=== PATIENT | male | born 1950 | race Caucasian/White ===

== ENCOUNTER → 2017-02-12 | Outpatient (CLI) | payer OTHER ==
[~2017-02-12] MED LIST: CLOP1TAB5 PO; PRS5 PO; TAMS0.4C38 PO
[2017-02-12 17:58] LABS: ALT/SGPT 30 U/L (12-78); AST/SGOT 16 U/L (15-37)
== END | disposition home or self-care (01) ==
LOC: C.LABBFT 10:26
PROVIDERS: ATTEND Nurse Practitioner
DX: E78.5 Hyperlipidemia, unspecified (principal)

== ENCOUNTER → 2017-05-05 | Outpatient (CLI) | payer OTHER ==
[2017-05-05 13:03] LABS: ALT/SGPT 25 U/L (12-78); BLOOD UREA NITROGEN 12 mg/dl (7-18); BUN/CREATININE RATIO 13.2 (10-20); CARBON DIOXIDE 25 mmol/L (21-32); CHLORIDE 108 mmol/L (98-107); CREATININE 0.87 mg/dl (0.60-1.40); GLUCOSE 93 mg/dl (70-99); POTASSIUM 4.1 mmol/L (3.5-5.1); SODIUM 141 mmol/L (136-145)
[2017-05-05 13:08] LABS: ALKALINE PHOSPHATASE 84 U/L (45-117); AST/SGOT 18 U/L (15-37); PROSTATE SPECIFIC ANTIGEN 0.732 ng/ml (0.000-4.000)
[2017-05-05 13:12] LABS: CALCIUM 9.9 mg/dl (8.5-10.1)
== END | disposition home or self-care (01) ==
LOC: C.LABBFT 07:59
PROVIDERS: ATTEND Nurse Practitioner
DX: E78.5 Hyperlipidemia, unspecified (principal); N40.1 Benign prostatic hyperplasia with lower urinary tract symptoms

== ENCOUNTER 2021-12-31 09:28 | Inpatient (IN) ==
[2021-12-31] MEDS ORDERED: SODIUM CHLORIDE 0.9% 1000ML 1,000 ML IV STA (10:01)
[2021-12-31] MEDS ORDERED: SODIUM CHLORIDE 0.9% 500 ML IV STA (10:01)
[2021-12-31 10:27] LABS: Hematocrit (blood only) 44.8 % (42-52); Hemoglobin 15.3 g/dL (14.0-18.0); Immature Granulocytes # (auto) 0.02 K/uL (0.00-0.02); Immature Granulocytes % (auto) 0.3 %; Lymphocytes # (auto) 0.73 K/uL (1.2-3.4); Lymphocytes % (auto) 9.5 %; Mean Corpuscular Hemoglobin 31.2 pg (25-34); Mean Corpuscular Hgb Conc 34.2 g/dL (32-36); Mean Corpuscular Volume 91.4 fL (80-100); Mean Platelet Volume 10.7 fL (7.4-10.4); Monocytes # (auto) 0.17 K/uL (0.11-0.59); Monocytes % (auto) 2.2 %; Neutrophils # (auto) 6.74 K/uL (1.4-6.5); Platelet Count 225 K/uL (130-400); RDW Standard Deviation 47.3 fL (36.4-46.3); White Blood Count 7.66 K/uL (4.8-10.8)
[2021-12-31] MEDS ORDERED: ALBUT/IPRATROP 3MG/0.5MG NEB 3 ML VIAL NEB STA (10:42)
[2021-12-31] MEDS ORDERED: dexAMETHasone**PF** 10 MG/ML VIAL IV ONE (10:42)
--- NOTE | 2021-12-31 10:54 | XRay Report ---
XR chest 1V portable HISTORY: 71 years-old Male Fever acute fever COMPARISON: None TECHNIQUE: Portable AP view of the chest FINDINGS: The cardiac silhouette is mildly enlarged. No pneumothorax or large pleural effusion. Airspace opacit ies are most pronounced in the midlung distributions and to a lesser extent within the lower lobes. P ossible underlying pulmonary emphysema. Degenerative changes of the shoulders and spine. IMPRESSION: Bilateral airspace opacities are suggestive of multifocal pneumonia. ACT 112: Negative or not required by law. The above report was generated using voice recognition software. It may contain grammatical, syntax o r spelling errors. Electronically signed by: Yovani Malone M.D. 12/31/2021 10:53 AM
[2021-12-31 11:04] LABS: Troponin I 0.03 ng/ml (0-0.04)
[2021-12-31 11:21] LABS: Albumin Globulin Ratio 1.1 (0.9-2); Albumin Level 3.5 gm/dl (3.4-5.0); BUN Creatinine Ratio 19.9 (10-20); Bilirubin,Total 0.7 mg/dl (0.2-1.0); Calcium 9.2 mg/dl (8.5-10.1); Est GFR (African American) 54.5 ml/min; Globulin 3.3 gm/dl (2.5-4.0); Potassium 3.9 mmol/L (3.5-5.1); Total Protein 6.8 gm/dl (6.0-8.3)
[2021-12-31] MEDS ORDERED: ACETAMINOPHEN 1,000 MG/100 ML VIAL IV STA (11:27)
[2021-12-31 11:34] LABS: Influenza A virus by PCR Negative (Neg); Influenza B virus by PCR Negative (Neg); RSV by PCR Negative (Neg)
[2021-12-31 11:42] LABS: SARS CoV2 RNA(COVID-19) InHosp POSITIVE (Negative)
--- NOTE | 2021-12-31 11:57 | Emergency Department Note ---
Impression & Plan Acute respiratory failure with hypoxia, Pneumonia due to severe acute respiratory syndrome coronavirus 2 (SARS-CoV-2) ED Provider Note CHIEF COMPLAINT: Fever, shortness of breath HISTORY OF PRESENT ILLNESS: This 71 yo [place]an speaking male patient presents to the emergency department with c/o SOB, fever. Patient has a family member at the bedside who is translating. He has apparently been ill with an upper respiratory infection for the better part of 3 weeks but only 3 to 4 days ago be félix to have some increased shortness of breath. He has noticed "dizziness" when he walks up the basement stairs. He denies any chest pain, vomiting or diarrhea. He is not vaccinated against COVID-19 and did recently have an exposure to somebody who likely did have COVID but was not tested. Patient has had an intermittent cough. He does not normally wear oxygen. REVIEW OF SYSTEMS: A review of systems was performed with positives and pertinent negatives listed in the history of present illness. 10 systems were reviewed and are otherwise negative. ALLERGIES: see below MEDICATIONS: see below PMH: see below SOCIAL HISTORY: see below DDx: Reactive airway disease, pneumonia, pneumothorax, COPD, CHF, infections, cardiac ischemia, pulmonary embolism, musculoskeletal, gastrointestinal, as well as other pathologies. PHYSICAL EXAM: Vital signs reviewed. General: Somewhat ill-appearing 71-year-old male, in no significant distress. Increased WOB on n/c O2 HEENT: No scleral icterus, PERRLA, neck supple. Atraumatic. Cardiovascular: Tachycardic rate and rhythm, no extra sounds. Pulmonary: Coarse breath sounds to auscultation bilaterally, normal work of breathing. Abdomen: Soft, nontender, nondistended, positive bowel sounds. Musculoskeletal: Atraumatic, no peripheral edema. Neurologic: Patient awake alert and oriented x 3, speech is clear, Skin: Warm, dry, no rash EMERGENCY DEPARTMENT COURSE/MDM: This patient was evaluated and appeared to be in no significant distress. Patient was resting comfortably on nasal cannula oxygen at 4 L. Chest x-ray was performed and reveals patchy bilateral infiltrates. Patient has tested positive for COVID-19. Laboratory work is consistent. Patient has been medicated with 1 g of IV acetaminophen for fever, IV dexamethasone and a DuoNeb treatment. He remained stable on nasal cannula oxygen and case was discussed with the hospitalist service. Patient is aware of the plan for admission and agrees. MONITORING: An order for cardiac monitoring was placed and the patient is noted to be in a sinus tachycardia at 117 beats per minute. RADIOLOGY: see below EKG: sinus tachycardia at 104 bpm. left axis deviation, previous inferior infarct, QTc 426. No PVC, no PAC. normal ST segments. nonspecific T wave abnl laterally. DISPOSITION: Admit I have personally spent 32 minutes of critical care time in the direct alek gement of this patient. This was a life/limb threatening event. This 32 minutes is in excess of all separately billable procedures. Past Med/Surg History Medical History Benign prostatic hyperplasia with urinary obstruction Deep vein thrombosis many years ago> [place] Esophageal dysphagia [place] filter in place follows Dr. 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 Beliefs That Will Affect Care: None Current Living Situation: Spouse Other Information That Helps Us Care for You: No Feels Safe at Home: Yes Assistive Devices: Oxygen - Continuous Allergies Allergies Allergy/AdvReac Type Severity Reaction Status Date / Time No Known Allergies Allergy Mild Verified 12/31/21 10:11 Home Meds Home Medications Medication Instructions Recorded Confirmed aspirin 81 mg tablet,delayed 81 mg PO DAILY 12/31/21 12/31/21 release omeprazole 20 mg capsule,delayed 20 mg PO DAILY 12/31/21 12/31/21 release Previous Rx's Medication Instructions Recorded atorvastatin 10 mg tablet 10 mg PO QAM #90 tab 06/27/21 tamsulosin 0.4 mg capsule 0.4 mg PO QAM #90 cap 07/09/21 finasteride 5 mg tablet 5 mg PO QAM #90 tab 08/09/21 Results & Data (ED) Vital Signs Vital Signs - 24 hr 12/31/21 09:43 12/31/21 10:14 12/31/21 10:44 Temperature 38 C H Temperature Source Temporal Artery Scan Pulse Rate 117 H Pulse Rate [Left Finger] 105 H Pulse Rhythm [Left Finger] Regular Pulse Strength [Left Finger] Normal Respiratory Rate 22 24 Respiratory Effort / Characteristics Non-Labored Spontaneous Non-Labored Spontaneous Respiratory Depth Normal Normal Respiratory Pattern Regular Regular Blood Pressure 119/66 Blood Pressure [Right Arm] 146/83 H Blood Pressure Mean 83 Blood Pressure Mean [Right Arm] 104 Blood Pressure Position Sitting Blood Pressure Position [Right Arm] Sitting Pulse Oximetry 88 L 94 86 L Oxygen Delivery Method Room Air Nasal Cannula Room Air Oxygen Flow Rate 4 0 Sepsis Recent Fever Within 48 Hours Yes Sepsis New/Unexplained Change in Mental Status N/A Sepsis Action Taken by Nursing No Action Required Oxygen Flow Rate - Titration 4 Pulse Oximetry Post Tiitration 95 12/31/21 11:25 Temperature 39.6 C H Temperature Source Oral Pulse Rate Pulse Rate [Left Finger] Pulse Rhythm [Left Finger] Pulse Strength [Left Finger] Respiratory Rate Respiratory Effort / Characteristics Respiratory Depth Respiratory Pattern Blood Pressure Blood Pressure [Right Arm] Blood Pressure Mean Blood Pressure Mean [Right Arm] Blood Pressure Position Blood Pressure Position [Right Arm] Pulse Oximetry Oxygen Delivery Method Oxygen Flow Rate Sepsis Recent Fever Within 48 Hours Sepsis New/Unexplained Change in Mental Status Sepsis Action Taken by Nursing Oxygen Flow Rate - Titration Pulse Oximetry Post Tiitration Home Medications Current Medication List: was personally reviewed by me Laboratory Data Attestation: I reviewed the patient's lab results. Result diagrams: 01/03/22 06:18 01/03/22 06:18 Lab Results 12/31/21 12/31/21 12/31/21 Range/Units 10:10 10:10 10:29 WBC 7.66 (4.8-10.8) K/uL RBC 4.90 (4.7-6.1) M/uL Hgb 15.3 (14.0-18.0) g/dL Hct 44.8 (42-52) % MCV 91.4 (80-100) fL MCH 31.2 (25-34) pg MCHC 34.2 (32-36) g/dL RDW Std Deviation 47.3 H (36.4-46.3) fL RDW Coeff of Samantha 14.0 (11.5-14.5) % Plt Count 225 (130-400) K/uL MPV 10.7 H (7.4-10.4) fL Immature Gran % (Auto) 0.3 % Neut % (Auto) 88.0 % Lymph % (Auto) 9.5 % Nicholas % (Auto) 2.2 % Eos % (Auto) 0.0 % Baso % (Auto) 0.0 % Neut # (Auto) 6.74 H (1.4-6.5) K/uL Lymph # (Auto) 0.73 L (1.2-3.4) K/uL Nicholas # (Auto) 0.17 (0.11-0.59) K/uL Eos # (Auto) 0.00 (0-0.5) K/uL Baso # (Auto) 0.00 (0-0.2) K/uL Immature Gran # (Auto) 0.02 (0.00-0.02) K/uL Sodium 133 L (136-145) mmol/L Potassium 3.9 (3.5-5.1) mmol/L Chloride 99 (98-107) mmol/L Carbon Dioxide 22 (21-32) mmol/L Anion Gap 12 H (3-11) BUN 29 H (6-23) mg/dl Creatinine 1.46 H (0.6-1.4) mg/dl Est Cr Clr Drug Dosing 48.0 ml/min Est GFR ( Amer) 54.5 ml/min Est GFR (Non-Af Amer) 47.0 ml/min BUN/Creatinine Ratio 19.9 (10-20) Glucose 150 H (70-99(Fasting)) mg/dl Lactate 0.9 (0.4-2.0) mmol/L Calcium 9.2 (8.5-10.1) mg/dl Total Bilirubin 0.7 (0.2-1.0) mg/dl AST 58 H (13-39) U/L ALT 60 H (7-52) U/L Alkaline Phosphatase 58 (34-104) U/L Troponin I 0.03 (0-0.04) ng/ml Total Protein 6.8 (6.0-8.3) gm/dl Albumin 3.5 (3.4-5.0) gm/dl Globulin 3.3 (2.5-4.0) gm/dl Albumin/Globulin Ratio 1.1 (0.9-2) SARS-CoV-2 (PCR) (Negative) Influenza Type A (PCR) (Neg) Influenza Type B (PCR) (Neg) RSV (RT-PCR) (Neg) 12/31/21 Range/Units 10:35 WBC (4.8-10.8) K/uL RBC (4.7-6.1) M/uL Hgb (14.0-18.0) g/dL Hct (42-52) % MCV (80-100) fL MCH (25-34) pg MCHC (32-36) g/dL RDW Std Deviation (36.4-46.3) fL RDW Coeff of Samantha (11.5-14.5) % Plt Count (130-400) K/uL MPV (7.4-10.4) fL Immature Gran % (Auto) % Neut % (Auto) % Lymph % (Auto) % Nicholas % (Auto) % Eos % (Auto) % Baso % (Auto) % Neut # (Auto) (1.4-6.5) K/uL Lymph # (Auto) (1.2-3.4) K/uL Nicholas # (Auto) (0.11-0.59) K/uL Eos # (Auto) (0-0.5) K/uL Baso # (Auto) (0-0.2) K/uL Immature Gran # (Auto) (0.00-0.02) K/uL Sodium (136-145) mmol/L Potassium (3.5-5.1) mmol/L Chloride (98-107) mmol/L Carbon Dioxide (21-32) mmol/L Anion Gap (3-11) BUN (6-23) mg/dl Creatinine (0.6-1.4) mg/dl Est Cr Clr Drug Dosing ml/min Est GFR ( Amer) ml/min Est GFR (Non-Af Amer) ml/min BUN/Creatinine Ratio (10-20) Glucose (70-99(Fasting)) mg/dl Lactate (0.4-2.0) mmol/L Calcium (8.5-10.1) mg/dl Total Bilirubin (0.2-1.0) mg/dl AST (13-39) U/L ALT (7-52) U/L Alkaline Phosphatase (34-104) U/L Troponin I (0-0.04) ng/ml Total Protein (6.0-8.3) gm/dl Albumin (3.4-5.0) gm/dl Globulin (2.5-4.0) gm/dl Albumin/Globulin Ratio (0.9-2) SARS-CoV-2 (PCR) POSITIVE A* (Negative) Influenza Type A (PCR) Negative (Neg) Influenza Type B (PCR) Negative (Neg) RSV (RT-PCR) Negative (Neg) Administered Medications Acetaminophen (Acetaminophen 325 Mg Tab) 650 mg PO Q4H PRN PRN Reason: Pain or Fever Stop: 01/30/22 16:02 Last Admin: 01/03/22 08:16 Dose: 650 mg Documented by: [id number] Admin: 01/01/22 04:31 Dose: 650 mg Documented by: [id number] Admin: 12/31/21 20:15 Dose: 650 mg Documented by: [id number] Aspirin (Aspirin 81 Mg Ectab) 81 mg PO DAILY [facility] Stop: 01/31/22 08:59 Last Admin: 01/03/22 08:17 Dose: 81 mg Documented by: [id number] Admin: 01/02/22 09:37 Dose: 81 mg Documented by: [id number] Admin: 01/01/22 08:57 Dose: 81 mg Documented by: [id number] Atorvastatin Calcium (Atorvastatin 10 Mg Tab) [facility] [place]: 01/31/22 08:59 Last Admin: 01/03/22 08:17 Dose: 10 mg Documented by: [id number] Admin: 01/02/22 09:37 Dose: 10 mg Documented by: [id number] Admin: 01/01/22 08:57 Dose: 10 mg Documented by: [id number] Finasteride (Finasteride 5 Mg Tab) 5 mg PO QAM [facility] Stop: 01/31/22 08:59 Last Admin: 01/03/22 08:17 Dose: 5 mg Documented by: [id number] Admin: 01/02/22 09:37 Dose: 5 mg Documented by: [id number] Admin: 01/01/22 08:57 Dose: 5 mg Documented by: [id number] Amiodarone HCl/Dextrose (Nexterone / D5w) 360 mg in 200 mls @ 16.667 mls/hr IV .Q12H [facility] Stop: 01/31/22 19:29 Last Infusion: 01/03/22 06:58 Dose: 5 mg/min, 166.7 mls/hr Documented by: [id number] Cosigned by: [id number] Admin: 01/02/22 23:45 Dose: 0.5 mg/min, 16.7 mls/hr Documented by: [id number] Cosigned by: [id number] Infusion: 01/02/22 23:45 Dose: 0.5 mg/min, 16.7 mls/hr Documented by: [id number] Cosigned by: [id number] Infusion: 01/02/22 19:08 Dose: 0.5 mg/min, 16.7 mls/hr Documented by: [id number] Cosigned by: [id number] Admin: 01/02/22 12:54 Dose: 0.5 mg/min, 16.7 mls/hr Documented by: [id number] Cosigned by: [id number] Infusion: 01/02/22 07:50 Dose: 0.5 mg/min, 16.7 mls/hr Documented by: [id number] Cosigned by: [id number] Infusion: 01/02/22 07:04 Dose: 0.5 mg/min, 16.7 mls/hr Documented by: [id number] Cosigned by: [id number] Admin: 01/02/22 05:55 Dose: Not Given Documented by: [id number] Admin: 01/01/22 19:51 Dose: 0.5 mg/min, 16.7 mls/hr Documented by: [id number] Cosigned by: [id number] Dexamethasone 10 mg/ Syringe 2.5 mls @ 1 mls/min IV QAM [facility]END[facility] Stop: 01/10/22 09:01 Last Admin: 01/03/22 08:17 Dose: 1 mls/min Documented by: [id number] Admin: 01/02/22 09:37 Dose: 1 mls/min Documented by: [id number] Heparin Sodium/Dextrose (Heparin Sodium/Dextrose) 25,000 units in 500 mls @ 14 mls/hr IV .Q24H [facility]; Protocol Stop: 01/31/22 14:14 Last Titration: 01/03/22 09:12 Dose: 700 units/hr, 14 mls/hr Documented by: [id number] Cosigned by: [id number] Titration: 01/03/22 08:10 Dose: 0 units/hr, 0 mls/hr Documented by: [id number] Cosigned by: [id number] Titration: 01/03/22 06:57 Dose: 950 units/hr, 19 mls/hr Documented by: [id number] Cosigned by: [id number] Titration: 01/02/22 19:12 Dose: 950 units/hr, 19 mls/hr Documented by: [id number] Cosigned by: [id number] Admin: 01/02/22 18:26 Dose: 950 units/hr, 19 mls/hr Documented by: [id number] Cosigned by: [id number] Titration: 01/02/22 17:49 Dose: 950 units/hr, 19 mls/hr Documented by: [id number] Cosigned by: [id number] Titration: 01/02/22 10:51 Dose: 950 units/hr, 19 mls/hr Documented by: [id number] Cosigned by: [id number] Titration: 01/02/22 07:05 Dose: 1,000 units/hr, 20 mls/hr Documented by: [id number] Cosigned by: [id number] Titration: 01/02/22 03:38 Dose: 1,000 units/hr, 20 mls/hr Documented by: [id number] Cosigned by: [id number] Titration: 01/02/22 00:08 Dose: 0 units/hr, 0 mls/hr Documented by: [id number] Cosigned by: [id number] Titration: 01/01/22 19:34 Dose: 1,400 units/hr, 28 mls/hr Documented by: [id number] Cosigned by: [id number] Titration: 01/01/22 18:58 Dose: 1,400 units/hr, 28 mls/hr Documented by: [id number] Cosigned by: [id number] Admin: 01/01/22 16:09 Dose: 1,400 units/hr, 28 mls/hr Documented by: [id number] Cosigned by: [id number] Insulin Aspart (Insulin Aspart Per Unit) 0 units SC ACHS [facility] Stop: 02/01/22 20:59 Last Admin: 01/03/22 08:00 Dose: 2 units Documented by: [id number] Cosigned by: [id number] Admin: 01/02/22 20:44 Dose: 3 units Documented by: [id number] Cosigned by: [id number] Tamsulosin HCl (Tamsulosin Hcl 0.4 Mg Cap) 0.4 mg PO QAM [facility] Stop: 01/31/22 08:59 Last Admin: 01/03/22 08:17 Dose: 0.4 mg Documented by: [id number] Admin: 01/02/22 09:37 Dose: 0.4 mg Documented by: [id number] Admin: 01/01/22 08:57 Dose: 0.4 mg Documented by: [id number] Discontinued Medications Albuterol (Albut/Ipratrop 3mg/0.5mg Neb 3 Ml Vial) 3 ml NEB NOW STA; Protocol Stop: 12/31/21 10:43 Last Admin: 12/31/21 11:19 Dose: 3 ml Documented by: [id number] Albuterol (Albut/Ipratrop 3mg/0.5mg Neb 3 Ml Vial) [facility]; Protocol Stop: 01/30/22 15:14 Last Admin: 12/31/21 16:06 Dose: Not Given Documented by: [id number] Dexamethasone Sodium Phosphate (DexamethasonePf 10 Mg/Ml Vial) 6 mg IV NOW ONE Stop: 12/31/21 10:43 Last Admin: 12/31/21 11:18 Dose: 6 mg Documented by: [id number] Diltiazem HCl (Diltiazem Hcl 5 Mg/Ml 5 Ml Vial) 10 mg IV NOW STA Stop: 01/01/22 13:12 Last Admin: 01/01/22 13:45 Dose: Not Given Documented by: [id number] Enoxaparin Sodium (Enoxaparin Inj 40 Mg/0.4 Ml Syr) 40 mg SQ Q24H [facility] Stop: 01/30/22 16:29 Last Admin: 01/01/22 16:27 Dose: 40 mg Documented by: [id number] Admin: 12/31/21 17:24 Dose: 40 mg Documented by: [id number] Furosemide (Furosemide 40 Mg/4 Ml Vial) 40 mg IV 2030 ONE Stop: 01/01/22 20:31 Last Admin: 01/01/22 21:50 Dose: 40 mg Documented by: [id number] Heparin Sodium (Porcine) (Heparin Sod (Porcine) 1000 Unit/Ml) 6,000 units IV NOW ONE Stop: 01/01/22 15:46 Last Admin: 01/01/22 16:12 Dose: 6,000 units Documented by: [id number] Cosigned by: [id number] Sodium Chloride (Nss 1000ml) 1,000 mls @ 125 mls/hr IV .Q8H STA Stop: 12/31/21 18:00 Last Infusion: 12/31/21 16:05 Dose: 0 mls/hr Documented by: [id number] Admin: 12/31/21 10:20 Dose: 125 mls/hr Documented by: [id number] Sodium Chloride (Nss) 500 mls @ 999 mls/hr IV .Q31M STA Stop: 12/31/21 10:31 Last Infusion: 12/31/21 11:52 Dose: 0 mls/hr Documented by: [id number] Admin: 12/31/21 10:20 Dose: 999 mls/hr Documented by: [id number] Acetaminophen (Ofirmev) 1,000 mg in 100 mls @ 400 mls/hr IV NOW STA Stop: 12/31/21 11:41 Last Infusion: 12/31/21 11:51 Dose: 0 mls/hr Documented by: [id number] Admin: 12/31/21 11:33 Dose: 400 mls/hr Documented by: [id number] Remdesivir 200 mg/ Sodium (Chloride) 250 mls @ 125 mls/hr IV ONE STA; Protocol Stop: 12/31/21 14:45 Last Infusion: 12/31/21 16:05 Dose: 0 mls/hr Documented by: [id number] Admin: 12/31/21 13:41 Dose: 125 mls/hr Documented by: [id number] Dexamethasone 6 mg/ Syringe 1.5 mls @ 1 mls/min IV DAILY [facility] Stop: 01/31/22 08:59 Last Admin: 01/01/22 08:57 Dose: 1 mls/min Documented by: [id number] Remdesivir 100 mg/ Sodium (Chloride) 250 mls @ 250 mls/hr IV Q24H [facility] Stop: 01/04/22 12:59 Last Admin: 01/01/22 13:45 Dose: Not Given Documented by: [id number] Ceftriaxone Sodium 1,000 mg/ (Dextrose) 50 mls @ 100 mls/hr IV DAILY@1600 [facility]; Protocol Stop: 01/07/22 16:29 Last Infusion: 12/31/21 17:55 Dose: 0 mls/hr Documented by: [id number] Admin: 12/31/21 17:23 Dose: 100 mls/hr Documented by: [id number] Azithromycin 500 mg/ Dextrose 255 mls @ 125 mls/hr IV Q24H [facility]; Protocol Stop: 01/08/22 16:59 Last Infusion: 01/02/22 19:58 Dose: 0 mls/hr Documented by: [id number] Admin: 01/02/22 17:38 Dose: 125 mls/hr Documented by: [id number] Infusion: 01/01/22 21:43 Dose: 0 mls/hr Documented by: [id number] Admin: 01/01/22 17:07 Dose: 125 mls/hr Documented by: [id number] Ceftriaxone Sodium 1,000 mg/ (Dextrose) 50 mls @ 100 mls/hr IV Q24H [facility]; Protocol Stop: 01/07/22 16:59 Last Infusion: 01/02/22 17:37 Dose: 0 mls/hr Documented by: [id number] Admin: 01/02/22 16:23 Dose: 100 mls/hr Documented by: [id number] Infusion: 01/01/22 16:59 Dose: 0 mls/hr Documented by: [id number] Admin: 01/01/22 16:26 Dose: 100 mls/hr Documented by: [id number] Sodium Chloride (Nss 1000ml) 500 mls @ 999 mls/hr IV .Q31M ONE Stop: 01/01/22 13:43 Last Infusion: 01/01/22 14:48 Dose: 0 mls/hr Documented by: [id number] Admin: 01/01/22 13:46 Dose: 999 mls/hr Documented by: [id number] Amiodarone HCl/Dextrose (Nexterone / D5w) 150 mg in 100 mls @ 600 mls/hr IV NOW STA Stop: 01/01/22 13:31 Last Infusion: 01/01/22 13:55 Dose: 0 mls/hr Documented by: [id number] Cosigned by: [id number] Admin: 01/01/22 13:41 Dose: 600 mls/hr Documented by: [id number] Cosigned by: [id number] Amiodarone HCl/Dextrose (Nexterone / D5w) 360 mg in 200 mls @ 33.333 mls/hr IV ONE ONE Stop: 01/01/22 19:32 Last Infusion: 01/01/22 19:51 Dose: 0 mls/hr Documented by: [id number] Cosigned by: [id number] Infusion: 01/01/22 19:33 Dose: 33.3 mls/hr Documented by: [id number] Cosigned by: [id number] Admin: 01/01/22 13:44 Dose: 33.3 mls/hr Documented by: [id number] Cosigned by: [id number] Dexamethasone 4 mg/ Syringe 1 mls @ 1 mls/min IV ONE ONE Stop: 01/01/22 14:31 Last Admin: 01/01/22 16:11 Dose: 1 mls/min Documented by: [id number] Amiodarone HCl/Dextrose (Nexterone / D5w) 150 mg in 100 mls @ 600 mls/hr IV NOW STA Stop: 01/01/22 15:26 Last Infusion: 01/01/22 16:08 Dose: 0 mls/hr Documented by: [id number] Cosigned by: [id number] Admin: 01/01/22 15:26 Dose: 600 mls/hr Documented by: [id number] Cosigned by: [id number] Lorazepam (Ativan) 0.5 mg in 1 mls @ 1 mls/min IV NOW STA Stop: 01/01/22 15:18 Last Admin: 01/01/22 15:25 Dose: 1 mls/min Documented by: [id number] Digoxin 250 mcg/ Syringe 10 mls @ 2 mls/min IV ONE ONE Stop: 01/01/22 16:09 Last Admin: 01/01/22 16:12 Dose: 2 mls/min Documented by: [id number] Digoxin 250 mcg/ Syringe 10 mls @ 2 mls/min IV NOW STA Stop: 01/01/22 18:12 Last Admin: 01/01/22 23:06 Dose: Not Given Documented by: [id number] Amiodarone HCl/Dextrose (Nexterone / D5w) 150 mg in 100 mls @ 600 mls/hr IV NOW STA Stop: 01/01/22 19:15 Last Admin: 01/01/22 23:05 Dose: Not Given Documented by: [id number] Phenylephrine HCl 20 mg/ (Dextrose) 502 mls @ 59.111 mls/hr IV .Q8H30M [facility]; Protocol Stop: 01/31/22 19:29 Last Titration: 01/03/22 06:57 Dose: 0.5 mcg/kg/min, 59.1 mls/hr Documented by: [id number] Cosigned by: [id number] Admin: 01/03/22 05:59 Dose: 0.5 mcg/kg/min, 59.1 mls/hr Documented by: [id number] Cosigned by: [id number] Titration: 01/03/22 05:49 Dose: 0.5 mcg/kg/min, 59.1 mls/hr Documented by: [id number] Cosigned by: [id number] Titration: 01/03/22 05:46 Dose: 0.5 mcg/kg/min, 59.1 mls/hr Documented by: [id number] Admin: 01/03/22 02:08 Dose: Not Given Documented by: [id number] Admin: 01/03/22 00:15 Dose: Not Given Documented by: [id number] Admin: 01/03/22 00:15 Dose: Not Given Documented by: [id number] Admin: 01/02/22 23:53 Dose: Not Given Documented by: [id number] Admin: 01/02/22 23:44 Dose: 0.7 mcg/kg/min, 82.8 mls/hr Documented by: [id number] Cosigned by: [id number] Titration: 01/02/22 23:08 Dose: 0.9 mcg/kg/min, 106.4 mls/hr Documented by: [id number] Cosigned by: [id number] Titration: 01/02/22 19:08 Dose: 0.9 mcg/kg/min, 106.4 mls/hr Documented by: [id number] Cosigned by: [id number] Admin: 01/02/22 18:24 Dose: 0.9 mcg/kg/min, 106.4 mls/hr Documented by: [id number] Cosigned by: [id number] Titration: 01/02/22 17:37 Dose: 0.9 mcg/kg/min, 106.4 mls/hr Documented by: [id number] Cosigned by: [id number] Admin: 01/02/22 12:53 Dose: 0.9 mcg/kg/min, 106.4 mls/hr Documented by: [id number] Cosigned by: [id number] Titration: 01/02/22 12:53 Dose: 0.9 mcg/kg/min, 106.4 mls/hr Documented by: [id number] Cosigned by: [id number] Titration: 01/02/22 11:59 Dose: 0.9 mcg/kg/min, 106.4 mls/hr Documented by: [id number] Admin: 01/02/22 09:30 Dose: 1.1 mcg/kg/min, 130 mls/hr Documented by: [id number] Cosigned by: [id number] Titration: 01/02/22 08:34 Dose: 1.1 mcg/kg/min, 130 mls/hr Documented by: [id number] Cosigned by: [id number] Titration: 01/02/22 07:04 Dose: 1.1 mcg/kg/min, 130 mls/hr Documented by: [id number] Cosigned by: [id number] Admin: 01/02/22 04:10 Dose: 0.9 mcg/kg/min, 106.4 mls/hr Documented by: [id number] Cosigned by: [id number] Titration: 01/02/22 02:15 Dose: 0.9 mcg/kg/min, 106.4 mls/hr Documented by: [id number] Cosigned by: [id number] Titration: 01/01/22 23:45 Dose: 0.9 mcg/kg/min, 106.4 mls/hr Documented by: [id number] Titration: 01/01/22 23:30 Dose: 0.7 mcg/kg/min, 82.8 mls/hr Documented by: [id number] Admin: 01/01/22 19:50 Dose: 0.5 mcg/kg/min, 59.1 mls/hr Documented by: [id number] Cosigned by: [id number] Diltiazem HCl 125 mg/ Dextrose 125 mls @ 5 mls/hr IV .Q24H [facility]; Protocol Stop: 01/31/22 19:29 Last Titration: 01/03/22 06:58 Dose: 5 mg/hr, 5 mls/hr Documented by: [id number] Cosigned by: [id number] Admin: 01/03/22 05:58 Dose: Not Given Documented by: [id number] Titration: 01/03/22 05:47 Dose: 5 mg/hr, 5 mls/hr Documented by: [id number] Cosigned by: [id number] Admin: 01/03/22 04:59 Dose: Not Given Documented by: [id number] Admin: 01/02/22 23:53 Dose: Not Given Documented by: [id number] Titration: 01/02/22 23:44 Dose: 10 mg/hr, 10 mls/hr Documented by: [id number] Cosigned by: [id number] Admin: 01/02/22 23:44 Dose: 10 mg/hr, 10 mls/hr Documented by: [id number] Cosigned by: [id number] Titration: 01/02/22 19:08 Dose: 10 mg/hr, 10 mls/hr Documented by: [id number] Cosigned by: [id number] Titration: 01/02/22 15:18 Dose: 10 mg/hr, 10 mls/hr Documented by: [id number] Cosigned by: [id number] Admin: 01/02/22 12:53 Dose: 15 mg/hr, 15 mls/hr Documented by: [id number] Cosigned by: [id number] Titration: 01/02/22 12:30 Dose: 15 mg/hr, 15 mls/hr Documented by: [id number] Cosigned by: [id number] Titration: 01/02/22 07:06 Dose: 15 mg/hr, 15 mls/hr Documented by: [id number] Cosigned by: [id number] Admin: 01/02/22 04:10 Dose: 15 mg/hr, 15 mls/hr Documented by: [id number] Cosigned by: [id number] Titration: 01/02/22 04:10 Dose: 15 mg/hr, 15 mls/hr Documented by: [id number] Cosigned by: [id number] Titration: 01/01/22 21:52 Dose: 15 mg/hr, 15 mls/hr Documented by: [id number] Cosigned by: [id number] Titration: 01/01/22 20:51 Dose: 10 mg/hr, 10 mls/hr Documented by: [id number] Cosigned by: [id number] Admin: 01/01/22 19:51 Dose: 5 mg/hr, 5 mls/hr Documented by: [id number] Cosigned by: [id number] Insulin Aspart (Insulin Aspart Per Unit) 0 units SC Q6 ERENDIRA Stop: 02/01/22 11:59 Last Admin: 01/02/22 18:59 Dose: 7 units Documented by: [id number] Cosigned by: [id number] Admin: 01/02/22 12:00 Dose: 3 units Documented by: [id number] Cosigned by: [id number] Ioversol (Optiray 320 125ml) 120 ml IV ONCE ONE Stop: 01/01/22 11:51 Last Admin: 01/01/22 11:50 Dose: 120 ml Documented by: [id number] Metoprolol Tartrate (Metoprolol Tartrate 1 Mg/Ml Vial) Confirm Administered Dose 5 mg IV .STK-MED ONE Stop: 01/01/22 12:23 Last Admin: 01/01/22 12:30 Dose: 5 mg Documented by: [id number] Metoprolol Tartrate (Metoprolol Tartrate 1 Mg/Ml Vial) 5 mg IV NOW STA Stop: 01/01/22 12:26 Last Admin: 01/01/22 13:22 Dose: Not Given Documented by: [id number] Metoprolol Tartrate (Metoprolol Tartrate 1 Mg/Ml Vial) 5 mg IV NOW STA Stop: 01/01/22 12:41 Last Admin: 01/01/22 13:07 Dose: 5 mg Documented by: [id number] Metoprolol Tartrate (Metoprolol Tartrate 1 Mg/Ml Vial) 5 mg IV Q6 ERENDIRA Stop: 02/01/22 00:00 Last Admin: 01/02/22 12:15 Dose: 5 mg Documented by: [id number] Admin: 01/02/22 05:49 Dose: 5 mg Documented by: [id number] Admin: 01/01/22 23:26 Dose: 5 mg Documented by: [id number] Midazolam HCl (Midazolam Hcl 1 Mg/Ml 2ml Vial) 2 mg IV NOW STA Stop: 01/01/22 18:24 Last Admin: 01/01/22 18:51 Dose: 2 mg Documented by: [id number] Pantoprazole Sodium (Pantoprazole 40 Mg Tab) 40 mg PO DAILY ERENDIRA; Protocol Stop: 01/31/22 08:59 Last Admin: 01/02/22 09:37 Dose: 40 mg Documented by: [id number] Admin: 01/01/22 08:57 Dose: 40 mg Documented by: [id number] Imaging Data Radiologist's Impression: Chest X-Ray 12/31/21 10:01 XR chest 1V portable HISTORY: 71 years-old Male Fever acute fever COMPARISON: None TECHNIQUE: Portable AP view of the chest FINDINGS: The cardiac silhouette is mildly enlarged. No pneumothorax or large pleural effusion. Airspace opacities are most pronounced in the midlung distributions and to a lesser extent within the lower lobes. Possible underlying pulmonary emphysema. Degenerative changes of the shoulders and spine. IMPRESSION: Bilateral airspace opacities are suggestive of multifocal pneumonia. ACT 112: Negative or not required by law. The above report was generated using voice recognition software. It may contain grammatical, syntax or spelling errors. Electronically signed by: Yovani Malone M.D. 12/31/2021 10:53 AM Discharge Plan Visit Data Chief Complaint: Illness Stated Complaint: FEVER,CONGESTION ED Provider: Alma Pearson Discharge Problem: Acute respiratory failure with hypoxia, Pneumonia due to severe acute respirato ry syndrome coronavirus 2 (SARS-CoV-2) Patient Disposition: Admitted As Inpatient Discharge Instructions Interventions: ED Discharge Assessment Last Done: 12/31/21 14:50
--- NOTE | 2021-12-31 12:37 | History & Physical Report ---
Date of Service December 31, 2021 Assessment & Plan (1) Acute respiratory failure with hypoxia: Plan: Patient with acute respiratory failure secondary to Covid pneumonia Is currently on 6 L Ventimask, can try to treat as necessary Patient is agreeable to BiPAP/intubation if necessary (2) COVID-19: Plan: Patient was started on dexamethasone, can continue this Will continue duo nebs as well Patient may be out of the window for remdesivir secondary to symptoms, but will order and follow LFTs Will start antibiotic coverage for bacterial pneumonia superinfection with Rocephin and Zithromax DVT ppx with lovenox (3) Hyperlipidemia: Plan: continue atorvastatin (4) Enlarged prostate: Plan: Continue tamsulosin and finasteride History of Present Illness Chief Complaint: SOB Primary Care Provider: Linwood Hoyt MD This is a 71-year-old male with past medical history of hyperlipidemia, BPH, and tobacco use that presents today with fever and shortness of breath. Patient is pleasant but speaks very little Pashto. Daughter is at bedside translating from Marshallese. She tells me that the patient lives alone with his . Both have been sick recently and was suspected that they both had Covid. However, they did not seek medical attention at the time. The recovered but the patient has been slowly worsening. She describes the symptoms as starting with some upper respiratory issues with cough and congestion. He does have a chronic, mildly productive cough secondary to his smoking. He has been having worsening appetite and has lost approximately 25 pounds in the past several weeks. The shortness of breath started as mild dyspnea on exertion but has continued to worsen. Patient started having fevers today which is what eventually prompted her to bring her father in for evaluation. I do note that the patient was febrile coming to 39.6 C. O2 sat is 86% on room air. He is 91% on 6 L Ventimask. Of note, the patient is unvaccinated. Allergies Allergy/AdvReac Type Severity Reaction Status Date / Time No Known Allergies Allergy Mild Verified 12/31/21 10:11 Home Medications Medication Instructions Recorded Confirmed Type atorvastatin 10 mg tablet 10 mg PO QAM #90 tab 06/27/21 12/31/21 Rx tamsulosin 0.4 mg capsule 0.4 mg PO QAM #90 cap 07/09/21 12/31/21 Rx finasteride 5 mg tablet 5 mg PO QAM #90 tab 08/09/21 12/31/21 Rx aspirin 81 mg tablet,delayed 81 mg PO DAILY 12/31/21 12/31/21 History release omeprazole 20 mg capsule,delayed 20 mg PO DAILY 12/31/21 12/31/21 History release Past Med/Surg History Medical History (Updated 12/31/21 @ 12:38 by Brock Cage DO) Benign prostatic hyperplasia with urinary obstruction Deep vein thrombosis many years ago> Sunni Esophageal dysphagia Sunni filter in place follows Dr. Perez History of Helicobacter pylori infection resolved Hyperlipidemia Surgical History History of colonoscopy History of esophagogastroduodenoscopy (EGD) History of right cataract extraction History of tooth extraction Family History Father Hypertension Brain tumor Mother Hypertension Social History Smoking Status: Current every day smoker Cigarettes Per Day: 1.5 pack every 2 days; Second Hand Exposure: No; Hx Alcohol Use: Yes Alcohol type: beer and wine Hx Substance Use: No Preferred Language: Marshallese Communication Ability: Effective Facility Maintenance Helper Required: Yes Beliefs That Will Affect Care: None Current Living Situation: Spouse Feels Safe at Home: Yes Assistive Devices: Denture - Upper, Denture - Lower and Glasses Review of Systems Constitutional: + fever, + chills, + fatigue, + malaise, + weakness, + anorexia and + weight loss; no weight gain Eyes: as per Subjective / HPI Respiratory: + cough, + chest congestion, + dyspnea on exertion and + sputum production; no dyspnea Cardiovascular: no chest pain, no orthopnea, no palpitations, no lightheadedness and no edema Gastrointestinal: + nausea and + diarrhea/loose stools; no abdominal pain, no vomiting and no constipation Musculoskeletal: no back pain, no neck pain, no joint pain, no stiffness and no myalgia Integumentary: no rash Neurologic: no gait abnormality, no unsteadiness, no falls and no generalized weakness Physical Exam Constitutional: cooperative; no acute distress diaphoretic with any exertion Neck: trachea midline, no thyromegaly Respiratory: normal respiratory effort Auscultation: + diminished lung sounds and + rhonchi; no crackles, no rales and no wheezes Cardiovascular: Rate/Rhythm: regular rate and regular rhythm Heart Sounds: normal S1 and normal S2 Gastrointestinal (Abdomen): Inspection/Auscultation: abdomen normal to inspection Percussion/Palpation: abdomen soft; abdomen nontender, no guarding, abdomen not rigid and no hepatosplenomegaly Skin: no rashes, warm and dry Results & Data Results & Data ([facility]) Vital Signs (Past 12 Hours) Vital Signs Temp Pulse Pulse Resp BP BP Pulse Ox 12/31/21 11:25 39.6 C H 12/31/21 10:44 86 L 12/31/21 10:14 105 H 24 146/83 H 94 12/31/21 09:43 38 C H 117 H 22 119/66 88 L Laboratory Results Laboratory Results WBC 7.66 K/uL (4.8-10.8) 12/31/21 10:10 RBC 4.90 M/uL (4.7-6.1) 12/31/21 10:10 Hgb 15.3 g/dL (14.0-18.0) 12/31/21 10:10 Hct 44.8 % (42-52) 12/31/21 10:10 MCV 91.4 fL (80-100) 12/31/21 10:10 MCH 31.2 pg (25-34) 12/31/21 10:10 MCHC 34.2 g/dL (32-36) 12/31/21 10:10 RDW Std Deviation 47.3 fL (36.4-46.3) H 12/31/21 10:10 RDW Coeff of Samantha 14.0 % (11.5-14.5) 12/31/21 10:10 Plt Count 225 K/uL (130-400) 12/31/21 10:10 MPV 10.7 fL (7.4-10.4) H 12/31/21 10:10 Immature Gran % (Auto) 0.3 % 12/31/21 10:10 Neut % (Auto) 88.0 % 12/31/21 10:10 Lymph % (Auto) 9.5 % 12/31/21 10:10 [place] % (Auto) 2.2 % 12/31/21 10:10 Eos % (Auto) 0.0 % 12/31/21 10:10 Baso % (Auto) 0.0 % 12/31/21 10:10 Neut # (Auto) 6.74 K/uL (1.4-6.5) H 12/31/21 10:10 Lymph # (Auto) 0.73 K/uL (1.2-3.4) L 12/31/21 10:10 [place] # (Auto) 0.17 K/uL (0.11-0.59) 12/31/21 10:10 Eos # (Auto) 0.00 K/uL (0-0.5) 12/31/21 10:10 Baso # (Auto) 0.00 K/uL (0-0.2) 12/31/21 10:10 Immature Gran # (Auto) 0.02 K/uL (0.00-0.02) 12/31/21 10:10 Sodium 133 mmol/L (136-145) L 12/31/21 10:10 Potassium 3.9 mmol/L (3.5-5.1) 12/31/21 10:10 Chloride 99 mmol/L (98-107) 12/31/21 10:10 Carbon Dioxide 22 mmol/L (21-32) 12/31/21 10:10 Anion Gap 12 (3-11) H 12/31/21 10:10 BUN 29 mg/dl (6-23) H 12/31/21 10:10 Creatinine 1.46 mg/dl (0.6-1.4) H 12/31/21 10:10 Est Cr Clr Drug Dosing 48.0 ml/min 12/31/21 10:10 Est GFR ( Amer) 54.5 ml/min 12/31/21 10:10 Est GFR (Non-Af Amer) 47.0 ml/min 12/31/21 10:10 BUN/Creatinine Ratio 19.9 (10-20) 12/31/21 10:10 Glucose 150 mg/dl (70-99(Fasting)) H 12/31/21 10:10 Lactate 0.9 mmol/L (0.4-2.0) 12/31/21 10:29 Calcium 9.2 mg/dl (8.5-10.1) 12/31/21 10:10 Total Bilirubin 0.7 mg/dl (0.2-1.0) 12/31/21 10:10 AST 58 U/L (13-39) H 12/31/21 10:10 ALT 60 U/L (7-52) H 12/31/21 10:10 Alkaline Phosphatase 58 U/L (34-104) 12/31/21 10:10 Troponin I 0.03 ng/ml (0-0.04) 12/31/21 10:10 Total Protein 6.8 gm/dl (6.0-8.3) 12/31/21 10:10 Albumin 3.5 gm/dl (3.4-5.0) 12/31/21 10:10 Globulin 3.3 gm/dl (2.5-4.0) 12/31/21 10:10 Albumin/Globulin Ratio 1.1 (0.9-2) 12/31/21 10:10 SARS-CoV-2 (PCR) POSITIVE (Negative) A* 12/31/21 10:35 Influenza Type A (PCR) Negative (Neg) 12/31/21 10:35 Influenza Type B (PCR) Negative (Neg) 12/31/21 10:35 RSV (RT-PCR) Negative (Neg) 12/31/21 10:35 Impressions Chest X-Ray 12/31/21 10:01 XR chest 1V portable HISTORY: 71 years-old Male Fever acute fever COMPARISON: None TECHNIQUE: Portable AP view of the chest FINDINGS: The cardiac silhouette is mildly enlarged. No pneumothorax or large pleural effusion. Airspace opacities are most pronounced in the midlung distributions and to a lesser extent within the lower lobes. Possible underlying pulmonary emphysema. Degenerative changes of the shoulders and spine. IMPRESSION: Bilateral airspace opacities are suggestive of multifocal pneumonia. ACT 112: Negative or not required by law. The above report was generated using voice recognition software. It may contain grammatical, syntax or spelling errors. Electronically signed by: Yovani Malone M.D. 12/31/2021 10:53 AM PG Care Time/CCT Total # of Minutes Spent Total Time Spent with Patient: Total time spent is greater than 50% in coordination of care (as documented) at patient's floor/unit and/or counseling patient: Coding Level of Care Code 51806 Initial Inpt Care Lvl 3 Diagnoses Hyperlipidemia E78.5 Enlarged prostate N40.0 Acute respiratory failure with hypoxia J96.01 COVID-19 U07.1
[2021-12-31] MEDS ORDERED: REMDESIVIR 200 MG in SODIUM CHLORIDE 0.9% 210 ML IV STA (12:46)
[2021-12-31] MEDS ORDERED: ALBUT/IPRATROP 3MG/0.5MG NEB 3 ML VIAL NEB SCH (15:15)
[2021-12-31] MEDS ORDERED: ALBUT/IPRATROP 3MG/0.5MG NEB 3 ML VIAL NEB PRN (15:16)
--- NOTE | 2021-12-31 15:28 | Electrocardiogram Report ---
Test Reason : Blood Pressure : / mmHG Vent. Rate : 104 BPM Atrial Rate : 104 BPM P-R Int : 146 ms QRS Dur : 092 ms QT Int : 324 ms P-R-T Axes : 054 -71 018 degrees QTc Int : 426 ms Sinus tachycardia Left axis deviation Inferior infarct (cited on or before 25-DEC-2015) Abnormal ECG When compared with ECG of 25-DEC-2015 21:09, Premature atrial complexes are no longer Present Nonspecific T wave abnormality now evident in Lateral leads Confirmed by Marquis Mederos ([id number]) on 12/31/2021 3:28:42 PM Referred By: REFERRED SELF Confirmed By:Marquis Mederos
[2021-12-31] MEDS ORDERED: ONDANSETRON INJ 2 MG/ML 2 ML VIAL IV PRN (16:03)
[2021-12-31] MEDS ORDERED: cefTRIAXone SODIUM 1,000 MG in DEXTROSE 5% 50 ML IV SCH (16:30)
[2021-12-31] MEDS: ENOXAPARIN INJ 40 MG/0.4 ML SYR SQ SCH (17:24)
[2021-12-31] MEDS: ACETAMINOPHEN 325 MG TAB PO PRN (20:15)
[2022-01-01] MEDS: ACETAMINOPHEN 325 MG TAB PO PRN (04:31)
--- NOTE | 2022-01-01 07:34 | Hospitalist Progress Note ---
Date of Service January 01, 2022 Assessment & Plan (1) Acute respiratory failure with hypoxia: Plan: 01/02 COVID-19 Pneumonia Febrile Oxygen to target SPO2 sat greater than 90% Covid treatment as below Uptrending oxygen requirements on 15L oxymask in AM, progressed to high flow in afternoon . See below (2) COVID-19: Plan: Covid pneumonia, suspect post viremic phase with superimposed pneumonia as below Covid positive 12/31/2021. Prior negative 11/14/22, no home test when pt had symptoms noted below. First day of symptoms: Unclear. Some URI symptoms for 3 to 4 weeks, some nasal congestion for 1-2 weeks which improved and some residual congestion but acute worsening and became febrile 7 days ago and febrile daily since then. - Suspected COVID exposure 4-5 weeks ago (family from [place]) who were all sick and required quarantine, sinus congestion started shortly after this exposure. Vaccination status: Unvaccinated Baseline kidney function: Normal, creatinine less than 1 at baseline Admitting kidney function: Creatinine 1.46, creatinine clearance 48 AST/ALT: 58/60, mild elevation. Normal at baseline CXR:IMPRESSION: Bilateral airspace opacities are suggestive of multifocal pneumonia. CRP: 36.2 Procalcitonin 7.47 Started on dexamethasone 12/31, continue for 10-day course. Increased to 10mg daily. Remdesivir: Initial symptom onset 3 to 4 weeks ago, likely outside of initial viremic window. Worsening within last week suspicious for superimposed PNA ?late ARDS picture - Baricitinib not recommended in setting of bacterial superinfection - Lovenox converted to heparin gtt as below - See superimposed PNA below (3) Secondary pneumonia: Plan: CTA: Severely streak and motion compromised examination. There is no evidence of central pulmonary embolus in the main or lobar pulmonary arteries. The segmental and subsegmental vessels cannot be evaluated. There is significant dependent airspace consolidation seen bilaterally with small pleural effusions. The appearance is typical for pneumonia/aspiration pneumonitis. Clinical correlation will be required and radiographic follow-up to resolution is recommended. Mildly enlarged mediastinal and hilar nodes are likely reactive. There is mild aneurysmal dilatation of the ascending thoracic aorta which measures up to 4.2 cm in diameter. Cardiomegaly with advanced coronary artery calcification. Pro-Sung 7.47, CRP 36 Patient febrile for the last week and during admission No leukocytosis Patient on maintenance fluids overnight, rapidly uptrending oxygen requirements today Patient was RVR as below, rate related hypotension. 250 and 500 cc bolus given for concerns of sepsis/intravascular depletion, however patient does have pleural effusions and pressure/rate did not improve with this. Concern for volume overload and hypoxia, will defer additional fluids and treat RVR as below CPAP ordered - Rocephin/Azithro continued. MRSA nare negative (4) Atrial fibrillation with RVR: Plan: - Pt denies any cardiac history Patient in sinus tachycardia on arrival Following CT patient converted to A. fib with RVR with rates up 160-180 Heparin ordered for anticoagulation, given new onset A. fib and concern for progressive hypotension risk/benefits of chemical cardioversion outweighed risk of stroke/delaying for anticoagulation Pressures initially stable and mildly hypertensive. Treated with metoprolol 5 IV x2 with minimal improvement Pressures decreased to [id number] systolic with increase in rate to 180, suspect for rate related hypotension with hypoxia A. fib new with no known history, and patient was in sinus on arrival. Loaded with amiodarone, drip started with some improvement in rate down to [id number] and improvement in pressures to 110-120s Continue amio drip. Can consider rebolus if rate greater than 110 after hour, if remains in afib ?dig load - TTE pending (5) Hyperlipidemia: Plan: Continue home statin (6) Enlarged prostate: Plan: Continue tamsulosin Continue finasteride (7) Esophageal dysphagia: Plan: Continue home omeprazole, comfort to formulary Protonix. Will increase to 40 mg daily while on steroids Admission and Anticipated Discharge Date Admission Date: December 31, 2021 Subjective "Dk "is seen at the bedside. He is Macedonian-speaking, history is gathered on the phone with his daughter and again with the assistance of iPad residential carpenter. He reports he has been feeling sick for about 1 week with fevers, had upper respiratory symptoms 3 to 4 weeks after exposure to family who are over from [place] who with Covid Did not have a Covid test. His symptoms worsen 1 week ago with fevers and progressively worsening breathing which presented him to admit to the hospital. Reports he had been eating and drinking okay, but had a progressive shortness of breath. He denies any cardiac history. No nausea/vomiting/diarrhea/constipation. He denies chest pain, but endorses a feeling of palpitations and shortness of breath. Review of Systems Review of Systems: All systems reviewed & are unremarkable except as noted in Subjective Physical Exam Physical Exam: General: Alert and oriented, exclusively Macedonian-speaking. Oriented x3 with assistance of iPad residential carpenter. Appears fatigued, ill. Skin warm. HEENT: Atraumatic, normocephalic. Visual acuity grossly intact. Hearing grossly intact. Pulm: Diminished, coarse bilaterally in the bases. Symmetrical chest rise. Increased work of breathing, uptrending oxygen requirements currently on high flow. Cardiac: Tachycardic, rapid rate. Radial pulses intact and symmetrical. Abdominal: Nontender, nondistended, soft. BS present. Extremities: Warm, dry. Results & Data Results & Data ([facility]) Vital Signs (Past 12 Hours) Vital Signs Temp Pulse Pulse Resp BP Pulse Ox 01/01/22 06:08 36.8 C 01/01/22 04:20 39.4 C H 112 H 22 115/75 94 01/01/22 03:44 91 H 12/31/21 23:46 37.4 C 88 18 126/74 89 L 12/31/21 21:28 38.1 C H PG Care Time/CCT Total # of Minutes Spent Total Time Spent with Patient: Total time spent is greater than 50% in coordination of care (as documented) at patient's floor/unit and/or counseling patient: Coding Level of Care Code 94468 Subseq Hosp Care Lvl 3 Diagnoses Acute respiratory failure with hypoxia J96.01 COVID-19 U07.1 Hyperlipidemia E78.5 Enlarged prostate N40.0 Esophageal dysphagia R13.10 Secondary pneumonia J18.9 Atrial fibrillation with RVR I48.91
[2022-01-01] MEDS: ATORVASTATIN 10 MG TAB PO SCH (08:57)
[2022-01-01] MEDS: ASPIRIN 81 MG ECTAB PO SCH (08:57)
[2022-01-01] MEDS: TAMSULOSIN HCL 0.4 MG CAP PO SCH (08:57)
[2022-01-01] MEDS: PANTOprazole 40 MG TAB PO SCH (08:57)
[2022-01-01] MEDS: FINASTERIDE 5 MG TAB PO SCH (08:57)
[2022-01-01] MEDS ORDERED: dexAMETHasone 6 MG in SYRINGE 0 ML IV SCH (09:00)
[2022-01-01 09:28] LABS: Basophils # (auto) 0.01 K/uL (0-0.2); Basophils % (auto) 0.1 %; Hematocrit (blood only) 42.9 % (42-52); Hemoglobin 14.8 g/dL (14.0-18.0); Immature Granulocytes # (auto) 0.02 K/uL (0.00-0.02); Immature Granulocytes % (auto) 0.2 %; Lymphocytes # (auto) 0.74 K/uL (1.2-3.4); Lymphocytes % (auto) 9.1 %; Mean Corpuscular Hemoglobin 31.3 pg (25-34); Mean Corpuscular Hgb Conc 34.5 g/dL (32-36); Mean Corpuscular Volume 90.7 fL (80-100); Mean Platelet Volume 10.5 fL (7.4-10.4); Monocytes # (auto) 0.36 K/uL (0.11-0.59); Monocytes % (auto) 4.4 %; Neutrophils # (auto) 6.96 K/uL (1.4-6.5); Neutrophils % (auto) 86.2 %; Platelet Count 217 K/uL (130-400); RDW Coefficient of Variation 14.3 % (11.5-14.5); Red Blood Count 4.73 M/uL (4.7-6.1); White Blood Count 8.09 K/uL (4.8-10.8)
[2022-01-01 10:10] LABS: Albumin Globulin Ratio 1.1 (0.9-2); Albumin Level 3.2 gm/dl (3.4-5.0); BUN Creatinine Ratio 25.6 (10-20); Bilirubin,Total 0.6 mg/dl (0.2-1.0); Calcium 8.8 mg/dl (8.5-10.1); Creatinine Clr Calc Pharmacy 56.1 ml/min; Est GFR (African American) 65.8 ml/min; Est GFR (Non-African American) 56.8 ml/min; Globulin 2.9 gm/dl (2.5-4.0); Magnesium 1.9 mg/dl (1.7-2.4); Potassium 4.2 mmol/L (3.5-5.1); Total Protein 6.1 gm/dl (6.0-8.3)
[2022-01-01] MEDS ORDERED: PIPERACILL/TAZOBAC CONSULT ACTIVE PRN (11:34)
[2022-01-01] MEDS ORDERED: PIPERACILLIN/TAZOBACTAM 4.5 GM in DEXTROSE 5% 100 ML IV ONE (11:45)
[2022-01-01] MEDS ORDERED: PIPERACILLIN/TAZOBACTAM 4.5 GM in DEXTROSE 5% 100 ML IV SCH (11:45)
[2022-01-01] MEDS ORDERED: OPTIRAY 320 125ml IV ONE (11:50)
[2022-01-01] MEDS ORDERED: REMDESIVIR 100 MG in SODIUM CHLORIDE 0.9% 230 ML IV SCH (12:00)
[2022-01-01] MEDS ORDERED: METOPROLOL TARTRATE 1 MG/ML VIAL IV ONE (12:22)
[2022-01-01] MEDS ORDERED: METOPROLOL TARTRATE 1 MG/ML VIAL IV STA ×2 (12:25→12:40)
[2022-01-01] MEDS ORDERED: dilTIAZem HCl 5 MG/ML 5 ML VIAL IV STA (13:11)
[2022-01-01] MEDS ORDERED: SODIUM CHLORIDE 0.9% 1000ML 500 ML IV ONE (13:13)
--- NOTE | 2022-01-01 13:15 | CT Scan Report ---
CT ANGIOGRAM OF THE CHEST CLINICAL HISTORY: Hypoxia. Covid. COMPARISON STUDY: Chest x-ray dated 12/31/2021. TECHNIQUE: Following the IV administration of 120 cc of Optiray 320, CT angiogram of the chest was pe rformed from the upper abdomen to the thoracic inlet utilizing the pulmonary embolus protocol. Images are reviewed in the axial, sagittal, and coronal planes. 3-D MIPS images are created and assessed. I V contrast was administered without complication. A dose lowering technique was utilized adhering to the principles of ALARA. The examination is significantly compromised by motion artifact. There is a lso streak artifact from the right arm which could not be elevated above the chest. CT DOSE: 405.36 mGy.cm FINDINGS: Thyroid: Imaged portions of the thyroid gland are normal in size and attenuation. Thoracic aorta: There is atherosclerotic calcification of the thoracic aorta. There is mild aneurysma l dilatation of the ascending thoracic aorta which measures up to 4.2 cm in diameter. The remainder o f the thoracic aorta is normal in caliber, and the arch demonstrates standard 3-vessel anatomy. No di ssection is seen. Pulmonary vasculature: The pulmonary trunk is normal in caliber. There are no filling defects identif ied in main or lobar pulmonary branches to suggest pulmonary embolus. The segmental and subsegmental vessels cannot be assessed. Heart: The heart is enlarged and without pericardial effusion. The coronary arteries are densely calc ified. Lungs and pleural spaces: Evaluation of the lung parenchyma is significantly degraded by motion artif act. There is dependent airspace consolidation seen bilaterally with small pleural effusions. Airspac e consolidation is also seen posteriorly throughout the upper lobes. The trachea and central airways appear clear. Mediastinum: Numerous mildly enlarged mediastinal nodes measure up to 12 mm in short axis. Sheree: Enlarged hilar nodes measure up to 13 mm in short axis. Axillae: There is no axillary lymphadenopathy. Upper abdomen: A 1.6 cm right adrenal nodule meets CT criteria for a fat-containing adenoma. The sple en appears enlarged. Skeletal structures: The skeletal structures are osteopenic. Degenerative change and hyperkyphosis is noted in the thoracic spine. No lytic or blastic bony lesions are seen. IMPRESSION: 1. Severely streak and motion compromised examination. 2. There is no evidence of central pulmonary embolus in the main or lobar pulmonary arteries. The seg mental and subsegmental vessels cannot be evaluated. 3. There is significant dependent airspace consolidation seen bilaterally with small pleural effusion s. The appearance is typical for pneumonia/aspiration pneumonitis. Clinical correlation will be requi red and radiographic follow-up to resolution is recommended. 3. Mildly enlarged mediastinal and hilar nodes are likely reactive. 4. There is mild aneurysmal dilatation of the ascending thoracic aorta which measures up to 4.2 cm in diameter. 5. Cardiomegaly with advanced coronary artery calcification. 6. Additional findings as above. ACT 112: Negative or not required by law. Electronically signed by: Warren Vizcaino M.D. 01/01/2022 1:14 PM
[2022-01-01] MEDS ORDERED: AMIODARONE / D5W 150 MG/100 ML BAG IV STA ×3 (13:22→19:06)
[2022-01-01] MEDS ORDERED: STAT IV Infusion **Titration per Protocol STA ×2 (13:22→19:23)
[2022-01-01] MEDS ORDERED: 0.2 MICRON FILTER SET 1 EA IV ONE ×3 (13:22→19:06)
[2022-01-01] MEDS ORDERED: AMIODARONE IV BOLUS & DRIP IV STA (13:22)
[2022-01-01] MEDS ORDERED: AMIODARONE / D5W 360 MG/200 ML BAG IV ONE (13:33)
[2022-01-01] MEDS ORDERED: Heparin IV Adult Wt-Based Standard WITH Bolus Protocol IV SCH (14:10)
[2022-01-01] MEDS ORDERED: HEPARIN SOD (PORCINE) 1000 UNIT/ML IV ONE (14:13)
[2022-01-01] MEDS ORDERED: dexAMETHasone 4 MG in SYRINGE 0 ML IV ONE (14:30)
[2022-01-01] MEDS ORDERED: LORazepam 0.5 MG/1 ML VIAL IV STA (15:17)
[2022-01-01] MEDS ORDERED: DIGOXIN 250 MCG in SYRINGE 9 ML IV ONE (16:05)
[2022-01-01] MEDS: HEPARIN SODIUM/DEXTROSE 25,000 UNITS/500 ML BAG IV SCH (16:09)
[2022-01-01] MEDS: HEPARIN SOD (PORCINE) 1000 UNIT/ML IV ONE ×2 (16:10→16:12)
[2022-01-01] MEDS: cefTRIAXone SODIUM 1,000 MG in DEXTROSE 5% 50 ML IV SCH (16:26)
[2022-01-01] MEDS: ENOXAPARIN INJ 40 MG/0.4 ML SYR SQ SCH (16:27)
--- NOTE | 2022-01-01 16:29 | Electrocardiogram Report ---
Test Reason : Blood Pressure : / mmHG Vent. Rate : 166 BPM Atrial Rate : 174 BPM P-R Int : 000 ms QRS Dur : 088 ms QT Int : 268 ms P-R-T Axes : 000 -71 012 degrees QTc Int : 445 ms Atrial fibrillation with rapid ventricular response Left axis deviation Low voltage QRS Inferior infarct (cited on or before 25-DEC-2015) Abnormal ECG When compared with ECG of 31-DEC-2021 10:01, Atrial fibrillation has replaced Sinus rhythm Vent. rate has increased BY 62 BPM Confirmed by Marquis Mederos ([id number]) on 01/01/2022 4:29:24 PM Referred By: REFERRED SELF Confirmed By:Marquis Mederos
[2022-01-01 16:40] LABS: INR 1.1 (0.9-1.1); Partial Thromboplastin Ratio 1.4; Partial Thromboplastin Time 36.5 Seconds (21.0-31.0); Prothrombin Time 11.1 Seconds (9.0-12.0)
[2022-01-01] MEDS: AZITHROMYCIN 500 MG in DEXTROSE 5% 250 ML IV SCH (17:07)
[2022-01-01] MEDS ORDERED: DIGOXIN 250 MCG in SYRINGE 9 ML IV STA (18:08)
[2022-01-01] MEDS ORDERED: MIDAZOLAM HCL 1 MG/ML 2ML VIAL IV STA (18:23)
[2022-01-01 18:38] LABS: Base Excess ABG -2.6 mEq/L (-9-1.8); HCO3 ABG 20 mmol/L (19-24); Oxygen Saturation ABG 95.8 % (90-95); PCO2 ABG 29 mmHg (35-46); PO2 ABG 75 mmHg (80-95); pH ABG 7.46 (7.35-7.45)
[2022-01-01 19:02] LABS: Allen Test POS (Pos)
--- NOTE | 2022-01-01 19:47 | Communication Note ---
Date of Service: January 01, 2022 Patient with persistent A. fib RVR throughout the day. Patient presented in sinus tachycardia and did receive maintenance fluids without improvement in rate, CT done for progressive dyspnea did not show evidence of PE but did show significant dependent airspace consolidation seen bilaterally with small pleural effusions. The appearance is typical for pneumonia/aspiration pneumonitis.patient blood pressure was mildly hypertensive initially, but rapidly decreased to [id number] following attempted rate control with Lopressor x2. Proceeded to obtain rate control with amiodarone 150 mg bolus followed by drip, rebolus 50 mg was again given 1 hour later for persistent rate. Rate continued to be [id number] with adequate pressure but persistent hypoxia. Digoxin loaded with 250 mcg. Blood pressure~100-110 systolic and with progressively worsening pulmonary status and concern for rate related pulmonary edema and progressive failure. Patient was moved to room 207 for electrical cardioversion, benefits outweighed risks due to progressive worsening of pulmonary status and intermittent hypotension around transfer. Patient did begin to have blood pressure decreased to systolic 90s during set up for cardioversion and during consent process, cardioversion was emergent at that time. The risks and benefits of cardioversion were discussed with the patient using vocational instructor service and with the patient's daughter. Did discuss that there was a risk of pain, failure of the rhythm to convert, arrhythmia or asystole, and a risk of stroke should a clot have formed since he was in afib but on anticoagulation for less than 72 hours. Patient and his daughter expressed that they understood this risk including stroke, and agreed to proceeding with cardioversion. Patient was giving pretreatment sedation with Versed 2 mg at 1900 hrs. Patient blood pressure was 93/67 with rate approximately 140. At 1903 a 150 J synchronized shock was delivered. Patient remained in A. fib with RVR. At 1905 a 200 J synchronized shock was delivered with transient decrease in rate to approximately 113 A. fib, followed by a return to A. fib and RVR [id number]. Discussed with cardiology, recommended an additional amiodarone 150 mg bolus and digoxin 250 mg dose. With underlying pneumonia and severe illness felt that patient was unlikely to be successful with further attempts at electrical cardioversion. Patient was transferred to ICU status, likely for pressor drip/Cardizem drip titration for control and intubation for airway protecti on/hypoxia as needed. Case was discussed and signed out with ICU CREDIT PROFESSIONAL I personally spend 70 minutes of critical care time in the management of this patient including review of labs and images treatment above.
--- NOTE | 2022-01-01 19:47 | Billing Data ---
Date of Service January 01, 2022 Coding Level of Care Code Critical Care 12 30- mins
[2022-01-01] MEDS: PHENYLEPHRINE HCL 20 MG in DEXTROSE 5% 500 ML IV SCH (19:50)
[2022-01-01] MEDS: AMIODARONE / D5W 360 MG/200 ML BAG IV SCH (19:51)
[2022-01-01] MEDS: dilTIAZem HCL 125 MG in DEXTROSE 5% 100 ML IV SCH (19:51)
--- NOTE | 2022-01-01 20:25 | Critical Care Consultation ---
Date of Consultation January 01, 2022 Assessment & Plan (1) Acute respiratory failure with hypoxia: Reason Critically Ill: 71-year-old male presents to the ICU in acute hypoxic respiratory failure and A. fib RVR, recently diagnosed with COVID-[address] evidence of aspiration pneumonia versus pneumonitis. Neuro - [facility] ICU: Negative Cardiac - A. fib RVRno prior history and stated in HPI patient has received amnio bolus x2, MTP x2, digoxin 250 mcg, and was cardioverted twice but remains A. fib RVR with heart rate in the 140s to 150s -We will start on phenylephrine as patient's blood pressure is becoming soft and start on diltiazem drip in hopes to obtain rate control. Continue with amiodarone drip -We will hold on further cardioversion attempts at this time -Continue with heparin drip -We will recheck BMP/electrolytes and replete as indicated -Cardiology consulted, will follow recommendation -Continuous monitoring on telemetry HLDcontinue ASA, statin Respiratory - Acute hypoxic respiratory failurelikely multifactorial as patient has tested positive for COVID-19 with symptom onset approximately 3 weeks ago and he appears to have superimposed pneumonia likely due to aspiration. He has also been in A. fib RVR for prolonged period of time this afternoon and has become increasingly hypoxic and now on HFNC 60 L 100%. -See ID below for management of pneumonia -As patient does currently appear comfortable and is maintaining oxygen saturations, will hold off on intubation at this time. Ideally he would likely benefit from BiPAP but failed trial earlier as he was unable to tolerate. He is low threshold for requiring intubation. -We will give 40 mg IV Lasix in hopes to improve his oxygenation and try to attempt rate control as discussed above -CT chest without evidence of PE but unable to visualize subsegmental arteries. Continue with heparin drip -BNP pending -Continuous monitor on pulse ox GI - N.p.o. RENAL/LYTES - AKIimproving, initial creatinine 1.46 down to 1.2 -Careful with IV fluid resuscitation as patient is significantly hypoxic. Will give 40 mg IV Lasix x1 dose -Avoid nephrotoxins and renally adjust medications -Maintain MAP greater than 65 -Monitor routine BMPs and replete electrolytes as indicated - BPHcontinue finasteride, tamsulosin Strict I's and O's ENDO - No history of diabetes or thyroid disease ICU hyperglycemic protocol HEME - H&H stable, monitor routine CBCs ID - Pneumoniapatient positive for COVID-19 pneumonia PCR although he has been symptomatic for the past 3 to 4 weeks. Suspect hypoxia is likely more attributed to secondary pneumonia/pneumonitis based on CT imaging and also has elevated pro-Sung. -Would continue with IV dexamethasone at this time for 10 days. Agree with holding off on remdesivir -Nasal MRSA negative -Blood cultures pending -Sputum culture ordered -Continue with ceftriaxone, azithromycin for now LINES/IV ACCESS - Peripheral IVs. May require central line but will use phenylephrine through peripheral IV for now as it is currently low-dose DVT PROPHYLAXIS - SCDs, heparin drip I have personally spent 50 minutes of critical care time in the direct management of this patient. This is a life/limb threatening event. This includes time spent evaluating patient, direct bedside care, chart review, placing orders, interpretation of diagnostic studies, discussion with consultants, patient, and family members, as well as other required patient management activities. This time is exclusive of all separately billable procedures, and teaching time and separate from and in addition to any other critical care service time. Thank you for allowing us to participate in the care of this patient. Please refer to my attending physician's documentation for any further recommendations. (2) Atrial fibrillation with RVR: (3) Secondary pneumonia: (4) Aspiration pneumonitis: (5) COVID-19: (6) Peripheral artery disease: (7) Hyperlipidemia: History of Present Illness Attending Physician: Doug Kahn MD History of Present Illness Patient 71-year-old male with past medical history of HLD, BPH, and tobacco abuse that presented to the emergency department last evening with complaints of fever and shortness of breath. Patient is initially from [place] and speaks very little [place]. Patient did test positive for COVID-19 with symptoms 3 to 4 weeks but he has not been previously tested. He is not vaccinated against Covid 19. Patient did have elevated procalcitonin and CT evidence of aspiration pneumonia. He was placed on antibiotics and admitted to PCU and was on 6 L oxygen mask at that time. Patient became increasingly hypoxic throughout the day and earlier this afternoon entered A. fib RVR. He received multiple boluses of amiodarone, digoxin to 50 mics, metoprolol IV. He started become hypotensive and cardioversion was attempted but failed x2. He was placed on amiodarone drip but unable to obtain rate control and his oxygenation was worsening and he is now on high flow nasal cannula at 60 L 100%. Patient transferred to the ICU and starting phenylephrine and diltiazem drip in addition to amiodarone drip. Will attempt to rate control. He does not appear to be in respiratory distress at this time and appears comfortable so we will hold off on intubation for the time being. He was unable to tolerate BiPAP earlier. We will give 40 IV Lasix as is likely patient has element of pulmonary congestion due to significant tachycardia contributing to his hypoxia. He has a very low threshold for intubation as of now. Will further manage in ICU for the time being. Allergies Allergy/AdvReac Type Severity Reaction Status Date / Time No Known Allergies Allergy Mild Verified 12/31/21 10:11 Home Medications Medication Instructions Recorded Confirmed Type atorvastatin 10 mg tablet 10 mg PO QAM #90 tab 06/27/21 12/31/21 Rx tamsulosin 0.4 mg capsule 0.4 mg PO QAM #90 cap 07/09/21 12/31/21 Rx finasteride 5 mg tablet 5 mg PO QAM #90 tab 08/09/21 12/31/21 Rx aspirin 81 mg tablet,delayed 81 mg PO DAILY 12/31/21 12/31/21 History release omeprazole 20 mg capsule,delayed 20 mg PO DAILY 12/31/21 12/31/21 History release Patient History Medical History (Updated 01/01/22 @ 20:33 by DAVID Rubio) Benign prostatic hyperplasia with urinary obstruction Deep vein thrombosis many years ago> Sunni Esophageal dysphagia Sunni filter in place follows Dr. Perez History of Helicobacter pylori infection resolved Hyperlipidemia Surgical History History of colonoscopy History of esophagogastroduodenoscopy (EGD) History of right cataract extraction History of tooth extraction Family History Father Hypertension Brain tumor Mother Hypertension Social History Smoking Status: Heavy tobacco smoker Cigarettes Per Day: 3-5; Second Hand Exposure: No; Do You Dip or Chew Tobacco: No; Tobacco Cessation Education Requested by Patient: No Hx Alcohol Use: No Hx Substance Use: No Preferred Language: Estonian Communication Ability: Impaired Mask Inspector Required: Yes Beliefs That Will Affect Care: None Current Living Situation: Spouse Other Information That Helps Us Care for You: No Feels Safe at Home: Yes Assistive Devices: None Review of Systems Review of Systems: Other (Review of symptoms limited due to language barrier.) Physical Exam Constitutional: cooperative; no acute distress Eyes: PERRL, conjunctivae normal, anicteric sclerae ENMT: external ear and nose normal, oropharynx normal Neck: trachea midline, no thyromegaly Respiratory: Crackles auscultated bilaterally and lower lobes diminished bilaterally. Symmetrical chest wall movement. Mild tachypnea with respiratory rate in the low 20s. No labored breathing or use of accessory muscles. Cardiovascular: Rate/Rhythm: + tachycardic and + irregularly irregular Heart Sounds: normal S1 and normal S2; no murmur Vessels: no JVD Extremities: no edema Gastrointestinal (Abdomen): normal bowel sounds, soft, nontender, no hepatosplenomegaly Musculoskeletal: no cyanosis or clubbing, extremities motor strength 5/5 Skin: no rashes, warm and dry Neurologic: PERRL, EOMI, accommodation nl, no face palsy, no dysarthria Results & Data Results & Data ([facility]) Vital Signs (Past 12 Hours) Vital Signs Temp Pulse Pulse Resp BP BP BP 01/01/22 19:00 137 H 20 01/01/22 18:00 155 H 01/01/22 16:12 143 H 01/01/22 16:03 01/01/22 15:53 143 H 110/71 01/01/22 15:36 144 H 114/61 01/01/22 15:17 106/69 01/01/22 15:12 36.9 C 157 H 131/73 01/01/22 14:44 150 H 32 H 01/01/22 14:02 145 H 120/78 01/01/22 13:25 156 H 01/01/22 13:07 150 H 117/70 01/01/22 12:30 170 H 125/67 01/01/22 11:57 183 H 01/01/22 11:40 125/67 01/01/22 11:14 37.7 C H 112 H 18 106/69 01/01/22 10:20 103 H 26 H 01/01/22 10:15 98 H Pulse Ox Pulse Ox 01/01/22 19:00 93 01/01/22 18:00 01/01/22 16:12 01/01/22 16:03 93 01/01/22 15:53 01/01/22 15:36 91 01/01/22 15:17 01/01/22 15:12 94 01/01/22 14:44 94 01/01/22 14:02 92 01/01/22 13:25 01/01/22 13:07 01/01/22 12:30 01/01/22 11:57 01/01/22 11:40 01/01/22 11:14 92 01/01/22 10:20 93 01/01/22 10:15 Coding Level of Care Code Critical Care 1st 30-74 mins Diagnoses Atrial fibrillation with RVR I48.91 Secondary pneumonia J18.9 Aspiration pneumonitis J69.0 COVID-19 U07.1 Acute respiratory failure with hypoxia J96.01 Peripheral artery disease I73.9 Hyperlipidemia E78.5
[2022-01-01] MEDS ORDERED: FUROSEMIDE 40 MG/4 ML VIAL IV ONE (20:30)
[2022-01-01 21:50] LABS: BUN Creatinine Ratio 25.2 (10-20); Calcium 8.4 mg/dl (8.5-10.1); Creatinine Clr Calc Pharmacy 50.4 ml/min; Est GFR (African American) 57.9 ml/min; Est GFR (Non-African American) 49.9 ml/min; Magnesium 1.9 mg/dl (1.7-2.4); Phosphorus 2.9 mg/dl (2.5-4.9); Potassium 4.1 mmol/L (3.5-5.1)
[2022-01-01] MEDS: METOPROLOL TARTRATE 1 MG/ML VIAL IV SCH (23:26)
[2022-01-01 23:47] LABS: Partial Thromboplastin Ratio > 5.3
[2022-01-02 00:03] LABS: Partial Thromboplastin Time > 139.0 Seconds (21.0-31.0)
[2022-01-02 02:25] LABS: Partial Thromboplastin Ratio 3.9; Partial Thromboplastin Time 102.8 Seconds (21.0-31.0)
[2022-01-02 03:30] LABS: Hematocrit (blood only) 40.4 % (42-52); Hemoglobin 14.3 g/dL (14.0-18.0); Immature Granulocytes # (auto) 0.03 K/uL (0.00-0.02); Immature Granulocytes % (auto) 0.3 %; Lymphocytes # (auto) 0.74 K/uL (1.2-3.4); Lymphocytes % (auto) 7.5 %; Mean Corpuscular Hemoglobin 31.3 pg (25-34); Mean Corpuscular Hgb Conc 35.4 g/dL (32-36); Mean Corpuscular Volume 88.4 fL (80-100); Mean Platelet Volume 11.3 fL (7.4-10.4); Monocytes # (auto) 0.29 K/uL (0.11-0.59); Monocytes % (auto) 2.9 %; Neutrophils # (auto) 8.82 K/uL (1.4-6.5); Neutrophils % (auto) 89.3 %; Platelet Count 231 K/uL (130-400); RDW Coefficient of Variation 14.3 % (11.5-14.5); RDW Standard Deviation 46.4 fL (36.4-46.3); Red Blood Count 4.57 M/uL (4.7-6.1); White Blood Count 9.88 K/uL (4.8-10.8)
[2022-01-02 03:31] LABS: Partial Thromboplastin Ratio 3.2
[2022-01-02 03:33] LABS: Albumin Level 2.8 gm/dl (3.4-5.0); BUN Creatinine Ratio 24.2 (10-20); Bilirubin,Total 0.5 mg/dl (0.2-1.0); Calcium 8.2 mg/dl (8.5-10.1); Creatinine Clr Calc Pharmacy 43.5 ml/min; Est GFR (African American) 48.4 ml/min; Est GFR (Non-African American) 41.8 ml/min; Globulin 2.8 gm/dl (2.5-4.0); Partial Thromboplastin Time 83.7 Seconds (21.0-31.0); Potassium 3.9 mmol/L (3.5-5.1); Total Protein 5.6 gm/dl (6.0-8.3)
[2022-01-02] MEDS: PHENYLEPHRINE HCL 20 MG in DEXTROSE 5% 500 ML IV SCH ×6 (04:10→23:53)
[2022-01-02] MEDS: dilTIAZem HCL 125 MG in DEXTROSE 5% 100 ML IV SCH ×4 (04:10→23:53)
[2022-01-02] MEDS: METOPROLOL TARTRATE 1 MG/ML VIAL IV SCH ×2 (05:49→12:15)
[2022-01-02] MEDS: AMIODARONE / D5W 360 MG/200 ML BAG IV SCH ×3 (05:55→23:45)
--- NOTE | 2022-01-02 07:39 | XRay Report ---
XR chest 1V portable CLINICAL HISTORY: Resp failure. Follow-up bilateral airspace opacities COMPARISON STUDY: Portable chest and CT of the chest from 12/31/2021 TECHNIQUE: 1 view of the chest FINDINGS: Single frontal view of the chest demonstrates the cardiomediastinal silhouette to be within normal li mits. Compared to the previous examination, there is evidence for interval worsening of bilateral air space opacities particularly involving the posterior segment of the right upper lobe. There is also r etrocardiac infiltrate which has increased as well. Pleural effusion seen on CT most likely within th e posterior gutters on the current study. There is evidence for interval placement of a left-sided ch est tube with no evidence for pneumothorax. There is no evidence for vascular congestion. There is no acute osseous pathology. IMPRESSION: Compared to the previous examination, there is interval worsening of bilateral alveolar o pacities particularly involving the posterior segment of the right upper lobe in the retrocardiac reg ion on the left. There is evidence for left-sided chest tube as described. No pneumothorax. ACT 112: Negative or not required by law. Electronically signed by: Jaylan Le M.D. 01/02/2022 7:38 AM
[2022-01-02] MEDS: ASPIRIN 81 MG ECTAB PO SCH (09:37)
[2022-01-02] MEDS: FINASTERIDE 5 MG TAB PO SCH (09:37)
[2022-01-02] MEDS: TAMSULOSIN HCL 0.4 MG CAP PO SCH (09:37)
[2022-01-02] MEDS: PANTOprazole 40 MG TAB PO SCH (09:37)
[2022-01-02] MEDS: dexAMETHasone 10 MG in SYRINGE 0 ML IV SCH (09:37)
[2022-01-02] MEDS: ATORVASTATIN 10 MG TAB PO SCH (09:37)
[2022-01-02 09:50] LABS: Hematocrit (blood only) 41.4 % (42-52); Hemoglobin 14.7 g/dL (14.0-18.0); Immature Granulocytes # (auto) 0.04 K/uL (0.00-0.02); Immature Granulocytes % (auto) 0.4 %; Lymphocytes # (auto) 0.87 K/uL (1.2-3.4); Lymphocytes % (auto) 7.8 %; Mean Corpuscular Hemoglobin 31.3 pg (25-34); Mean Corpuscular Hgb Conc 35.5 g/dL (32-36); Mean Corpuscular Volume 88.3 fL (80-100); Mean Platelet Volume 11.1 fL (7.4-10.4); Monocytes # (auto) 0.39 K/uL (0.11-0.59); Monocytes % (auto) 3.5 %; Neutrophils # (auto) 9.85 K/uL (1.4-6.5); Neutrophils % (auto) 88.3 %; Platelet Count 253 K/uL (130-400); RDW Coefficient of Variation 14.5 % (11.5-14.5); RDW Standard Deviation 47.1 fL (36.4-46.3); Red Blood Count 4.69 M/uL (4.7-6.1); White Blood Count 11.15 K/uL (4.8-10.8)
[2022-01-02 10:17] LABS: BUN Creatinine Ratio 22.7 (10-20); Calcium 8.3 mg/dl (8.5-10.1); Creatinine Clr Calc Pharmacy 35.2 ml/min; Est GFR (African American) 37.7 ml/min; Est GFR (Non-African American) 32.5 ml/min; Magnesium 1.9 mg/dl (1.7-2.4); Phosphorus 3.8 mg/dl (2.5-4.9)
[2022-01-02 10:26] LABS: Partial Thromboplastin Ratio 3.2
[2022-01-02] MEDS ORDERED: DEXTROSE 50% 50 ML SYRINGE IV PRN (10:45)
[2022-01-02] MEDS ORDERED: GLUCOSE 10 TABS/TUBE PO PRN (10:45)
[2022-01-02] MEDS ORDERED: CARBOHYDRATES FOR HYPOGLYCEMIA PO PRN (10:45)
[2022-01-02] MEDS ORDERED: GLUCOSE 40% GEL 15 GM TUBE PO PRN (10:45)
[2022-01-02] MEDS ORDERED: GLUCAGON FOR INJ 1 MG VIAL IM PRN (10:45)
--- NOTE | 2022-01-02 11:12 | Electrocardiogram Report ---
Test Reason : Blood Pressure : / mmHG Vent. 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
--- NOTE | 2022-01-02 11:26 | Electrocardiogram Report ---
Test Reason : Blood Pressure : / mmHG Vent. 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
[2022-01-02] MEDS: INSULIN ASPART PER UNIT SC SCH ×3 (12:00→20:44)
--- NOTE | 2022-01-02 14:05 | Critical Care Progress Note ---
Date of Service January 02, 2022 Assessment & Plan (1) Atrial fibrillation with RVR: (2) COVID-19: (3) Acute respiratory failure with hypoxia: (4) Peripheral artery disease: (5) Esophageal dysphagia: (6) Aspiration pneumonitis: (7) New onset a-fib: Plan: Reason Critically Ill: 71-year-old male presents to the ICU in acute hypoxic respiratory failure and A. fib RVR, recently diagnosed with COVID-[address] evidence of aspiration pneumonia versus pneumonitis. Neuro - [facility] ICU: Negative Cardiac - A. fib RVR Patient failed 2 cardioversions, 150 J followed by 200 J Continue with amiodarone drip with diltiazem drip Metoprolol as needed Heparin drip --Hypotension Combination of bacterial pneumonia as well as being on diltiazem Continue with vasopressor support to keep MAP greater than 65 HLDcontinue ASA, statin Respiratory - Acute hypoxic respiratory failure Multifactorial COVID-19 pneumonia as well as A. fib with RVR GI - --Mild transaminitis Could be from underlying COVID-19 as well as A. fib RVR Continue to monitor and trend RENAL/LYTES - STEPHON on CKD Monitor BUNs/creatinine Avoid nephrotoxic medication Hyponatremia with hypochloremia Follow-up urine was positive Continue to monitor - BPHcontinue finasteride, tamsulosin Strict I's and O's ENDO - No history of diabetes or thyroid disease ICU hyperglycemic protocol HEME - H&H stable, monitor routine CBCs ID - Pneumonia -Would continue with IV dexamethasone at this time for 10 days. -Nasal MRSA negative COVID-19 PCR positive Procalcitonin 7.4 CRP: 36.2 BNP: 149 Continue with dexamethasone Given the elevated procalcitonin and dense consolidative process in the likelihood of superimposed bacteriaL pneumonia is high, would not be a candidate for Tocilizumab or baricitinib -Continue with ceftriaxone, azithromycin for now --Prophylaxis VTE: Heparin drip GI: Protonix Lines: Peripheral Diet: Clear liquids Plan: In/out: +1.1 L, urine output 5 Patient got 40 mg of Lasix last night His creatinine has bumped up. We will hold Lasix today Continue to control the rate with amiodarone and diltiazem drip. Titrate to goal heart rate to less than 120 We will try to bridge to p.o. diltiazem if possible. Patient remains in critical condition. With high likelihood of intubation which he is agreeable to if need be Patient is only Mosoth[place]-speaking. All interrogation took place in Mosotho language. He understood everything Patient's daughter Eda [phone] was also called and updated regarding the same. I have personally spent 41 minutes of critical care time in the direct management of this patient. This is a life/limb threatening event. This includes time spent evaluating patient, direct bedside care, chart review, placing orders, interpretation of diagnostic studies, discussion with consultants, patient, and family members, as well as other required patient management activities. This time is exclusive of all separately billable procedures, and teaching time and separate from and in addition to any other critical care service time. Please note the above document was generated using voice recognition software. It may contain grammatical, syntax or spelling errors. Admission and Anticipated Discharge Date Admission Date: December 31, 2021 Subjective Patient seen and examined at bedside. He was talking on the phone with his . He was on 30 L, 80% saturating 85-86% while the nasal prongs were out. He denied any headache, no chest pain, no dizziness, no palpitation He did complain of poor appetite. Denies any nausea or vomiting. He does complain of cough which is mostly dry Review of Systems Review of Systems: All systems reviewed & are unremarkable except as noted in Subjective Physical Exam Physical Exam: Constitutional: No acute distress HEENT: EOMI, PERRLA Respiratory system: Decreased air entry bilaterally, no wheeze, rhonchi, positive crackles bilaterally CVS: S1-S2 positive, no murmurs or gallops, irregular Abdomen: Soft, nontender, nondistended, positive bowel sounds x4 Extremities: +2 pulses bilaterally radialis/ dorsalis pedis, no cyanosis, no edema Neuro: Awake alert oriented x3 Psych: Normal mood and affect G/U: Positive Jeong Skin: no rashes, warm and dry Lymphatic: no cervical or axillary lymphadenopathy Results & Data Results & [facility] ([facility]) Vital Signs (Past 12 Hours) Vital Signs Temp Pulse Pulse Resp BP BP Pulse Ox 01/02/22 12:15 130 H 102/68 01/02/22 12:00 109 H 122 H 22 107/70 107/70 90 01/02/22 11:31 124 H 18 93 01/02/22 11:00 118 H 118 H 22 115/66 115/66 91 01/02/22 10:23 106 H 97/60 L 88 L 01/02/22 10:00 105 H 100 H 24 97/60 L 88 L 01/02/22 09:00 105 H 128/72 86 L 01/02/22 08:45 96 H 99/69 L 90 01/02/22 08:30 116 H 90/60 L 89 L 01/02/22 08:15 126 H 87/60 L 88 L 01/02/22 08:00 103 H 100 H 26 H 93/58 L 90/60 L 89 L 01/02/22 07:45 110 H 94/60 L 86 L 01/02/22 07:40 108 H 20 88 L 01/02/22 07:30 111 H 99/71 L 90 01/02/22 07:15 131 H 113/83 89 L 01/02/22 07:00 114 H 112/71 89 L 01/02/22 06:45 111 H 93/67 L 84 L 01/02/22 06:37 117 H 106/71 84 L 01/02/22 06:30 109 H 82/62 L 91 01/02/22 06:00 100 H 98/68 L 90 01/02/22 05:49 121 H 97/68 L 01/02/22 05:45 110 H 97/68 L 90 01/02/22 05:30 118 H 108/71 89 L 01/02/22 05:15 126 H 109/68 89 L 01/02/22 05:00 120 H 108/87 89 L 01/02/22 04:45 104 H 108/72 90 01/02/22 04:30 137 H 104/72 90 01/02/22 04:15 134 H 100/71 91 01/02/22 04:00 37.7 C H 133 H 108/66 91 01/02/22 03:51 117 H 20 90 01/02/22 03:45 106 H 97/73 L 90 01/02/22 03:30 116 H 103/68 91 01/02/22 03:15 138 H 102/76 91 01/02/22 03:00 121 H 112/74 87 L 01/02/22 02:45 121 H 104/66 93 01/02/22 02:30 127 H 109/67 93 01/02/22 02:15 140 H 113/72 91 01/02/22 02:00 138 H 114/77 90 Laboratory Results 01/02/22 09:21 01/02/22 09:21 Coding Level of Care Code Critical Care 1st 30-74 mins Diagnoses Atrial fibrillation with RVR I48.91 COVID-19 U07.1 Acute respiratory failure with hypoxia J96.01 Peripheral artery disease I73.9 Esophageal dysphagia R13.10 Aspiration pneumonitis J69.0 New onset a-fib I48.91 Time Spent (min) 41
[2022-01-02] MEDS ORDERED: METOPROLOL TARTRATE 1 MG/ML VIAL IV PRN (15:11)
--- NOTE | 2022-01-02 16:07 | Hospitalist Progress Note ---
Date of Service January 02, 2022 Assessment & Plan (1) Acute respiratory failure with hypoxia: Plan: 01/02 COVID-19 Pneumonia with superimposed bacterial pneumonia Febrile Oxygen to target SPO2 sat greater than 90% Covid treatment as below Currently on high flow nasal cannula, FiO2 85, 50 L Patient amenable to intubation if needed, ICU following (2) COVID-19: Plan: Covid pneumonia, suspect post viremic phase with superimposed pneumonia as below Covid positive 12/31/2021. Prior negative 11/14/22, no home test when pt had symptoms noted below. First day of symptoms: Unclear. Some URI symptoms for 3 to 4 weeks, some nasal congestion for 1-2 weeks which improved and some residual congestion but acute worsening and became febrile 7 days ago and febrile daily since then. - Suspected COVID exposure 4-5 weeks ago (family from [place]) who were all sick and required quarantine, sinus congestion started shortly after this exposure. Vaccination status: Unvaccinated Baseline kidney function: Normal, creatinine less than 1 at baseline Admitting kidney function: Creatinine 1.46, creatinine clearance 48 AST/ALT: 58/60, mild elevation. Normal at baseline CXR:IMPRESSION: Bilateral airspace opacities are suggestive of multifocal pneumonia. CRP: 36.2 Procalcitonin 7.47 Started on dexamethasone 12/31, continue for 10-day course. Increased to 10mg daily. Remdesivir: Initial symptom onset 3 to 4 weeks ago, outside of viremic window. Patient with superimposed pneumonia likely the cause of his symptoms although in window for post Covid inflammatory disease - Baricitinib not recommended in setting of bacterial superinfection - Lovenox converted to heparin gtt as below - See superimposed PNA below (3) Secondary pneumonia: Plan: CTA: Severely streak and motion compromised examination. There is no evidence of central pulmonary embolus in the main or lobar pulmonary arteries. The segmental and subsegmental vessels cannot be evaluated. There is significant dependent airspace consolidation seen bilaterally with small pleural effusions. The appearance is typical for pneumonia/aspiration pneumonitis. Clinical correlation will be required and radiographic follow-up to resolution is recommended. Mildly enlarged mediastinal and hilar nodes are likely reactive. There is mild aneurysmal dilatation of the ascending thoracic aorta which measures up to 4.2 cm in diameter. Cardiomegaly with advanced coronary artery calcification. Pro-Sung 7.47, CRP 36 on admission Patient febrile for the week prior to admission and on admission No leukocytosis Uptrending creatinine 2/2 Lasix held Patient with RVR and suspected rate related hypotension with? Related pulmonary edema. Continued on diltiazem drip and amiodarone drip with pressure support via phenylephrine drip, rate 110. Continues under ICU care. CPAP ordered -Remains febrile, leukocytosis to 11.15 on steroids. Continue Rocephin/azithromycin. MRSA nare negative (4) Atrial fibrillation with RVR: Plan: - Pt denies any cardiac history to admission Patient in sinus tachycardia on arrival Following CT patient converted to A. fib with RVR with rates up 160-180 Heparin ordered for anticoagulation, given new onset A. fib and concern for progressive hypotension risk/benefits of chemical cardioversion outweighed risk of stroke/delaying for anticoagulation Pressures initially stable and mildly hypertensive. Treated with metoprolol 5 IV x2 with minimal improvement Pressures decreased to [id number] systolic with increase in rate to 180, suspect for rate related hypotension with hypoxia A. fib new with no known history, and patient was in sinus on arrival. Loaded with amiodarone, drip started with some improvement in rate down to [id number] and improvement in pressures to 110-120s 2/1: Patient with A. fib RVR with concern for rate related pressure decrease and rate related worsening oxygenation/pulmonary edema. See communication note, patient received amnio boluses, amnio drip, and digoxin with continued deterioration. Attempted electrical cardioversion x2 with transient decrease and then returned to RVR. He was transferred to ICU for pressor support with diltiazem drip. 2/2: Rate controlled with adequate blood pressure on diltiazem/amiodarone/phenylephrine drip. Continue to follow, appreciate ICU care (5) STEPHON (acute kidney injury): Plan: Acute elevation uptrending from 1.6-1.98 Prerenal, in setting of infection and RVR Avoid nephrotoxins, follow creatinine Pressure support and management as above (6) Hyperlipidemia: Plan: Continue home statin (7) Enlarged prostate: Plan: Continue tamsulosin Continue finasteride (8) Esophageal dysphagia: Plan: Continue PPI Admission and Anticipated Discharge Date Admission Date: December 31, 2021 Subjective Seen at bedside, Wallisian-speaking. Appears fatigued, ill. iPad required for communication, patient exclusively Wallisian speaking. Feels tired. Denies pain. +cough. Review of Systems Review of Systems: All systems reviewed & are unremarkable except as noted in Subjective Physical Exam Physical Exam: General: Alert and oriented, exclusively Wallisian-speaking. Appears fatigued, ill. Skin warm. HEENT: Atraumatic, normocephalic. Visual acuity grossly intact. Hearing grossly intact. Pulm: Diminished, coarse with crackles bilaterally in the bases, without rales/rhonchi Symmetrical chest rise. Currently on high flow. Cardiac: Tachycardic. Radial pulses intact and symmetrical. Abdominal: Nontender, nondistended, soft. BS present. Extremities: Warm, dry. Results & Data Results & Data ([facility]) Vital Signs (Past 12 Hours) Vital Signs Temp Pulse Pulse Resp BP BP Pulse Ox 01/02/22 14:52 110 H 20 91 01/02/22 12:15 130 H 102/68 01/02/22 12:00 109 H 122 H 22 107/70 107/70 90 01/02/22 11:31 124 H 18 93 01/02/22 11:00 118 H 118 H 22 115/66 115/66 91 01/02/22 10:23 106 H 97/60 L 88 L 01/02/22 10:00 105 H 100 H 24 97/60 L 88 L 01/02/22 09:00 105 H 128/72 86 L 01/02/22 08:45 96 H 99/69 L 90 01/02/22 08:30 116 H 90/60 L 89 L 01/02/22 08:15 126 H 87/60 L 88 L 01/02/22 08:00 103 H 100 H 26 H 93/58 L 90/60 L 89 L 01/02/22 07:45 110 H 94/60 L 86 L 01/02/22 07:40 108 H 20 88 L 01/02/22 07:30 111 H 99/71 L 90 01/02/22 07:15 131 H 113/83 89 L 01/02/22 07:00 114 H 112/71 89 L 01/02/22 06:45 111 H 93/67 L 84 L 01/02/22 06:37 117 H 106/71 84 L 01/02/22 06:30 109 H 82/62 L 91 01/02/22 06:00 100 H 98/68 L 90 01/02/22 05:49 121 H 97/68 L 0202/22 05:45 110 H 97/68 L 90 01/02/22 05:30 118 H 108/71 89 L 01/02/22 05:15 126 H 109/68 89 L 01/02/22 05:00 120 H 108/87 89 L 01/02/22 04:45 104 H 108/72 90 01/02/22 04:30 137 H 104/72 90 01/02/22 04:15 134 H 100/71 91 01/02/22 04:00 37.7 C H 133 H 108/66 91 PG Care Time/CCT Total # of Minutes Spent Total Time Spent with Patient: Total time spent is greater than 50% in coordination of care (as documented) at patient's floor/unit and/or counseling patient: Coding Level of Care Code 67829 Subseq Hosp Care Lvl 1 Diagnoses Acute respiratory failure with hypoxia J96.01 COVID-19 U07.1 Secondary pneumonia J18.9 Atrial fibrillation with RVR I48.91 Hyperlipidemia E78.5 Enlarged prostate N40.0 Esophageal dysphagia R13.10 STEPHON (acute kidney injury) N17.9
[2022-01-02] MEDS: cefTRIAXone SODIUM 1,000 MG in DEXTROSE 5% 50 ML IV SCH (16:23)
[2022-01-02] MEDS: AZITHROMYCIN 500 MG in DEXTROSE 5% 250 ML IV SCH (17:38)
[2022-01-02] MEDS: HEPARIN SODIUM/DEXTROSE 25,000 UNITS/500 ML BAG IV SCH (18:26)
[2022-01-02 18:38] LABS: Partial Thromboplastin Ratio 2.3
[2022-01-02 18:44] LABS: Partial Thromboplastin Time 59.2 Seconds (21.0-31.0)
[2022-01-03] MEDS: PHENYLEPHRINE HCL 20 MG in DEXTROSE 5% 500 ML IV SCH ×4 (00:15→09:51)
[2022-01-03] MEDS: dilTIAZem HCL 125 MG in DEXTROSE 5% 100 ML IV SCH ×2 (04:59→05:58)
[2022-01-03 06:45] LABS: Basophils # (auto) 0.01 K/uL (0-0.2); Basophils % (auto) 0.1 %; Hematocrit (blood only) 40.8 % (42-52); Hemoglobin 14.9 g/dL (14.0-18.0); Immature Granulocytes # (auto) 0.04 K/uL (0.00-0.02); Immature Granulocytes % (auto) 0.3 %; Lymphocytes # (auto) 0.76 K/uL (1.2-3.4); Lymphocytes % (auto) 6.2 %; Mean Corpuscular Hemoglobin 31.4 pg (25-34); Mean Corpuscular Hgb Conc 36.5 g/dL (32-36); Mean Corpuscular Volume 85.9 fL (80-100); Mean Platelet Volume 11.3 fL (7.4-10.4); Monocytes # (auto) 0.56 K/uL (0.11-0.59); Monocytes % (auto) 4.6 %; Neutrophils # (auto) 10.88 K/uL (1.4-6.5); Neutrophils % (auto) 88.8 %; Platelet Count 280 K/uL (130-400); RDW Coefficient of Variation 14.2 % (11.5-14.5); RDW Standard Deviation 44.5 fL (36.4-46.3); Red Blood Count 4.75 M/uL (4.7-6.1); White Blood Count 12.25 K/uL (4.8-10.8)
[2022-01-03 07:08] LABS: Partial Thromboplastin Ratio 3.6
[2022-01-03 07:17] LABS: BUN Creatinine Ratio 24.5 (10-20); Creatinine Clr Calc Pharmacy 27.7 ml/min; Est GFR (Non-African American) 24.2 ml/min; Magnesium 2.1 mg/dl (1.7-2.4); Phosphorus 4.8 mg/dl (2.5-4.9); Potassium 3.7 mmol/L (3.5-5.1)
[2022-01-03 07:57] LABS: Partial Thromboplastin Time 94.7 Seconds (21.0-31.0)
[2022-01-03] MEDS: INSULIN ASPART PER UNIT SC SCH ×4 (08:00→21:09)
[2022-01-03] MEDS: ACETAMINOPHEN 325 MG TAB PO PRN (08:16)
[2022-01-03] MEDS: ASPIRIN 81 MG ECTAB PO SCH (08:17)
[2022-01-03] MEDS: dexAMETHasone 10 MG in SYRINGE 0 ML IV SCH (08:17)
[2022-01-03] MEDS: FINASTERIDE 5 MG TAB PO SCH (08:17)
[2022-01-03] MEDS: ATORVASTATIN 10 MG TAB PO SCH (08:17)
[2022-01-03] MEDS: TAMSULOSIN HCL 0.4 MG CAP PO SCH (08:17)
--- NOTE | 2022-01-03 09:04 | XRay Report ---
SINGLE VIEW CHEST CLINICAL HISTORY: Respiratory failure. FINDINGS: An AP, portable, upright chest radiograph is compared to study dated 01/02/2022 and correlate d with chest CT dated 01/01/2022. The heart is enlarged noting atherosclerotic calcification of the tho racic aorta. Multifocal airspace consolidation is again seen throughout both lungs. This is similar t o yesterday. Small pleural effusions are noted. No pneumothorax is seen. The skeletal structures are osteopenic. The bony thorax is grossly intact. IMPRESSION: 1. Multifocal airspace consolidation and small pleural effusions are similar to yesterday. 2. Cardiomegaly. ACT 112: Negative or not required by law. Electronically signed by: Warren Vizcaino M.D. 01/03/2022 9:02 AM
[2022-01-03] MEDS: PHENYLEPHRINE HCL 20 MG in SODIUM CHLORIDE 0.9% 500 ML IV SCH ×3 (09:44→21:33)
[2022-01-03 10:28] LABS: Chloride Random Urine < 15 mmol/L; Creatinine Urine Random 66.2 mg/dl; Potassium Random Urine 18.6 mmol/L; Sodium Random Urine 32 mmol/L
[2022-01-03] MEDS ORDERED: PANTOprazole 40 MG in SYRINGE 0 ML IV SCH (11:00)
[2022-01-03] MEDS: METOPROLOL TARTRATE 25 MG TAB PO SCH ×2 (11:12→21:13)
[2022-01-03] MEDS: INSULIN HUMAN NPH SC SCH (11:12)
[2022-01-03] MEDS: dilTIAZem HCL 125 MG in 0.9 % SODIUM CHLORIDE 100 ML IV SCH (11:17)
[2022-01-03] MEDS: AMIODARONE / D5W 360 MG/200 ML BAG IV SCH ×2 (11:23→22:32)
[2022-01-03] MEDS: PANTOprazole 40 MG TAB PO SCH (11:54)
--- NOTE | 2022-01-03 13:51 | Critical Care Progress Note ---
Date of Service January 03, 2022 Assessment & Plan (1) Atrial fibrillation with RVR: (2) COVID-19: (3) Acute respiratory failure with hypoxia: (4) Peripheral artery disease: (5) Esophageal dysphagia: (6) Aspiration pneumonitis: (7) New onset a-fib: Plan: Reason Critically Ill: 71-year-old male presents to the ICU in acute hypoxic respiratory failure and A. fib RVR, recently diagnosed with COVID-[address] evidence of aspiration pneumonia versus pneumonitis. Neuro - [facility] ICU: Negative Cardiac - A. fib RVR Patient failed 2 cardioversions, 150 J followed by 200 J Continue with amiodarone drip with diltiazem drip Metoprolol as needed Heparin drip --Hypotension Combination of bacterial pneumonia as well as being on diltiazem Continue with vasopressor support to keep MAP greater than 65 HLDcontinue ASA, statin Respiratory - Acute hypoxic respiratory failure Multifactorial COVID-19 pneumonia as well as A. fib with RVR GI - --Mild transaminitis Could be from underlying COVID-19 as well as A. fib RVR Continue to monitor and trend RENAL/LYTES - STEPHON on CKD Monitor BUNs/creatinine Avoid nephrotoxic medication Hyponatremia with hypochloremia serum osmolality 285 urine osmolality 313 , urine lites: Sodium 32, chloride < 15 - BPHcontinue finasteride, tamsulosin Strict I's and O's ENDO - No history of diabetes or thyroid disease ICU hyperglycemic protocol HEME - H&H stable, monitor routine CBCs ID - Pneumonia -Would continue with IV dexamethasone at this time for 10 days. -Nasal MRSA negative COVID-19 PCR positive Procalcitonin 7.4 CRP: 36.2 BNP: 149 Continue with dexamethasone Given the elevated procalcitonin and dense consolidative process in the likelihood of superimposed bacteriaL pneumonia is high, would not be a candidate for Tocilizumab or baricitinib -Continue with ceftriaxone, azithromycin for now --Prophylaxis VTE: Heparin drip GI: Protonix Lines: Peripheral Diet: Clear liquids Plan: In/out: +2.7 L, urine output 975 Patient's sodium and chloride diet going down. I will repeat BMP at 3 PM if there still going down then LABA to give 2% saline the likelihood of patient sodium and chloride being low is hyperkalemia plus patient getting D5 water in the IV drips I have asked to change all the IV drips to be mixed in NS We'll start the patient on 12.5 mg of metoprolol and try to titrate off diltiazem drip. Continue with amiodarone Patient's creatinine is still going up. I will consider giving Lasix 1 dose to see if he is starts making urine Patient's daughter Eda [phone] I have personally spent 38 minutes of critical care time in the direct management of this patient. This is a life/limb threatening event. This includes time spent evaluating patient, direct bedside care, chart review, placing orders, interpretation of diagnostic studies, discussion with consultants, patient, and family members, as well as other required patient management activities. This time is exclusive of all separately billable procedures, and teaching time and separate from and in addition to any other critical care service time. Please note the above document was generated using voice recognition software. It may contain grammatical, syntax or spelling errors. Admission and Anticipated Discharge Date Admission Date: December 31, 2021 Subjective Patient seen and examined at bedside. No acute distress, no adverse events overnight patient has been self proning and lying on the left side he was on low-dose phenylephrine. He was on 5 of diltiazem he has not required the need of metoprolol. Map was 65 at the time of examination with heart rate in the 90s Patient states that he is almost the same as yesterday. There is no worsening in his shortness of breath. He does complain of cough which is mostly dry is not bringing anything up denies any nausea, poor appetite. No fever. Review of Systems Review of Systems: All systems reviewed & are unremarkable except as noted in Subjective Physical Exam Physical Exam: Constitutional: No acute distress HEENT: EOMI, PERRLA Respiratory system: Decreased air entry bilaterally, no wheeze, rhonchi, positive crackles bilaterally CVS: S1-S2 positive, no murmurs or gallops, irregular Abdomen: Soft, nontender, nondistended, positive bowel sounds x4 Extremities: +2 pulses bilaterally radialis/ dorsalis pedis, no cyanosis, no edema Neuro: Awake alert oriented x3 Psych: Normal mood and affect G/U: Positive Jeong Skin: no rashes, warm and dry Lymphatic: no cervical or axillary lymphadenopathy Results & Data Results & Data ([facility]) Vital Signs (Past 12 Hours) Vital Signs Temp Pulse Pulse Resp BP BP BP 01/03/22 13:00 83/60 L 01/03/22 12:47 118 H 133/93 01/03/22 12:01 114 H 133/93 01/03/22 12:00 111 H 01/03/22 11:44 112 H 22 01/03/22 11:09 36.5 C 111 H 24 107/80 01/03/22 11:00 107 H 107/80 01/03/22 10:00 91 H 103/75 01/03/22 09:38 0 L 97/70 L 01/03/22 09:00 90 95/68 L 01/03/22 08:00 104 H 94 H 22 99/73 L 01/03/22 07:43 36.5 C 106 H 24 97/74 L 01/03/22 07:18 100 H 97/74 L 01/03/22 07:00 98 H 01/03/22 06:00 115 H 108/77 01/03/22 05:01 107 H 105/81 01/03/22 05:00 96 H 01/03/22 04:00 101 H 124/70 01/03/22 03:30 113 H 01/03/22 03:14 100 H 26 H 01/03/22 03:00 107 H 104/83 01/03/22 02:30 114 H 01/03/22 02:00 88 118/86 Pulse Ox 01/03/22 13:00 01/03/22 12:47 94 01/03/22 12:01 92 01/03/22 12:00 90 01/03/22 11:44 89 L 01/03/22 11:09 90 01/03/22 11:00 91 01/03/22 10:00 96 01/03/22 09:38 01/03/22 09:00 92 01/03/22 08:00 91 01/03/22 07:43 90 01/03/22 07:18 89 L 01/03/22 07:00 88 L 01/03/22 06:00 90 01/03/22 05:01 91 01/03/22 05:00 93 01/03/22 04:00 90 01/03/22 03:30 90 02/03/22 03:14 90 01/03/22 03:00 88 L 01/03/22 02:30 92 01/03/22 02:00 91 Laboratory Results 01/03/22 06:18 01/03/22 06:18 Coding Level of Care Code Critical Care 1st 30-74 mins Diagnoses Atrial fibrillation with RVR I48.91 COVID-19 U07.1 Acute respiratory failure with hypoxia J96.01 Peripheral artery disease I73.9 Esophageal dysphagia R13.10 Aspiration pneumonitis J69.0 New onset a-fib I48.91 Time Spent (min) 38
--- NOTE | 2022-01-03 16:00 | Hospitalist Progress Note ---
Date of Service January 03, 2022 Assessment & Plan (1) Acute respiratory failure with hypoxia: Plan: 2/2 COVID-19 Pneumonia with superimposed bacterial pneumonia Febrile Oxygen to target SPO2 sat greater than 90% Covid treatment as below Currently on high flow nasal cannula, goal SPO2 greater than 90% Patient amenable to intubation if needed, ICU following (2) COVID-19: Plan: Covid pneumonia, suspect post viremic phase with superimposed pneumonia as below Covid positive 12/31/2021. Prior negative 11/14/22, no home test when pt had symptoms noted below. First day of symptoms: Unclear. Some URI symptoms for 3 to 4 weeks, some nasal congestion for 1-2 weeks which improved and some residual congestion but acute worsening and became febrile 7 days ago and febrile daily since then. - Suspected COVID exposure 4-5 weeks ago (family from [facility]) who were all sick and required quarantine, sinus congestion started shortly after this exposure. Vaccination status: Unvaccinated Baseline kidney function: Normal, creatinine less than 1 at baseline Admitting kidney function: Creatinine 1.46, creatinine clearance 48 AST/ALT: 58/60, mild elevation. Normal at baseline CXR:IMPRESSION: Bilateral airspace opacities are suggestive of multifocal pneumonia. CRP: 36.2 Procalcitonin 7.47 Started on dexamethasone 12/31, continue for 10-day course. Increased to 10mg daily. Remdesivir: Initial symptom onset 3 to 4 weeks ago, outside of viremic window. Patient with superimposed pneumonia likely the cause of his symptoms although in window for post Covid inflammatory disease - Baricitinib not recommended in setting of bacterial superinfection -Continue heparin GTT - See superimposed PNA below (3) Secondary pneumonia: Plan: CTA: Severely streak and motion compromised examination. There is no evidence of central pulmonary embolus in the main or lobar pulmonary arteries. The segme ntal and subsegmental vessels cannot be evaluated. There is significant dependent airspace consolidation seen bilaterally with small pleural effusions. The appearance is typical for pneumonia/aspiration pneumonitis. Clinical correlation will be required and radiographic follow-up to resolution is recommended. Mildly enlarged mediastinal and hilar nodes are likely reactive. There is mild aneurysmal dilatation of the ascending thoracic aorta which measures up to 4.2 cm in diameter. Cardiomegaly with advanced coronary artery calcification. Pro-Sung 7.47, CRP 36 on admission Patient febrile for the week prior to admission and on admission No leukocytosis Uptrending creatinine 2/2 Lasix held Patient with RVR and suspected rate related hypotension with? Related pulmonary edema. Continued on diltiazem drip and amiodarone drip with pressure support via phenylephrine drip to maintain MAP rate currently 100s. Continues under ICU care. -Remains febrile, leukocytosis on steroids. Continue Rocephin/azithromycin. MRSA nare negative (4) Atrial fibrillation with RVR: Plan: - Pt denies any cardiac history to admission Patient in sinus tachycardia on arrival Following CT patient converted to A. fib with RVR with rates up 160-180 Heparin ordered for anticoagulation, given new onset A. fib and concern for progressive hypotension risk/benefits of chemical cardioversion outweighed risk of stroke/delaying for anticoagulation Pressures initially stable and mildly hypertensive. Treated with metoprolol 5 IV x2 with minimal improvement Pressures decreased to [id number] systolic with increase in rate to 180, suspect for rate related hypotension with hypoxia A. fib new with no known history, and patient was in sinus on arrival. Loaded with amiodarone, drip started with some improvement in rate down to [id number] and improvement in pressures to 110-120s 2/: Patient with A. fib RVR with concern for rate related pressure decrease and rate related worsening oxygenation/pulmonary edema. See communication note, patient received amnio boluses, amnio drip, and digoxin with continued deterioration. Attempted electrical cardioversion x2 with transient decrease and then returned to RVR. He was transferred to ICU for pressor support with diltiazem drip. - Patient remains reasonable rate controlled with adequate blood pressure on diltiazem/amiodarone/phenylephrine drip. Continue to follow, appreciate ICU care (5) STEPHON (acute kidney injury): Plan: Cr continues to uptrend. Evening repeat pending. susp prerenal with ypotension Prerenal, in setting of infection and RVR Avoid nephrotoxins, follow creatinine Pressure support and management as above - ~975cc UOP overnight. Lasix x1 given (6) Hyperlipidemia: Plan: Continue home statin (7) Enlarged prostate: Plan: Continue tamsulosin Continue finasteride (8) Esophageal dysphagia: Plan: Continue PPI Admission and Anticipated Discharge Date Admission Date: December 31, 2021 Subjective Patient seen with the assistance of iPad forming fixer. He reports he feels tired and sweaty. Denies chest pain, chest pressure. Reports he would just like to get better soon as possible, no other questions at time of bedside. No nausea/vomiting. Continues with cough. Review of Systems Review of Systems: All systems reviewed & are unremarkable except as noted in Subjective Physical Exam Physical Exam: General: Alert and oriented, exclusively Maltese-speaking. Appears fatigued, ill. Skin warm. Exam/subjective completed with assistance of small business banking officer. HEENT: Atraumatic, normocephalic. Visual acuity grossly intact. Hearing grossly intact. Pulm: Coarse, bilateral crackles increase in the bases. No wheeze or rhonchi. Symmetrical chest rise. Currently on high flow. Cardiac: Tachycardic. Radial pulses intact and symmetrical. Abdominal: Nontender, nondistended, soft. BS present. Extremities: Warm, dry. Moves arms equally. Results & Data Results & Data ([facility]) Vital Signs (Past 12 Hours) Vital Signs Temp Pulse Pulse Resp BP BP BP 01/03/22 15:43 36.4 C L 98 H 20 94/69 L 01/03/22 14:51 01/03/22 14:49 110 H 21 01/03/22 14:30 93 H 26 H 100/70 01/03/22 14:00 95 H 19 100/65 01/03/22 13:44 98 H 21 01/03/22 13:00 104 H 83/60 L 01/03/22 12:47 118 H 133/93 01/03/22 12:01 114 H 133/93 01/03/22 12:00 111 H 01/03/22 11:44 112 H 22 01/03/22 11:09 36.5 C 111 H 24 107/80 01/03/22 11:00 107 H 107/80 01/03/22 10:00 91 H 103/75 01/03/22 09:38 0 L 97/70 L 01/03/22 09:00 90 95/68 L 01/03/22 08:00 99 H 94 H 22 99/73 L 01/03/22 07:43 36.5 C 106 H 24 97/74 L 01/03/22 07:18 100 H 97/74 L 01/03/22 07:00 98 H 01/03/22 06:00 115 H 108/77 01/03/22 05:01 107 H 105/81 01/03/22 05:00 96 H 01/03/22 04:00 101 H 124/70 Pulse Ox 01/03/22 15:43 93 01/03/22 14:51 92 01/03/22 14:49 94 01/03/22 14:30 92 01/03/22 14:00 93 01/03/22 13:44 89 L 01/03/22 13:00 89 L 01/03/22 12:47 94 01/03/22 12:01 92 01/03/22 12:00 90 01/03/22 11:44 89 L 01/03/22 11:09 90 01/03/22 11:00 91 01/03/22 10:00 96 01/03/22 09:38 01/03/22 09:00 92 01/03/22 08:00 91 01/03/22 07:43 90 01/03/22 07:18 89 L 01/03/22 07:00 88 L 01/03/22 06:00 90 01/03/22 05:01 91 01/03/22 05:00 93 01/03/22 04:00 90 PG Care Time/CCT Total # of Minutes Spent Total Time Spent with Patient: Total time spent is greater than 50% in coordination of care (as documented) at patient's floor/unit and/or counseling patient: Coding Level of Care Code 25435 Subseq Hosp Care Lvl 1 Diagnoses Acute respiratory failure with hypoxia J96.01 COVID-19 U07.1 Secondary pneumonia J18.9 Atrial fibrillation with RVR I48.91 STEPHON (acute kidney injury) N17.9 Hyperlipidemia E78.5 Enlarged prostate N40.0 Esophageal dysphagia R13.10
[2022-01-03 16:29] LABS: Partial Thromboplastin Ratio 2.3
[2022-01-03 16:31] LABS: Partial Thromboplastin Time 61.3 Seconds (21.0-31.0)
[2022-01-03 16:37] LABS: BUN Creatinine Ratio 23.9 (10-20); Calcium 8.2 mg/dl (8.5-10.1); Creatinine Clr Calc Pharmacy 24.2 ml/min; Est GFR (African American) 23.9 ml/min; Est GFR (Non-African American) 20.6 ml/min; Potassium 3.7 mmol/L (3.5-5.1)
[2022-01-03] MEDS ORDERED: SODIUM CHLORIDE 3 % 50 ML IV ONE (17:00)
[2022-01-03] MEDS: AZITHROMYCIN 500 MG in SODIUM CHLORIDE 0.9% 250 ML IV SCH (18:05)
[2022-01-03] MEDS: HEPARIN SODIUM/DEXTROSE 25,000 UNITS/500 ML BAG IV SCH (21:08)
[2022-01-03] MEDS ORDERED: AMIODARONE 200 MG TAB PO ONE (21:30)
[2022-01-04] MEDS: PHENYLEPHRINE HCL 20 MG in SODIUM CHLORIDE 0.9% 500 ML IV SCH ×2 (05:47→14:20)
[2022-01-04 06:58] LABS: Basophils # (auto) 0.02 K/uL (0-0.2); Basophils % (auto) 0.1 %; Eosinophils # (auto) 0.01 K/uL (0-0.5); Eosinophils % (auto) 0.1 %; Hematocrit (blood only) 43.9 % (42-52); Hemoglobin 16.1 g/dL (14.0-18.0); Immature Granulocytes # (auto) 0.07 K/uL (0.00-0.02); Immature Granulocytes % (auto) 0.5 %; Lymphocytes # (auto) 0.85 K/uL (1.2-3.4); Lymphocytes % (auto) 6.1 %; Mean Corpuscular Hemoglobin 31.5 pg (25-34); Mean Corpuscular Hgb Conc 36.7 g/dL (32-36); Mean Corpuscular Volume 85.9 fL (80-100); Mean Platelet Volume 11.8 fL (7.4-10.4); Monocytes # (auto) 0.82 K/uL (0.11-0.59); Monocytes % (auto) 5.9 %; Neutrophils # (auto) 12.16 K/uL (1.4-6.5); Neutrophils % (auto) 87.3 %; Platelet Count 369 K/uL (130-400); RDW Coefficient of Variation 14.2 % (11.5-14.5); RDW Standard Deviation 44.4 fL (36.4-46.3); Red Blood Count 5.11 M/uL (4.7-6.1); White Blood Count 13.93 K/uL (4.8-10.8)
[2022-01-04 07:20] LABS: Estimated Average Glucose 146 mg/dl; Hemoglobin A1C 6.7 % (4.5-5.6)
[2022-01-04 07:31] LABS: Partial Thromboplastin Ratio 2.3
[2022-01-04 07:38] LABS: Partial Thromboplastin Time 59.2 Seconds (21.0-31.0)
--- NOTE | 2022-01-04 08:03 | XRay Report ---
XR chest 1V portable HISTORY: 71 years-old Male f/u follow-up study in a patient with shortness of breath COMPARISON: Chest radiograph 01/03/2022, CTA chest 01/01/2022 TECHNIQUE: Portable AP view of the chest FINDINGS: Cardiac mediastinal and hilar silhouettes are unchanged. Multifocal airspace opacities are redemonstr ated, most pronounced within the right upper lung. There is slightly improved aeration of the right l erlin base. Small pleural effusions. No pneumothorax or overt pulmonary edema. Spondylitic spurring of the spine. IMPRESSION: 1. Persistent multifocal airspace opacities suggestive of pneumonia with mildly improved aeration of the right lung base. 2. Small pleural effusions. ACT 112: Negative or not required by law. The above report was generated using voice recognition software. It may contain grammatical, syntax o r spelling errors. Electronically signed by: Yovani Malone M.D. 01/04/2022 8:01 AM
[2022-01-04] MEDS: PANTOprazole 40 MG TAB PO SCH (08:21)
[2022-01-04] MEDS: ATORVASTATIN 10 MG TAB PO SCH (08:21)
[2022-01-04] MEDS: ASPIRIN 81 MG ECTAB PO SCH (08:21)
[2022-01-04] MEDS: AMIODARONE 200 MG TAB PO SCH ×2 (08:21→17:26)
[2022-01-04] MEDS: TAMSULOSIN HCL 0.4 MG CAP PO SCH (08:22)
[2022-01-04] MEDS: dexAMETHasone 10 MG in SYRINGE 0 ML IV SCH (08:22)
[2022-01-04] MEDS: FINASTERIDE 5 MG TAB PO SCH (08:22)
[2022-01-04 08:23] LABS: BUN Creatinine Ratio 28.3 (10-20); Calcium 8.1 mg/dl (8.5-10.1); Creatinine Clr Calc Pharmacy 25.8 ml/min; Est GFR (African American) 25.7 ml/min; Est GFR (Non-African American) 22.2 ml/min; Magnesium 2.3 mg/dl (1.7-2.4); Phosphorus 5.4 mg/dl (2.5-4.9)
[2022-01-04] MEDS ORDERED: SODIUM BICARB 8.4% INJ 50 MEQ/50 ML SYR IV STA (08:28)
[2022-01-04] MEDS ORDERED: SODIUM CHLORIDE 0.9% 1,000 ML IV SCH (08:30)
[2022-01-04] MEDS: METOPROLOL TARTRATE 25 MG TAB PO SCH ×2 (09:28→20:52)
[2022-01-04] MEDS: INSULIN ASPART PER UNIT SC SCH ×3 (10:19→17:13)
[2022-01-04] MEDS: INSULIN HUMAN NPH SC SCH (10:20)
--- NOTE | 2022-01-04 11:54 | Critical Care Progress Note ---
Date of Service January 04, 2022 Assessment & Plan (1) Atrial fibrillation with RVR: (2) COVID-19: (3) Acute respiratory failure with hypoxia: (4) Peripheral artery disease: (5) Esophageal dysphagia: (6) Aspiration pneumonitis: (7) New onset a-fib: Plan: Reason Critically Ill: 71-year-old male presents to the ICU in acute hypoxic respiratory failure and A. fib RVR, recently diagnosed with COVID-[address] evidence of aspiration pneumonia versus pneumonitis. Neuro - [facility] ICU: Negative Cardiac - A. fib RVR Patient failed 2 cardioversions, 150 J followed by 200 J S/p diltiazem drip. Amiodarone drip stopped 01/04/2022. Continue with metoprolol Heparin drip --Hypotension Combination of bacterial pneumonia as well as rate control medication Continue with vasopressor support to keep MAP greater than 65 HLDcontinue ASA, statin Respiratory - Acute hypoxic respiratory failure Multifactorial COVID-19 pneumonia as well as A. fib with RVR GI - --Mild transaminitis Could be from underlying COVID-19 as well as A. fib RVR Continue to monitor and trend RENAL/LYTES - STEPHON on CKD Creatinine still worsening Monitor BUNs/creatinine Avoid nephrotoxic medication Hyponatremia with hypochloremia S/p 3% 50 mL on 01/03/2022 serum osmolality 285 urine osmolality 313 , urine lites: Sodium 32, chloride < 15 - BPHcontinue finasteride, tamsulosin Strict I's and O's ENDO - No history of diabetes or thyroid disease ICU hyperglycemic protocol HEME - H&H stable, monitor routine CBCs ID - Pneumonia -Would continue with IV dexamethasone at this time for 10 days. -Nasal MRSA negative COVID-19 PCR positive Procalcitonin 7.4 CRP: 36.2 BNP: 149 Continue with dexamethasone Given the elevated procalcitonin and dense consolidative process in the likelihood of superimposed bacteriaL pneumonia is high, would not be a candidate for Tocilizumab or baricitinib -Continue with ceftriaxone, azithromycin for now --Prophylaxis VTE: Heparin drip GI: Protonix Lines: Peripheral Diet: Clear liquids Plan: In/out: +1.5 L, urine output 1025 Chest x-ray from today does not show any significant change compared to yesterday may be mild improvement on the right side infiltrate. Patient does have high anion gap metabolic acidosis likely from STEPHON on CKD We will give him bicarb 100 mEq. For creatinine still going up I will give the patient NS 1 L given the h yponatremia and hypochloremia. Continue to monitor sodium Patient is complaining of nasal congestion we will give him Afrin nasal spray along with normal saline nasal spray. We will try to get a PICC line as patient has been needing pressor support for more than 48 hours Patient's daughter Eda [phone] was called and updated I have personally spent 35 minutes of critical care time in the direct management of this patient. This is a life/limb threatening event. This includes time spent evaluating patient, direct bedside care, chart review, placing orders, interpretation of diagnostic studies, discussion with consultants, patient, and family members, as well as other required patient management activities. This time is exclusive of all separately billable procedures, and teaching time and separate from and in addition to any other critical care service time. Please note the above document was generated using voice recognition software. It may contain grammatical, syntax or spelling errors. Admission and Anticipated Discharge Date Admission Date: December 31, 2021 Subjective Patient seen and examined at bedside. No acute distress, no adverse events overnight He has been off amiodarone drip since around 3 AM. At time of examination his heart rate was in the 130s. He has also been off diltiazem since yesterday He did not get his metoprolol today. He was on 0.5 of phenylephrine. He says that he is feeling better compared to yesterday. Still complains of dry cough. Not bringing up any phlegm Complains of nasal congestion. Denies any chest pain, no headache, no nausea, no vomiting. Review of Systems Review of Systems: All systems reviewed & are unremarkable except as noted in Subjective Physical Exam 2 Physical Exam: Constitutional: No acute distress HEENT: EOMI, PERRLA Respiratory system: Decreased air entry bilaterally, no wheeze, rhonchi, pos itive crackles bilaterally CVS: S1-S2 positive, no murmurs or gallops, irregular Abdomen: Soft, nontender, nondistended, positive bowel sounds x4 Extremities: +2 pulses bilaterally radialis/ dorsalis pedis, no cyanosis, no edema Neuro: Awake alert oriented x3 Psych: Normal mood and affect G/U: Positive Jeong Skin: no rashes, warm and dry Lymphatic: no cervical or axillary lymphadenopathy Results & Data Results & Data ([facility]) Vital Signs (Past 12 Hours) Vital Signs Temp Pulse Pulse Resp BP BP Pulse Ox 01/04/22 11:17 119 H 20 93 01/04/22 11:10 91 H 22 90/66 L 92 01/04/22 11:03 01/04/22 07:55 109 H 20 91 01/04/22 07:35 36.5 C 117 H 23 105/79 93 01/04/22 04:16 36.5 C 121 H 18 103/70 94 01/04/22 04:15 115 H 94 01/04/22 04:01 122 H 98/80 L 87 L 01/04/22 04:00 109 H 01/04/22 03:45 124 H 102/77 94 01/04/22 03:31 107 H 72/56 L 89 L 01/04/22 03:30 114 H 95 01/04/22 03:15 114 H 85/58 L 84 L 01/04/22 03:00 107 H 95/62 L 92 01/04/22 02:45 93 H 82/56 L 93 01/04/22 02:30 132 H 96/75 L 92 01/04/22 02:15 112 H 119/99 91 01/04/22 02:00 105 H 107/63 94 01/04/22 01:52 36.5 C 115 H 18 130/72 95 01/04/22 01:45 119 H 130/72 91 01/04/22 01:30 127 H 118/85 91 01/04/22 01:15 117 H 99/76 L 95 01/04/22 01:00 109 H 138/76 94 01/04/22 00:46 118 H 118/72 95 01/04/22 00:45 107 H 95 01/04/22 00:30 107 H 99/75 L 93 01/04/22 00:15 104 H 89/75 L 91 01/04/22 00:01 102 H 85/64 L 91 01/04/22 00:00 112 H 90 Pulse Ox Pulse Ox Pulse Ox 01/04/22 11:17 01/04/22 11:10 01/04/22 11:03 89 L 91 77 L 01/04/22 07:55 02/04/22 07:35 01/04/22 04:16 01/04/22 04:15 01/04/22 04:01 01/04/22 04:00 01/04/22 03:45 01/04/22 03:31 01/04/22 03:30 01/04/22 03:15 01/04/22 03:00 01/04/22 02:45 01/04/22 02:30 01/04/22 02:15 01/04/22 02:00 01/04/22 01:52 01/04/22 01:45 01/04/22 01:30 01/04/22 01:15 01/04/22 01:00 01/04/22 00:46 01/04/22 00:45 01/04/22 00:30 01/04/22 00:15 01/04/22 00:01 01/04/22 00:00 Laboratory Results 01/04/22 06:31 01/04/22 08:50 Coding Level of Care Code Critical Care 1st 30-74 mins Diagnoses Atrial fibrillation with RVR I48.91 COVID-19 U07.1 Acute respiratory failure with hypoxia J96.01 Peripheral artery disease I73.9 Esophageal dysphagia R13.10 Aspiration pneumonitis J69.0 New onset a-fib I48.91 Time Spent (min) 35
--- NOTE | 2022-01-04 13:01 | Hospitalist Progress Note ---
Date of Service January 04, 2022 Assessment & Plan (1) Acute respiratory failure with hypoxia: Plan: 01/02 COVID-19 Pneumonia with superimposed bacterial pneumonia Febrile Oxygen to target SPO2 sat greater than 90% Covid treatment as below Krista on high flow 45/70 Patient amenable to intubation if needed, ICU following 01/04: CXR similar versus slightly improved aeration (2) COVID-19: Plan: Covid pneumonia, suspect post viremic phase with superimposed pneumonia as below Covid positive 12/31/2021. Prior negative 11/14/22, no home test when pt had symptoms noted below. First day of symptoms: Unclear. Some URI symptoms for 3 to 4 weeks, some nasal congestion for 1-2 weeks which improved and some residual congestion but acute worsening and became febrile 7 days ago and febrile daily since then. - Suspected COVID exposure 4-5 weeks ago (family from [facility]) who were all sick and required quarantine, sinus congestion started shortly after this exposure. Vaccination status: Unvaccinated Baseline kidney function: Normal, creatinine less than 1 at baseline Admitting kidney function: Creatinine 1.46, creatinine clearance 48 AST/ALT: 58/60, mild elevation. Normal at baseline CXR:IMPRESSION: Bilateral airspace opacities are suggestive of multifocal pneumonia. CRP: 36.2 Procalcitonin 7.47 Started on dexamethasone 12/31, continue for 10-day course. Increased to 10mg daily. Remdesivir: Initial symptom onset 3 to 4 weeks ago, outside of viremic window. Patient with superimposed pneumonia likely the cause of his symptoms although in window for post Covid inflammatory disease - Baricitinib not recommended in setting of bacterial superinfection -Continue heparin GTT - See superimposed PNA below (3) Secondary pneumonia: Plan: CTA: Severely streak and motion compromised examination. There is no evidence of central pulmonary embolus in the main or lobar pulmonary arteries. The segmental and subsegmental vessels cannot be evaluated. There is significant dependent airspace consolidation seen bilaterally with small pleural effusions. The appearance is typical for pneumonia/aspiration pneumonitis. Clinical correlation will be required and radiographic follow-up to resolution is recommended. Mildly enlarged mediastinal and hilar nodes are likely reactive. There is mild aneurysmal dilatation of the ascending thoracic aorta which measures up to 4.2 cm in diameter. Cardiomegaly with advanced coronary artery calcification. Pro-Sung 7.47, CRP 36 on admission Patient febrile for the week prior to admission and on admission No leukocytosis Uptrending creatinine 2/2 Lasix held Patient with RVR and suspected rate related hypotension with? Related pulmonary edema. Continued on diltiazem drip and amiodarone drip with pressure support via phenylephrine drip to maintain MAP rate currently 100s. Continues under ICU care. -Afebrile today. Continue Rocephin/azithromycin. MRSA nare negative (4) Atrial fibrillation with RVR: Plan: - Pt denies any cardiac history to admission Patient in sinus tachycardia on arrival Following CT patient converted to A. fib with RVR with rates up 160-180 Heparin ordered for anticoagulation, given new onset A. fib and concern for progressive hypotension risk/benefits of chemical cardioversion outweighed risk of stroke/delaying for anticoagulation Pressures initially stable and mildly hypertensive. Treated with metoprolol 5 IV x2 with minimal improvement Pressures decreased to [id number] systolic with increase in rate to 180, suspect for rate related hypotension with hypoxia A. fib new with no known history, and patient was in sinus on arrival. Loaded with amiodarone, drip started with some improvement in rate down to [id number] and improvement in pressures to 110-120s 2/: Patient with A. fib RVR with concern for rate related pressure decrease and rate related worsening oxygenation/pulmonary edema. See communication note, patient received amnio boluses, amnio drip, and digoxin with continued deterioration. Attempted electrical cardioversion x2 with transient decrease and then returned to RVR. He was transferred to ICU for pressor support with diltiazem drip. -01/04: Patient remains reasonably rate controlled with adequate blood pressure on diltiazem/amiodarone/phenylephrine drip. Continue to follow, appreciate ICU care (5) STEPHON (acute kidney injury): Plan: Cr continues to uptrend. Evening repeat pending. susp prerenal with ypotension Prerenal, in setting of infection and RVR Avoid nephrotoxins, follow creatinine Pressure support and management as above Patient clinically somewhat dry with STEPHON, NSS given today and with 3% saline for hyponatremia. Bicarb given for anion gap acidosis (6) Hyperlipidemia: Plan: Continue home statin (7) Enlarged prostate: Plan: Continue tamsulosin Continue finasteride (8) Esophageal dysphagia: Plan: Continue PPI Admission and Anticipated Discharge Date Admission Date: December 31, 2021 Subjective Seen the bedside today. He reports he still feels poorly, but better than yest erday./Shortness of breath, a little bit warm but with no shakes or fevers overnight. Does feel intermittent palpitations/heart racing, none at time of assessment. Denies chest pain, chest pressure. Expresses gratitude for care, does not have questions or concerns at time of visit. Seen using iPad ferry pilot services. Review of Systems Review of Systems: All systems reviewed & are unremarkable except as noted in Subjective Physical Exam Physical Exam: General: Alert and oriented, exclusively Luxem[place]ger-speaking. Skin warm. Exam/subjective completed with assistance of fisheries specialist. Appears fatigued and ill, but nontoxic and improved from prior HEENT: Atraumatic, normocephalic. Visual acuity grossly intact. Hearing grossly intact. Pulm: Coarse, bilateral crackles increase in the bases. No wheeze or rhonchi. Symmetrical chest rise. Currently on high flow. Cardiac: Tachycardic. Radial pulses intact and symmetrical. Abdominal: Nontender, nondistended, soft. BS present. Extremities: Warm, dry. Moves arms equally. Results & Data Results & Data ([facility]) Vital Signs (Past 12 Hours) Vital Signs Temp Pulse Pulse Resp BP BP Pulse Ox 01/04/22 11:17 119 H 20 93 01/04/22 11:10 91 H 22 90/66 L 92 01/04/22 11:03 01/04/22 07:55 109 H 20 91 01/04/22 07:35 36.5 C 117 H 23 105/79 93 01/04/22 04:16 36.5 C 121 H 18 103/70 94 01/04/22 04:15 115 H 94 01/04/22 04:01 122 H 98/80 L 87 L 01/04/22 04:00 109 H 01/04/22 03:45 124 H 102/77 94 01/04/22 03:31 107 H 72/56 L 89 L 01/04/22 03:30 114 H 95 01/04/22 03:15 114 H 85/58 L 84 L 01/04/22 03:00 107 H 95/62 L 92 01/04/22 02:45 93 H 82/56 L 93 01/04/22 02:30 132 H 96/75 L 92 01/04/22 02:15 112 H 119/99 91 01/04/22 02:00 105 H 107/63 94 01/04/22 01:52 36.5 C 115 H 18 130/72 95 01/04/22 01:45 119 H 130/72 91 01/04/22 01:30 127 H 118/85 91 01/04/22 01:15 117 H 99/76 L 95 01/04/22 01:00 109 H 138/76 94 Pulse Ox Pulse Ox Pulse Ox 01/04/22 11:17 01/04/22 11:10 01/04/22 11:03 89 L 91 77 L 01/04/22 07:55 01/04/22 07:35 01/04/22 04:16 01/04/22 04:15 01/04/22 04:01 01/04/22 04:00 01/04/22 03:45 01/04/22 03:31 01/04/22 03:30 01/04/22 03:15 01/04/22 03:00 01/04/22 02:45 01/04/22 02:30 01/04/22 02:15 01/04/22 02:00 01/04/22 01:52 01/04/22 01:45 01/04/22 01:30 01/04/22 01:15 01/04/22 01:00 PG Care Time/CCT Total # of Minutes Spent Total Time Spent with Patient: Total time spent is greater than 50% in coordination of care (as documented) at patient's floor/unit and/or counseling patient: Coding Level of Care Code 42765 Subseq Hosp Care Lvl 2 Diagnoses Acute respiratory failure with hypoxia J96.01 COVID-19 U07.1 Secondary pneumonia J18.9 Atrial fibrillation with RVR I48.91 STEPHON (acute kidney injury) N17.9 Hyperlipidemia E78.5 Enlarged prostate N40.0 Esophageal dysphagia R13.10
--- NOTE | 2022-01-04 13:19 | XCELERA ---
[id number] \\[id number]
[2022-01-04] MEDS: OXYMETAZOLINE 0.05% 30 ML BTL NAE SCH ×2 (13:24→20:51)
[2022-01-04] MEDS: dilTIAZem HCL 125 MG in 0.9 % SODIUM CHLORIDE 100 ML IV SCH (17:10)
[2022-01-04] MEDS: AMIODARONE / D5W 360 MG/200 ML BAG IV SCH (17:10)
[2022-01-04] MEDS: SODIUM CHLORIDE 0.65% NA SOLN 45 ML (OCEAN) SCH ×2 (17:25→20:52)
[2022-01-04] MEDS: AZITHROMYCIN 500 MG in SODIUM CHLORIDE 0.9% 250 ML IV SCH (17:26)
[2022-01-05] MEDS: PHENYLEPHRINE HCL 20 MG in SODIUM CHLORIDE 0.9% 500 ML IV SCH ×2 (00:12→05:33)
[2022-01-05] MEDS: INSULIN ASPART PER UNIT SC SCH ×5 (00:51→20:42)
[2022-01-05 07:17] LABS: Hemoglobin 14.8 g/dL (14.0-18.0); Mean Corpuscular Hemoglobin 31.2 pg (25-34); Mean Corpuscular Hgb Conc 36.1 g/dL (32-36); Mean Corpuscular Volume 86.3 fL (80-100); Mean Platelet Volume 11.6 fL (7.4-10.4); Platelet Count 423 K/uL (130-400); RDW Coefficient of Variation 14.3 % (11.5-14.5); RDW Standard Deviation 45.5 fL (36.4-46.3); Red Blood Count 4.75 M/uL (4.7-6.1); White Blood Count 18.46 K/uL (4.8-10.8)
[2022-01-05 07:36] LABS: Basophils # (auto) 0.03 K/uL (0-0.2); Basophils % (auto) 0.2 %; Eosinophils # (auto) 0.01 K/uL (0-0.5); Eosinophils % (auto) 0.1 %; Immature Granulocytes # (auto) 0.11 K/uL (0.00-0.02); Immature Granulocytes % (auto) 0.6 %; Lymphocytes # (auto) 1.65 K/uL (1.2-3.4); Lymphocytes % (auto) 8.9 %; Monocytes # (auto) 0.82 K/uL (0.11-0.59); Monocytes % (auto) 4.4 %; Neutrophils # (auto) 15.84 K/uL (1.4-6.5); Neutrophils % (auto) 85.8 %
[2022-01-05 07:42] LABS: Partial Thromboplastin Ratio 2.2; Partial Thromboplastin Time 57.7 Seconds (21.0-31.0)
[2022-01-05 07:43] LABS: BUN Creatinine Ratio 35.2 (10-20); Calcium 8.1 mg/dl (8.5-10.1); Creatinine Clr Calc Pharmacy 30.5 ml/min; Est GFR (African American) 31.5 ml/min; Est GFR (Non-African American) 27.2 ml/min; Magnesium 2.4 mg/dl (1.7-2.4); Phosphorus 4.4 mg/dl (2.5-4.9); Potassium 3.6 mmol/L (3.5-5.1)
--- NOTE | 2022-01-05 07:45 | XRay Report ---
SINGLE VIEW CHEST CLINICAL HISTORY: Covid pneumonia. FINDINGS: 2 AP, portable, upright chest radiographs are compared to study dated 2 01/04/2022 and correl ated with chest CT dated 01/01/2022. The examination is degraded by portable technique and apical lordo tic positioning. The heart is enlarged noting atherosclerotic calcification of the thoracic aorta. Mu ltifocal airspace consolidation is again seen throughout both lungs, most confluent in the right uppe r lobe. This is similar to yesterday. No large pleural effusion or pneumothorax is identified. The sk eletal structures are osteopenic. The bony thorax is grossly intact. IMPRESSION: 1. Multifocal airspace consolidation has not significantly changed from yesterday. 2. Cardiomegaly. ACT 112: Negative or not required by law. Electronically signed by: Warren Vizcaino M.D. 01/05/2022 7:43 AM
[2022-01-05] MEDS: ASPIRIN 81 MG ECTAB PO SCH (08:10)
[2022-01-05] MEDS: dexAMETHasone 10 MG in SYRINGE 0 ML IV SCH (08:10)
[2022-01-05] MEDS: ATORVASTATIN 10 MG TAB PO SCH (08:10)
[2022-01-05] MEDS: AMIODARONE 200 MG TAB PO SCH ×2 (08:11→17:57)
[2022-01-05] MEDS: FINASTERIDE 5 MG TAB PO SCH (08:11)
[2022-01-05] MEDS: PANTOprazole 40 MG TAB PO SCH (08:11)
[2022-01-05] MEDS: TAMSULOSIN HCL 0.4 MG CAP PO SCH (08:11)
[2022-01-05] MEDS: OXYMETAZOLINE 0.05% 30 ML BTL NAE SCH ×2 (08:13→20:49)
[2022-01-05] MEDS: METOPROLOL TARTRATE 25 MG TAB PO SCH ×2 (08:13→20:49)
[2022-01-05] MEDS: SODIUM CHLORIDE 0.65% NA SOLN 45 ML (OCEAN) SCH ×2 (08:13→20:49)
[2022-01-05] MEDS ORDERED: NORMOSOL-R 1,000 ML IV SCH (08:15)
[2022-01-05] MEDS: INSULIN HUMAN NPH SC SCH (08:16)
[2022-01-05] MEDS: HEPARIN SODIUM/DEXTROSE 25,000 UNITS/500 ML BAG IV SCH (09:43)
--- NOTE | 2022-01-05 10:46 | Critical Care Progress Note ---
Date of Service January 05, 2022 Assessment & Plan (1) Atrial fibrillation with RVR: (2) COVID-19: (3) Acute respiratory failure with hypoxia: (4) Peripheral artery disease: (5) Esophageal dysphagia: (6) Aspiration pneumonitis: (7) New onset a-fib: Plan: Reason Critically Ill: 71-year-old male presents to the ICU in acute hypoxic respiratory failure and A. fib RVR, recently diagnosed with COVID-[address] evidence of aspiration pneumonia versus pneumonitis. Neuro - [facility] ICU: Negative Cardiac - A. fib RVR Patient failed 2 cardioversions, 150 J followed by 200 J S/p diltiazem drip. Amiodarone drip stopped 01/04/2022. Continue with metoprolol Heparin drip --Hypotension Combination of bacterial pneumonia as well as rate control medication Continue with vasopressor support to keep MAP greater than 65 HLDcontinue ASA, statin Respiratory - Acute hypoxic respiratory failure Multifactorial COVID-19 pneumonia as well as A. fib with RVR GI - --Mild transaminitis Could be from underlying COVID-19 as well as A. fib RVR Continue to monitor and trend RENAL/LYTES - STEPHON on CKD --> Improving Monitor BUNs/creatinine Avoid nephrotoxic medication Hyponatremia with hypochloremia S/p 3% 50 mL on 01/03/2022 serum osmolality 285 urine osmolality 313 , urine lites: Sodium 32, chloride < 15 - BPHcontinue continue with finasteride, tamsulosin on hold Strict I's and O's ENDO - No history of diabetes or thyroid disease ICU hyperglycemic protocol HEME - H&H stable, monitor routine CBCs ID - Pneumonia -Would continue with IV dexamethasone at this time for 10 days. -Nasal MRSA negative COVID-19 PCR positive Procalcitonin 7.4 CRP: 36.2 BNP: 149 Continue with dexamethasone Given the elevated procalcitonin and dense consolidative process in the likelihood of superimposed bacteriaL pneumonia is high, would not be a candidate for Tocilizumab or baricitinib -Continue with ceftriaxone, azithromycin for now --Prophylaxis VTE: Heparin drip GI: Protonix Lines: Peripheral Diet: Clear liquids --> advance as tolerated Plan: In/out: +1.5 L, urine output 41 Will consider increasing Metoprolol 12.5mg to q6hrs if the heart rate is persistently stays greater than 120 No changes in CXR compared to yesterday Sodium and chloride have improved. Give one more litre of Normosol today. Will consider lasix tomorrow. Hold tamsulosin Patient's daughter Eda [phone] I have personally spent 35 minutes of critical care time in the direct management of this patient. This is a life/limb threatening event. This includes time spent evaluating patient, direct bedside care, chart review, placing orders, interpretation of diagnostic studies, discussion with consultants, patient, and family members, as well as other required patient management activities. This time is exclusive of all separately billable procedures, and teaching time and separate from and in addition to any other critical care service time. Please note the above document was generated using voice recognition software. It may contain grammatical, syntax or spelling errors. Admission and Anticipated Discharge Date Admission Date: December 31, 2021 Subjective Patient seen and examined at bedside. No acute distress, no adverse events overnight. Patient was sitting on the chair. He did complain of dizziness when he was moved from bed to the chair. Denies any chest pain, no headache, no nausea, no vomiting Does complain of cough which is mostly dry. Denies any hemoptysis Appetite has improved compared to before Patient was still on phenylephrine His heart rate was in the 120s Review of Systems 2 Review of Systems: All systems reviewed & are unremarkable except as noted in Subjective Physical Exam Physical Exam: Constitutional: No acute distress HEENT: EOMI, PERRLA Respiratory system: Decreased air entry bilaterally, no wheeze, rhonchi, positive crackles bilaterally CVS: S1-S2 positive, no murmurs or gallops, irregular Abdomen: Soft, nontender, nondistended, positive bowel sounds x4 Extremities: +2 pulses bilaterally radialis/ dorsalis pedis, no cyanosis, no edema Neuro: Awake alert oriented x3 Psych: Normal mood and affect G/U: Positive Jeong Skin: no rashes, warm and dry Lymphatic: no cervical or axillary lymphadenopathy Results & Data Results & Data ([facility]) Vital Signs (Past 12 Hours) Vital Signs Temp Pulse Pulse Resp BP BP Pulse Ox 01/05/22 10:16 99 H 109 H 19 94 01/05/22 10:00 109 H 17 107/71 92 01/05/22 09:31 106 H 27 H 100/68 92 01/05/22 09:16 108 H 19 99/65 L 90 01/05/22 09:01 131 H 24 83/65 L 89 L 01/05/22 09:00 119 H 20 91 01/05/22 08:47 112 H 28 H 101/66 91 01/05/22 08:31 135 H 21 112/73 91 01/05/22 08:16 142 H 21 85 L 01/05/22 08:00 130 H 31 H 01/05/22 07:50 36.6 C 124 H 22 94/69 L 88 L 01/05/22 07:45 114 H 21 94/69 L 86 L 01/05/22 07:34 108 H 112 H 22 90 01/05/22 07:31 118 H 23 95/68 L 89 L 01/05/22 07:15 143 H 25 H 81/64 L 93 01/05/22 07:00 135 H 27 H 83/61 L 80 L 01/05/22 06:45 132 H 30 H 92/70 L 87 L 01/05/22 06:30 129 H 17 111/53 L 93 01/05/22 06:15 107 H 16 99/53 L 94 01/05/22 06:00 123 H 22 93/53 L 96 01/05/22 05:59 36.7 C 01/05/22 05:46 119 H 23 104/75 87 L 01/05/22 05:45 123 H 21 89 L 01/05/22 05:30 98 H 95/62 L 95 01/05/22 05:15 96 H 15 114/72 92 01/05/22 05:00 128 H 18 93/74 L 91 01/05/22 04:45 108 H 21 83/60 L 92 01/05/22 04:31 104 H 16 100/84 92 01/05/22 04:30 111 H 18 92 01/05/22 04:15 97 H 17 84/60 L 90 01/05/22 04:00 106 H 18 90 01/05/22 03:45 120 H 16 99/59 L 93 01/05/22 03:30 105 H 101/63 90 01/05/22 03:26 128 H 21 77/66 L 94 01/05/22 03:24 113 H 119 H 22 79/54 L 94 01/05/22 03:15 116 H 14 84/39 L 93 01/05/22 03:01 120 H 16 94/59 L 93 01/05/22 03:00 113 H 13 94 01/05/22 02:45 109 H 15 111/76 89 L 01/05/22 02:30 111 H 17 99/69 L 95 01/05/22 02:15 113 H 17 81/57 L 95 01/05/22 02:02 129 H 16 81/58 L 95 01/05/22 02:01 115 H 15 71/53 L 95 01/05/22 02:00 120 H 15 95 01/05/22 01:46 119 H 21 76/60 L 95 01/05/22 01:45 120 H 25 H 94 01/05/22 01:31 109 H 11 L 107/64 88 L 01/05/22 01:30 115 H 10 L 89 L 01/05/22 01:15 108 H 18 87/73 L 93 01/05/22 01:00 108 H 23 88/65 L 96 01/05/22 00:45 117 H 17 98/59 L 96 01/05/22 00:30 94 H 16 93/60 L 95 01/05/22 00:19 98 H 22 94/61 L 94 01/05/22 00:15 122 H 18 93 01/05/22 00:10 120 H 75/48 L 94 01/05/22 00:01 126 H 94/58 L 95 01/05/22 00:00 125 H 95 01/04/22 23:55 105 H 97/60 L 94 01/04/22 23:45 111 H 83/44 L 89 L 01/04/22 23:31 109 H 85/39 L 89 L 01/04/22 23:30 108 H 120 H 24 89 L 01/04/22 23:15 117 H 18 92/68 L 94 01/04/22 23:00 120 H 19 91/70 L 89 L 01/04/22 22:45 116 H 17 111/71 90 Laboratory Results 01/05/22 06:51 01/05/22 06:51 Coding Level of Care Code Critical Care 1st 30-74 mins Diagnoses Atrial fibrillation with RVR I48.91 COVID-19 U07.1 Acute respiratory failure with hypoxia J96.01 Peripheral artery disease I73.9 Esophageal dysphagia R13.10 Aspiration pneumonitis J69.0 New onset a-fib I48.91 Time Spent (min) 35
--- NOTE | 2022-01-05 11:48 | XRay Report ---
SINGLE VIEW CHEST CLINICAL HISTORY: PICC placement. FINDINGS: 3 AP, portable, upright chest radiographs are compared to study performed earlier the same day 01/05/2022 and correlated with chest CT dated 01/01/2022. The examination is degraded by portable krystal hnique and patient rotation. A left-sided PICC line is been placed. The tip of the catheter projects over the cavoatrial junction. The heart is enlarged noting atherosclerotic calcification of the thora cic aorta. Multifocal airspace consolidation is again seen throughout both lungs, most confluent in t he right upper lobe. This is unchanged from earlier today. No large pleural effusion or pneumothorax is identified. The skeletal structures are osteopenic. The bony thorax is grossly intact. IMPRESSION: 1. A left-sided PICC line has been placed as above. 2. Multifocal airspace consolidation has not significantly changed from today's earlier study. 3. Cardiomegaly. ACT 112: Negative or not required by law. Electronically signed by: Warren Vizcaino M.D. 01/05/2022 11:47 AM
--- NOTE | 2022-01-05 14:52 | Hospitalist Progress Note ---
Date of Service January 05, 2022 Assessment & Plan (1) Acute respiratory failure with hypoxia: Plan: 01/02 COVID-19 Pneumonia with superimposed bacterial pneumonia in right upper lobe Febrile on arrival, now resolved Continue supplemental oxygen to target SPO2 sat greater than 90%-remains on HFNC at 40 L and 65% FiO2 Covid and PNA treatment below Patient amenable to intubation if needed, ICU following 01/04: CXR similar versus slightly improved aeration (2) COVID-19: Plan: Covid pneumonia, suspect post viremic phase with superimposed pneumonia as below Covid positive 12/31/2021. Prior negative 11/14/22, no home test when pt had symptoms noted below. First day of symptoms: Unclear. Some URI symptoms for 3 to 4 weeks, some nasal congestion for 1-2 weeks which improved and some residual congestion but acute worsening and became febrile 7 days prior to admission and febrile daily since then. - Suspected COVID exposure 4-5 weeks ago (family from [facility]) who were all sick and required quarantine, sinus congestion started shortly after this exposure. Vaccination status: Unvaccinated AST/ALT: 58/60, mild elevation. Normal at baseline CXR:IMPRESSION: Bilateral airspace opacities are suggestive of multifocal pneumonia. CRP: 36.2 Procalcitonin 7.47 Started on dexamethasone 12/31, continue for 10-day course. Increased to 10mg daily. Remdesivir: Initial symptom onset 3 to 4 weeks ago, outside of viremic window. Patient with superimposed pneumonia likely the cause of his symptoms although in window for post Covid inflammatory disease - Baricitinib not recommended in setting of bacterial superinfection (3) Secondary pneumonia: Plan: CTA: Severely streak and motion compromised examination. There is no evidence of central pulmonary embolus in the main or lobar pulmonary arteries. The segmental and subsegmental vessels cannot be evaluated. There is significant dependent airspace consolidation seen bilaterally with small pleural effusions. The appearance is typical for pneumonia/aspiration pneumonitis. Clinical correlation will be required and radiographic follow-up to resolution is recommended. Mildly enlarged mediastinal and hilar nodes are likely reactive. There is mild aneurysmal dilatation of the ascending thoracic aorta which measures up to 4.2 cm in diameter. Cardiomegaly with advanced coronary artery calcification. Pro-Sung 7.47, CRP 36 on admission Patient febrile for the week prior to admission and on admission-now resolved -leukocytosis now with being on steroids -Continue ceftriaxone and azithromycin-restarted today after falling off the MAR-final day of 7-day treatment will be 01/06 -Sputum culture pending -Blood cultures no growth to date (4) Atrial fibrillation with RVR: Plan: - Pt denies any cardiac history to admission Patient in sinus tachycardia on arrival Following CT patient converted to A. fib with RVR with rates up 160-180 Heparin ordered for anticoagulation, given new onset A. fib and concern for progressive hypotension risk/benefits of chemical cardioversion outweighed risk of stroke/delaying for anticoagulation Pressures initially stable and mildly hypertensive. Treated with metoprolol 5 IV x2 with minimal improvement Pressures decreased to [id number] systolic with increase in rate to 180, suspect for rate related hypotension with hypoxia A. fib new with no known history, and patient was in sinus on arrival. Loaded with amiodarone, drip started with some improvement in rate down to [id number] and improvement in pressures to 110-120s 01/01: Patient with A. fib RVR with concern for rate related pressure decrease and rate related worsening oxygenation/pulmonary edema. See communication note, patient received amnio boluses, amnio drip, and digoxin with continued deterioration. Attempted electrical cardioversion x2 with transient decrease and then returned to RVR. He was transferred to ICU for pressor support with diltiazem drip. - now converted from IV to p.o. amiodarone -Remains on phenylephrine for pressor support -Titrating up on p.o. metoprolol for rate control -Give potassium chloride 20 mEq p.o. x1 to keep potassium closer to 4.0, caution with acute kidney injury as below -Remains in ICU status (5) STEPHON (acute kidney injury): Plan: Creatinine improving today, peaked at 2.7, now down to 2.3-suspected etiology secondary to ATN from hypotension -Continue Normosol x1 more liter today Avoid nephrotoxins, follow BMP Pressure support and management as above -Sodium bicarbonate given for metabolic acidosis which is now resolved (6) Hypotension: Plan: As above, secondary to rapid atrial fibrillation Continue phenylephrine (7) Hyponatremia: Plan: Sodium was 127, now improved to 136 with giving crystalloid volume replacement Follow BMP (8) Metabolic acidosis: Plan: As above, secondary to acute kidney injury Improve now with volume replacement and sodium bicarbonate (9) Diabetes mellitus: Plan: Hemoglobin A1c here elevated at 6.7% With hyperglycemia secondary to corticosteroids Continue insulin regimen as per pharmacy Will likely need p.o. medication upon discharge (10) Enlarged prostate: Plan: Holding home tamsulosin due to hypotension Continue finasteride -Jeong catheter in place (11) Esophageal dysphagia: Plan: Continue PPI (12) Peripheral artery disease: Plan: With a history of left SFA angioplasty Continue aspirin and statin Follows with vascular surgery as an outpatient (13) Hyperlipidemia: Plan: Continue home atorvastatin Plan: DVT prophylaxis-Heparin drip Disposition-continued stay in ICU Admission and Anticipated Discharge Date Admission Date: December 31, 2021 Subjective Pt not seen as is on ICU service. Reviewed overnight events with nursing. Remains on low-dose phenylephrine. Is tolerating clear liquids diet. Telemetry with atrial fibrillation with rates in the 110s to 120s Physical Exam Constitutional: well developed; no acute distress Results & Data Results & Data ([facility]) Vital Signs (Past 12 Hours) Vital Signs Temp Pulse Pulse Resp BP BP Pulse Ox 01/05/22 11:55 36.9 C 102 H 19 90/63 L 92 01/05/22 11:44 118 H 22 90/63 L 91 01/05/22 11:00 117 H 16 93 01/05/22 10:19 121 H 21 86/62 L 92 01/05/22 10:16 99 H 109 H 19 94 01/05/22 10:00 109 H 17 107/71 92 01/05/22 09:31 106 H 27 H 100/68 92 01/05/22 09:16 108 H 19 99/65 L 90 01/05/22 09:01 131 H 24 83/65 L 89 L 01/05/22 09:00 119 H 20 91 01/05/22 08:47 112 H 28 H 101/66 91 01/05/22 08:31 135 H 21 112/73 91 01/05/22 08:16 142 H 21 85 L 01/05/22 08:00 130 H 31 H 01/05/22 07:50 36.6 C 124 H 22 94/69 L 88 L 01/05/22 07:45 114 H 21 94/69 L 86 L 01/05/22 07:34 108 H 112 H 22 90 01/05/22 07:31 118 H 23 95/68 L 89 L 01/05/22 07:15 143 H 25 H 81/64 L 93 02/05/22 07:00 135 H 27 H 83/61 L 80 L 01/05/22 06:45 132 H 30 H 92/70 L 87 L 01/05/22 06:30 129 H 17 111/53 L 93 01/05/22 06:15 107 H 16 99/53 L 94 01/05/22 06:00 123 H 22 93/53 L 96 01/05/22 05:59 36.7 C 01/05/22 05:46 119 H 23 104/75 87 L 01/05/22 05:45 123 H 21 89 L 01/05/22 05:30 98 H 95/62 L 95 01/05/22 05:15 96 H 15 114/72 92 01/05/22 05:00 128 H 18 93/74 L 91 01/05/22 04:45 108 H 21 83/60 L 92 01/05/22 04:31 104 H 16 100/84 92 01/05/22 04:30 111 H 18 92 01/05/22 04:15 97 H 17 84/60 L 90 01/05/22 04:00 106 H 18 90 01/05/22 03:45 120 H 16 99/59 L 93 01/05/22 03:30 105 H 101/63 90 01/05/22 03:26 128 H 21 77/66 L 94 01/05/22 03:24 113 H 119 H 22 79/54 L 94 01/05/22 03:15 116 H 14 84/39 L 93 01/05/22 03:01 120 H 16 94/59 L 93 01/05/22 03:00 113 H 13 94 01/05/22 02:45 109 H 15 111/76 89 L Laboratory Results 01/05/22 01/05/22 01/05/22 Range/Units 11:54 07:48 06:51 WBC (4.8-10.8) K/uL RBC (4.7-6.1) M/uL Hgb (14.0-18.0) g/dL Hct (42-52) % MCV (80-100) fL MCH (25-34) pg MCHC (32-36) g/dL RDW Std Deviation (36.4-46.3) fL RDW Coeff of Samantha (11.5-14.5) % Plt Count (130-400) K/uL MPV (7.4-10.4) fL Immature Gran % (Auto) % Neut % (Auto) % Lymph % (Auto) % [place] % (Auto) % Eos % (Auto) % Baso % (Auto) % Neut # (Auto) (1.4-6.5) K/uL Lymph # (Auto) (1.2-3.4) K/uL [place] # (Auto) (0.11-0.59) K/uL Eos # (Auto) (0-0.5) K/uL Baso # (Auto) (0-0.2) K/uL Immature Gran # (Auto) (0.00-0.02) K/uL APTT (21.0-31.0) Seconds PTT Ratio Sodium 136 D (136-145) mmol/L Potassium 3.6 (3.5-5.1) mmol/L Chloride 106 (98-107) mmol/L Carbon Dioxide 22 (21-32) mmol/L Anion Gap 8 (3-11) BUN 81 H (6-23) mg/dl Creatinine 2.30 H D (0.6-1.4) mg/dl Est Cr Clr Drug Dosing 30.5 ml/min Est GFR ( Amer) 31.5 ml/min Est GFR (Non-Af Amer) 27.2 ml/min BUN/Creatinine Ratio 35.2 H (10-20) Glucose 200 H (70-99(Fasting)) mg/dl POC Glucose 106 H 211 H (70-99) mg/dl Calcium 8.1 L (8.5-10.1) mg/dl Phosphorus 4.4 D (2.5-4.9) mg/dl Magnesium 2.4 (1.7-2.4) mg/dl 01/05/22 01/05/22 01/04/22 Range/Units 06:51 06:51 20:39 WBC 18.46 H (4.8-10.8) K/uL RBC 4.75 (4.7-6.1) M/uL Hgb 14.8 (14.0-18.0) g/dL Hct 41.0 L (42-52) % MCV 86.3 (80-100) fL MCH 31.2 (25-34) pg MCHC 36.1 H (32-36) g/dL RDW Std Deviation 45.5 (36.4-46.3) fL RDW Coeff of Samantha 14.3 (11.5-14.5) % Plt Count 423 H (130-400) K/uL MPV 11.6 H (7.4-10.4) fL Immature Gran % (Auto) 0.6 % Neut % (Auto) 85.8 % Lymph % (Auto) 8.9 % [place] % (Auto) 4.4 % Eos % (Auto) 0.1 % Baso % (Auto) 0.2 % Neut # (Auto) 15.84 H (1.4-6.5) K/uL Lymph # (Auto) 1.65 (1.2-3.4) K/uL [place] # (Auto) 0.82 H (0.11-0.59) K/uL Eos # (Auto) 0.01 (0-0.5) K/uL Baso # (Auto) 0.03 (0-0.2) K/uL Immature Gran # (Auto) 0.11 H (0.00-0.02) K/uL APTT 57.7 H* (21.0-31.0) Seconds PTT Ratio 2.2 Sodium (136-145) mmol/L Potassium (3.5-5.1) mmol/L Chloride (98-107) mmol/L Carbon Dioxide (21-32) mmol/L Anion Gap (3-11) BUN (6-23) mg/dl Creatinine (0.6-1.4) mg/dl Est Cr Clr Drug Dosing ml/min Est GFR ( Amer) ml/min Est GFR (Non-Af Amer) ml/min BUN/Creatinine Ratio (10-20) Glucose (70-99(Fasting)) mg/dl POC Glucose 77 (70-99) mg/dl Calcium (8.5-10.1) mg/dl Phosphorus (2.5-4.9) mg/dl Magnesium (1.7-2.4) mg/dl 01/04/22 Range/Units 16:56 WBC (4.8-10.8) K/uL RBC (4.7-6.1) M/uL Hgb (14.0-18.0) g/dL Hct (42-52) % MCV (80-100) fL MCH (25-34) pg MCHC (32-36) g/dL RDW Std Deviation (36.4-46.3) fL RDW Coeff of Samantha (11.5-14.5) % Plt Count (130-400) K/uL MPV (7.4-10.4) fL Immature Gran % (Auto) % Neut % (Auto) % Lymph % (Auto) % [place] % (Auto) % Eos % (Auto) % Baso % (Auto) % Neut # (Auto) (1.4-6.5) K/uL Lymph # (Auto) (1.2-3.4) K/uL [place] # (Auto) (0.11-0.59) K/uL Eos # (Auto) (0-0.5) K/uL Baso # (Auto) (0-0.2) K/uL Immature Gran # (Auto) (0.00-0.02) K/uL APTT (21.0-31.0) Seconds PTT Ratio Sodium (136-145) mmol/L Potassium (3.5-5.1) mmol/L Chloride (98-107) mmol/L Carbon Dioxide (21-32) mmol/L Anion Gap (3-11) BUN (6-23) mg/dl Creatinine (0.6-1.4) mg/dl Est Cr Clr Drug Dosing ml/min Est GFR ( Amer) ml/min Est GFR (Non-Af Amer) ml/min BUN/Creatinine Ratio (10-20) Glucose (70-99(Fasting)) mg/dl POC Glucose 119 H (70-99) mg/dl Calcium (8.5-10.1) mg/dl Phosphorus (2.5-4.9) mg/dl Magnesium (1.7-2.4) mg/dl PG Care Time/CCT Total # of Minutes Spent Total Time Spent with Patient: Total time spent is greater than 50% in coordination of care (as documented) at patient's floor/unit and/or counseling patient: Coding Level of Care Code 59111 Subseq Hosp Care Lvl 1 Diagnoses Acute respiratory failure with hypoxia J96.01 COVID-19 U07.1 Secondary pneumonia J18.9 Atrial fibrillation with RVR I48.91 STEPHON (acute kidney injury) N17.9 Hyperlipidemia E78.5 Enlarged prostate N40.0 Esophageal dysphagia R13.10 Hypotension I95.9 Peripheral artery disease I73.9 Hyponatremia E87.1 Metabolic acidosis E87.2 Diabetes mellitus E11.9
[2022-01-05] MEDS ORDERED: POTASSIUM CHLORIDE CRTAB 20 MEQ TABCR PO STA (15:13)
[2022-01-05] MEDS: AMIODARONE / D5W 360 MG/200 ML BAG IV SCH (15:15)
[2022-01-05] MEDS ORDERED: cefTRIAXone SODIUM 1,000 MG in DEXTROSE 5% 50 ML IV SCH (15:30)
[2022-01-05] MEDS: cefTRIAXone SODIUM 2,000 MG in DEXTROSE 5% 50 ML IV SCH (16:20)
[2022-01-05] MEDS: AZITHROMYCIN 250 MG in DEXTROSE 5% 250 ML IV SCH (17:57)
[2022-01-06] MEDS: PHENYLEPHRINE HCL 20 MG in SODIUM CHLORIDE 0.9% 500 ML IV SCH ×3 (01:33→21:09)
[2022-01-06 06:58] LABS: Hematocrit (blood only) 39.3 % (42-52); Hemoglobin 13.9 g/dL (14.0-18.0); Mean Corpuscular Hemoglobin 30.9 pg (25-34); Mean Corpuscular Hgb Conc 35.4 g/dL (32-36); Mean Corpuscular Volume 87.3 fL (80-100); Mean Platelet Volume 11.1 fL (7.4-10.4); Platelet Count 472 K/uL (130-400); RDW Coefficient of Variation 14.5 % (11.5-14.5); RDW Standard Deviation 46.6 fL (36.4-46.3); White Blood Count 20.54 K/uL (4.8-10.8)
[2022-01-06 07:21] LABS: Albumin Level 2.5 gm/dl (3.4-5.0); BUN Creatinine Ratio 38.7 (10-20); Bilirubin,Total 0.8 mg/dl (0.2-1.0); Calcium 8.2 mg/dl (8.5-10.1); Creatinine Clr Calc Pharmacy 38.7 ml/min; Est GFR (Non-African American) 36.3 ml/min; Globulin 2.4 gm/dl (2.5-4.0); Magnesium 2.3 mg/dl (1.7-2.4); Total Protein 4.9 gm/dl (6.0-8.3)
[2022-01-06 07:43] LABS: Basophils # (auto) 0.05 K/uL (0-0.2); Basophils % (auto) 0.2 %; Eosinophils # (auto) 0.01 K/uL (0-0.5); Immature Granulocytes # (auto) 0.15 K/uL (0.00-0.02); Immature Granulocytes % (auto) 0.7 %; Lymphocytes # (auto) 1.64 K/uL (1.2-3.4); Monocytes # (auto) 2.07 K/uL (0.11-0.59); Monocytes % (auto) 10.1 %; Neutrophils # (auto) 16.62 K/uL (1.4-6.5)
[2022-01-06 07:46] LABS: Partial Thromboplastin Ratio 1.8
[2022-01-06 07:47] LABS: Partial Thromboplastin Time 47.8 Seconds (21.0-31.0)
[2022-01-06] MEDS: INSULIN HUMAN NPH SC SCH (08:00)
[2022-01-06] MEDS: dexAMETHasone 10 MG in SYRINGE 0 ML IV SCH (08:13)
[2022-01-06] MEDS: ATORVASTATIN 10 MG TAB PO SCH (08:13)
[2022-01-06] MEDS: PANTOprazole 40 MG TAB PO SCH (08:13)
[2022-01-06] MEDS: METOPROLOL TARTRATE 25 MG TAB PO SCH ×3 (08:13→21:07)
[2022-01-06] MEDS: ASPIRIN 81 MG ECTAB PO SCH (08:13)
[2022-01-06] MEDS: FINASTERIDE 5 MG TAB PO SCH (08:13)
[2022-01-06] MEDS: OXYMETAZOLINE 0.05% 30 ML BTL NAE SCH ×2 (08:14→21:07)
[2022-01-06] MEDS: AMIODARONE 200 MG TAB PO SCH ×2 (08:14→17:57)
[2022-01-06] MEDS: SODIUM CHLORIDE 0.65% NA SOLN 45 ML (OCEAN) SCH ×2 (08:14→21:06)
[2022-01-06] MEDS: INSULIN ASPART PER UNIT SC SCH ×4 (08:27→20:51)
--- NOTE | 2022-01-06 12:16 | Critical Care Progress Note ---
Date of Service January 06, 2022 Assessment & Plan (1) Atrial fibrillation with RVR: (2) COVID-19: (3) Acute respiratory failure with hypoxia: (4) Peripheral artery disease: (5) Esophageal dysphagia: (6) Aspiration pneumonitis: (7) New onset a-fib: Plan: Reason Critically Ill: 71-year-old male presents to the ICU in acute hypoxic respiratory failure and A. fib RVR, recently diagnosed with COVID-[address] evidence of aspiration pneumonia versus pneumonitis. Neuro - [facility] ICU: Negative Cardiac - --A. fib RVR Patient failed 2 cardioversions, 150 J followed by 200 J S/p diltiazem drip. Amiodarone drip stopped 01/04/2022. Continue with metoprolol Heparin drip --Hypotension Combination of bacterial pneumonia as well as rate control medication Continue with vasopressor support to keep MAP greater than 65 HLDcontinue ASA, statin Respiratory - --Acute hypoxic respiratory failure Multifactorial COVID-19 pneumonia as well as A. fib with RVR GI - --Mild transaminitis Could be from underlying COVID-19 as well as A. fib RVR Continue to monitor and trend RENAL/LYTES - STEPHON on CKD --> Improving Monitor BUNs/creatinine Avoid nephrotoxic medication Hyponatremia with hypochloremia S/p 3% 50 mL on 01/03/2022 serum osmolality 285 urine osmolality 313 , urine lites: Sodium 32, chloride < 15 - BPHcontinue continue with finasteride, tamsulosin on hold Strict I's and O's ENDO - No history of diabetes or thyroid disease ICU hyperglycemic protocol HEME - H&H stable, monitor routine CBCs ID - Pneumonia -Would continue with IV dexamethasone at this time for 10 days. -Nasal MRSA negative COVID-19 PCR positive Procalcitonin 7.4 CRP: 36.2 BNP: 149 Continue with dexamethasone Given the elevated procalcitonin and dense consolidative process in the likelihood of superimposed bacterial pneumonia is high, would not be a candidate for Tocilizumab or baricitinib -Continue with ceftriaxone, azithromycin for now --Prophylaxis VTE: Heparin drip GI: Protonix Lines: Left arm PICC 01/05/2022 Diet: Cardiorenal Plan: In/out: +535, urine output 2175 Patient's heart rate does go up to 120s 130s whenever he is moving. He complains of dizziness when you sits up. I will increase his metoprolol to 12.5 mg every 8 hours with the same holding parameters Try to titrate off phenylephrine to keep MAP greater than 65 We will try to go down to nasal cannula if possible today. Patient WBC still trending up. He is not spiking fever. Is already on antibiotics Septic work-up is negative to date Patient's daughter Eda [phone] I have personally spent 35 minutes of critical care time in the direct management of this patient. This is a life/limb threatening event. This includes time spent evaluating patient, direct bedside care, chart review, placing orders, interpretation of diagnostic studies, discussion with consultants, patient, and family members, as well as other required patient management activities. This time is exclusive of all separately billable procedures, and teaching time and separate from and in addition to any other critical care service time. Please note the above document was generated using voice recognition software. It may contain grammatical, syntax or spelling errors. Admission and Anticipated Discharge Date Admission Date: December 31, 2021 Subjective Patient seen and examined at bedside. No acute distress, no adverse events overnight. Patient was laying in the bed at the time of examination He was on 35 L, 50% high flow saturating 90-91% Denied any chest pain, does complain of cough which is dry. No hemoptysis. Afebrile. Making good amount of urine. Fair appetite Patient needed to be started back on phenylephrine overnight Review of Systems Review of Systems: All systems reviewed & are unremarkable except as noted in Subjective Physical Exam Physical Exam: Constitutional: No acute distress HEENT: EOMI, PERRLA Respiratory system: Decreased air entry bilaterally, no wheeze, rhonchi, positive crackles bilaterally CVS: S1-S2 positive, no murmurs or gallops, irregular Abdomen: Soft, nontender, nondistended, positive bowel sounds x4 Extremities: +2 pulses bilaterally radialis/ dorsalis pedis, no cyanosis, no edema Neuro: Awake alert oriented x3 Psych: Normal mood and affect G/U: Positive Jeong Skin: no rashes, warm and dry Lymphatic: no cervical or axillary lymphadenopathy Results & Data Results & Data ([facility]) Vital Signs (Past 12 Hours) Vital Signs Temp Pulse Pulse Resp BP BP BP 01/06/22 11:22 36.4 C L 99 H 20 96/74 L 01/06/22 10:16 108 H 15 104/69 01/06/22 10:15 145 H 15 01/06/22 10:00 121 H 15 76/63 L 01/06/22 09:46 124 H 18 115/70 01/06/22 09:45 124 H 16 01/06/22 09:30 121 H 13 87/65 L 01/06/22 09:15 116 H 17 117/81 01/06/22 09:01 130 H 15 99/65 L 01/06/22 09:00 108 H 17 01/06/22 08:45 132 H 21 103/78 01/06/22 08:31 116 H 26 H 130/93 01/06/22 08:30 144 H 15 01/06/22 08:16 143 H 29 H 92/70 L 01/06/22 08:15 119 H 18 01/06/22 08:00 132 H 18 110/88 01/06/22 07:45 130 H 19 95/80 L 01/06/22 07:36 36.4 C L 121 H 24 117/77 01/06/22 07:30 127 H 18 117/77 01/06/22 07:15 108 H 20 113/88 01/06/22 07:02 122 H 22 01/06/22 07:01 112 H 18 116/83 01/06/22 07:00 137 H 21 01/06/22 06:46 131 H 18 124/90 01/06/22 06:45 125 H 16 01/06/22 06:32 141 H 19 124/74 01/06/22 06:30 125 H 23 01/06/22 06:15 136 H 19 92/75 L 01/06/22 06:00 103 H 19 93/61 L 01/06/22 05:46 124 H 20 101/62 01/06/22 05:45 121 H 25 H 01/06/22 05:37 126 H 20 81/68 L 01/06/22 05:30 102 H 22 01/06/22 05:16 106 H 20 82/48 L 01/06/22 05:15 108 H 17 01/06/22 05:05 126 H 15 87/42 L 01/06/22 05:01 116 H 16 01/06/22 05:00 103 H 22 01/06/22 04:45 104 H 19 87/52 L 01/06/22 04:36 120 H 21 116/86 01/06/22 04:30 105 H 26 H 01/06/22 04:16 120 H 22 112/80 01/06/22 04:15 125 H 24 01/06/22 04:00 36.6 C 110 H 15 88/69 L 01/06/22 03:45 115 H 16 100/68 01/06/22 03:31 117 H 18 97/80 L 01/06/22 03:30 123 H 16 01/06/22 03:16 122 H 23 84/54 L 01/06/22 03:15 117 H 22 01/06/22 03:10 121 H 16 01/06/22 03:00 129 H 25 H 92/53 L 01/06/22 02:45 110 H 17 83/53 L 01/06/22 02:30 106 H 28 H 70/53 L 01/06/22 02:15 113 H 22 89/50 L 01/06/22 02:01 110 H 26 H 86/27 L 01/06/22 02:00 104 H 19 01/06/22 01:45 104 H 15 83/67 L 01/06/22 01:37 115 H 19 104/65 01/06/22 01:30 122 H 16 65/44 L 01/06/22 01:00 99 H 19 83/63 L 01/06/22 00:57 121 H 19 96/62 L 01/06/22 00:43 129 H 21 81/59 L 01/06/22 00:29 93/37 L 01/06/22 00:15 122 H 16 75/49 L Pulse Ox 01/06/22 11:22 91 01/06/22 10:16 01/06/22 10:15 01/06/22 10:00 01/06/22 09:46 01/06/22 09:45 01/06/22 09:30 01/06/22 09:15 01/06/22 09:01 01/06/22 09:00 01/06/22 08:45 01/06/22 08:31 01/06/22 08:30 01/06/22 08:16 01/06/22 08:15 01/06/22 08:00 91 01/06/22 07:45 92 01/06/22 07:36 90 01/06/22 07:30 88 L 01/06/22 07:15 94 01/06/22 07:02 91 01/06/22 07:01 91 01/06/22 07:00 87 L 01/06/22 06:46 93 01/06/22 06:45 94 01/06/22 06:32 90 01/06/22 06:30 90 01/06/22 06:15 97 01/06/22 06:00 93 01/06/22 05:46 92 01/06/22 05:45 92 01/06/22 05:37 92 01/06/22 05:30 01/06/22 05:16 93 01/06/22 05:15 01/06/22 05:05 91 01/06/22 05:01 91 01/06/22 05:00 91 01/06/22 04:45 92 01/06/22 04:36 92 01/06/22 04:30 86 L 01/06/22 04:16 87 L 01/06/22 04:15 89 L 01/06/22 04:00 95 01/06/22 03:45 94 01/06/22 03:31 94 01/06/22 03:30 93 01/06/22 03:16 88 L 01/06/22 03:15 87 L 01/06/22 03:10 92 01/06/22 03:00 92 01/06/22 02:45 94 01/06/22 02:30 93 01/06/22 02:15 95 01/06/22 02:01 95 01/06/22 02:00 94 01/06/22 01:45 92 01/06/22 01:37 92 01/06/22 01:30 94 01/06/22 01:00 94 01/06/22 00:57 94 01/06/22 00:43 93 01/06/22 00:29 01/06/22 00:15 94 Laboratory Results 01/06/22 06:14 01/06/22 06:14 Coding Level of Care Code Critical Care 1st 30-74 mins Diagnoses Atrial fibrillation with RVR I48.91 COVID-19 U07.1 Acute respiratory failure with hypoxia J96.01 Peripheral artery disease I73.9 Esophageal dysphagia R13.10 Aspiration pneumonitis J69.0 New onset a-fib I48.91 Time Spent (min) 35
--- NOTE | 2022-01-06 15:11 | Hospitalist Progress Note ---
Date of Service January 06, 2022 Assessment & Plan (1) Acute respiratory failure with hypoxia: Plan: 01/02 COVID-19 Pneumonia with superimposed bacterial pneumonia in right upper lobe Febrile on arrival, now resolved Continue supplemental oxygen to target SPO2 sat greater than 90%-weaned off Vapotherm down to 10 L high flow nasal cannula on the wall Covid and PNA treatment below Patient amenable to intubation if needed, ICU following 01/04: CXR similar versus slightly improved aeration -Add on incentive spirometry and flutter valve (2) COVID-19: Plan: Covid pneumonia, suspect post viremic phase with superimposed pneumonia as below Covid positive 12/31/2021. Prior negative 11/14/22, no home test when pt had symptoms noted below. First day of symptoms: Unclear. Some URI symptoms for 3 to 4 weeks, some nasal congestion for 1-2 weeks which improved and some residual congestion but acute worsening and became febrile 7 days prior to admission and febrile daily since then. - Suspected COVID exposure 4-5 weeks ago (family from [place]) who were all sick and required quarantine, sinus congestion started shortly after this exposure. Vaccination status: Unvaccinated CXR:IMPRESSION: Bilateral airspace opacities are suggestive of multifocal pneumonia. CRP: 36.2 Procalcitonin 7.47 Started on dexamethasone 12/31, continue for 10-day course. Increased to 10mg daily. Remdesivir: Initial symptom onset 3 to 4 weeks ago, outside of viremic window - Baricitinib not recommended in setting of bacterial superinfection (3) Secondary pneumonia: Plan: CTA: Severely streak and motion compromised examination. There is no evidence of central pulmonary embolus in the main or lobar pulmonary arteries. The segmental and subsegmental vessels cannot be evaluated. There is significant dependent airspace consolidation seen bilaterally with small pleural effusions. The appearance is typical for pneumonia/aspiration pneumonitis. Clinical correlation will be required and radiographic follow-up to resolution is recommended. Mildly enlarged mediastinal and hilar nodes are likely reactive. T here is mild aneurysmal dilatation of the ascending thoracic aorta which measures up to 4.2 cm in diameter. Cardiomegaly with advanced coronary artery calcification. Pro-Sung 7.47, CRP 36 on admission Patient febrile for the week prior to admission and on admission-now resolved -leukocytosis now with being on steroids -Continue ceftriaxone and azithromycin-final day of 7-day treatment will be 01/06 -Sputum culture normal jaqueline -Blood cultures no growth to date (4) Atrial fibrillation with RVR: Plan: - Pt denies any cardiac history to admission Patient in sinus tachycardia on arrival Following CT patient converted to A. fib with RVR with rates up 160-180 Heparin ordered for anticoagulation, given new onset A. fib and concern for progressive hypotension risk/benefits of chemical cardioversion outweighed risk of stroke/delaying for anticoagulation Pressures initially stable and mildly hypertensive. Treated with metoprolol 5mg IV x2 with minimal improvement Pressures decreased to [id number] systolic with increase in rate to 180, suspect for rate related hypotension with hypoxia Loaded with amiodarone, drip started with some improvement in rate down to [id number] and improvement in pressures to 110-120s 01/01: Patient with A. fib RVR with concern for rate related pressure decrease and rate related worsening oxygenation/pulmonary edema. Patient received amio boluses, am-up to drip, and digoxin with continued deterioration. Attempted electrical cardioversion x2 with transient decrease and then returned to RVR. He was transferred to ICU for pressor support with diltiazem drip. - now converted from IV to p.o. amiodarone -Remains on phenylephrine for pressor support -Titrating up on p.o. metoprolol for rate control-12.5 mg p.o. every 8 hours -keep potassium closer to 4.0, caution with acute kidney injury as below -Remains in ICU status due to need for vasopressors -TSH normal (5) STEPHON (acute kidney injury): Plan: Creatinine continues to be improving today down to 1.8 after peaked at 2.7 -Etiology secondary to ATN from hypotension -Received IV fluids and now discontinued Avoid nephrotoxins, follow BMP Pressure support and management as above -Sodium bicarbonate given for metabolic acidosis which is now resolved (6) Hypotension: Plan: As above, secondary to rapid atrial fibrillation Continue phenylephrine to keep maps greater than 65 (7) Hyponatremia: Plan: Sodium was 127, now improved to normal with giving crystalloid volume replacement Follow BMP (8) Metabolic acidosis: Plan: As above, secondary to acute kidney injury Improved with volume replacement and sodium bicarbonate (9) Diabetes mellitus: Plan: Hemoglobin A1c here elevated at 6.7% With hyperglycemia secondary to corticosteroids Continue insulin regimen as per pharmacy Will likely need p.o. medication upon discharge (10) Enlarged prostate: Plan: Holding home tamsulosin due to hypotension Continue finasteride -Jeong catheter in place (11) Esophageal dysphagia: Plan: Continue PPI (12) Peripheral artery disease: Plan: With a history of left SFA angioplasty Continue aspirin and statin Follows with vascular surgery as an outpatient (13) Hyperlipidemia: Plan: Continue home atorvastatin (14) Constipation: Plan: Add on daily MiraLAX as needed and daily senna/docusate No bowel movement since 01/01 (15) Transaminitis: Plan: AST and ALT mildly elevated in the 80s, most likely secondary to COVID -Follow LFTs in the morning Plan: DVT prophylaxis-Heparin drip Disposition-continued stay in ICU Admission and Anticipated Discharge Date Admission Date: December 31, 2021 Subjective Used [place] courier. Patient reports feeling little better than previous. He is eating a little more lately. No bowel movement in 5 days. Denies chest pain or pain anywhere. He is weaned off of his high flow nasal cannula Vapotherm down to 10 L wall high flow nasal cannula. Is back on phenylephrine for pressor support and remains in rapid atrial fibrillation with rates in the 110s to 140s. Review of Systems Review of Systems: All systems reviewed & are unremarkable except as noted in HPI & below Physical Exam Constitutional: WD/WN, vitals as above Eyes: + anicteric sclerae Neck: trachea midline, no thyromegaly Respiratory: normal respiratory effort, lungs clear to auscultation Cardiovascular: Rate/Rhythm: + tachycardic and + irregularly irregular Extremities: no edema Chest (Breasts): Chest: normal inspection of chest Gastrointestinal (Abdomen): normal bowel sounds, soft, nontender, no hepatosplenomegaly Musculoskeletal: Extremities: extremities normal to inspection; no cyanosis and no clubbing Skin: no rashes, warm and dry Neurologic: moves all extremities and awake; no focal motor deficits Psychiatric: A+Ox3, euthymic affect Lymphatic: no lymphedema Results & Data Results & Data ([facility]) Vital Signs (Past 12 Hours) Vital Signs Temp Pulse Pulse Resp BP BP BP 01/06/22 14:15 138 H 21 108/82 01/06/22 14:09 111 H 17 82/44 L 01/06/22 14:00 117 H 17 01/06/22 13:45 100 H 22 73/41 L 01/06/22 13:31 110 H 20 95/40 L 01/06/22 13:30 118 H 20 01/06/22 13:18 112 H 34 H 88/50 L 01/06/22 13:15 126 H 20 67/51 L 01/06/22 13:01 120 H 28 H 92/75 L 01/06/22 13:00 122 H 21 01/06/22 12:46 132 H 29 H 113/43 L 01/06/22 12:45 150 H 24 01/06/22 12:31 136 H 19 88/69 L 01/06/22 12:30 22 01/06/22 12:15 138 H 12 98/69 L 01/06/22 12:01 108 H 14 105/62 01/06/22 12:00 94 H 16 01/06/22 11:45 112 H 14 102/62 01/06/22 11:30 132 H 20 92/62 L 01/06/22 11:24 120 H 19 96/74 L 01/06/22 11:22 36.4 C L 99 H 20 96/74 L 01/06/22 11:15 128 H 22 97/72 L 01/06/22 11:00 122 H 21 103/66 01/06/22 10:45 114 H 17 89/69 L 01/06/22 10:31 146 H 18 113/67 01/06/22 10:30 129 H 22 01/06/22 10:16 108 H 15 104/69 01/06/22 10:15 145 H 15 01/06/22 10:00 121 H 15 76/63 L 01/06/22 09:46 124 H 18 115/70 01/06/22 09:45 124 H 16 01/06/22 09:30 121 H 13 87/65 L 01/06/22 09:15 116 H 17 117/81 01/06/22 09:01 130 H 15 99/65 L 01/06/22 09:00 108 H 17 01/06/22 08:45 132 H 21 103/78 01/06/22 08:31 116 H 26 H 130/93 01/06/22 08:30 144 H 15 01/06/22 08:16 143 H 29 H 92/70 L 01/06/22 08:15 119 H 18 01/06/22 08:00 132 H 18 110/88 01/06/22 07:45 130 H 19 95/80 L 01/06/22 07:36 36.4 C L 121 H 24 117/77 01/06/22 07:30 127 H 18 117/77 01/06/22 07:15 108 H 20 113/88 01/06/22 07:02 122 H 22 01/06/22 07:01 112 H 18 116/83 01/06/22 07:00 137 H 21 01/06/22 06:46 131 H 18 124/90 01/06/22 06:45 125 H 16 01/06/22 06:32 141 H 19 124/74 01/06/22 06:30 125 H 23 01/06/22 06:15 136 H 19 92/75 L 01/06/22 06:00 103 H 19 93/61 L 01/06/22 05:46 124 H 20 101/62 01/06/22 05:45 121 H 25 H 01/06/22 05:37 126 H 20 81/68 L 01/06/22 05:30 102 H 22 01/06/22 05:16 106 H 20 82/48 L 01/06/22 05:15 108 H 17 01/06/22 05:05 126 H 15 87/42 L 01/06/22 05:01 116 H 16 01/06/22 05:00 103 H 22 01/06/22 04:45 104 H 19 87/52 L 01/06/22 04:36 120 H 21 116/86 01/06/22 04:30 105 H 26 H 01/06/22 04:16 120 H 22 112/80 01/06/22 04:15 125 H 24 01/06/22 04:00 36.6 C 110 H 15 88/69 L 01/06/22 03:45 115 H 16 100/68 01/06/22 03:31 117 H 18 97/80 L 01/06/22 03:30 123 H 16 01/06/22 03:16 122 H 23 84/54 L 01/06/22 03:15 117 H 22 Pulse Ox 01/06/22 14:15 92 01/06/22 14:09 96 01/06/22 14:00 95 01/06/22 13:45 95 01/06/22 13:31 95 01/06/22 13:30 96 01/06/22 13:18 94 01/06/22 13:15 94 01/06/22 13:01 91 01/06/22 13:00 90 01/06/22 12:46 92 01/06/22 12:45 89 L 01/06/22 12:31 82 L 01/06/22 12:30 84 L 01/06/22 12:15 89 L 01/06/22 12:01 91 01/06/22 12:00 91 01/06/22 11:45 91 01/06/22 11:30 89 L 01/06/22 11:24 89 L 01/06/22 11:22 91 01/06/22 11:15 01/06/22 11:00 01/06/22 10:45 01/06/22 10:31 01/06/22 10:30 01/06/22 10:16 01/06/22 10:15 01/06/22 10:00 01/06/22 09:46 01/06/22 09:45 01/06/22 09:30 01/06/22 09:15 01/06/22 09:01 01/06/22 09:00 01/06/22 08:45 01/06/22 08:31 01/06/22 08:30 01/06/22 08:16 01/06/22 08:15 01/06/22 08:00 91 01/06/22 07:45 92 01/06/22 07:36 90 01/06/22 07:30 88 L 01/06/22 07:15 94 01/06/22 07:02 91 01/06/22 07:01 91 01/06/22 07:00 87 L 01/06/22 06:46 93 01/06/22 06:45 94 01/06/22 06:32 90 01/06/22 06:30 90 01/06/22 06:15 97 01/06/22 06:00 93 01/06/22 05:46 92 01/06/22 05:45 92 01/06/22 05:37 92 01/06/22 05:30 01/06/22 05:16 93 01/06/22 05:15 01/06/22 05:05 91 01/06/22 05:01 91 01/06/22 05:00 91 01/06/22 04:45 92 01/06/22 04:36 92 01/06/22 04:30 86 L 01/06/22 04:16 87 L 01/06/22 04:15 89 L 01/06/22 04:00 95 01/06/22 03:45 94 01/06/22 03:31 94 01/06/22 03:30 93 01/06/22 03:16 88 L 01/06/22 03:15 87 L Laboratory Results 01/06/22 01/06/22 01/06/22 Range/Units 16:52 11:27 07:40 WBC (4.8-10.8) K/uL RBC (4.7-6.1) M/uL Hgb (14.0-18.0) g/dL Hct (42-52) % MCV (80-100) fL MCH (25-34) pg MCHC (32-36) g/dL RDW Std Deviation (36.4-46.3) fL RDW Coeff of Samantha (11.5-14.5) % Plt Count (130-400) K/uL MPV (7.4-10.4) fL Immature Gran % (Auto) % Neut % (Auto) % Lymph % (Auto) % [place] % (Auto) % Eos % (Auto) % Baso % (Auto) % Neut # (Auto) (1.4-6.5) K/uL Lymph # (Auto) (1.2-3.4) K/uL [place] # (Auto) (0.11-0.59) K/uL Eos # (Auto) (0-0.5) K/uL Baso # (Auto) (0-0.2) K/uL Immature Gran # (Auto) (0.00-0.02) K/uL APTT (21.0-31.0) Seconds PTT Ratio Sodium (136-145) mmol/L Potassium (3.5-5.1) mmol/L Chloride (98-107) mmol/L Carbon Dioxide (21-32) mmol/L Anion Gap (3-11) BUN (6-23) mg/dl Creatinine (0.6-1.4) mg/dl Est Cr Clr Drug Dosing ml/min Est GFR ( Amer) ml/min Est GFR (Non-Af Amer) ml/min BUN/Creatinine Ratio (10-20) Glucose (70-99(Fasting)) mg/dl POC Glucose 178 H 212 H 145 H (70-99) mg/dl Calcium (8.5-10.1) mg/dl Phosphorus (2.5-4.9) mg/dl Magnesium (1.7-2.4) mg/dl Total Bilirubin (0.2-1.0) mg/dl AST (13-39) U/L ALT (7-52) U/L Alkaline Phosphatase (34-104) U/L Total Protein (6.0-8.3) gm/dl Albumin (3.4-5.0) gm/dl Globulin (2.5-4.0) gm/dl Albumin/Globulin Ratio (0.9-2) TSH (0.300-4.500) uIu/ml 01/06/22 01/06/22 01/06/22 Range/Units 06:14 06:14 06:14 WBC 20.54 H (4.8-10.8) K/uL RBC 4.50 L (4.7-6.1) M/uL Hgb 13.9 L (14.0-18.0) g/dL Hct 39.3 L (42-52) % MCV 87.3 (80-100) fL MCH 30.9 (25-34) pg MCHC 35.4 (32-36) g/dL RDW Std Deviation 46.6 H (36.4-46.3) fL RDW Coeff of Samantha 14.5 (11.5-14.5) % Plt Count 472 H (130-400) K/uL MPV 11.1 H (7.4-10.4) fL Immature Gran % (Auto) 0.7 % Neut % (Auto) 81.0 % Lymph % (Auto) 8.0 % [place] % (Auto) 10.1 % Eos % (Auto) 0.0 % Baso % (Auto) 0.2 % Neut # (Auto) 16.62 H (1.4-6.5) K/uL Lymph # (Auto) 1.64 (1.2-3.4) K/uL [place] # (Auto) 2.07 H (0.11-0.59) K/uL Eos # (Auto) 0.01 (0-0.5) K/uL Baso # (Auto) 0.05 (0-0.2) K/uL Immature Gran # (Auto) 0.15 H (0.00-0.02) K/uL APTT (21.0-31.0) Seconds PTT Ratio Sodium 139 (136-145) mmol/L Potassium 4.0 (3.5-5.1) mmol/L Chloride 108 H (98-107) mmol/L Carbon Dioxide 23 (21-32) mmol/L Anion Gap 8 (3-11) BUN 70 H (6-23) mg/dl Creatinine 1.81 H D (0.6-1.4) mg/dl Est Cr Clr Drug Dosing 38.7 ml/min Est GFR ( Amer) 42.0 ml/min Est GFR (Non-Af Amer) 36.3 ml/min BUN/Creatinine Ratio 38.7 H (10-20) Glucose 148 H (70-99(Fasting)) mg/dl POC Glucose (70-99) mg/dl Calcium 8.2 L (8.5-10.1) mg/dl Phosphorus 3.0 D (2.5-4.9) mg/dl Magnesium 2.3 (1.7-2.4) mg/dl Total Bilirubin 0.8 (0.2-1.0) mg/dl AST 84 H (13-39) U/L ALT 81 H (7-52) U/L Alkaline Phosphatase 57 (34-104) U/L Total Protein 4.9 L (6.0-8.3) gm/dl Albumin 2.5 L (3.4-5.0) gm/dl Globulin 2.4 L (2.5-4.0) gm/dl Albumin/Globulin Ratio 1.0 (0.9-2) TSH 2.569 (0.300-4.500) uIu/ml 01/06/22 01/05/22 Range/Units 06:14 20:35 WBC (4.8-10.8) K/uL RBC (4.7-6.1) M/uL Hgb (14.0-18.0) g/dL Hct (42-52) % MCV (80-100) fL MCH (25-34) pg MCHC (32-36) g/dL RDW Std Deviation (36.4-46.3) fL RDW Coeff of Samantha (11.5-14.5) % Plt Count (130-400) K/uL MPV (7.4-10.4) fL Immature Gran % (Auto) % Neut % (Auto) % Lymph % (Auto) % [place] % (Auto) % Eos % (Auto) % Baso % (Auto) % Neut # (Auto) (1.4-6.5) K/uL Lymph # (Auto) (1.2-3.4) K/uL [place] # (Auto) (0.11-0.59) K/uL Eos # (Auto) (0-0.5) K/uL Baso # (Auto) (0-0.2) K/uL Immature Gran # (Auto) (0.00-0.02) K/uL APTT 47.8 H* (21.0-31.0) Seconds PTT Ratio 1.8 Sodium (136-145) mmol/L Potassium (3.5-5.1) mmol/L Chloride (98-107) mmol/L Carbon Dioxide (21-32) mmol/L Anion Gap (3-11) BUN (6-23) mg/dl Creatinine (0.6-1.4) mg/dl Est Cr Clr Drug Dosing ml/min Est GFR ( Amer) ml/min Est GFR (Non-Af Amer) ml/min BUN/Creatinine Ratio (10-20) Glucose (70-99(Fasting)) mg/dl POC Glucose 199 H (70-99) mg/dl Calcium (8.5-10.1) mg/dl Phosphorus (2.5-4.9) mg/dl Magnesium (1.7-2.4) mg/dl Total Bilirubin (0.2-1.0) mg/dl AST (13-39) U/L ALT (7-52) U/L Alkaline Phosphatase (34-104) U/L Total Protein (6.0-8.3) gm/dl Albumin (3.4-5.0) gm/dl Globulin (2.5-4.0) gm/dl Albumin/Globulin Ratio (0.9-2) TSH (0.300-4.500) uIu/ml PG Care Time/CCT Total # of Minutes Spent Total Time Spent with Patient: Total time spent is greater than 50% in coordination of care (as documented) at patient's floor/unit and/or counseling patient: Coding Level of Care Code 64619 Subseq Hosp Care Lvl 3 Diagnoses Acute respiratory failure with hypoxia J96.01 COVID-19 U07.1 Secondary pneumonia J18.9 Atrial fibrillation with RVR I48.91 STEPHON (acute kidney injury) N17.9 Hypotension I95.9 Hyponatremia E87.1 Metabolic acidosis E87.2 Diabetes mellitus E11.9 Enlarged prostate N40.0 Esophageal dysphagia R13.10 Peripheral artery disease I73.9 Hyperlipidemia E78.5 Constipation K59.00 Transaminitis R74.01
[2022-01-06] MEDS: cefTRIAXone SODIUM 2,000 MG in DEXTROSE 5% 50 ML IV SCH (15:50)
[2022-01-06] MEDS ORDERED: POLYETHYLENE (MIRALAX) 17 GM PACK PO PRN (17:07)
[2022-01-06] MEDS: HEPARIN SODIUM/DEXTROSE 25,000 UNITS/500 ML BAG IV SCH (18:02)
[2022-01-06] MEDS: AZITHROMYCIN 250 MG in DEXTROSE 5% 250 ML IV SCH (18:03)
[2022-01-07] MEDS: METOPROLOL TARTRATE 25 MG TAB PO SCH ×3 (06:10→21:06)
[2022-01-07 07:32] LABS: Basophils # (auto) 0.01 K/uL (0-0.2); Basophils % (auto) 0.1 %; Eosinophils # (auto) 0.02 K/uL (0-0.5); Eosinophils % (auto) 0.1 %; Hemoglobin 12.8 g/dL (14.0-18.0); Immature Granulocytes # (auto) 0.07 K/uL (0.00-0.02); Immature Granulocytes % (auto) 0.5 %; Lymphocytes # (auto) 1.44 K/uL (1.2-3.4); Lymphocytes % (auto) 10.4 %; Mean Corpuscular Hemoglobin 31.2 pg (25-34); Mean Corpuscular Hgb Conc 34.6 g/dL (32-36); Mean Corpuscular Volume 90.2 fL (80-100); Mean Platelet Volume 11.2 fL (7.4-10.4); Monocytes # (auto) 1.38 K/uL (0.11-0.59); Monocytes % (auto) 9.9 %; Neutrophils # (auto) 10.97 K/uL (1.4-6.5); Platelet Count 392 K/uL (130-400); RDW Standard Deviation 49.6 fL (36.4-46.3); White Blood Count 13.89 K/uL (4.8-10.8)
[2022-01-07] MEDS: HEPARIN SODIUM/DEXTROSE 25,000 UNITS/500 ML BAG IV SCH ×3 (07:37→23:14)
[2022-01-07 07:49] LABS: Partial Thromboplastin Ratio 1.4; Partial Thromboplastin Time 37.2 Seconds (21.0-31.0)
[2022-01-07 07:58] LABS: Albumin Level 2.4 gm/dl (3.4-5.0); BUN Creatinine Ratio 38.7 (10-20); Bilirubin,Total 0.7 mg/dl (0.2-1.0); Calcium 8.1 mg/dl (8.5-10.1); Creatinine Clr Calc Pharmacy 46.7 ml/min; Est GFR (African American) 52.8 ml/min; Est GFR (Non-African American) 45.5 ml/min; Globulin 2.3 gm/dl (2.5-4.0); Magnesium 1.9 mg/dl (1.7-2.4); Phosphorus 2.9 mg/dl (2.5-4.9); Potassium 4.1 mmol/L (3.5-5.1); Total Protein 4.7 gm/dl (6.0-8.3)
[2022-01-07] MEDS: INSULIN ASPART PER UNIT SC SCH ×4 (08:12→20:55)
[2022-01-07] MEDS: INSULIN HUMAN NPH SC SCH (08:15)
[2022-01-07] MEDS: AMIODARONE 200 MG TAB PO SCH ×2 (08:25→17:48)
[2022-01-07] MEDS: ASPIRIN 81 MG ECTAB PO SCH (08:26)
[2022-01-07] MEDS: ATORVASTATIN 10 MG TAB PO SCH (08:26)
[2022-01-07] MEDS: PANTOprazole 40 MG TAB PO SCH (08:26)
[2022-01-07] MEDS: FINASTERIDE 5 MG TAB PO SCH (08:26)
[2022-01-07] MEDS: dexAMETHasone 10 MG in SYRINGE 0 ML IV SCH (08:27)
[2022-01-07] MEDS ORDERED: HEPARIN IV BOLUS 3,000 UNITS in SYRINGE 0 ML IV ONE (08:30)
[2022-01-07] MEDS ORDERED: AMIODARONE / D5W 150 MG/100 ML BAG IV STA (08:40)
[2022-01-07] MEDS ORDERED: 0.2 MICRON FILTER SET 1 EA IV ONE (08:40)
[2022-01-07] MEDS: DOCUSATE SODIUM/SENNA 50/8.6MG TAB PO SCH (08:45)
[2022-01-07] MEDS ORDERED: MAGNESIUM SULFATE / D5W 1 GM/100 ML BAG IV ONE (09:00)
--- NOTE | 2022-01-07 10:32 | Critical Care Progress Note ---
Date of Service January 07, 2022 Assessment & Plan (1) Atrial fibrillation with RVR: (2) COVID-19: (3) Acute respiratory failure with hypoxia: (4) Peripheral artery disease: (5) Esophageal dysphagia: (6) Aspiration pneumonitis: (7) New onset a-fib: Plan: Reason Critically Ill: 71-year-old male presents to the ICU in acute hypoxic respiratory failure and A. fib RVR, recently diagnosed with COVID-[address] evidence of aspiration pneumonia versus pneumonitis. Neuro - [facility] ICU: Negative Cardiac - --A. fib RVR Patient failed 2 cardioversions, 150 J followed by 200 J S/p diltiazem drip. Amiodarone drip stopped 01/04/2022. Continue with metoprolol 12.5 TID Heparin drip --Hypotension Combination of bacterial pneumonia as well as rate control medication Midodrine 2.5 mg 3 times daily ordered to help keep the patient off phenylephrine IV. HLDcontinue ASA, statin Respiratory - --Acute hypoxic respiratory failure Multifactorial COVID-19 pneumonia as well as A. fib with RVR GI - --Mild transaminitis Could be from underlying COVID-19 as well as A. fib RVR Continue to monitor and trend especially while on amiodarone. RENAL/LYTES - STEPHON on CKD --> Improving Monitor BUNs/creatinine Avoid nephrotoxic medication Replacing electrolytes as indicated. Keep k >4 and mg >2 Hyponatremia with hypochloremia resolved, likely from siadh given pulmonary process - BPHcontinue continue with finasteride, tamsulosin on hold Strict I's and O's ENDO - No history of diabetes or thyroid disease ICU hyperglycemic protocol HEME - H&H stable, monitor routine CBCs ID - Pneumonia -Would continue with IV dexamethasone at this time for 10 days. -Nasal MRSA negative COVID-19 PCR positive Procalcitonin 7.4 CRP: 36.2 BNP: 149 Continue with dexamethasone Given the elevated procalcitonin and dense consolidative process in the likelihood of superimposed bacterial pneumonia is high, would not be a candidate for Tocilizumab or baricitinib -Continue with ceftriaxone, azithromycin for now --Prophylaxis VTE: Heparin drip GI: Protonix Lines: Left arm PICC 01/05/2022 Diet: Cardiorenal Stable for downgrade to PCU status Admission and Anticipated Discharge Date Admission Date: December 31, 2021 Subjective Patient seen and examined. He denies complaints presently. No chest pain or shortness of breath. He does note weakness in his lower extremities. Overall, feels improved compared to yesterday. Continues with heart rates occasionally in the 130s. Review of Systems Review of Systems: All systems reviewed & are unremarkable except as noted in HPI & below Physical Exam Physical Exam: Constitutional: No acute distress HEENT: EOMI, PERRLA Respiratory system: Decreased air entry bilaterally, no wheeze, rhonchi, positive crackles bilaterally CVS: S1-S2 positive, no murmurs or gallops, irregular, tachy Abdomen: Soft, nontender, nondistended, positive bowel sounds x4 Extremities: +2 pulses bilaterally radialis/ dorsalis pedis, no cyanosis, no edema Neuro: Awake alert oriented x3 Psych: Normal mood and affect G/U: Positive Jeong Skin: no rashes, warm and dry Lymphatic: no cervical or axillary lymphadenopathy Results & Data Results & Data ([facility]) Vital Signs (Past 12 Hours) Vital Signs Temp Pulse Pulse Resp BP BP Pulse Ox 01/07/22 08:01 106 H 18 111/82 91 01/07/22 08:00 125 H 15 91 01/07/22 07:37 36.5 C 113 H 13 110/73 91 01/07/22 07:30 120 H 20 110/73 88 L 01/07/22 07:00 110 H 13 84/66 L 92 01/07/22 06:30 127 H 16 116/76 91 01/07/22 06:00 111 H 27 H 98/76 L 93 01/07/22 05:30 108 H 12 96/68 L 92 01/07/22 05:00 124 H 16 97/79 L 93 01/07/22 04:31 106 H 18 103/75 92 01/07/22 04:27 119 H 22 101/68 95 01/07/22 04:00 113 H 20 122/80 98 01/07/22 03:31 110 H 13 103/81 95 01/07/22 03:00 98 H 16 77/57 L 96 01/07/22 02:30 108 H 15 88/50 L 94 01/07/22 02:23 120 H 01/07/22 02:00 121 H 15 88/58 L 92 01/07/22 01:45 104 H 16 96/52 L 93 01/07/22 01:30 114 H 14 90/56 L 94 01/07/22 01:15 119 H 17 81/54 L 93 01/07/22 01:09 20 81/55 L 94 01/07/22 01:00 110 H 12 97 01/07/22 00:45 102 H 123/78 89 L 01/07/22 00:30 110 H 108/73 93 01/07/22 00:15 103 H 90/52 L 92 01/07/22 00:00 112 H 16 101/65 94 01/06/22 23:45 100 H 104/56 L 96 01/06/22 23:30 126 H 131/85 93 01/06/22 23:15 106 H 18 122/60 97 01/06/22 23:00 112 H 16 97/60 L 97 01/06/22 22:46 110 H 15 90/62 L 96 01/06/22 22:45 121 H 15 95 01/06/22 22:30 92 H 17 79/51 L 91 Pulse Ox 01/07/22 08:01 01/07/22 08:00 01/07/22 07:37 01/07/22 07:30 01/07/22 07:00 01/07/22 06:30 01/07/22 06:00 01/07/22 05:30 01/07/22 05:00 01/07/22 04:31 01/07/22 04:27 01/07/22 04:00 01/07/22 03:31 01/07/22 03:00 01/07/22 02:30 01/07/22 02:23 01/07/22 02:00 01/07/22 01:45 01/07/22 01:30 01/07/22 01:15 01/07/22 01:09 01/07/22 01:00 94 01/07/22 00:45 01/07/22 00:30 01/07/22 00:15 01/07/22 00:00 01/06/22 23:45 01/06/22 23:30 01/06/22 23:15 01/06/22 23:00 01/06/22 22:46 01/06/22 22:45 01/06/22 22:30 Coding Level of Care Code 45310 Subseq Hosp Care Lvl 3 Diagnoses Atrial fibrillation with RVR I48.91 COVID-19 U07.1 Acute respiratory failure with hypoxia J96.01 Peripheral artery disease I73.9 Esophageal dysphagia R13.10 Aspiration pneumonitis J69.0 New onset a-fib I48.91
[2022-01-07] MEDS: MIDODRINE HCL 2.5 MG TAB PO SCH ×2 (13:29→17:49)
[2022-01-07] MEDS: cefTRIAXone SODIUM 2,000 MG in DEXTROSE 5% 50 ML IV SCH (15:27)
[2022-01-07 15:34] LABS: Partial Thromboplastin Ratio 1.9
--- NOTE | 2022-01-07 16:24 | Hospitalist Progress Note ---
Date of Service January 07, 2022 Assessment & Plan (1) Acute respiratory failure with hypoxia: Plan: 01/02 COVID-19 Pneumonia with superimposed bacterial pneumonia in right upper lobe Febrile on arrival, now resolved Continue supplemental oxygen to target SPO2 sat greater than 90%-weaned off Vapotherm and now down to 9 L high flow nasal cannula on the wall-improving Covid and PNA treatment below 01/04: CXR similar versus slightly improved aeration -Continue-continue Decadron On incentive spirometry and flutter valve (2) COVID-19: Plan: Covid pneumonia, suspect post viremic phase with superimposed pneumonia as below Covid positive 12/31/2021. Prior negative 11/14/22, no home test when pt had symptoms noted below. First day of symptoms: Unclear. Some URI symptoms for 3 to 4 weeks, some nasal congestion for 1-2 weeks which improved and some residual congestion but acute worsening and became febrile 7 days prior to admission and febrile daily since then. - Suspected COVID exposure 4-5 weeks ago (family from [facility]) who were all sick and required quarantine, sinus congestion started shortly after this exposure. Vaccination status: Unvaccinated CXR:IMPRESSION: Bilateral airspace opacities are suggestive of multifocal pneumonia. CRP: 36.2 Procalcitonin 7.47 Started on dexamethasone 12/31, continue for 10-day course. Increased to 10mg daily. Remdesivir: Initial symptom onset 3 to 4 weeks ago, outside of viremic window - Baricitinib not recommended in setting of bacterial superinfection (3) Secondary pneumonia: Plan: CTA: Severely streak and motion compromised examination. There is no evidence of central pulmonary embolus in the main or lobar pulmonary arteries. The segmental and subsegmental vessels cannot be evaluated. There is significant dependent airspace consolidation seen bilaterally with small pleural effusions. The appearance is typical for pneumonia/aspiration pneumonitis. Clinical correlation will be required and radiographic follow-up to resolution is recommended. Mildly enlarged mediastinal and hilar nodes are likely reactive. There is mild aneurysmal dilatation of the ascending thoracic aorta which measures up to 4.2 cm in diameter. Cardiomegaly with advanced coronary artery calcification. Pro-Sung 7.47, CRP 36 on admission Patient febrile for the week prior to admission and on admission-now resolved -leukocytosis now with being on steroids but is significantly improved now -Has now completed a 7-day course of ceftriaxone and 5-day course of azithromycin -Sputum culture normal jaqueline -Blood cultures no growth to date (4) Atrial fibrillation with RVR: Plan: - Pt denies any cardiac history to admission Patient in sinus tachycardia on arrival Following CT patient converted to A. fib with RVR with rates up 160-180 Heparin ordered for anticoagulation, given new onset A. fib and concern for progressive hypotension risk/benefits of chemical cardioversion outweighed risk of stroke/delaying for anticoagulation Pressures initially stable and mildly hypertensive. Treated with metoprolol 5mg IV x2 with minimal improvement Pressures decreased to [id number] systolic with increase in rate to 180, suspect for rate related hypotension with hypoxia Loaded with amiodarone, drip started with some improvement in rate down to [id number] and improvement in pressures to 110-120s 01/01: Patient with A. fib RVR with concern for rate related pressure decrease and rate related worsening oxygenation/pulmonary edema. Patient received amio boluses, am-up to drip, and digoxin with continued deterioration. Attempted electrical cardioversion x2 with transient decrease and then returned to RVR. He was transferred to ICU for pressor support with diltiazem drip. -Has since been converted from IV amiodarone (after 2 days) to amiodarone 200 mg p.o. twice daily on 01/04-we will now increase to 400 mg p.o. twice daily on 01/07 at cardiology recommendation -was on phenylephrine for pressor support-weaned off of this on 01/07 but blood pressures remain soft-automatic i threading machine feeder started him on midodrine 2.5 mg p.o. 3 times daily -Started on metoprolol for rate control-12.5 mg p.o. every 8 hours Echocardiogram with preserved EF, no valvular abnormalities TSH normal On 01/07, rates still remain uncontrolled and blood pressures soft Will need repeat cardioversion after increased load of amiodarone Appreciate cardiology consultation on 01/07 -keep potassium at 4.0, magnesium at 2.0 (5) STEPHON (acute kidney injury): Plan: Creatinine continues to be improving each day-down to 1.5 today after peaked at 2.7 -Etiology secondary to ATN from hypotension -Received IV fluids and have since been discontinued Avoid nephrotoxins, follow BMP Pressure support and management as above -Sodium bicarbonate given for metabolic acidosis which is now resolved (6) Hypotension: Plan: As above, secondary to rapid atrial fibrillation Now weaned off phenylephrine and on midodrine as above Blood pressures remain soft (7) Hyponatremia: Plan: Sodium was 127, now improved to normal with giving crystalloid volume replacement Follow BMP (8) Metabolic acidosis: Plan: As above, secondary to acute kidney injury Improved with volume replacement and sodium bicarbonate (9) Diabetes mellitus: Plan: Hemoglobin A1c here elevated at 6.7% With hyperglycemia secondary to corticosteroids Continue insulin regimen as per pharmacy Will likely need p.o. medication upon discharge (10) Enlarged prostate: Plan: Holding home tamsulosin due to hypotension Continue finasteride -Jeong catheter in place but this can be removed in the morning now that acute kidney injury resolved and respiratory status improving (11) Esophageal dysphagia: Plan: Continue PPI (12) Peripheral artery disease: Plan: With a history of left SFA angioplasty Continue aspirin and statin Follows with vascular surgery as an outpatient (13) Hyperlipidemia: Plan: Continue home atorvastatin (14) Constipation: Plan: Finally resolved on 01/07 with large bowel movement -Continue MiraLAX as needed and daily senna/docusate (15) Transaminitis: Plan: AST and ALT mildly elevated in the 80s, most likely secondary to COVID-remains slightly elevated today -Follow LFTs in the morning Plan: DVT prophylaxis-Heparin drip Disposition- downgrade from ICU to PCU Admission and Anticipated Discharge Date Admission Date: December 31, 2021 Subjective Patient reports feeling well today. He denies chest pains or shortness of breath. He is at 9 L wall high flow nasal cannula. He is weaned off pheny lephrine as of this morning and was started on midodrine by the automatic i threading machine feeder. His heart rate Remains in the 100s to 140s in atrial fibrillation. He is eating and drinking, finally had a large bowel movement today. Has no other complaints. 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 Review of Systems Review of Systems: All systems reviewed & are unremarkable except as noted in HPI & below Physical Exam Constitutional: WD/WN, vitals as above well developed; no acute distress Eyes: + anicteric sclerae Neck: trachea midline, no thyromegaly Respiratory: normal respiratory effort, lungs clear to auscultation Cardiovascular: Rate/Rhythm: + tachycardic and + irregularly irregular Extremities: no edema Chest (Breasts): Chest: normal inspection of chest Gastrointestinal (Abdomen): normal bowel sounds, soft, nontender, no hepatosplenomegaly Musculoskeletal: Extremities: extremities normal to inspection; no cyanosis and no clubbing Skin: no rashes, warm and dry Neurologic: moves all extremities and awake; no focal motor deficits Psychiatric: A+Ox3, euthymic affect Lymphatic: no lymphedema Results & Data Results & Data ([facility]) Vital Signs (Past 12 Hours) Vital Signs Temp Pulse Pulse Resp BP BP Pulse Ox 01/07/22 12:00 36.6 C 01/07/22 11:30 117 H 19 97/60 L 92 01/07/22 11:00 118 H 18 119/83 91 01/07/22 10:30 116 H 14 103/69 92 01/07/22 10:00 128 H 20 84/72 L 87 L 01/07/22 09:30 118 H 15 87/55 L 94 01/07/22 09:00 143 H 18 94/66 L 86 L 01/07/22 08:30 126 H 19 94/74 L 91 01/07/22 08:01 106 H 18 111/82 91 01/07/22 08:00 116 H 15 91 01/07/22 07:37 36.5 C 113 H 13 110/73 91 01/07/22 07:30 120 H 20 110/73 88 L 01/07/22 07:00 110 H 13 84/66 L 92 01/07/22 06:30 127 H 16 116/76 91 01/07/22 06:00 111 H 27 H 98/76 L 93 01/07/22 05:30 108 H 12 96/68 L 92 01/07/22 05:00 124 H 16 97/79 L 93 01/07/22 04:31 106 H 18 103/75 92 01/07/22 04:27 119 H 22 101/68 95 Laboratory Results 01/07/22 01/07/22 01/07/22 Range/Units 16:19 14:51 11:31 WBC (4.8-10.8) K/uL RBC (4.7-6.1) M/uL Hgb (14.0-18.0) g/dL Hct (42-52) % MCV (80-100) fL MCH (25-34) pg MCHC (32-36) g/dL RDW Std Deviation (36.4-46.3) fL RDW Coeff of Samantha (11.5-14.5) % Plt Count (130-400) K/uL MPV (7.4-10.4) fL Immature Gran % (Auto) % Neut % (Auto) % Lymph % (Auto) % Wilkin % (Auto) % Eos % (Auto) % Baso % (Auto) % Neut # (Auto) (1.4-6.5) K/uL Lymph # (Auto) (1.2-3.4) K/uL Wilkin # (Auto) (0.11-0.59) K/uL Eos # (Auto) (0-0.5) K/uL Baso # (Auto) (0-0.2) K/uL Immature Gran # (Auto) (0.00-0.02) K/uL APTT Pending (21.0-31.0) Seconds PTT Ratio Pending Sodium (136-145) mmol/L Potassium (3.5-5.1) mmol/L Chloride (98-107) mmol/L Carbon Dioxide (21-32) mmol/L Anion Gap (3-11) BUN (6-23) mg/dl Creatinine (0.6-1.4) mg/dl Est Cr Clr Drug Dosing ml/min Est GFR ( Amer) ml/min Est GFR (Non-Af Amer) ml/min BUN/Creatinine Ratio (10-20) Glucose (70-99(Fasting)) mg/dl POC Glucose 112 H 206 H (70-99) mg/dl Calcium (8.5-10.1) mg/dl Phosphorus (2.5-4.9) mg/dl Magnesium (1.7-2.4) mg/dl Total Bilirubin (0.2-1.0) mg/dl AST (13-39) U/L ALT (7-52) U/L Alkaline Phosphatase (34-104) U/L Total Protein (6.0-8.3) gm/dl Albumin (3.4-5.0) gm/dl Globulin (2.5-4.0) gm/dl Albumin/Globulin Ratio (0.9-2) Procalcitonin (0-0.5) ng/ml 01/07/22 01/07/22 01/07/22 Range/Units 07:37 06:23 06:21 WBC (4.8-10.8) K/uL RBC (4.7-6.1) M/uL Hgb (14.0-18.0) g/dL Hct (42-52) % MCV (80-100) fL MCH (25-34) pg MCHC (32-36) g/dL RDW Std Deviation (36.4-46.3) fL RDW Coeff of Samantha (11.5-14.5) % Plt Count (130-400) K/uL MPV (7.4-10.4) fL Immature Gran % (Auto) % Neut % (Auto) % Lymph % (Auto) % Wilkin % (Auto) % Eos % (Auto) % Baso % (Auto) % Neut # (Auto) (1.4-6.5) K/uL Lymph # (Auto) (1.2-3.4) K/uL Wilkin # (Auto) (0.11-0.59) K/uL Eos # (Auto) (0-0.5) K/uL Baso # (Auto) (0-0.2) K/uL Immature Gran # (Auto) (0.00-0.02) K/uL APTT (21.0-31.0) Seconds PTT Ratio Sodium 140 (136-145) mmol/L Potassium 4.1 (3.5-5.1) mmol/L Chloride 110 H (98-107) mmol/L Carbon Dioxide 25 (21-32) mmol/L Anion Gap 5 (3-11) BUN 58 H (6-23) mg/dl Creatinine 1.50 H D (0.6-1.4) mg/dl Est Cr Clr Drug Dosing 46.7 ml/min Est GFR ( Amer) 52.8 ml/min Est GFR (Non-Af Amer) 45.5 ml/min BUN/Creatinine Ratio 38.7 H (10-20) Glucose 116 H (70-99(Fasting)) mg/dl POC Glucose 128 H (70-99) mg/dl Calcium 8.1 L (8.5-10.1) mg/dl Phosphorus 2.9 (2.5-4.9) mg/dl Magnesium 1.9 (1.7-2.4) mg/dl Total Bilirubin 0.7 (0.2-1.0) mg/dl AST 81 H (13-39) U/L ALT 99 H (7-52) U/L Alkaline Phosphatase 53 (34-104) U/L Total Protein 4.7 L (6.0-8.3) gm/dl Albumin 2.4 L (3.4-5.0) gm/dl Globulin 2.3 L (2.5-4.0) gm/dl Albumin/Globulin Ratio 1.0 (0.9-2) Procalcitonin 0.24 (0-0.5) ng/ml 01/07/22 01/07/22 01/06/22 Range/Units 06:21 06:21 20:21 WBC 13.89 H (4.8-10.8) K/uL RBC 4.10 L (4.7-6.1) M/uL Hgb 12.8 L (14.0-18.0) g/dL Hct 37.0 L (42-52) % MCV 90.2 (80-100) fL MCH 31.2 (25-34) pg MCHC 34.6 (32-36) g/dL RDW Std Deviation 49.6 H (36.4-46.3) fL RDW Coeff of Samantha 15.0 H (11.5-14.5) % Plt Count 392 (130-400) K/uL MPV 11.2 H (7.4-10.4) fL Immature Gran % (Auto) 0.5 % Neut % (Auto) 79.0 % Lymph % (Auto) 10.4 % Wilkin % (Auto) 9.9 % Eos % (Auto) 0.1 % Baso % (Auto) 0.1 % Neut # (Auto) 10.97 H (1.4-6.5) K/uL Lymph # (Auto) 1.44 (1.2-3.4) K/uL Wilkin # (Auto) 1.38 H (0.11-0.59) K/uL Eos # (Auto) 0.02 (0-0.5) K/uL Baso # (Auto) 0.01 (0-0.2) K/uL Immature Gran # (Auto) 0.07 H (0.00-0.02) K/uL APTT 37.2 H (21.0-31.0) Seconds PTT Ratio 1.4 Sodium (136-145) mmol/L Potassium (3.5-5.1) mmol/L Chloride (98-107) mmol/L Carbon Dioxide (21-32) mmol/L Anion Gap (3-11) BUN (6-23) mg/dl Creatinine (0.6-1.4) mg/dl Est Cr Clr Drug Dosing ml/min Est GFR ( Amer) ml/min Est GFR (Non-Af Amer) ml/min BUN/Creatinine Ratio (10-20) Glucose (70-99(Fasting)) mg/dl POC Glucose 177 H (70-99) mg/dl Calcium (8.5-10.1) mg/dl Phosphorus (2.5-4.9) mg/dl Magnesium (1.7-2.4) mg/dl Total Bilirubin (0.2-1.0) mg/dl AST (13-39) U/L ALT (7-52) U/L Alkaline Phosphatase (34-104) U/L Total Protein (6.0-8.3) gm/dl Albumin (3.4-5.0) gm/dl Globulin (2.5-4.0) gm/dl Albumin/Globulin Ratio (0.9-2) Procalcitonin (0-0.5) ng/ml 01/06/22 Range/Units 16:52 WBC (4.8-10.8) K/uL RBC (4.7-6.1) M/uL Hgb (14.0-18.0) g/dL Hct (42-52) % MCV (80-100) fL MCH (25-34) pg MCHC (32-36) g/dL RDW Std Deviation (36.4-46.3) fL RDW Coeff of Samantha (11.5-14.5) % Plt Count (130-400) K/uL MPV (7.4-10.4) fL Immature Gran % (Auto) % Neut % (Auto) % Lymph % (Auto) % Wilkin % (Auto) % Eos % (Auto) % Baso % (Auto) % Neut # (Auto) (1.4-6.5) K/uL Lymph # (Auto) (1.2-3.4) K/uL Wilkin # (Auto) (0.11-0.59) K/uL Eos # (Auto) (0-0.5) K/uL Baso # (Auto) (0-0.2) K/uL Immature Gran # (Auto) (0.00-0.02) K/uL APTT (21.0-31.0) Seconds PTT Ratio Sodium (136-145) mmol/L Potassium (3.5-5.1) mmol/L Chloride (98-107) mmol/L Carbon Dioxide (21-32) mmol/L Anion Gap (3-11) BUN (6-23) mg/dl Creatinine (0.6-1.4) mg/dl Est Cr Clr Drug Dosing ml/min Est GFR ( Amer) ml/min Est GFR (Non-Af Amer) ml/min BUN/Creatinine Ratio (10-20) Glucose (70-99(Fasting)) mg/dl POC Glucose 178 H (70-99) mg/dl Calcium (8.5-10.1) mg/dl Phosphorus (2.5-4.9) mg/dl Magnesium (1.7-2.4) mg/dl Total Bilirubin (0.2-1.0) mg/dl AST (13-39) U/L ALT (7-52) U/L Alkaline Phosphatase (34-104) U/L Total Protein (6.0-8.3) gm/dl Albumin (3.4-5.0) gm/dl Globulin (2.5-4.0) gm/dl Albumin/Globulin Ratio (0.9-2) Procalcitonin (0-0.5) ng/ml PG Care Time/CCT Total # of Minutes Spent Total Time Spent with Patient: Total time spent is greater than 50% in coordination of care (as documented) at patient's floor/unit and/or counseling patient: Coding Level of Care Code 94626 Subseq Hosp Care Lvl 3 Diagnoses Acute respiratory failure with hypoxia J96.01 COVID-19 U07.1 Secondary pneumonia J18.9 Atrial fibrillation with RVR I48.91 STEPHON (acute kidney injury) N17.9 Hypotension I95.9 Hyponatremia E87.1 Metabolic acidosis E87.2 Diabetes mellitus E11.9 Enlarged prostate N40.0 Esophageal dysphagia R13.10 Peripheral artery disease I73.9 Hyperlipidemia E78.5 Constipation K59.00 Transaminitis R74.01
[2022-01-07 16:42] LABS: Partial Thromboplastin Time 50.5 Seconds (21.0-31.0)
[2022-01-07] MEDS: PHENYLEPHRINE HCL 20 MG in SODIUM CHLORIDE 0.9% 500 ML IV SCH ×2 (16:49→16:50)
--- NOTE | 2022-01-07 17:30 | Cardiology Consultation ---
Date of Consultation January 07, 2022 Assessment & Plan (1) Atrial fibrillation with RVR: (2) Hypotension: (3) Pneumonia due to severe acute respiratory syndrome coronavirus 2 (SARS-CoV-2): (4) Transaminitis: ASSESSMENT/PLAN: 1. Atrial fibrillation with rapid ventricular response: New diagnosis (01/01/22) this hospital stay after presenting with sinus rhythm. Occurred in the setting of severe COVID pneumonia. Reportedly cardioversion was unsuccessful x2. Approximately 3-4 g of amiodarone given thus far. Increase amiodarone to 400 mg twice daily for continued loading. Continue anticoagulation for stroke risk reduction. Diagnosis discussed with him. Rate-controlling medications difficult given hypotension. If he does not convert in the meantime, would consider repeating electrical cardioversion after more sufficiently loaded with amiodarone. Monitor TSH and transaminase levels carefully. He is also receiving low-dose metoprolol 12.5 mg p.o. q.8 hours. 2. Transaminitis: Transaminase levels were elevated on presentation and have remained so. They have not significantly elevated with the use of amiodarone but would continue to monitor periodically. As per primary service. 3. COVID-19 pneumonia: Reportedly he has improved. As per primary hospitalist service. 4. Hypotension: Phenylephrine discontinued morning of 01/07/2022. Atrial fibrillation is not likely playing a large role in his hypotension given that his heart rates are mostly 110 to 120s, which should not account for significant hypotension. On midodrine per other providers. 5. Disposition: Cardiology will continue to follow. Please call with questions or concerns. Patient care discussed with Dr. Guardado of the primary hospitalist service. Patient's granddaughter, Eda Hutson, was contacted via telephone as per his request. We discussed atrial fibrillation and treatment strategies, including amiodarone and potential adverse reactions. Any questions were answered. Thank you for allowing me to participate in the care of your patient. Please call for any other questions or concerns. Sincerely, Celio Funez M.D. History of Present Illness Reason for Consultation: Atrial fibrillation Requesting Physician: Lucia Guardado MD Attending Physician: Lucia Guardado MD History of Present Illness Mr. Aleman is a pleasant 71-year-old Serbian-speaking gentleman with a history significant for peripheral arterial disease s/p left SFA stent (Dr. Perez follows), dyslipidemia, and DVT. He was admitted on 12/31/2021 with acute respiratory failure with hypoxia felt to be due to COVID-19 pneumonia. He was noted to have elevated transaminase levels on presentation. He was also febrile on presentation. He has been treated with dexamethasone and supplemental oxygen. He has also been treated with ceftriaxone and azithromycin for concern of secondary pneumonia. On 01/01/2022, he developed AFib with RVR with heart rates in the 160s to 180s per records. He was placed on heparin drip and there was concern for progressive hypotension. He was initially given intravenous metoprolol with minimal improvement. He was then given intravenous amiodarone and heart rate improved to 130s to 150s. He then underwent electrical cardioversion attempt x2 on 01/01/2022 by the hospitalist service. Initially 150 joules were delivered but remained in AFib with RVR. Then 200 joules delivered in a synchronized fashion with reported transient decrease in the heart rate to 113 beats per minute. It is not entirely clear if sinus rhythm was achieved briefly or if he remained in AFib following this second cardioversion attempt. He was then salmon sferred to ICU status. He has been on intravenous amiodarone from 01/01/22-01/03/22 and then transition to amiodarone 200 mg p.o. b.i.d.. Despite this, he has remained in atrial fibrillation. He also was placed on metoprolol tartrate 12.5 mg p.o. t.i.d.. Phenylephrine was discontinued early 01/07/2022 in the AM but due to continued issues with hypotension, midodrine was initiated. Today's history was obtained by reviewing records, discussing with Dr. Guardado of the primary hospitalist service, conversation with his granddaughter, Eda, and also discussion with the patient, Mr. Aleman. He speaks Serbian and therefore Serbian carpenter prototype was used for our conversation via translation service. He denies chest pain, shortness of breath, syncope, near-syncope, palpitations, edema, or bleeding. He was aware of atrial fibrillation due to conversations with other providers but denies any specific symptoms. He recalls taking a statin, aspirin, and prostate medications at home. He denies any history of previous cardiac disorder. According to records, he follows with Dr. Perez for peripheral arterial disease and has had left lower extremity stent placed in the past. He denies a history of heart failure, diabetes, hypertension, stroke/TIA. Review of systems: As above. Review of systems otherwise negative/unremarkable. Family history: No known premature CAD. Social history: Smoked approximately 1 pack every 2 days but states that he quit as of December 2021. Rare alcohol. Lives at home with his (Serbian- speaking). Had 2 children but they are both . 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 His contact is his only Kinyarwanda-speaking relative, Eda (granddaughter), who attended nursing school in the past. He was alone in his hospital room. Allergies Allergy/AdvReac Type Severity Reaction Status Date / Time No Known Allergies Allergy Mild Verified 12/31/21 10:11 Home Medications Medication Instructions Recorded Confirmed Type atorvastatin 10 mg tablet 10 mg PO QAM #90 tab 06/27/21 12/31/21 Rx tamsulosin 0.4 mg capsule 0.4 mg PO QAM #90 cap 07/09/21 12/31/21 Rx finasteride 5 mg tablet 5 mg PO QAM #90 tab 08/09/21 12/31/21 Rx aspirin 81 mg tablet,delayed 81 mg PO DAILY 12/31/21 12/31/21 History release omeprazole 20 mg capsule,delayed 20 mg PO DAILY 12/31/21 12/31/21 History release Patient History Medical History Benign prostatic hyperplasia with urinary obstruction Deep vein thrombosis many years ago> Sunni Diabetes mellitus Esophageal dysphagia [place] filter in place follows Dr. Perez History of Helicobacter pylori infection resolved Hyperlipidemia Surgical History History of colonoscopy History of esophagogastroduodenoscopy (EGD) History of right cataract extraction History of tooth extraction Family History Father Hypertension Brain tumor Mother Hypertension Social History Smoking Status: Heavy tobacco smoker Cigarettes Per Day: 3-5; Second Hand Exposure: No; Do You Dip or Chew Tobacco: No; Tobacco Cessation Education Requested by Patient: No Hx Alcohol Use: No Hx Substance Use: No Preferred Language: Serbian Communication Ability: Impaired Pockets And Pieces Necktie Operator Required: Yes Beliefs That Will Affect Care: None Current Living Situation: Spouse Other Information That Helps Us Care for You: No Feels Safe at Home: Yes Assistive Devices: Oxygen - Continuous Physical Exam Physical Exam: Gen.: No acute distress. Alert. HEENT: Anicteric sclera. Neck: No JVD. Cardiac: PMI was nonpalpable. No ventricular heave. Irregularly irregular and tachycardic. Normal S1-S2. No murmurs, rubs, or gallops. Pulmonary: Decreased breath sounds throughout, but otherwise clear to auscultation bilaterally without wheezes, rales, or rhonchi. Abdomen: Soft, nontender, nondistended, with normoactive bowel sounds. No bruits noted. Extremities: 2+ radial pulses bilaterally. 2+ posterior tibialis pulses bilaterally. No edema or cyanosis. Psychiatric: Affect appears appropriate. Results & Data ([facility]) Vital Signs (Past 12 Hours) Vital Signs Temp Pulse Pulse Resp BP BP Pulse Ox 01/07/22 12:00 36.6 C 01/07/22 11:30 117 H 19 97/60 L 92 01/07/22 11:00 118 H 18 119/83 91 01/07/22 10:30 116 H 14 103/69 92 01/07/22 10:00 128 H 20 84/72 L 87 L 01/07/22 09:30 118 H 15 87/55 L 94 01/07/22 09:00 143 H 18 94/66 L 86 L 01/07/22 08:30 126 H 19 94/74 L 91 01/07/22 08:01 106 H 18 111/82 91 01/07/22 08:00 116 H 15 91 01/07/22 07:37 36.5 C 113 H 13 110/73 91 01/07/22 07:30 120 H 20 110/73 88 L 01/07/22 07:00 110 H 13 84/66 L 92 01/07/22 06:30 127 H 16 116/76 91 01/07/22 06:00 111 H 27 H 98/76 L 93 01/07/22 05:30 108 H 12 96/68 L 92 Laboratory Results Laboratory Results - last 24 hr 01/06/22 01/07/2222 20:21 06:21 06:21 WBC 13.89 H RBC 4.10 L Hgb 12.8 L Hct 37.0 L MCV 90.2 MCH 31.2 MCHC 34.6 RDW Std Deviation 49.6 H RDW Coeff of Samantha 15.0 H Plt Count 392 MPV 11.2 H Immature Gran % (Auto) 0.5 Neut % (Auto) 79.0 Lymph % (Auto) 10.4 Kings % (Auto) 9.9 Eos % (Auto) 0.1 Baso % (Auto) 0.1 Neut # (Auto) 10.97 H Lymph # (Auto) 1.44 Kings # (Auto) 1.38 H Eos # (Auto) 0.02 Baso # (Auto) 0.01 Immature Gran # (Auto) 0.07 H APTT 37.2 H PTT Ratio 1.4 Sodium Potassium Chloride Carbon Dioxide Anion Gap BUN Creatinine Est Cr Clr Drug Dosing Est GFR ( Amer) Est GFR (Non-Af Amer) BUN/Creatinine Ratio Glucose POC Glucose 177 H Calcium Phosphorus Magnesium Total Bilirubin AST ALT Alkaline Phosphatase Total Protein Albumin Globulin Albumin/Globulin Ratio Procalcitonin 01/07/22 01/07/22 01/07/22 06:21 06:23 07:37 WBC RBC Hgb Hct MCV MCH MCHC RDW Std Deviation RDW Coeff of Samantha Plt Count MPV Immature Gran % (Auto) Neut % (Auto) Lymph % (Auto) Kings % (Auto) Eos % (Auto) Baso % (Auto) Neut # (Auto) Lymph # (Auto) Kings # (Auto) Eos # (Auto) Baso # (Auto) Immature Gran # (Auto) APTT PTT Ratio Sodium 140 Potassium 4.1 Chloride 110 H Carbon Dioxide 25 Anion Gap 5 BUN 58 H Creatinine 1.50 H D Est Cr Clr Drug Dosing 46.7 Est GFR ( Amer) 52.8 Est GFR (Non-Af Amer) 45.5 BUN/Creatinine Ratio 38.7 H Glucose 116 H POC Glucose 128 H Calcium 8.1 L Phosphorus 2.9 Magnesium 1.9 Total Bilirubin 0.7 AST 81 H ALT 99 H Alkaline Phosphatase 53 Total Protein 4.7 L Albumin 2.4 L Globulin 2.3 L Albumin/Globulin Ratio 1.0 Procalcitonin 0.24 01/07/22 01/07/2222 11:31 14:51 16:19 WBC RBC Hgb Hct MCV MCH MCHC RDW Std Deviation RDW Coeff of Samantha Plt Count MPV Immature Gran % (Auto) Neut % (Auto) Lymph % (Auto) Kings % (Auto) Eos % (Auto) Baso % (Auto) Neut # (Auto) Lymph # (Auto) Kings # (Auto) Eos # (Auto) Baso # (Auto) Immature Gran # (Auto) APTT 50.5 H* PTT Ratio 1.9 Sodium Potassium Chloride Carbon Dioxide Anion Gap BUN Creatinine Est Cr Clr Drug Dosing Est GFR ( Amer) Est GFR (Non-Af Amer) BUN/Creatinine Ratio Glucose POC Glucose 206 H 112 H Calcium Phosphorus Magnesium Total Bilirubin AST ALT Alkaline Phosphatase Total Protein Albumin Globulin Albumin/Globulin Ratio Procalcitonin Diagnostic Findings Telemetry personally reviewed: AFib with RVR. Chest x-ray 01/05/2022: Multifocal airspace consolidation. CTA chest 01/01/2022: Severely streak and motion compromised exam. No evidence of central PE. Bilateral significant dependent airspace consolidation, typical for pneumonia/aspiration pneumonitis per Radiology. Coronary artery calcification. Mild aneurysmal dilation of ascending aorta, 4.2 cm. New line ECGs personally reviewed: ECG 12/31/2021: Sinus tachycardia 104 beats per minute. Inferior infarct. ECG 01/01/2022 at 8:08 p.m.: AFib RVR 135 beats per minute. Inferior infarct. ECG 01/01/2022 at 1:06 p.m.: AFib RVR 146 beats per minute. Inferior infarct. ECG 01/01/2022 at 12:09 p.m.: AFib RVR 166 beats per minute. Inferior infarct. Echo 01/04/2022: Normal LV size, wall motion, systolic function. EF 60-65%. Mild LVH. Medications Administered Current Inpatient Medications Acetaminophen (Acetaminophen 325 Mg Tab) 650 mg PO Q4H PRN PRN Reason: Pain or Fever Stop: 01/30/22 16:02 Last Admin: 01/03/22 08:16 Dose: 650 mg Documented by: Albuterol (Albut/Ipratrop 3mg/0.5mg Neb 3 Ml Vial) 3 ml NEB Q4 PRN; Protocol PRN Reason: Shortness Of Breath Or Wheezing Stop: 01/30/22 15:15 Amiodarone HCl (Amiodarone 200 Mg Tab) 400 mg PO BIDM [facility] Stop: 02/06/22 16:59 Last Admin: 01/07/22 17:48 Dose: 400 mg Documented by: Aspirin (Aspirin 81 Mg Ectab) 81 mg PO DAILY [facility] Stop: 01/31/22 08:59 Last Admin: 01/07/22 08:26 Dose: 81 mg Documented by: Atorvastatin Calcium ([facility] 10 Mg Tab) [facility] [place]: 01/31/22 08:59 Last Admin: 01/07/22 08:26 Dose: 10 mg Documented by: Dextrose (Dextrose 50% 50 Ml Syringe) 25 - 50 ml IV UD PRN; Protocol PRN Reason: Hypoglycemia Protocol Stop: 02/01/22 10:44 Finasteride (Finasteride 5 Mg Tab) [address] [facility] Stop: 01/31/22 08:59 Last Admin: 01/07/22 08:26 Dose: 5 mg Documented by: Glucagon (Glucagon For Inj 1 Mg Vial) 1 mg IM UD PRN; Protocol PRN Reason: Hypoglycemia Protocol Stop: 02/01/22 10:44 Glucose (Glucose 40% Gel 15 Gm Tube) 15 - 30 gm PO UD PRN; Protocol PRN Reason: Hypoglycemia Protocol Stop: 02/01/22 10:44 Glucose (Glucose 10 Tabs/Tube) 4 - 8 tabs PO UD PRN; Protocol PRN Reason: Hypoglycemia Protocol Stop: 02/01/22 10:44 Heparin Sodium (Beef Lung) (Heparin 10 Unit/Ml 5 Ml Flush) 5 ml FLUSH PRN PRN PRN Reason: Flush Stop: 02/04/22 12:07 Dexamethasone 10 mg/ Syringe 2.5 mls @ 1 [facility]ls[facility] [place]: 01/10/22 09:01 Last Admin: 01/07/22 08:27 Dose: 1 mls/min Documented by: Heparin Sodium/Dextrose (Heparin Sodium/Dextrose) 25,000 units in 500 mls @ 17 mls/hr IV .Q24H [facility]; Protocol Stop: 01/31/22 14:14 Last Admin: 01/07/22 15:27 Dose: Not Given Documented by: Insulin Aspart (Insulin Aspart Per Unit) 0 units SC ACHS [facility] Stop: 02/01/22 20:59 Last Admin: 01/07/22 17:40 Dose: 13 units Documented by: Insulin Human NPH (Insulin Human Nph) 10 [facility] Stop: 02/02/22 10:29 Last Admin: 01/07/22 08:15 Dose: 10 units Documented by: Metoprolol Tartrate (Metoprolol Tartrate 1 Mg/Ml Vial) 5 mg IV Q6 PRN PRN Reason: HR > 130 Stop: 02/01/22 00:00 Metoprolol Tartrate (Metoprolol Tartrate 25 Mg Tab) 12.5 mg PO Q8 [facility] Stop: 02/05/22 13:59 Last Admin: 01/07/22 13:30 Dose: 12.5 mg Documented by: Midodrine (Midodrine Hcl 2.5 Mg Tab) 2.5 mg PO TID@0800,1200,1700 [facility] Stop: 02/06/22 11:59 Last Admin: 01/07/22 17:49 Dose: 2.5 mg Documented by: Miscellaneous (Carbohydrates For Hypoglycemia ) 15 - 30 gm PO UD PRN PRN Reason: Hypoglycemia Treatment Stop: 02/01/22 10:44 Ondansetron HCl (Ondansetron Inj 2 Mg/Ml 2 Ml Vial) 4 mg IV Q6H PRN PRN Reason: Nausea Stop: 01/30/22 16:02 Pantoprazole Sodium (Pantoprazole 40 Mg Tab) [address] [facility] Stop: 02/02/22 10:59 Last Admin: 01/07/22 08:26 Dose: 40 mg Documented by: Polyethylene Glycol (Polyethylene (Miralax) 17 Gm Pack) 17 gm PO DAILY PRN PRN Reason: Constipation Stop: 02/05/22 17:06 Last Admin: 01/07/22 08:45 Dose: 17 gm Documented by: Senna/Docusate Sodium (Docusate Sodium/Senna 50/8.6mg Tab) [address] [facility] Stop: 02/06/22 08:59 Last Admin: 01/07/22 08:45 Dose: 1 tab Documented by: PG Care Time/CCT Total # of Minutes Spent Total Time Spent with Patient: Total time spent is greater than 50% in coordination of care (as documented) at patient's floor/unit and/or counseling patient: Coding Level of Care Code 05446 Initial Inpt Care Lvl 3 Diagnoses Atrial fibrillation with RVR I48.91 Hypotension I95.9 Pneumonia due to severe acute respiratory syndrome coronavirus 2 (SARS-CoV-2) U07.1; J12.82 Transaminitis R74.01
[2022-01-08] MEDS: METOPROLOL TARTRATE 25 MG TAB PO SCH ×3 (05:47→20:43)
[2022-01-08 06:14] LABS: Basophils # (auto) 0.01 K/uL (0-0.2); Basophils % (auto) 0.1 %; Eosinophils # (auto) 0.04 K/uL (0-0.5); Eosinophils % (auto) 0.3 %; Hemoglobin 12.3 g/dL (14.0-18.0); Immature Granulocytes # (auto) 0.07 K/uL (0.00-0.02); Immature Granulocytes % (auto) 0.5 %; Lymphocytes # (auto) 1.72 K/uL (1.2-3.4); Lymphocytes % (auto) 12.4 %; Mean Corpuscular Hemoglobin 31.1 pg (25-34); Mean Corpuscular Hgb Conc 34.2 g/dL (32-36); Mean Corpuscular Volume 90.9 fL (80-100); Mean Platelet Volume 10.9 fL (7.4-10.4); Monocytes # (auto) 1.25 K/uL (0.11-0.59); Neutrophils # (auto) 10.73 K/uL (1.4-6.5); Neutrophils % (auto) 77.7 %; Platelet Count 377 K/uL (130-400); RDW Coefficient of Variation 14.9 % (11.5-14.5); Red Blood Count 3.96 M/uL (4.7-6.1); White Blood Count 13.82 K/uL (4.8-10.8)
[2022-01-08 06:23] LABS: Partial Thromboplastin Ratio 1.7; Partial Thromboplastin Time 44.7 Seconds (21.0-31.0)
[2022-01-08 06:43] LABS: Albumin Level 2.4 gm/dl (3.4-5.0); BUN Creatinine Ratio 40.6 (10-20); Bilirubin,Total 0.7 mg/dl (0.2-1.0); C Reactive Protein 2.96 mg/dl (0-0.5); Calcium 8.2 mg/dl (8.5-10.1); Creatinine Clr Calc Pharmacy 54.7 ml/min; Est GFR (African American) 63.9 ml/min; Est GFR (Non-African American) 55.2 ml/min; Globulin 2.3 gm/dl (2.5-4.0); Magnesium 1.8 mg/dl (1.7-2.4); Phosphorus 3.4 mg/dl (2.5-4.9); Potassium 4.2 mmol/L (3.5-5.1); Total Protein 4.7 gm/dl (6.0-8.3)
[2022-01-08] MEDS ORDERED: MAGNESIUM SULFATE / D5W 1 GM/100 ML BAG IV ONE (09:00)
[2022-01-08] MEDS ORDERED: ASPIRIN 81 MG CHEW PO SCH (09:00)
[2022-01-08] MEDS: INSULIN ASPART PER UNIT SC SCH ×4 (09:08→20:28)
[2022-01-08] MEDS: dexAMETHasone 10 MG in SYRINGE 0 ML IV SCH (09:10)
[2022-01-08] MEDS: MIDODRINE HCL 2.5 MG TAB PO SCH ×3 (09:11→17:17)
[2022-01-08] MEDS: FINASTERIDE 5 MG TAB PO SCH (09:12)
[2022-01-08] MEDS: PANTOprazole 40 MG TAB PO SCH (09:12)
[2022-01-08] MEDS: AMIODARONE 200 MG TAB PO SCH ×2 (09:12→17:17)
[2022-01-08] MEDS: DOCUSATE SODIUM/SENNA 50/8.6MG TAB PO SCH (09:12)
[2022-01-08] MEDS: ASPIRIN 81 MG ECTAB PO SCH (09:13)
[2022-01-08] MEDS: INSULIN HUMAN NPH SC SCH (09:14)
[2022-01-08 13:31] LABS: Partial Thromboplastin Ratio 1.9
--- NOTE | 2022-01-08 13:48 | Hospitalist Progress Note ---
Date of Service January 08, 2022 Assessment & Plan (1) Acute respiratory failure with hypoxia: Plan: 01/02 COVID-19 Pneumonia with superimposed bacterial pneumonia in right upper lobe Febrile on arrival, now resolved Continue supplemental oxygen to target SPO2 sat greater than 90%-weaned off Vapotherm and now down to 9 L high flow nasal cannula on the wall-improving and continue to wean off O2 Covid and PNA treatment below /: CXR similar versus slightly improved aeration -Continue-continue Decadron x 10 day course On incentive spirometry and flutter valve (2) COVID-19: Plan: Covid pneumonia, suspect post viremic phase with superimposed pneumonia as below Covid positive 12/31/2021. Prior negative 11/14/22, no home test when pt had symptoms noted below. First day of symptoms: Unclear. Some URI symptoms for 3 to 4 weeks, some nasal congestion for 1-2 weeks which improved and some residual congestion but acute worsening and became febrile 7 days prior to admission and febrile daily since then. - Suspected COVID exposure 4-5 weeks ago (family from [facility]) who were all sick and required quarantine, sinus congestion started shortly after this exposure. Vaccination status: Unvaccinated CXR:IMPRESSION: Bilateral airspace opacities are suggestive of multifocal pneumonia. CRP: 36.2 Procalcitonin 7.47 Started on dexamethasone 12/31, continue for 10-day course. Increased to 10mg daily. Remdesivir: Initial symptom onset 3 to 4 weeks ago, outside of viremic window - Baricitinib not recommended in setting of bacterial superinfection (3) Secondary pneumonia: Plan: CTA: Severely streak and motion compromised examination. There is no evidence of central pulmonary embolus in the main or lobar pulmonary arteries. The segmental and subsegmental vessels cannot be evaluated. There is significant dependent airspace consolidation seen bilaterally with small pleural effusions. The appearance is typical for pneumonia/aspiration pneumonitis. Clinical correlation will be required and radiographic follow-up to resolution is recommended. Mildly enlarged mediastinal and hilar nodes are likely reactive. There is mild aneurysmal dilatation of the ascending thoracic aorta which measures up to 4.2 cm in diameter. Cardiomegaly with advanced coronary artery calcification. Pro-Sung 7.47, CRP 36 on admission And CRP now trended downward all the way to 2.9 Patient febrile for the week prior to admission and on admission-now resolved -leukocytosis now with being on steroids but is significantly improved now -Has now completed a 7-day course of ceftriaxone and 5-day course of azithromycin -Sputum culture normal jaqueline and Debbie-no need to treat this -Blood cultures no growth to date (4) Atrial fibrillation with RVR: Plan: - Pt denies any cardiac history to admission Patient in sinus tachycardia on arrival Following CT patient converted to A. fib with RVR with rates up 160-180 Heparin ordered for anticoagulation, given new onset A. fib and concern for progressive hypotension risk/benefits of chemical cardioversion outweighed risk of stroke/delaying for anticoagulation Pressures initially stable and mildly hypertensive. Treated with metoprolol 5mg IV x2 with minimal improvement Pressures decreased to [id number] systolic with increase in rate to 180, suspect for rate related hypotension with hypoxia Loaded with amiodarone, drip started with some improvement in rate down to [id number] and improvement in pressures to 110-120s 01/01: Patient with A. fib RVR with concern for rate related pressure decrease and rate related worsening oxygenation/pulmonary edema. Patient received amio boluses, am-up to drip, and digoxin with continued deterioration. Attempted electrical cardioversion x2 with transient decrease and then returned to RVR. He was transferred to ICU for pressor support with diltiazem drip. -Has since been converted from IV amiodarone (after 2 days) to amiodarone 200 mg p.o. twice daily on 01/04-we will now increase to 400 mg p.o. twice daily on 01/07 at cardiology recommendation -was on phenylephrine for pressor support-weaned off of this on 01/07 but blood pressures remain soft-compensation and benefits analyst started him on midodrine 2.5 mg p.o. 3 times daily -Started on metoprolol for rate control-12.5 mg p.o. every 8 hours Echocardiogram with preserved EF, no valvular abnormalities TSH normal On 01/07, rates still remain uncontrolled and blood pressures soft Will need repeat cardioversion after increased load of amiodarone later this week Appreciate cardiology consultation on 01/07 -keep potassium at 4.0, magnesium at 2.0 (5) STEPHON (acute kidney injury): Plan: Creatinine continues to be improving each day-down to 1.2 today after peaked at 2.7 -Etiology secondary to ATN from hypotension -Received IV fluids and have since been discontinued Avoid nephrotoxins, follow BMP Pressure support and management as above -Sodium bicarbonate given for metabolic acidosis which is now resolved (6) Hypotension: Plan: As above, secondary to rapid atrial fibrillation Now weaned off phenylephrine and on midodrine as above Blood pressures remain soft while titrating metoprolol to effect for rate control (7) Hyponatremia: Plan: Sodium was 127, now improved to normal with giving crystalloid volume replacement Follow BMP (8) Metabolic acidosis: Plan: As above, secondary to acute kidney injury Improved with volume replacement and sodium bicarbonate (9) Diabetes mellitus: Plan: Hemoglobin A1c here elevated at 6.7% With hyperglycemia secondary to corticosteroids Continue insulin regimen as per pharmacy Will likely need p.o. medication upon discharge (10) Enlarged prostate: Plan: Holding home tamsulosin due to hypotension Continue finasteride -Jeong catheter in place but this can be removed now that acute kidney injury resolved and respiratory status improving (11) Esophageal dysphagia: Plan: Continue PPI (12) Peripheral artery disease: Plan: With a history of left SFA angioplasty Continue aspirin but holding statin now for rising AST/ALT Follows with vascular surgery as an outpatient (13) Hyperlipidemia: Plan: hold atorvastatin as of 01/08 for rising AST/ALT in setting of amiodarone use and COVID-19 (14) Constipation: Plan: Finally resolved on 01/07 with large bowel movement -Continue MiraLAX as needed and daily senna/docusate (15) Transaminitis: Plan: AST and ALT mildly elevated in the 80s, most likely secondary to COVID However AST and ALT worsening today despite improvement with Covid-19 Is also on amiodarone and statin -Hold statin -Continue amiodarone for now -Follow LFTs in the morning Plan: DVT prophylaxis-Heparin drip Disposition- Continued stay on PCU Admission and Anticipated Discharge Date Admission Date: December 31, 2021 Subjective Patient was seen and interviewed with the use of [place] airline counter agent on the iPad. He reports he feels good today. Denies any chest pains or shortness of breath, no cough. He is eating and drinking. He denies any other new issues. I discussed his care with the hospice registered nurse and decision made to hold his statin due to elevated LFTs. Telemetry remains with atrial fibrillation with rates in the 110s to 120s. Discussed with patient what he reviewed with hospice registered nurse this morning and he is agreeable to repeat attempt at DC cardioversion later this week. He continues on 9 L nasal cannula but pulse ox is 98% on this Review of Systems Review of Systems: All systems reviewed & are unremarkable except as noted in HPI & below Physical Exam Constitutional: WD/WN, vitals as above well developed; no acute distress Eyes: + anicteric sclerae Neck: trachea midline, no thyromegaly Respiratory: normal respiratory effort, lungs clear to auscultation Cardiovascular: Rate/Rhythm: + tachycardic and + irregularly irregular Extremities: no edema Chest (Breasts): Chest: normal inspection of chest Gastrointestinal (Abdomen): normal bowel sounds, soft, nontender, no hepatosplenomegaly Musculoskeletal: Extremities: extremities normal to inspection; no cyanosis and no clubbing Skin: no rashes, warm and dry Neurologic: moves all extremities and awake; no focal motor deficits Psychiatric: A+Ox3, euthymic affect Lymphatic: no lymphedema Results & Data Results & Data ([facility]) Vital Signs (Past 12 Hours) Vital Signs Temp Pulse Pulse Resp BP BP BP 01/08/22 11:45 36.6 C 120 H 24 94/61 L 01/08/22 10:04 01/08/22 08:00 37.5 C 113 H 19 101/72 01/08/22 06:00 01/08/22 05:46 123 H 107/81 01/08/22 05:30 107 H 14 114/67 01/08/22 05:01 102 H 13 90/52 L 01/08/22 05:00 101 H 10 L 01/08/22 04:00 117 H 14 86/62 L 01/08/22 03:30 119 H 11 L 102/76 01/08/22 03:00 100 H 01/08/22 02:59 36.5 C 118 H 109 H 18 97/78 L 97/78 L 01/08/22 02:00 120 H Pulse Ox Pulse Ox 01/08/22 11:45 91 01/08/22 10:04 91 01/08/22 08:00 96 01/08/22 06:00 93 01/08/22 05:46 01/08/22 05:30 92 01/08/22 05:01 96 01/08/22 05:00 96 01/08/22 04:00 01/08/22 03:30 94 01/08/22 03:00 96 01/08/22 02:59 98 01/08/22 02:00 91 Laboratory Results 01/08/22 01/08/22 01/08/22 Range/Units 19:56 16:56 12:56 WBC (4.8-10.8) K/uL RBC (4.7-6.1) M/uL Hgb (14.0-18.0) g/dL Hct (42-52) % MCV (80-100) fL MCH (25-34) pg MCHC (32-36) g/dL RDW Std Deviation (36.4-46.3) fL RDW Coeff of Samantha (11.5-14.5) % Plt Count (130-400) K/uL MPV (7.4-10.4) fL Immature Gran % (Auto) % Neut % (Auto) % Lymph % (Auto) % [place] % (Auto) % Eos % (Auto) % Baso % (Auto) % Neut # (Auto) (1.4-6.5) K/uL Lymph # (Auto) (1.2-3.4) K/uL [place] # (Auto) (0.11-0.59) K/uL Eos # (Auto) (0-0.5) K/uL Baso # (Auto) (0-0.2) K/uL Immature Gran # (Auto) (0.00-0.02) K/uL APTT 50.0 H* (21.0-31.0) Seconds PTT Ratio 1.9 Sodium (136-145) mmol/L Potassium (3.5-5.1) mmol/L Chloride (98-107) mmol/L Carbon Dioxide (21-32) mmol/L Anion Gap (3-11) BUN (6-23) mg/dl Creatinine (0.6-1.4) mg/dl Est Cr Clr Drug Dosing ml/min Est GFR ( Amer) ml/min Est GFR (Non-Af Amer) ml/min BUN/Creatinine Ratio (10-20) Glucose (70-99(Fasting)) mg/dl POC Glucose 189 H 129 H (70-99) mg/dl Calcium (8.5-10.1) mg/dl Phosphorus (2.5-4.9) mg/dl Magnesium (1.7-2.4) mg/dl Total Bilirubin (0.2-1.0) mg/dl AST (13-39) U/L ALT (7-52) U/L Alkaline Phosphatase (34-104) U/L Total Creatine Kinase (30-223) U/L C-Reactive Protein (0-0.5) mg/dl Total Protein (6.0-8.3) gm/dl Albumin (3.4-5.0) gm/dl Globulin (2.5-4.0) gm/dl Albumin/Globulin Ratio (0.9-2) 01/08/22 01/08/22 01/08/22 Range/Units 11:43 07:58 05:39 WBC (4.8-10.8) K/uL RBC (4.7-6.1) M/uL Hgb (14.0-18.0) g/dL Hct (42-52) % MCV (80-100) fL MCH (25-34) pg MCHC (32-36) g/dL RDW Std Deviation (36.4-46.3) fL RDW Coeff of Samantha (11.5-14.5) % Plt Count (130-400) K/uL MPV (7.4-10.4) fL Immature Gran % (Auto) % Neut % (Auto) % Lymph % (Auto) % [place] % (Auto) % Eos % (Auto) % Baso % (Auto) % Neut # (Auto) (1.4-6.5) K/uL Lymph # (Auto) (1.2-3.4) K/uL [place] # (Auto) (0.11-0.59) K/uL Eos # (Auto) (0-0.5) K/uL Baso # (Auto) (0-0.2) K/uL Immature Gran # (Auto) (0.00-0.02) K/uL APTT (21.0-31.0) Seconds PTT Ratio Sodium (136-145) mmol/L Potassium (3.5-5.1) mmol/L Chloride (98-107) mmol/L Carbon Dioxide (21-32) mmol/L Anion Gap (3-11) BUN (6-23) mg/dl Creatinine (0.6-1.4) mg/dl Est Cr Clr Drug Dosing ml/min Est GFR ( Amer) ml/min Est GFR (Non-Af Amer) ml/min BUN/Creatinine Ratio (10-20) Glucose (70-99(Fasting)) mg/dl POC Glucose 153 H 116 H (70-99) mg/dl Calcium (8.5-10.1) mg/dl Phosphorus (2.5-4.9) mg/dl Magnesium (1.7-2.4) mg/dl Total Bilirubin (0.2-1.0) mg/dl AST (13-39) U/L ALT (7-52) U/L Alkaline Phosphatase (34-104) U/L Total Creatine Kinase 109 (30-223) U/L C-Reactive Protein (0-0.5) mg/dl Total Protein (6.0-8.3) gm/dl Albumin (3.4-5.0) gm/dl Globulin (2.5-4.0) gm/dl Albumin/Globulin Ratio (0.9-2) 01/08/22 01/08/22 01/08/22 Range/Units 05:39 05:39 05:39 WBC 13.82 H (4.8-10.8) K/uL RBC 3.96 L (4.7-6.1) M/uL Hgb 12.3 L (14.0-18.0) g/dL Hct 36.0 L (42-52) % MCV 90.9 (80-100) fL MCH 31.1 (25-34) pg MCHC 34.2 (32-36) g/dL RDW Std Deviation 50.0 H (36.4-46.3) fL RDW Coeff of Samantha 14.9 H (11.5-14.5) % Plt Count 377 (130-400) K/uL MPV 10.9 H (7.4-10.4) fL Immature Gran % (Auto) 0.5 % Neut % (Auto) 77.7 % Lymph % (Auto) 12.4 % [place] % (Auto) 9.0 % Eos % (Auto) 0.3 % Baso % (Auto) 0.1 % Neut # (Auto) 10.73 H (1.4-6.5) K/uL Lymph # (Auto) 1.72 (1.2-3.4) K/uL [place] # (Auto) 1.25 H (0.11-0.59) K/uL Eos # (Auto) 0.04 (0-0.5) K/uL Baso # (Auto) 0.01 (0-0.2) K/uL Immature Gran # (Auto) 0.07 H (0.00-0.02) K/uL APTT 44.7 H (21.0-31.0) Seconds PTT Ratio 1.7 Sodium 139 (136-145) mmol/L Potassium 4.2 (3.5-5.1) mmol/L Chloride 109 H (98-107) mmol/L Carbon Dioxide 26 (21-32) mmol/L Anion Gap 4 (3-11) BUN 52 H (6-23) mg/dl Creatinine 1.28 (0.6-1.4) mg/dl Est Cr Clr Drug Dosing 54.7 ml/min Est GFR ( Amer) 63.9 ml/min Est GFR (Non-Af Amer) 55.2 ml/min BUN/Creatinine Ratio 40.6 H (10-20) Glucose 115 H (70-99(Fasting)) mg/dl POC Glucose (70-99) mg/dl Calcium 8.2 L (8.5-10.1) mg/dl Phosphorus 3.4 (2.5-4.9) mg/dl Magnesium 1.8 (1.7-2.4) mg/dl Total Bilirubin 0.7 (0.2-1.0) mg/dl AST 95 H (13-39) U/L ALT 132 H (7-52) U/L Alkaline Phosphatase 52 (34-104) U/L Total Creatine Kinase (30-223) U/L C-Reactive Protein 2.96 H (0-0.5) mg/dl Total Protein 4.7 L (6.0-8.3) gm/dl Albumin 2.4 L (3.4-5.0) gm/dl Globulin 2.3 L (2.5-4.0) gm/dl Albumin/Globulin Ratio 1.0 (0.9-2) 01/07/22 Range/Units 20:35 WBC (4.8-10.8) K/uL RBC (4.7-6.1) M/uL Hgb (14.0-18.0) g/dL Hct (42-52) % MCV (80-100) fL MCH (25-34) pg MCHC (32-36) g/dL RDW Std Deviation (36.4-46.3) fL RDW Coeff of Samantha (11.5-14.5) % Plt Count (130-400) K/uL MPV (7.4-10.4) fL Immature Gran % (Auto) % Neut % (Auto) % Lymph % (Auto) % [place] % (Auto) % Eos % (Auto) % Baso % (Auto) % Neut # (Auto) (1.4-6.5) K/uL Lymph # (Auto) (1.2-3.4) K/uL [place] # (Auto) (0.11-0.59) K/uL Eos # (Auto) (0-0.5) K/uL Baso # (Auto) (0-0.2) K/uL Immature Gran # (Auto) (0.00-0.02) K/uL APTT (21.0-31.0) Seconds PTT Ratio Sodium (136-145) mmol/L Potassium (3.5-5.1) mmol/L Chloride (98-107) mmol/L Carbon Dioxide (21-32) mmol/L Anion Gap (3-11) BUN (6-23) mg/dl Creatinine (0.6-1.4) mg/dl Est Cr Clr Drug Dosing ml/min Est GFR ( Amer) ml/min Est GFR (Non-Af Amer) ml/min BUN/Creatinine Ratio (10-20) Glucose (70-99(Fasting)) mg/dl POC Glucose 129 H (70-99) mg/dl Calcium (8.5-10.1) mg/dl Phosphorus (2.5-4.9) mg/dl Magnesium (1.7-2.4) mg/dl Total Bilirubin (0.2-1.0) mg/dl AST (13-39) U/L ALT (7-52) U/L Alkaline Phosphatase (34-104) U/L Total Creatine Kinase (30-223) U/L C-Reactive Protein (0-0.5) mg/dl Total Protein (6.0-8.3) gm/dl Albumin (3.4-5.0) gm/dl Globulin (2.5-4.0) gm/dl Albumin/Globulin Ratio (0.9-2) PG Care Time/CCT Total # of Minutes Spent Total Time Spent with Patient: Total time spent is greater than 50% in coordination of care (as documented) at patient's floor/unit and/or counseling patient: Coding Level of Care Code 71969 Subseq Hosp Care Lvl 3 Diagnoses Acute respiratory failure with hypoxia J96.01 COVID-19 U07.1 Secondary pneumonia J18.9 Atrial fibrillation with RVR I48.91 STEPHON (acute kidney injury) N17.9 Hypotension I95.9 Hyponatremia E87.1 Metabolic acidosis E87.2 Diabetes mellitus E11.9 Enlarged prostate N40.0 Esophageal dysphagia R13.10 Peripheral artery disease I73.9 Hyperlipidemia E78.5 Constipation K59.00 Transaminitis R74.01
--- NOTE | 2022-01-08 13:55 | Cardiology Progress Note ---
Date of Service January 08, 2022 Assessment & Plan (1) Atrial fibrillation with RVR: (2) Hypotension: (3) Pneumonia due to severe acute respiratory syndrome coronavirus 2 (SARS-CoV-2): (4) Transaminitis: Plan: ASSESSMENT/PLAN: 1. Atrial fibrillation with rapid ventricular response: New diagnosis (01/01/22) this hospital stay after presenting with sinus rhythm. Occurred in the setting of severe COVID pneumonia. Reportedly cardioversion was unsuccessful x2. Approximately 3-4 g of amiodarone given as of 01/07/2022. Amiodarone increased to 400 mg twice daily on 01/07/2022. Continue anticoagulation for stroke risk reduction. Diagnosis discussed with him. Rate-controlling medications difficult given hypotension. He is agreeable for DC cardioversion later this week. Monitor TSH and transaminase levels carefully. He is also receiving low- dose metoprolol 12.5 mg p.o. q.8 hours. 2. Transaminitis: Transaminase levels were elevated on presentation and have remained elevated. Levels increased on 01/08/2022. Could be due to COVID-19 in conjunction with statin therapy and amiodarone. Hold statin therapy for now. Monitor closely. Communicated with Dr. Guardado of the primary hospitalist service. Discussed with patient. 3. COVID-19 pneumonia: Reportedly he has improved. As per primary hospitalist service. 4. Hypotension: Phenylephrine discontinued morning of 01/07/2022. Atrial fibrillation is not likely playing a large role in his hypotension given that his heart rates are mostly 110 to 120s, which should not account for significant hypotension. On midodrine per other providers. 5. Disposition: Cardiology will continue to follow. Please call with questions or concerns. Patient care communicated with Dr. Guardado of the primary hospitalist service. Admission and Anticipated Discharge Date Admission Date: December 31, 2021 Subjective Today's history was obtained by discussion with patient with the assistance of Portuguese director property via online interpretation services. He denies chest pain, shortness of breath, syncope, palpitations, or edema. He had no specific questions today. He was out of bed sitting in the chair. Review of systems: As above Physical Exam Physical Exam: Gen.: No acute distress. Alert. HEENT: Anicteric sclera. Neck: No JVD. Cardiac: PMI was nonpalpable. No ventricular heave. Irregularly irregular and tachycardic. Normal S1-S2. No murmurs, rubs, or gallops. Pulmonary: Decreased breath sounds throughout, but otherwise clear to auscultation bilaterally without wheezes, rales, or rhonchi. Abdomen: Soft, nontender, nondistended, with normoactive bowel sounds. No bruits noted. Extremities: 2+ radial pulses bilaterally. 2+ posterior tibialis pulses bilaterally. No edema or cyanosis. Psychiatric: Affect appears appropriate. Results & Data ([facility]) Vital Signs (Past 12 Hours) Vital Signs Temp Pulse Pulse Resp BP BP BP 01/08/22 11:45 36.6 C 120 H 24 94/61 L 01/08/22 10:04 01/08/22 08:00 37.5 C 113 H 19 101/72 01/08/22 06:00 01/08/22 05:46 123 H 107/81 01/08/22 05:30 107 H 14 114/67 01/08/22 05:01 102 H 13 90/52 L 01/08/22 05:00 101 H 10 L 01/08/22 04:00 117 H 14 86/62 L 01/08/22 03:30 119 H 11 L 102/76 01/08/22 03:00 100 H 01/08/22 02:59 36.5 C 118 H 109 H 18 97/78 L 97/78 L 01/08/22 02:00 120 H Pulse Ox Pulse Ox 01/08/22 11:45 91 01/08/22 10:04 91 01/08/22 08:00 96 01/08/22 06:00 93 01/08/22 05:46 01/08/22 05:30 92 01/08/22 05:01 96 01/08/22 05:00 96 01/08/22 04:00 01/08/22 03:30 94 01/08/22 03:00 96 01/08/22 02:59 98 01/08/22 02:00 91 Intake & Output 01/06/22 01/07/22 01/08/22 01/09/22 06:59 06:59 06:59 06:59 Intake Total 2861.996 / 2861.996 1827.046 / 8430.787 5026.549 / 1573.549 440 / 440 Output Total 2175 / 2175 2650 / 2650 2626 / 2626 600 / 600 Balance 686.996 / 686.996 -822.954 / -822.954 -1052.451 / -1052.451 -160 / -160 Weight 180 lb 5.41 oz 180 lb 5.41 oz 178 lb 5.663 oz Laboratory Results Laboratory Results - last 24 hr 01/07/22 01/07/22 01/07/22 14:51 16:19 20:35 WBC RBC Hgb Hct MCV MCH MCHC RDW Std Deviation RDW Coeff of Samantha Plt Count MPV Immature Gran % (Auto) Neut % (Auto) Lymph % (Auto) [place] % (Auto) Eos % (Auto) Baso % (Auto) Neut # (Auto) Lymph # (Auto) [place] # (Auto) Eos # (Auto) Baso # (Auto) Immature Gran # (Auto) APTT 50.5 H* PTT Ratio 1.9 Sodium Potassium Chloride Carbon Dioxide Anion Gap BUN Creatinine Est Cr Clr Drug Dosing Est GFR ( Amer) Est GFR (Non-Af Amer) BUN/Creatinine Ratio Glucose POC Glucose 112 H 129 H Calcium Phosphorus Magnesium Total Bilirubin AST ALT Alkaline Phosphatase Total Creatine Kinase C-Reactive Protein Total Protein Albumin Globulin Albumin/Globulin Ratio 01/08/22 01/08/22 01/08/22 05:39 05:39 05:39 WBC 13.82 H RBC 3.96 L Hgb 12.3 L Hct 36.0 L MCV 90.9 MCH 31.1 MCHC 34.2 RDW Std Deviation 50.0 H RDW Coeff of Samantha 14.9 H Plt Count 377 MPV 10.9 H Immature Gran % (Auto) 0.5 Neut % (Auto) 77.7 Lymph % (Auto) 12.4 [place] % (Auto) 9.0 Eos % (Auto) 0.3 Baso % (Auto) 0.1 Neut # (Auto) 10.73 H Lymph # (Auto) 1.72 [place] # (Auto) 1.25 H Eos # (Auto) 0.04 Baso # (Auto) 0.01 Immature Gran # (Auto) 0.07 H APTT 44.7 H PTT Ratio 1.7 Sodium 139 Potassium 4.2 Chloride 109 H Carbon Dioxide 26 Anion Gap 4 BUN 52 H Creatinine 1.28 Est Cr Clr Drug Dosing 54.7 Est GFR ( Amer) 63.9 Est GFR (Non-Af Amer) 55.2 BUN/Creatinine Ratio 40.6 H Glucose 115 H POC Glucose Calcium 8.2 L Phosphorus 3.4 Magnesium 1.8 Total Bilirubin 0.7 AST 95 H ALT 132 H Alkaline Phosphatase 52 Total Creatine Kinase C-Reactive Protein 2.96 H Total Protein 4.7 L Albumin 2.4 L Globulin 2.3 L Albumin/Globulin Ratio 1.0 01/08/22 01/08/22 01/08/22 05:39 07:58 11:43 WBC RBC Hgb Hct MCV MCH MCHC RDW Std Deviation RDW Coeff of Samantha Plt Count MPV Immature Gran % (Auto) Neut % (Auto) Lymph % (Auto) [place] % (Auto) Eos % (Auto) Baso % (Auto) Neut # (Auto) Lymph # (Auto) [place] # (Auto) Eos # (Auto) Baso # (Auto) Immature Gran # (Auto) APTT PTT Ratio Sodium Potassium Chloride Carbon Dioxide Anion Gap BUN Creatinine Est Cr Clr Drug Dosing Est GFR ( Amer) Est GFR (Non-Af Amer) BUN/Creatinine Ratio Glucose POC Glucose 116 H 153 H Calcium Phosphorus Magnesium Total Bilirubin AST ALT Alkaline Phosphatase Total Creatine Kinase 109 C-Reactive Protein Total Protein Albumin Globulin Albumin/Globulin Ratio 01/08/22 12:56 WBC RBC Hgb Hct MCV MCH MCHC RDW Std Deviation RDW Coeff of Samantha Plt Count MPV Immature Gran % (Auto) Neut % (Auto) Lymph % (Auto) [place] % (Auto) Eos % (Auto) Baso % (Auto) Neut # (Auto) Lymph # (Auto) [place] # (Auto) Eos # (Auto) Baso # (Auto) Immature Gran # (Auto) APTT 50.0 H* PTT Ratio 1.9 Sodium Potassium Chloride Carbon Dioxide Anion Gap BUN Creatinine Est Cr Clr Drug Dosing Est GFR ( Amer) Est GFR (Non-Af Amer) BUN/Creatinine Ratio Glucose POC Glucose Calcium Phosphorus Magnesium Total Bilirubin AST ALT Alkaline Phosphatase Total Creatine Kinase C-Reactive Protein Total Protein Albumin Globulin Albumin/Globulin Ratio Diagnostic Findings Telemetry personally reviewed: AFib with RVR with heart rates mostly 110 to 120s. ECG personally reviewed from 01/08/2022 at 9:24 a.m.: AFib RVR 118 beats per minute. PVC versus aberrantly conducted complex. Inferior infarct. Medications Administered Current Inpatient Medications Acetaminophen (Acetaminophen 325 Mg Tab) 650 mg PO Q4H PRN PRN Reason: Pain or Fever Stop: 01/30/22 16:02 Last Admin: 01/03/22 08:16 Dose: 650 mg Documented by: Albuterol (Albut/Ipratrop 3mg/0.5mg Neb 3 Ml Vial) 3 ml NEB Q4 PRN; Protocol PRN Reason: Shortness Of Breath Or Wheezing Stop: 01/30/22 15:15 Amiodarone HCl (Amiodarone 200 Mg Tab) 400 mg PO BIDM [facility] Stop: 02/06/22 16:59 Last Admin: 01/08/22 09:12 Dose: 400 mg Documented by: Aspirin (Aspirin 81 Mg Ectab) 81 mg PO DAILY [facility] Stop: 01/31/22 08:59 Last Admin: 01/08/22 09:13 Dose: 81 mg Documented by: Dextrose (Dextrose 50% 50 Ml Syringe) 25 - 50 ml IV UD PRN; Protocol PRN Reason: Hypoglycemia Protocol Stop: 02/01/22 10:44 Finasteride (Finasteride 5 Mg Tab) 5 mg PO QAM [facility] Stop: 01/31/22 08:59 Last Admin: 01/08/22 09:12 Dose: 5 mg Documented by: Glucagon (Glucagon For Inj 1 Mg Vial) 1 mg IM UD PRN; Protocol PRN Reason: Hypoglycemia Protocol Stop: 02/01/22 10:44 Glucose (Glucose 40% Gel 15 Gm Tube) 15 - 30 gm PO UD PRN; Protocol PRN Reason: Hypoglycemia Protocol Stop: 02/01/22 10:44 Glucose (Glucose 10 Tabs/Tube) 4 - 8 tabs PO UD PRN; Protocol PRN Reason: Hypoglycemia Protocol Stop: 02/01/22 10:44 Heparin Sodium (Beef Lung) (Heparin 10 Unit/Ml 5 Ml Flush) 5 ml FLUSH PRN PRN PRN Reason: Flush Stop: 02/04/22 12:07 Dexamethasone 10 mg/ Syringe 2.5 mls @ 1 mls/min IV QAM [facility] Stop: 01/10/22 09:01 Last Admin: 01/08/22 09:10 Dose: 1 mls/min Documented by: Heparin Sodium/Dextrose (Heparin Sodium/Dextrose) 25,000 units in 500 mls @ 19 mls/hr IV .Q24H [facility]; Protocol Stop: 01/31/22 14:14 Last Titration: 01/08/22 06:35 Dose: 950 units/hr, 19 mls/hr Documented by: Insulin Aspart (Insulin Aspart Per Unit) 0 units SC ACHS [facility] Stop: 02/01/22 20:59 Last Admin: 01/08/22 12:41 Dose: 4 units Documented by: Insulin Human NPH (Insulin Human Nph) [facility] [place] [facility] Stop: 02/02/22 10:29 Last Admin: 01/08/22 09:14 Dose: 10 units Documented by: Metoprolol Tartrate (Metoprolol Tartrate 1 Mg/Ml Vial) 5 mg IV Q6 PRN PRN Reason: HR > 130 Stop: 02/01/22 00:00 Metoprolol Tartrate (Metoprolol Tartrate 25 Mg Tab) 12.5 mg PO Q8 [facility] Stop: 02/05/22 13:59 Last Admin: 01/08/22 05:47 Dose: 12.5 mg Documented by: Midodrine (Midodrine Hcl 2.5 Mg Tab) 2.5 mg PO TID@0800,1200,1700 [facility] Stop: 02/06/22 11:59 Last Admin: 01/08/22 12:42 Dose: 2.5 mg Documented by: Miscellaneous (Carbohydrates For Hypoglycemia ) 15 - 30 gm PO UD PRN PRN Reason: Hypoglycemia Treatment Stop: 02/01/22 10:44 Ondansetron HCl (Ondansetron Inj 2 Mg/Ml 2 Ml Vial) 4 mg IV Q6H PRN PRN Reason: Nausea Stop: 01/30/22 16:02 Pantoprazole Sodium (Pantoprazole 40 Mg Tab) 40 mg PO [facility] Stop: 02/02/22 10:59 Last Admin: 01/08/22 09:12 Dose: 40 mg Documented by: Polyethylene Glycol (Polyethylene (Miralax) 17 Gm Pack) 17 gm PO DAILY PRN PRN Reason: Constipation Stop: 02/05/22 17:06 Last Admin: 01/07/22 08:45 Dose: 17 gm Documented by: Senna/Docusate Sodium (Docusate Sodium/Senna 50/8.6mg Tab) 1 tab PO [facility] Stop: 02/06/22 08:59 Last Admin: 01/08/22 09:12 Dose: 1 tab Documented by: PG Care Time/CCT Total # of Minutes Spent Total Time Spent with Patient: Total time spent is greater than 50% in coordination of care (as documented) at patient's floor/unit and/or counseling patient: Coding Level of Care Code 16374 Subseq Hosp Care Lvl 3 Diagnoses Atrial fibrillation with RVR I48.91 Hypotension I95.9 Pneumonia due to severe acute respiratory syndrome coronavirus 2 (SARS-CoV-2) U07.1; J12.82 Transaminitis R74.01
[2022-01-09] MEDS: HEPARIN SODIUM/DEXTROSE 25,000 UNITS/500 ML BAG IV SCH (00:11)
[2022-01-09] MEDS: METOPROLOL TARTRATE 25 MG TAB PO SCH ×3 (06:20→21:14)
[2022-01-09 06:36] LABS: Basophils # (auto) 0.01 K/uL (0-0.2); Basophils % (auto) 0.1 %; Eosinophils # (auto) 0.05 K/uL (0-0.5); Eosinophils % (auto) 0.4 %; Hematocrit (blood only) 35.9 % (42-52); Immature Granulocytes # (auto) 0.11 K/uL (0.00-0.02); Immature Granulocytes % (auto) 0.8 %; Lymphocytes # (auto) 1.76 K/uL (1.2-3.4); Lymphocytes % (auto) 13.1 %; Mean Corpuscular Hemoglobin 30.5 pg (25-34); Mean Corpuscular Hgb Conc 33.4 g/dL (32-36); Mean Corpuscular Volume 91.3 fL (80-100); Monocytes % (auto) 8.9 %; Neutrophils # (auto) 10.34 K/uL (1.4-6.5); Neutrophils % (auto) 76.7 %; Platelet Count 390 K/uL (130-400); RDW Coefficient of Variation 14.9 % (11.5-14.5); RDW Standard Deviation 50.3 fL (36.4-46.3); Red Blood Count 3.93 M/uL (4.7-6.1); White Blood Count 13.47 K/uL (4.8-10.8)
[2022-01-09 06:42] LABS: Partial Thromboplastin Ratio 1.5; Partial Thromboplastin Time 38.4 Seconds (21.0-31.0)
--- NOTE | 2022-01-09 06:50 | Electrocardiogram Report ---
Test Reason : Blood Pressure : / mmHG Vent. 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
[2022-01-09 06:58] LABS: Albumin Globulin Ratio 1.1 (0.9-2); Albumin Level 2.4 gm/dl (3.4-5.0); BUN Creatinine Ratio 35.6 (10-20); Bilirubin,Total 0.6 mg/dl (0.2-1.0); C Reactive Protein 2.26 mg/dl (0-0.5); Calcium 8.3 mg/dl (8.5-10.1); Creatinine Clr Calc Pharmacy 51.9 ml/min; Est GFR (African American) 59.9 ml/min; Est GFR (Non-African American) 51.7 ml/min; Globulin 2.2 gm/dl (2.5-4.0); Magnesium 1.8 mg/dl (1.7-2.4); Phosphorus 3.9 mg/dl (2.5-4.9); Potassium 4.4 mmol/L (3.5-5.1); Total Protein 4.6 gm/dl (6.0-8.3)
[2022-01-09] MEDS ORDERED: MAGNESIUM SULFATE / D5W 1 GM/100 ML BAG IV ONE (08:30)
[2022-01-09] MEDS: dexAMETHasone 10 MG in SYRINGE 0 ML IV SCH (09:12)
[2022-01-09] MEDS: INSULIN ASPART PER UNIT SC SCH ×4 (09:13→21:06)
[2022-01-09] MEDS: AMIODARONE 200 MG TAB PO SCH (09:15)
[2022-01-09] MEDS: FINASTERIDE 5 MG TAB PO SCH (09:15)
[2022-01-09] MEDS: ASPIRIN 81 MG ECTAB PO SCH (09:15)
[2022-01-09] MEDS: PANTOprazole 40 MG TAB PO SCH (09:16)
[2022-01-09] MEDS: MIDODRINE HCL 2.5 MG TAB PO SCH ×3 (09:16→17:22)
[2022-01-09] MEDS: DOCUSATE SODIUM/SENNA 50/8.6MG TAB PO SCH (09:17)
[2022-01-09] MEDS: INSULIN HUMAN NPH SC SCH (09:21)
[2022-01-09 13:37] LABS: Partial Thromboplastin Ratio 1.8
[2022-01-09 13:38] LABS: Partial Thromboplastin Time 46.8 Seconds (21.0-31.0)
--- NOTE | 2022-01-09 14:05 | Cardiology Progress Note ---
Date of Service January 09, 2022 Assessment & Plan (1) Atrial fibrillation with RVR: (2) Hypotension: (3) Pneumonia due to severe acute respiratory syndrome coronavirus 2 (SARS-CoV-2): (4) Transaminitis: Plan: ASSESSMENT/PLAN: 1. Atrial fibrillation with rapid ventricular response: New diagnosis (01/01/22) this hospital stay after presenting with sinus rhythm. Occurred in the setting of severe COVID pneumonia. Reportedly cardioversion on 01/01/2022 was unsu ccessful x2. Approximately 3-4 g of amiodarone given as of 01/07/2022. Amiodarone increased to 400 mg twice daily on 01/07/2022. Converted to sinus rhythm evening of 01/08/2022. Due to elevated transaminase levels, which have been increasing since amiodarone was titrated upward, would discontinue amiodarone for now. Continue anticoagulation for stroke risk reduction. Now the blood pressure has improved, would consider titrating dose of beta-pavel as tolerated. 2. Transaminitis: Transaminase levels were elevated on presentation and have remained elevated. Unfortunately, with titration of amiodarone, transaminase levels have also increased daily. Statin therapy already held. Discontinue amiodarone for now. Monitor closely. 3. COVID-19 pneumonia: Oxygenation has improved. As per primary hospitalist service. 4. Hypotension: Phenylephrine discontinued morning of 01/07/2022. On midodrine per other providers. Atrial fibrillation appears to have been playing a role in hypotension although heart rates were mostly 110s to 120s, as blood pressure has significantly improved since converting to sinus rhythm. 5. Disposition: Please call with questions or concerns. Patient care communicated with Dr. Guardado of the primary hospitalist service. Patient's granddaughter, Eda, contacted via telephone and updated on cardiac status. Admission and Anticipated Discharge Date Admission Date: December 31, 2021 Subjective Patient seen this morning. Although supplemental oxygen demand has improved, he states that he feels similar to before. He has denied shortness of breath. He denies chest pain, palpitations, syncope. He was noted to convert to sinus rhythm last evening and he does not recall any change in symptoms while in sinus rhythm. Review of systems: As above. Physical Exam Physical Exam: Gen.: No acute distress. Alert. HEENT: Anicteric sclera. Neck: No JVD. Cardiac: PMI was nonpalpable. No ventricular heave. Regular. Normal rate. Normal S1-S2. No murmurs, rubs, or gallops. Pulmonary: Decreased breath sounds throughout, but otherwise clear to auscultation bilaterally without wheezes, rales, or rhonchi. Abdomen: Soft, nontender, nondistended, with normoactive bowel sounds. No bruits noted. Extremities: 2+ radial pulses bilaterally. 2+ posterior tibialis pulses bilaterally. No edema or cyanosis. Psychiatric: Affect appears appropriate. Results & Data ([facility]) Vital Signs (Past 12 Hours) Vital Signs Temp Pulse Pulse Resp BP BP BP 01/09/22 11:47 36.4 C L 81 23 118/68 01/09/22 08:00 36.8 C 64 69 17 120/78 01/09/22 06:00 68 15 117/66 01/09/22 05:30 64 15 123/73 01/09/22 05:00 68 16 119/75 01/09/22 04:30 65 11 L 120/64 01/09/22 04:00 63 15 110/74 01/09/22 03:33 36.5 C 62 13 112/70 01/09/22 03:30 64 12 112/70 01/09/22 03:00 64 14 127/75 01/09/22 02:30 65 12 123/62 01/09/22 02:00 64 7 L 106/66 Pulse Ox Pulse Ox 01/09/22 11:47 90 01/09/22 08:00 97 01/09/22 06:00 94 98 01/09/22 05:30 97 01/09/22 05:00 95 01/09/22 04:30 91 01/09/22 04:00 93 01/09/22 03:33 01/09/22 03:30 95 01/09/22 03:00 96 01/09/22 02:30 95 01/09/22 02:00 97 Laboratory Results Laboratory Results - last 24 hr 01/08/22 01/08/22 01/09/22 16:56 19:56 05:47 WBC RBC Hgb Hct MCV MCH MCHC RDW Std Deviation RDW Coeff of Samantha Plt Count MPV Immature Gran % (Auto) Neut % (Auto) Lymph % (Auto) [place] % (Auto) Eos % (Auto) Baso % (Auto) Neut # (Auto) Lymph # (Auto) [place] # (Auto) Eos # (Auto) Baso # (Auto) Immature Gran # (Auto) APTT 38.4 H PTT Ratio 1.5 Sodium Potassium Chloride Carbon Dioxide Anion Gap BUN Creatinine Est Cr Clr Drug Dosing Est GFR ( Amer) Est GFR (Non-Af Amer) BUN/Creatinine Ratio Glucose POC Glucose 129 H 189 H Calcium Phosphorus Magnesium Total Bilirubin AST ALT Alkaline Phosphatase C-Reactive Protein Total Protein Albumin Globulin Albumin/Globulin Ratio Procalcitonin 01/09/22 01/09/22 01/09/22 05:47 05:47 05:47 WBC 13.47 H RBC 3.93 L Hgb 12.0 L Hct 35.9 L MCV 91.3 MCH 30.5 MCHC 33.4 RDW Std Deviation 50.3 H RDW Coeff of Samantha 14.9 H Plt Count 390 MPV 11.0 H Immature Gran % (Auto) 0.8 Neut % (Auto) 76.7 Lymph % (Auto) 13.1 [place] % (Auto) 8.9 Eos % (Auto) 0.4 Baso % (Auto) 0.1 Neut # (Auto) 10.34 H Lymph # (Auto) 1.76 [place] # (Auto) 1.20 H Eos # (Auto) 0.05 Baso # (Auto) 0.01 Immature Gran # (Auto) 0.11 H APTT PTT Ratio Sodium 138 Potassium 4.4 Chloride 107 Carbon Dioxide 28 Anion Gap 3 BUN 48 H Creatinine 1.35 Est Cr Clr Drug Dosing 51.9 Est GFR ( Amer) 59.9 Est GFR (Non-Af Amer) 51.7 BUN/Creatinine Ratio 35.6 H Glucose 100 H POC Glucose Calcium 8.3 L Phosphorus 3.9 Magnesium 1.8 Total Bilirubin 0.6 AST 120 H ALT 201 H Alkaline Phosphatase 55 C-Reactive Protein 2.26 H Total Protein 4.6 L Albumin 2.4 L Globulin 2.2 L Albumin/Globulin Ratio 1.1 Procalcitonin 0.19 01/09/22 01/09/22 01/09/22 08:07 12:19 12:56 WBC RBC Hgb Hct MCV MCH MCHC RDW Std Deviation RDW Coeff of Samantha Plt Count MPV Immature Gran % (Auto) Neut % (Auto) Lymph % (Auto) [place] % (Auto) Eos % (Auto) Baso % (Auto) Neut # (Auto) Lymph # (Auto) [place] # (Auto) Eos # (Auto) Baso # (Auto) Immature Gran # (Auto) APTT 46.8 H* PTT Ratio 1.8 Sodium Potassium Chloride Carbon Dioxide Anion Gap BUN Creatinine Est Cr Clr Drug Dosing Est GFR ( Amer) Est GFR (Non-Af Amer) BUN/Creatinine Ratio Glucose POC Glucose 101 H 99 Calcium Phosphorus Magnesium Total Bilirubin AST ALT Alkaline Phosphatase C-Reactive Protein Total Protein Albumin Globulin Albumin/Globulin Ratio Procalcitonin Diagnostic Findings Telemetry Personally reviewed: AFib converted to sinus rhythm at 7:05 p.m. on 01/08/2022. Has remained in sinus rhythm. ECG personally reviewed 01/09/2022 at 8:32 a.m.: Sinus rhythm 71 beats per minute. Inferior infarct. Medications Administered Current Inpatient Medications Acetaminophen (Acetaminophen 325 Mg Tab) 650 mg PO Q4H PRN PRN Reason: Pain or Fever Stop: 01/30/22 16:02 Last Admin: 01/03/22 08:16 Dose: 650 mg Documented by: Albuterol (Albut/Ipratrop 3mg/0.5mg Neb 3 Ml Vial) 3 ml NEB Q4 PRN; Protocol PRN Reason: Shortness Of Breath Or Wheezing Stop: 01/30/22 15:15 Amiodarone HCl (Amiodarone 200 Mg Tab) 400 mg PO BIDM [facility] Stop: 02/06/22 16:59 Last Admin: 01/09/22 09:15 Dose: 400 mg Documented by: Aspirin (Aspirin 81 Mg Ectab) 81 mg PO DAILY [facility] Stop: 01/31/22 08:59 Last Admin: 01/09/22 09:15 Dose: 81 mg Documented by: Dextrose (Dextrose 50% 50 Ml Syringe) 25 - 50 ml IV UD PRN; Protocol PRN Reason: Hypoglycemia Protocol Stop: 02/01/22 10:44 Finasteride (Finasteride 5 Mg Tab) 5 mg PO QAM [facility] Stop: 01/31/22 08:59 Last Admin: 01/09/22 09:15 Dose: 5 mg Documented by: Glucagon (Glucagon For Inj 1 Mg Vial) 1 mg IM UD PRN; Protocol PRN Reason: Hypoglycemia Protocol Stop: 02/01/22 10:44 Glucose (Glucose 40% Gel 15 Gm Tube) 15 - 30 gm PO UD PRN; Protocol PRN Reason: Hypoglycemia Protocol Stop: 02/01/22 10:44 Glucose (Glucose 10 Tabs/Tube) 4 - 8 tabs PO UD PRN; Protocol PRN Reason: Hypoglycemia Protocol Stop: 02/01/22 10:44 Heparin Sodium (Beef Lung) (Heparin 10 Unit/Ml 5 Ml Flush) 5 ml FLUSH PRN PRN PRN Reason: Flush Stop: 02/04/22 12:07 Dexamethasone 10 mg/ Syringe 2.5 mls @ 1 mls/[facility] Stop: 01/10/22 09:01 Last Admin: 01/09/22 09:12 Dose: 1 mls/min Documented by: Heparin Sodium/Dextrose (Heparin Sodium/Dextrose) 25,000 units in 500 mls @ 21 mls/hr IV .[id number] [facility]; Protocol Stop: 01/31/22 14:14 Last Titration: 01/09/22 06:54 Dose: 1,050 units/hr, 21 mls/hr Documented by: Insulin Aspart (Insulin Aspart Per Unit) 0 units SC ACHS [facility] Stop: 02/01/22 20:59 Last Admin: 01/09/22 12:41 Dose: 11 units Documented by: Insulin Human NPH (Insulin Human Nph) 10 units SC [facility] Stop: 02/02/22 10:29 Last Admin: 01/09/22 09:21 Dose: 10 units Documented by: Metoprolol Tartrate (Metoprolol Tartrate 1 Mg/Ml Vial) 5 mg IV Q6 PRN PRN Reason: HR > 130 Stop: 02/01/22 00:00 Metoprolol Tartrate (Metoprolol Tartrate 25 Mg Tab) 12.5 mg PO Q8 [facility] Stop: 02/05/22 13:59 Last Admin: 01/09/22 06:20 Dose: 12.5 mg Documented by: Midodrine (Midodrine Hcl 2.5 Mg Tab) 2.5 mg PO TID@0800,1200,1700 [facility] Stop: 02/06/22 11:59 Last Admin: 01/09/22 12:53 Dose: 2.5 mg Documented by: Miscellaneous (Carbohydrates For Hypoglycemia ) 15 - 30 gm PO UD PRN PRN Reason: Hypoglycemia Treatment Stop: 02/01/22 10:44 Ondansetron HCl (Ondansetron Inj 2 Mg/Ml 2 Ml Vial) 4 mg IV Q6H PRN PRN Reason: Nausea Stop: 01/30/22 16:02 Pantoprazole Sodium (Pantoprazole 40 Mg Tab) 40 mg PO QAM [facility] Stop: 02/02/22 10:59 Last Admin: 01/09/22 09:16 Dose: 40 mg Documented by: Polyethylene Glycol (Polyethylene (Miralax) 17 Gm Pack) 17 gm PO DAILY PRN PRN Reason: Constipation Stop: 02/05/22 17:06 Last Admin: 01/07/22 08:45 Dose: 17 gm Documented by: Senna/Docusate Sodium (Docusate Sodium/Senna 50/8.6mg Tab) 1 tab [facility] Stop: 02/06/22 08:59 Last Admin: 01/09/22 09:17 Dose: 1 tab Documented by: PG Care Time/CCT Total # of Minutes Spent Total Time Spent with Patient: Total time spent is greater than 50% in coordination of care (as documented) at patient's floor/unit and/or counseling patient: Coding Level of Care Code 42972 Subseq Hosp Care Lvl 3 Diagnoses Atrial fibrillation with RVR I48.91 Hypotension I95.9 Pneumonia due to severe acute respiratory syndrome coronavirus 2 (SARS-CoV-2) U07.1; J12.82 Transaminitis R74.01
--- NOTE | 2022-01-09 22:25 | Hospitalist Progress Note ---
Date of Service January 09, 2022 Assessment & Plan (1) Acute respiratory failure with hypoxia: Plan: 01/02 COVID-19 Pneumonia with superimposed bacterial pneumonia in right upper lobe Febrile on arrival, now resolved Continue supplemental oxygen to target SPO2 sat greater than 90%-weaned off Vapotherm and now continues to wean down-currently down to 5 L NC Covid and PNA treatment below 2/4: CXR similar versus slightly improved aeration -Continue-continue Decadron x 10 day course On incentive spirometry and flutter valve (2) COVID-19: Plan: Covid pneumonia, suspect post viremic phase with superimposed pneumonia as below Covid positive 12/31/2021. Prior negative 11/14/22, no home test when pt had symptoms noted below. First day of symptoms: Unclear. Some URI symptoms for 3 to 4 weeks, some nasal congestion for 1-2 weeks which improved and some residual congestion but acute worsening and became febrile 7 days prior to admission and febrile daily since then. - Suspected COVID exposure 4-5 weeks ago (family from [facility]) who were all sick and required quarantine, sinus congestion started shortly after this exposure. Vaccination status: Unvaccinated CXR:IMPRESSION: Bilateral airspace opacities are suggestive of multifocal pneumonia. CRP: 36.2 initially and now down to 2 Procalcitonin 7.47 initially Started on dexamethasone 12/31, continue for 10-day course. Increased to 10mg daily. Last dose will be on 01/10 Remdesivir: Initial symptom onset 3 to 4 weeks ago, outside of viremic window - Baricitinib not recommended in setting of bacterial superinfection (3) Secondary pneumonia: Plan: CTA: Severely streak and motion compromised examination. There is no evidence of central pulmonary embolus in the main or lobar pulmonary arteries. The segmental and subsegmental vessels cannot be evaluated. There is significant dependent airspace consolidation seen bilaterally with small pleural effusions. The appearance is typical for pneumonia/aspiration pneumonitis. Clinical correlation will be required and radiographic follow-up to resolution is recommended. Mildly enlarged mediastinal and hilar nodes are likely reactive. There is mild aneurysmal dilatation of the ascending thoracic aorta which measures up to 4.2 cm in diameter. Cardiomegaly with advanced coronary artery calcification. Pro-Sung 7.47, CRP 36 on admission And CRP now trended downward all the way to 2.9 Patient febrile for the week prior to admission and on admission-now resolved -leukocytosis now with being on steroids but is significantly improved now -Has now completed a 7-day course of ceftriaxone and 5-day course of azithromycin -Sputum culture normal jaqueline and Debbie-no need to treat this -Blood cultures no growth to date (4) Atrial fibrillation with RVR: Plan: -No history of A. fib prior to admission Presented in sinus tachycardia converted to A. fib with RVR with rates up 160-180 shortly after admission Started on heparin drip for anticoagulation Pressures initially stable and mildly hypertensive. Treated with metoprolol 5mg IV x2 with minimal improvement Pressures decreased to [id number] systolic with increase in rate to 180, suspect for rate related hypotension with hypoxia Loaded with amiodarone drip started with some improvement in rate down to [id number] and improvement in pressures to 110-120s 01/01: Patient with A. fib RVR with rate related worsening oxygenation/pulmonary edema. Patient received amio boluses and digoxin with continued deterioration. -Attempted electrical cardioversion x2 with transient decrease and then returned to RVR. He was transferred to ICU for pressor support with phenylephrine -Received 2 days of IV amiodarone and then converted to amiodarone 200 mg p.o. twice daily on 01/04 -Briefly on diltiazem drip which were then discontinued, p.o. metoprolol was added but had no improvement in rates over many days -Weaned off phenylephrine and placed on p.o. midodrine on 01/07, downgraded out of the ICU -Cardiology consulted on 01/07-increased amiodarone to 400 mg p.o. twice daily -Converted to normal sinus rhythm on the evening of 01/08 Echocardiogram with preserved EF, no valvular abnormalities TSH normal -Appreciate cardiology consultation -Now that he is converted to a sinus rhythm, increase metoprolol to 25 mg p.o. twice daily -Attempt to wean off midodrine tomorrow -keep potassium at 4.0, magnesium at 2.0-give 1 g of IV magnesium sulfate -Continue to monitor on telemetry -Given significant increase in AST/ALT since raising the dose of amiodarone, will discontinue amiodarone (5) STEPHON (acute kidney injury): Plan: Creatinine initially peaked at 2.7 and now back to normal -Etiology secondary to ATN from hypotension -Received IV fluids Avoid nephrotoxins, follow BMP Pressure support and management as above -Sodium bicarbonate given for metabolic acidosis which is now resolved (6) Hypotension: Plan: As above, secondary to rapid atrial fibrillation Now weaned off phenylephrine and on midodrine as above Blood pressures remained soft while in rapid atrial fibrillation, but now are much improved after spontaneous conversion to normal sinus rhythm -Attempt to wean off of midodrine as titrating up on metoprolol (7) Hyponatremia: Plan: Sodium was 127, now improved to normal with giving crystalloid volume replacement Follow BMP (8) Metabolic acidosis: Plan: As above, secondary to acute kidney injury Improved with volume replacement and sodium bicarbonate (9) Diabetes mellitus: Plan: Hemoglobin A1c here elevated at 6.7% With hyperglycemia secondary to corticosteroids Continue insulin regimen as per pharmacy, and will need to discontinue NPH after tomorrow as that is the last dose of dexamethasone Will likely need p.o. medication upon discharge (10) Enlarged prostate: Plan: Holding home tamsulosin due to hypotension Continue finasteride -Jeong catheter discontinued (11) Esophageal dysphagia: Plan: Continue PPI (12) Peripheral artery disease: Plan: With a history of left SFA angioplasty Continue aspirin but holding statin now for rising AST/ALT Follows with vascular surgery as an outpatient (13) Hyperlipidemia: Plan: hold atorvastatin as of 01/08 for rising AST/ALT in setting of amiodarone use and COVID-19 (14) Constipation: Plan: Finally resolved on 01/07 with large bowel movement -Continue MiraLAX as needed and daily senna/docusate (15) Transaminitis: Plan: AST and ALT mildly elevated in the 80s, most likely secondary to COVID initially However AST and ALT continued to rise after increased dose of amiodarone -Discontinue amiodarone -Hold statin -Follow LFTs in the morning Plan: DVT prophylaxis-Heparin drip Disposition- Continued stay on PCU, but overall much improved, continue weaning down O2 PT/OT consults to be placed He will need a two-step walk test prior to discharge, hopefully for discharge in the next 2-3 days Admission and Anticipated Discharge Date Admission Date: December 31, 2021 Subjective 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 Patient denies chest pains or shortness of breath. He converted to normal sinus rhythm yesterday evening. He is weaned down to 5 L nasal cannula and his blood pressures are much improved. I discussed his care with cardiology. Telemetry is normal sinus rhythm with rates in the 60s. Patient is eating and drinking, denies pain anywhere, and asks how much longer he will be in the hospital. Review of Systems Review of Systems: All systems reviewed & are unremarkable except as noted in HPI & below Physical Exam Constitutional: WD/WN, vitals as above well developed; no acute distress Eyes: + anicteric sclerae Neck: trachea midline, no thyromegaly Respiratory: normal respiratory effort, lungs clear to auscultation Cardiovascular: RRR, no murmur, no edema Chest (Breasts): Chest: normal inspection of chest Gastrointestinal (Abdomen): normal bowel sounds, soft, nontender, no hepatosplenomegaly Musculoskeletal: Extremities: extremities normal to inspection; no cyanosis and no clubbing Skin: no rashes, warm and dry Neurologic: moves all extremities and awake; no focal motor deficits Psychiatric: A+Ox3, euthymic affect Lymphatic: no lymphedema Results & Data Results & Data ([facility]) Vital Signs (Past 12 Hours) Vital Signs Temp Pulse Pulse Resp BP BP Pulse Ox 01/09/22 19:35 36.6 C 71 18 109/72 93 01/09/22 16:00 36.4 C L 69 13 117/70 91 01/09/22 15:34 72 01/09/22 14:19 82 109/69 01/09/22 11:47 36.4 C L 81 23 118/68 90 Laboratory Results 01/09/22 01/09/22 01/09/22 Range/Units 20:37 17:02 12:56 WBC (4.8-10.8) K/uL RBC (4.7-6.1) M/uL Hgb (14.0-18.0) g/dL Hct (42-52) % MCV (80-100) fL MCH (25-34) pg MCHC (32-36) g/dL RDW Std Deviation (36.4-46.3) fL RDW Coeff of Samantha (11.5-14.5) % Plt Count (130-400) K/uL MPV (7.4-10.4) fL Immature Gran % (Auto) % Neut % (Auto) % Lymph % (Auto) % Martin % (Auto) % Eos % (Auto) % Baso % (Auto) % Neut # (Auto) (1.4-6.5) K/uL Lymph # (Auto) (1.2-3.4) K/uL Martin # (Auto) (0.11-0.59) K/uL Eos # (Auto) (0-0.5) K/uL Baso # (Auto) (0-0.2) K/uL Immature Gran # (Auto) (0.00-0.02) K/uL APTT 46.8 H* (21.0-31.0) Seconds PTT Ratio 1.8 Sodium (136-145) mmol/L Potassium (3.5-5.1) mmol/L Chloride (98-107) mmol/L Carbon Dioxide (21-32) mmol/L Anion Gap (3-11) BUN (6-23) mg/dl Creatinine (0.6-1.4) mg/dl Est Cr Clr Drug Dosing ml/min Est GFR ( Amer) ml/min Est GFR (Non-Af Amer) ml/min BUN/Creatinine Ratio (10-20) Glucose (70-99(Fasting)) mg/dl POC Glucose 114 H 192 H (70-99) mg/dl Calcium (8.5-10.1) mg/dl Phosphorus (2.5-4.9) mg/dl Magnesium (1.7-2.4) mg/dl Total Bilirubin (0.2-1.0) mg/dl AST (13-39) U/L ALT (7-52) U/L Alkaline Phosphatase (34-104) U/L C-Reactive Protein (0-0.5) mg/dl Total Protein (6.0-8.3) gm/dl Albumin (3.4-5.0) gm/dl Globulin (2.5-4.0) gm/dl Albumin/Globulin Ratio (0.9-2) Procalcitonin (0-0.5) ng/ml 01/09/22 01/09/22 01/09/22 Range/Units 12:19 08:07 05:47 WBC (4.8-10.8) K/uL RBC (4.7-6.1) M/uL Hgb (14.0-18.0) g/dL Hct (42-52) % MCV (80-100) fL MCH (25-34) pg MCHC (32-36) g/dL RDW Std Deviation (36.4-46.3) fL RDW Coeff of Samantha (11.5-14.5) % Plt Count (130-400) K/uL MPV (7.4-10.4) fL Immature Gran % (Auto) % Neut % (Auto) % Lymph % (Auto) % Martin % (Auto) % Eos % (Auto) % Baso % (Auto) % Neut # (Auto) (1.4-6.5) K/uL Lymph # (Auto) (1.2-3.4) K/uL Martin # (Auto) (0.11-0.59) K/uL Eos # (Auto) (0-0.5) K/uL Baso # (Auto) (0-0.2) K/uL Immature Gran # (Auto) (0.00-0.02) K/uL APTT (21.0-31.0) Seconds PTT Ratio Sodium (136-145) mmol/L Potassium (3.5-5.1) mmol/L Chloride (98-107) mmol/L Carbon Dioxide (21-32) mmol/L Anion Gap (3-11) BUN (6-23) mg/dl Creatinine (0.6-1.4) mg/dl Est Cr Clr Drug Dosing ml/min Est GFR ( Amer) ml/min Est GFR (Non-Af Amer) ml/min BUN/Creatinine Ratio (10-20) Glucose (70-99(Fasting)) mg/dl POC Glucose 99 101 H (70-99) mg/dl Calcium (8.5-10.1) mg/dl Phosphorus (2.5-4.9) mg/dl Magnesium (1.7-2.4) mg/dl Total Bilirubin (0.2-1.0) mg/dl AST (13-39) U/L ALT (7-52) U/L Alkaline Phosphatase (34-104) U/L C-Reactive Protein (0-0.5) mg/dl Total Protein (6.0-8.3) gm/dl Albumin (3.4-5.0) gm/dl Globulin (2.5-4.0) gm/dl Albumin/Globulin Ratio (0.9-2) Procalcitonin 0.19 (0-0.5) ng/ml 01/09/22 01/09/22 01/09/22 Range/Units 05:47 05:47 05:47 WBC 13.47 H (4.8-10.8) K/uL RBC 3.93 L (4.7-6.1) M/uL Hgb 12.0 L (14.0-18.0) g/dL Hct 35.9 L (42-52) % MCV 91.3 (80-100) fL MCH 30.5 (25-34) pg MCHC 33.4 (32-36) g/dL RDW Std Deviation 50.3 H (36.4-46.3) fL RDW Coeff of Samantha 14.9 H (11.5-14.5) % Plt Count 390 (130-400) K/uL MPV 11.0 H (7.4-10.4) fL Immature Gran % (Auto) 0.8 % Neut % (Auto) 76.7 % Lymph % (Auto) 13.1 % Martin % (Auto) 8.9 % Eos % (Auto) 0.4 % Baso % (Auto) 0.1 % Neut # (Auto) 10.34 H (1.4-6.5) K/uL Lymph # (Auto) 1.76 (1.2-3.4) K/uL Martin # (Auto) 1.20 H (0.11-0.59) K/uL Eos # (Auto) 0.05 (0-0.5) K/uL Baso # (Auto) 0.01 (0-0.2) K/uL Immature Gran # (Auto) 0.11 H (0.00-0.02) K/uL APTT 38.4 H (21.0-31.0) Seconds PTT Ratio 1.5 Sodium 138 (136-145) mmol/L Potassium 4.4 (3.5-5.1) mmol/L Chloride 107 (98-107) mmol/L Carbon Dioxide 28 (21-32) mmol/L Anion Gap 3 (3-11) BUN 48 H (6-23) mg/dl Creatinine 1.35 (0.6-1.4) mg/dl Est Cr Clr Drug Dosing 51.9 ml/min Est GFR ( Amer) 59.9 ml/min Est GFR (Non-Af Amer) 51.7 ml/min BUN/Creatinine Ratio 35.6 H (10-20) Glucose 100 H (70-99(Fasting)) mg/dl POC Glucose (70-99) mg/dl Calcium 8.3 L (8.5-10.1) mg/dl Phosphorus 3.9 (2.5-4.9) mg/dl Magnesium 1.8 (1.7-2.4) mg/dl Total Bilirubin 0.6 (0.2-1.0) mg/dl AST 120 H (13-39) U/L ALT 201 H (7-52) U/L Alkaline Phosphatase 55 (34-104) U/L C-Reactive Protein 2.26 H (0-0.5) mg/dl Total Protein 4.6 L (6.0-8.3) gm/dl Albumin 2.4 L (3.4-5.0) gm/dl Globulin 2.2 L (2.5-4.0) gm/dl Albumin/Globulin Ratio 1.1 (0.9-2) Procalcitonin (0-0.5) ng/ml PG Care Time/CCT Total # of Minutes Spent Total Time Spent with Patient: Total time spent is greater than 50% in coordination of care (as documented) at patient's floor/unit and/or counseling patient: Coding Level of Care Code 19788 Subseq Hosp Care Lvl 3 Diagnoses Acute respiratory failure with hypoxia J96.01 COVID-19 U07.1 Secondary pneumonia J18.9 Atrial fibrillation with RVR I48.91 STEPHON (acute kidney injury) N17.9 Hypotension I95.9 Hyponatremia E87.1 Metabolic acidosis E87.2 Diabetes mellitus E11.9 Enlarged prostate N40.0 Esophageal dysphagia R13.10 Peripheral artery disease I73.9 Hyperlipidemia E78.5 Constipation K59.00 Transaminitis R74.01
[2022-01-10] MEDS: HEPARIN SODIUM/DEXTROSE 25,000 UNITS/500 ML BAG IV SCH (00:54)
[2022-01-10 06:49] LABS: Basophils # (auto) 0.01 K/uL (0-0.2); Basophils % (auto) 0.1 %; Eosinophils # (auto) 0.03 K/uL (0-0.5); Eosinophils % (auto) 0.3 %; Hematocrit (blood only) 35.1 % (42-52); Hemoglobin 11.8 g/dL (14.0-18.0); Immature Granulocytes # (auto) 0.06 K/uL (0.00-0.02); Immature Granulocytes % (auto) 0.5 %; Lymphocytes # (auto) 2.08 K/uL (1.2-3.4); Lymphocytes % (auto) 17.5 %; Mean Corpuscular Hemoglobin 30.8 pg (25-34); Mean Corpuscular Hgb Conc 33.6 g/dL (32-36); Mean Corpuscular Volume 91.6 fL (80-100); Mean Platelet Volume 10.8 fL (7.4-10.4); Monocytes # (auto) 1.01 K/uL (0.11-0.59); Monocytes % (auto) 8.5 %; Neutrophils % (auto) 73.1 %; Platelet Count 373 K/uL (130-400); RDW Coefficient of Variation 14.8 % (11.5-14.5); RDW Standard Deviation 49.8 fL (36.4-46.3); Red Blood Count 3.83 M/uL (4.7-6.1); White Blood Count 11.89 K/uL (4.8-10.8)
[2022-01-10 07:17] LABS: Albumin Globulin Ratio 1.1 (0.9-2); Albumin Level 2.4 gm/dl (3.4-5.0); BUN Creatinine Ratio 39.1 (10-20); Bilirubin,Total 0.6 mg/dl (0.2-1.0); Calcium 8.3 mg/dl (8.5-10.1); Creatinine Clr Calc Pharmacy 63.7 ml/min; Est GFR (African American) 76.8 ml/min; Est GFR (Non-African American) 66.2 ml/min; Globulin 2.2 gm/dl (2.5-4.0); Magnesium 1.7 mg/dl (1.7-2.4); Phosphorus 3.4 mg/dl (2.5-4.9); Potassium 4.4 mmol/L (3.5-5.1); Total Protein 4.6 gm/dl (6.0-8.3)
[2022-01-10 07:24] LABS: Partial Thromboplastin Ratio 2.7
[2022-01-10 07:28] LABS: Partial Thromboplastin Time 69.7 Seconds (21.0-31.0)
[2022-01-10] MEDS: INSULIN ASPART PER UNIT SC SCH ×4 (09:06→21:02)
[2022-01-10] MEDS: dexAMETHasone 10 MG in SYRINGE 0 ML IV SCH (09:32)
[2022-01-10] MEDS: MAGNESIUM SULFATE / D5W 1 GM/100 ML BAG IV SCH ×2 (09:34→11:55)
[2022-01-10] MEDS: INSULIN HUMAN NPH SC SCH (09:34)
[2022-01-10] MEDS: ASPIRIN 81 MG ECTAB PO SCH (09:34)
[2022-01-10] MEDS: METOPROLOL TARTRATE 25 MG TAB PO SCH ×2 (09:35→21:07)
[2022-01-10] MEDS: PANTOprazole 40 MG TAB PO SCH (09:36)
[2022-01-10] MEDS: DOCUSATE SODIUM/SENNA 50/8.6MG TAB PO SCH (09:38)
[2022-01-10] MEDS: FINASTERIDE 5 MG TAB PO SCH (09:39)
[2022-01-10] MEDS: MIDODRINE HCL 2.5 MG TAB PO SCH (09:48)
--- NOTE | 2022-01-10 11:29 | Hospitalist Progress Note ---
Date of Service January 10, 2022 Assessment & Plan (1) Acute respiratory failure with hypoxia: Plan: 01/02 COVID-19 Pneumonia with superimposed bacterial pneumonia in right upper lobe Febrile on arrival, now resolved Continue supplemental oxygen to target SPO2 sat greater than 90%-weaned off Vapotherm and now continues to wean down-currently down to 4-5 L NC Covid and PNA treatment below 2/4: CXR similar versus slightly improved aeration -Has now completed Decadron x 10 day course On incentive spirometry and flutter valve (2) COVID-19: Plan: Covid pneumonia, suspect post viremic phase with superimposed pneumonia as below Covid positive 12/31/2021. Prior negative 11/14/22, no home test when pt had symptoms noted below. First day of symptoms: Unclear. Some URI symptoms for 3 to 4 weeks, some nasal congestion for 1-2 weeks which improved and some residual congestion but acute worsening and became febrile 7 days prior to admission and febrile daily since then. - Suspected COVID exposure 4-5 weeks ago (family from [facility]) who were all sick and required quarantine, sinus congestion started shortly after this exposure. Vaccination status: Unvaccinated CXR:IMPRESSION: Bilateral airspace opacities are suggestive of multifocal pneumonia. CRP: 36.2 initially and now down to 2 Procalcitonin 7.47 initially and now down to 0.1 Completed 10-day course of dexamethasone Remdesivir: Initial symptom onset 3 to 4 weeks ago, outside of viremic window - Baricitinib not recommended in setting of bacterial superinfection (3) Secondary pneumonia: Plan: CTA: Severely streak and motion compromised examination. There is no evidence of central pulmonary embolus in the main or lobar pulmonary arteries. The segmental and subsegmental vessels cannot be evaluated. There is significant dependent airspace consolidation seen bilaterally with small pleural effusions. The appearance is typical for pneumonia/aspiration pneumonitis. Clinical correlation will be required and radiographic follow-up to resolution is recommended. Mildly enlarged mediastinal and hilar nodes are likely reactive. There is mild aneurysmal dilatation of the ascending thoracic aorta which measures up to 4.2 cm in diameter. Cardiomegaly with advanced coronary artery calcification. Pro-Sung 7.47, CRP 36 on admission And CRP now trended downward all the way to 2.9, procalcitonin negative Patient febrile for the week prior to admission and on admission-now resolved -leukocytosis now with being on steroids but is significantly improved now -Has now completed a 7-day course of ceftriaxone and 5-day course of azithromycin -Sputum culture normal jaqueline and Debbie-no need to treat this -Blood cultures no growth to date (4) Atrial fibrillation with RVR: Plan: -No history of A. fib prior to admission Presented in sinus tachycardia converted to A. fib with RVR with rates up 160-180 shortly after admission Started on heparin drip for anticoagulation Pressures initially stable and mildly hypertensive. Treated with metoprolol 5mg IV x2 with minimal improvement Pressures decreased to [id number] systolic with increase in rate to 180, suspect for rate related hypotension with hypoxia Loaded with amiodarone drip started with some improvement in rate down to [id number] and improvement in pressures to 110-120s 01/01: Patient with A. fib RVR with rate related worsening oxygenation/pulmonary edema. Patient received amio boluses and digoxin with continued deterioration. -Attempted electrical cardioversion x2 with transient decrease and then returned to RVR. He was transferred to ICU for pressor support with phenylephrine -Received 2 days of IV amiodarone and then converted to amiodarone 200 mg p.o. twice daily on 01/04 -Briefly on diltiazem drip which were then discontinued, p.o. metoprolol was added but had no improvement in rates over many days -Weaned off phenylephrine and placed on p.o. midodrine on 01/07, downgraded out of the ICU -Cardiology consulted on 01/07-increased amiodarone to 400 mg p.o. twice daily -Converted to normal sinus rhythm on the evening of 01/08 Echocardiogram with preserved EF, no valvular abnormalities TSH normal -Appreciate cardiology consultation -Now that he is converted to a sinus rhythm, increased metoprolol to 25 mg p.o. twice daily -Discontinue midodrine -keep potassium at 4.0, magnesium at 2.0-give 2 g of IV magnesium sulfate today -Continue to monitor on telemetry -Given significant increase in AST/ALT since raising the dose of amiodarone, had to discontinue amiodarone -Cardiology is signing off-recommends follow-up with cardiology as an outpatient after discharge -Discontinue heparin drip and start Eliquis 5 mg p.o. twice daily this evening- cost will be $9 per month as per case management (5) STEPHON (acute kidney injury): Plan: Creatinine initially peaked at 2.7 and now back to normal after IV fluid resuscitation and pressor support -Etiology secondary to ATN from hypotension Follow BMP (6) Hypotension: Plan: As above, secondary to rapid atrial fibrillation Now weaned off phenylephrine Blood pressures remained soft while in rapid atrial fibrillation, but now are much improved after spontaneous conversion to normal sinus rhythm Discontinue midodrine Tolerating metoprolol 25 mg p.o. twice daily (7) Hyponatremia: Plan: Sodium was 127, now improved to normal with giving crystalloid volume replacement Follow BMP (8) Metabolic acidosis: Plan: As above, secondary to acute kidney injury Improved with volume replacement and sodium bicarbonate (9) Diabetes mellitus: Plan: Hemoglobin A1c here elevated at 6.7% With hyperglycemia secondary to corticosteroids Continue insulin regimen as per pharmacy, and discontinue NPH today now the dexamethasone is completed Continue NovoLog supplemental insulin Will likely need p.o. medication upon discharge (10) Enlarged prostate: Plan: Holding home tamsulosin due to hypotension Continue finasteride -Jeong catheter discontinued and he is voiding without difficulty (11) Esophageal dysphagia: Plan: Continue PPI (12) Peripheral artery disease: Plan: With a history of left SFA angioplasty Continue aspirin but holding statin now for rising AST/ALT Follows with vascular surgery as an outpatient (13) Hyperlipidemia: Plan: hold atorvastatin as of 01/08 for rising AST/ALT in setting of amiodarone use and COVID-19 Restart atorvastatin once LFTs returned to normal (14) Constipation: Plan: Finally resolved on 01/07 with large bowel movement -Continue MiraLAX as needed and daily senna/docusate (15) Transaminitis: Plan: AST and ALT mildly elevated in the 80s, most likely secondary to COVID initially However AST and ALT continued to rise after increased dose of amiodarone -Discontinued amiodarone and LFTs trending back downward -Continue to hold statin -Follow LFTs in the morning Plan: DVT prophylaxis-Heparin drip transition to Eliquis this evening Disposition- Continued stay on PCU, but overall much improved, continue weaning down O2 PT/OT consults appreciated-recommend return home with home health He will need a two-step walk test prior to discharge, hopefully for discharge in the next 1-2 days Discussed his care with his daughter on the phone Admission and Anticipated Discharge Date Admission Date: December 31, 2021 Subjective Patient has no complaints today. I watched him get out of bed and stand up with physical therapy need did okay with the assistance of a walker. He denies chest pains or shortness of breath. He is weaned down to 4-5 L nasal cannula He asks when he will be leaving. Review of Systems Review of Systems: All systems reviewed & are unremarkable except as noted in HPI & below Physical Exam Constitutional: WD/WN, vitals as above well developed; no acute distress Eyes: + anicteric sclerae Neck: trachea midline, no thyromegaly Respiratory: normal respiratory effort and + cough Auscultation: + rhonchi (A few rhonchi in the lower lung estrada); no wheezes Cardiovascular: RRR, no murmur, no edema Chest (Breasts): Chest: normal inspection of chest Gastrointestinal (Abdomen): normal bowel sounds, soft, nontender, no hepatosplenomegaly Musculoskeletal: Extremities: extremities normal to inspection; no cyanosis and no clubbing Skin: no rashes, warm and dry Neurologic: moves all extremities and awake; no focal motor deficits Psychiatric: A+Ox3, euthymic affect Lymphatic: no lymphedema Results & Data Results & Data ([facility]) Vital Signs (Past 12 Hours) Vital Signs Temp Pulse Pulse Resp BP BP BP 01/10/22 10:52 36 C L 64 16 100/53 L 01/10/22 07:27 36.6 C 71 16 110/66 01/10/22 05:46 01/10/22 03:42 36.8 C 71 16 95/52 L 01/10/22 03:30 65 5 L 146/88 H 01/10/22 03:00 62 7 L 142/94 H 01/10/22 02:30 67 17 128/75 01/10/22 02:00 62 12 116/70 01/10/22 01:30 70 16 118/69 01/10/22 01:00 64 13 118/64 01/10/22 00:30 65 138/86 01/10/22 00:00 65 123/76 01/09/22 23:30 65 130/69 Pulse Ox Pulse Ox 01/10/22 10:52 93 01/10/22 07:27 94 01/10/22 05:46 94 02/10/22 03:42 93 01/10/22 03:30 97 01/10/22 03:00 100 01/10/22 02:30 95 01/10/22 02:00 98 01/10/22 01:30 90 01/10/22 01:00 94 01/10/22 00:30 92 01/10/22 00:00 90 01/09/22 23:30 92 Laboratory Results 01/10/22 01/10/22 01/10/22 Range/Units 17:19 13:47 11:53 WBC (4.8-10.8) K/uL RBC (4.7-6.1) M/uL Hgb (14.0-18.0) g/dL Hct (42-52) % MCV (80-100) fL MCH (25-34) pg MCHC (32-36) g/dL RDW Std Deviation (36.4-46.3) fL RDW Coeff of Samantha (11.5-14.5) % Plt Count (130-400) K/uL MPV (7.4-10.4) fL Immature Gran % (Auto) % Neut % (Auto) % Lymph % (Auto) % [place] % (Auto) % Eos % (Auto) % Baso % (Auto) % Neut # (Auto) (1.4-6.5) K/uL Lymph # (Auto) (1.2-3.4) K/uL [place] # (Auto) (0.11-0.59) K/uL Eos # (Auto) (0-0.5) K/uL Baso # (Auto) (0-0.2) K/uL Immature Gran # (Auto) (0.00-0.02) K/uL APTT 53.0 H* (21.0-31.0) Seconds PTT Ratio 2.0 Sodium (136-145) mmol/L Potassium (3.5-5.1) mmol/L Chloride (98-107) mmol/L Carbon Dioxide (21-32) mmol/L Anion Gap (3-11) BUN (6-23) mg/dl Creatinine (0.6-1.4) mg/dl Est Cr Clr Drug Dosing ml/min Est GFR ( Amer) ml/min Est GFR (Non-Af Amer) ml/min BUN/Creatinine Ratio (10-20) Glucose (70-99(Fasting)) mg/dl POC Glucose 143 H 80 (70-99) mg/dl Calcium (8.5-10.1) mg/dl Phosphorus (2.5-4.9) mg/dl Magnesium (1.7-2.4) mg/dl Total Bilirubin (0.2-1.0) mg/dl AST (13-39) U/L ALT (7-52) U/L Alkaline Phosphatase (34-104) U/L Total Protein (6.0-8.3) gm/dl Albumin (3.4-5.0) gm/dl Globulin (2.5-4.0) gm/dl Albumin/Globulin Ratio (0.9-2) Procalcitonin (0-0.5) ng/ml 01/10/22 01/10/22 01/10/22 Range/Units 07:51 05:57 05:57 WBC (4.8-10.8) K/uL RBC (4.7-6.1) M/uL Hgb (14.0-18.0) g/dL Hct (42-52) % MCV (80-100) fL MCH (25-34) pg MCHC (32-36) g/dL RDW Std Deviation (36.4-46.3) fL RDW Coeff of Samantha (11.5-14.5) % Plt Count (130-400) K/uL MPV (7.4-10.4) fL Immature Gran % (Auto) % Neut % (Auto) % Lymph % (Auto) % [place] % (Auto) % Eos % (Auto) % Baso % (Auto) % Neut # (Auto) (1.4-6.5) K/uL Lymph # (Auto) (1.2-3.4) K/uL [place] # (Auto) (0.11-0.59) K/uL Eos # (Auto) (0-0.5) K/uL Baso # (Auto) (0-0.2) K/uL Immature Gran # (Auto) (0.00-0.02) K/uL APTT (21.0-31.0) Seconds PTT Ratio Sodium 136 (136-145) mmol/L Potassium 4.4 (3.5-5.1) mmol/L Chloride 106 (98-107) mmol/L Carbon Dioxide 26 (21-32) mmol/L Anion Gap 4 (3-11) BUN 43 H (6-23) mg/dl Creatinine 1.10 (0.6-1.4) mg/dl Est Cr Clr Drug Dosing 63.7 ml/min Est GFR ( Amer) 76.8 ml/min Est GFR (Non-Af Amer) 66.2 ml/min BUN/Creatinine Ratio 39.1 H (10-20) Glucose 95 (70-99(Fasting)) mg/dl POC Glucose 209 H (70-99) mg/dl Calcium 8.3 L (8.5-10.1) mg/dl Phosphorus 3.4 (2.5-4.9) mg/dl Magnesium 1.7 (1.7-2.4) mg/dl Total Bilirubin 0.6 (0.2-1.0) mg/dl AST 68 H (13-39) U/L ALT 169 H (7-52) U/L Alkaline Phosphatase 53 (34-104) U/L Total Protein 4.6 L (6.0-8.3) gm/dl Albumin 2.4 L (3.4-5.0) gm/dl Globulin 2.2 L (2.5-4.0) gm/dl Albumin/Globulin Ratio 1.1 (0.9-2) Procalcitonin 0.10 (0-0.5) ng/ml 01/10/22 01/10/22 01/09/22 Range/Units 05:57 05:57 20:37 WBC 11.89 H (4.8-10.8) K/uL RBC 3.83 L (4.7-6.1) M/uL Hgb 11.8 L (14.0-18.0) g/dL Hct 35.1 L (42-52) % MCV 91.6 (80-100) fL MCH 30.8 (25-34) pg MCHC 33.6 (32-36) g/dL RDW Std Deviation 49.8 H (36.4-46.3) fL RDW Coeff of Samantha 14.8 H (11.5-14.5) % Plt Count 373 (130-400) K/uL MPV 10.8 H (7.4-10.4) fL Immature Gran % (Auto) 0.5 % Neut % (Auto) 73.1 % Lymph % (Auto) 17.5 % [place] % (Auto) 8.5 % Eos % (Auto) 0.3 % Baso % (Auto) 0.1 % Neut # (Auto) 8.70 H (1.4-6.5) K/uL Lymph # (Auto) 2.08 (1.2-3.4) K/uL [place] # (Auto) 1.01 H (0.11-0.59) K/uL Eos # (Auto) 0.03 (0-0.5) K/uL Baso # (Auto) 0.01 (0-0.2) K/uL Immature Gran # (Auto) 0.06 H (0.00-0.02) K/uL APTT 69.7 H* (21.0-31.0) Seconds PTT Ratio 2.7 Sodium (136-145) mmol/L Potassium (3.5-5.1) mmol/L Chloride (98-107) mmol/L Carbon Dioxide (21-32) mmol/L Anion Gap (3-11) BUN (6-23) mg/dl Creatinine (0.6-1.4) mg/dl Est Cr Clr Drug Dosing ml/min Est GFR ( Amer) ml/min Est GFR (Non-Af Amer) ml/min BUN/Creatinine Ratio (10-20) Glucose (70-99(Fasting)) mg/dl POC Glucose 114 H (70-99) mg/dl Calcium (8.5-10.1) mg/dl Phosphorus (2.5-4.9) mg/dl Magnesium (1.7-2.4) mg/dl Total Bilirubin (0.2-1.0) mg/dl AST (13-39) U/L ALT (7-52) U/L Alkaline Phosphatase (34-104) U/L Total Protein (6.0-8.3) gm/dl Albumin (3.4-5.0) gm/dl Globulin (2.5-4.0) gm/dl Albumin/Globulin Ratio (0.9-2) Procalcitonin (0-0.5) ng/ml PG Care Time/CCT Total # of Minutes Spent Total Time Spent with Patient: Total time spent is greater than 50% in coordination of care (as documented) at patient's floor/unit and/or counseling patient: Coding Level of Care Code 31420 Subseq Hosp Care Lvl 3 Diagnoses Acute respiratory failure with hypoxia J96.01 COVID-19 U07.1 Secondary pneumonia J18.9 Atrial fibrillation with RVR I48.91 STEPHON (acute kidney injury) N17.9 Hypotension I95.9 Hyponatremia E87.1 Metabolic acidosis E87.2 Diabetes mellitus E11.9 Enlarged prostate N40.0 Esophageal dysphagia R13.10 Peripheral artery disease I73.9 Hyperlipidemia E78.5 Constipation K59.00 Transaminitis R74.01
--- NOTE | 2022-01-10 13:23 | Cardiology Progress Note ---
Date of Service January 10, 2022 Assessment & Plan (1) Atrial fibrillation with RVR: (2) Hypotension: (3) Pneumonia due to severe acute respiratory syndrome coronavirus 2 (SARS-CoV-2): (4) Transaminitis: Plan: ASSESSMENT/PLAN: 1. Atrial fibrillation with rapid ventricular response: New diagnosis (01/01/22) this hospital stay after presenting with sinus rhythm. Occurred in the setting of severe COVID pneumonia. Reportedly cardioversion on 01/01/2022 was uns uccessful x2. Approximately 3-4 g of amiodarone given as of 01/07/2022. Amiodarone increased to 400 mg twice daily on 01/07/2022. Converted to sinus rhythm evening of 01/08/2022. Due to elevated transaminase levels, which have been increasing since amiodarone was titrated upward, amiodarone was discontinued on 01/09/2022. Transaminase levels improved today. Continue anticoagulation for stroke risk reduction. Continue beta-pavel as tolerated. 2. Transaminitis: Transaminase levels were elevated on presentation and have remained elevated. Unfortunately, with titration of amiodarone, transaminase levels have also increased daily. Statin therapy already held. Amiodarone discontinued on 01/09/2022 and transaminase levels improved on 01/10/2022. Monitor closely. 3. COVID-19 pneumonia: Oxygenation has improved. As per primary hospitalist service. 4. Hypotension: Phenylephrine discontinued morning of 01/07/2022. Was then placed on midodrine by other providers. Atrial fibrillation appears to have been playing a role in hypotension although heart rates were mostly 110s to 120s, as blood pressure has significantly improved since converting to sinus rhythm. Midodrine discontinued on 01/10/2022. 5. Disposition: Cardiology will sign off at this time. Please call with any further questions or concerns. Patient care discussed with Dr. Guardado of the primary hospitalist service. Happy to see him on discharge in the outpatient setting. Admission and Anticipated Discharge Date Admission Date: December 31, 2021 Subjective Patient seen this morning. He would like to go home soon. He has maintained sinus rhythm. He denies palpitations, chest pain, shortness of breath, syncope. He has no particular complaints. Review of systems: As above. Physical Exam Physical Exam: Gen.: No acute distress. Alert. HEENT: Anicteric sclera. Neck: No JVD. Cardiac: PMI was nonpalpable. No ventricular heave. Regular, with normal rate. No ectopy. Normal S1-S2. No murmurs, rubs, or gallops. Pulmonary: Decreased breath sounds throughout, but otherwise clear to auscultation bilaterally without wheezes, rales, or rhonchi. Abdomen: Soft, nontender, nondistended, with normoactive bowel sounds. No bruits noted. Extremities: 2+ radial pulses bilaterally. 2+ posterior tibialis pulses bilaterally. No edema or cyanosis. Psychiatric: Affect appears appropriate. Results & Data ([facility]) Vital Signs (Past 12 Hours) Vital Signs Temp Pulse Pulse Resp BP BP BP 01/10/22 10:52 36 C L 64 16 100/53 L 01/10/22 07:27 36.6 C 71 16 110/66 01/10/22 05:46 01/10/22 03:42 36.8 C 71 16 95/52 L 01/10/22 03:30 65 5 L 146/88 H 01/10/22 03:00 62 7 L 142/94 H 01/10/22 02:30 67 17 128/75 01/10/22 02:00 62 12 116/70 01/10/22 01:30 70 16 118/69 Pulse Ox Pulse Ox 01/10/22 10:52 93 01/10/22 07:27 94 01/10/22 05:46 94 01/10/22 03:42 93 01/10/22 03:30 97 01/10/22 03:00 100 01/10/22 02:30 95 01/10/22 02:00 98 01/10/22 01:30 90 Laboratory Results Laboratory Results - last 24 hr 01/09/22 01/09/22 01/09/22 12:56 17:02 20:37 WBC RBC Hgb Hct MCV MCH MCHC RDW Std Deviation RDW Coeff of Samantha Plt Count MPV Immature Gran % (Auto) Neut % (Auto) Lymph % (Auto) [place] % (Auto) Eos % (Auto) Baso % (Auto) Neut # (Auto) Lymph # (Auto) [place] # (Auto) Eos # (Auto) Baso # (Auto) Immature Gran # (Auto) APTT 46.8 H* PTT Ratio 1.8 Sodium Potassium Chloride Carbon Dioxide Anion Gap BUN Creatinine Est Cr Clr Drug Dosing Est GFR ( Amer) Est GFR (Non-Af Amer) BUN/Creatinine Ratio Glucose POC Glucose 192 H 114 H Calcium Phosphorus Magnesium Total Bilirubin AST ALT Alkaline Phosphatase Total Protein Albumin Globulin Albumin/Globulin Ratio Procalcitonin 01/10/22 01/10/22 01/10/22 05:57 05:57 05:57 WBC 11.89 H RBC 3.83 L Hgb 11.8 L Hct 35.1 L MCV 91.6 MCH 30.8 MCHC 33.6 RDW Std Deviation 49.8 H RDW Coeff of Samantha 14.8 H Plt Count 373 MPV 10.8 H Immature Gran % (Auto) 0.5 Neut % (Auto) 73.1 Lymph % (Auto) 17.5 [place] % (Auto) 8.5 Eos % (Auto) 0.3 Baso % (Auto) 0.1 Neut # (Auto) 8.70 H Lymph # (Auto) 2.08 [place] # (Auto) 1.01 H Eos # (Auto) 0.03 Baso # (Auto) 0.01 Immature Gran # (Auto) 0.06 H APTT 69.7 H* PTT Ratio 2.7 Sodium 136 Potassium 4.4 Chloride 106 Carbon Dioxide 26 Anion Gap 4 BUN 43 H Creatinine 1.10 Est Cr Clr Drug Dosing 63.7 Est GFR ( Amer) 76.8 Est GFR (Non-Af Amer) 66.2 BUN/Creatinine Ratio 39.1 H Glucose 95 POC Glucose Calcium 8.3 L Phosphorus 3.4 Magnesium 1.7 Total Bilirubin 0.6 AST 68 H ALT 169 H Alkaline Phosphatase 53 Total Protein 4.6 L Albumin 2.4 L Globulin 2.2 L Albumin/Globulin Ratio 1.1 Procalcitonin 01/10/22 01/10/22 01/10/22 05:57 07:51 11:53 WBC RBC Hgb Hct MCV MCH MCHC RDW Std Deviation RDW Coeff of Samantha Plt Count MPV Immature Gran % (Auto) Neut % (Auto) Lymph % (Auto) [place] % (Auto) Eos % (Auto) Baso % (Auto) Neut # (Auto) Lymph # (Auto) [place] # (Auto) Eos # (Auto) Baso # (Auto) Immature Gran # (Auto) APTT PTT Ratio Sodium Potassium Chloride Carbon Dioxide Anion Gap BUN Creatinine Est Cr Clr Drug Dosing Est GFR ( Amer) Est GFR (Non-Af Amer) BUN/Creatinine Ratio Glucose POC Glucose 209 H 80 Calcium Phosphorus Magnesium Total Bilirubin AST ALT Alkaline Phosphatase Total Protein Albumin Globulin Albumin/Globulin Ratio Procalcitonin 0.10 Diagnostic Findings Telemetry personally reviewed: Sinus rhythm. ECG personally reviewed from 01/09/2022 at 8:32 a.m.: Sinus rhythm 71 beats per minute. Inferior infarct. Medications Administered Current Inpatient Medications Acetaminophen (Acetaminophen 325 Mg Tab) 650 mg PO Q4H PRN PRN Reason: Pain or Fever Stop: 01/30/22 16:02 Last Admin: 01/03/22 08:16 Dose: 650 mg Documented by: Albuterol (Albut/Ipratrop 3mg/0.5mg Neb 3 Ml Vial) 3 ml NEB Q4 PRN; Protocol PRN Reason: Shortness Of Breath Or Wheezing Stop: 01/30/22 15:15 Aspirin (Aspirin 81 Mg Ectab) 81 mg PO DAILY ERENDIRA Stop: 01/31/22 08:59 Last Admin: 01/10/22 09:34 Dose: 81 mg Documented by: Dextrose (Dextrose 50% 50 Ml Syringe) 25 - 50 ml IV UD PRN; Protocol PRN Reason: Hypoglycemia Protocol Stop: 02/01/22 10:44 Finasteride (Finasteride 5 Mg Tab) 5 mg PO QAM ERENDIRA Stop: 01/31/22 08:59 Last Admin: 01/10/22 09:39 Dose: 5 mg Documented by: Glucagon (Glucagon For Inj 1 Mg Vial) 1 mg IM UD PRN; Protocol PRN Reason: Hypoglycemia Protocol Stop: 02/01/22 10:44 Glucose (Glucose 40% Gel 15 Gm Tube) 15 - 30 gm PO UD PRN; Protocol PRN Reason: Hypoglycemia Protocol Stop: 02/01/22 10:44 Glucose (Glucose 10 Tabs/Tube) 4 - 8 tabs PO UD PRN; Protocol PRN Reason: Hypoglycemia Protocol Stop: 02/01/22 10:44 Heparin Sodium (Beef Lung) (Heparin 10 Unit/Ml 5 Ml Flush) 5 ml FLUSH PRN PRN PRN Reason: Flush Stop: 02/04/22 12:07 Heparin Sodium/Dextrose (Heparin Sodium/Dextrose) 25,000 units in 500 mls @ 19 mls/hr IV .Q24H ERENDIRA; Protocol Stop: 01/31/22 14:14 Last Titration: 01/10/22 07:37 Dose: 950 units/hr, 19 mls/hr Documented by: Insulin Aspart (Insulin Aspart Per Unit) 0 units SC [facility] Stop: 02/01/22 20:59 Last Admin: 01/10/22 13:08 Dose: 8 units Documented by: Insulin Human NPH (Insulin Human Nph) [facility] Stop: 02/02/22 10:29 Last Admin: 01/10/22 09:34 Dose: 10 units Documented by: Metoprolol Tartrate (Metoprolol Tartrate 1 Mg/Ml Vial) 5 mg IV Q6 PRN PRN Reason: HR > 130 Stop: 02/01/22 00:00 Metoprolol Tartrate (Metoprolol Tartrate 25 Mg Tab) 25 mg PO BID [facility] Stop: 02/08/22 20:59 Last Admin: 01/10/22 09:35 Dose: 25 mg Documented by: Miscellaneous (Carbohydrates For Hypoglycemia ) 15 - 30 gm PO UD PRN PRN Reason: Hypoglycemia Treatment Stop: 02/01/22 10:44 Ondansetron HCl (Ondansetron Inj 2 Mg/Ml 2 Ml Vial) 4 mg IV Q6H PRN PRN Reason: Nausea Stop: 01/30/22 16:02 Pantoprazole Sodium (Pantoprazole 40 Mg Tab) 40 mg PO [facility] Stop: 02/02/22 10:59 Last Admin: 01/10/22 09:36 Dose: 40 mg Documented by: Polyethylene Glycol (Polyethylene (Miralax) 17 Gm Pack) 17 gm PO DAILY PRN PRN Reason: Constipation Stop: 02/05/22 17:06 Last Admin: 01/07/22 08:45 Dose: 17 gm Documented by: Senna/Docusate Sodium (Docusate Sodium/Senna 50/8.6mg Tab) 1 tab PO [facility] Stop: 02/06/22 08:59 Last Admin: 01/10/22 09:38 Dose: Not Given Documented by: PG Care Time/CCT Total # of Minutes Spent Total Time Spent with Patient: Total time spent is greater than 50% in coordination of care (as documented) at patient's floor/unit and/or counseling patient: Coding Level of Care Code 14902 Subseq Hosp Care Lvl 3 Diagnoses Atrial fibrillation with RVR I48.91 Hypotension I95.9 Pneumonia due to severe acute respiratory syndrome coronavirus 2 (SARS-CoV-2) U07.1; J12.82 Transaminitis R74.01
[2022-01-10] MEDS: APIXABAN 5 MG TABLET PO SCH (21:07)
--- NOTE | 2022-01-11 06:21 | Electrocardiogram Report ---
Test Reason : Blood Pressure : / mmHG Vent. Rate : 071 BPM Atrial Rate : 071 BPM P-R Int : 178 ms QRS Dur : 110 ms QT Int : 404 ms P-R-T Axes : 049 -69 014 degrees QTc Int : 439 ms Normal sinus rhythm Left axis deviation Low voltage QRS Inferior infarct (cited on or before 25-DEC-2015) Abnormal ECG When compared with ECG of 08-JAN-2022 09:24, Sinus rhythm has replaced Atrial fibrillation Vent. rate has decreased BY 47 BPM Confirmed by Karlo Funez ([id number]) on 01/11/2022 6:21:04 AM Referred By: REFERRED SELF Confirmed By:Karlo Funez
[2022-01-11 06:59] LABS: Partial Thromboplastin Ratio 1.1; Partial Thromboplastin Time 28.6 Seconds (21.0-31.0)
[2022-01-11 07:09] LABS: Albumin Level 2.4 gm/dl (3.4-5.0); BUN Creatinine Ratio 35.5 (10-20); Bilirubin,Total 0.6 mg/dl (0.2-1.0); Calcium 8.3 mg/dl (8.5-10.1); Creatinine Clr Calc Pharmacy 63.7 ml/min; Est GFR (African American) 76.8 ml/min; Est GFR (Non-African American) 66.2 ml/min; Globulin 2.3 gm/dl (2.5-4.0); Magnesium 1.7 mg/dl (1.7-2.4); Potassium 4.6 mmol/L (3.5-5.1); Total Protein 4.7 gm/dl (6.0-8.3)
[2022-01-11] MEDS: HEPARIN SODIUM/DEXTROSE 25,000 UNITS/500 ML BAG IV SCH (07:30)
[2022-01-11] MEDS: METOPROLOL TARTRATE 25 MG TAB PO SCH ×2 (08:42→21:05)
[2022-01-11] MEDS: APIXABAN 5 MG TABLET PO SCH ×2 (08:42→21:05)
[2022-01-11] MEDS: FINASTERIDE 5 MG TAB PO SCH (08:43)
[2022-01-11] MEDS: ASPIRIN 81 MG ECTAB PO SCH (08:43)
[2022-01-11] MEDS: DOCUSATE SODIUM/SENNA 50/8.6MG TAB PO SCH (08:43)
[2022-01-11] MEDS: PANTOprazole 40 MG TAB PO SCH (08:44)
[2022-01-11] MEDS ORDERED: AMIODARONE 200 MG TAB PO SCH (09:00)
[2022-01-11] MEDS: INSULIN ASPART PER UNIT SC SCH ×4 (10:24→20:49)
[2022-01-11 11:13] LABS: Eosinophils # (auto) 0.04 K/uL (0-0.5); Eosinophils % (auto) 0.4 %; Hematocrit (blood only) 34.7 % (42-52); Hemoglobin 11.7 g/dL (14.0-18.0); Immature Granulocytes # (auto) 0.08 K/uL (0.00-0.02); Immature Granulocytes % (auto) 0.7 %; Lymphocytes # (auto) 1.77 K/uL (1.2-3.4); Lymphocytes % (auto) 15.8 %; Mean Corpuscular Hemoglobin 30.7 pg (25-34); Mean Corpuscular Hgb Conc 33.7 g/dL (32-36); Mean Corpuscular Volume 91.1 fL (80-100); Mean Platelet Volume 10.9 fL (7.4-10.4); Monocytes # (auto) 1.06 K/uL (0.11-0.59); Monocytes % (auto) 9.4 %; Neutrophils # (auto) 8.27 K/uL (1.4-6.5); Neutrophils % (auto) 73.7 %; Platelet Count 351 K/uL (130-400); RDW Coefficient of Variation 14.8 % (11.5-14.5); RDW Standard Deviation 49.7 fL (36.4-46.3); Red Blood Count 3.81 M/uL (4.7-6.1); White Blood Count 11.22 K/uL (4.8-10.8)
--- NOTE | 2022-01-11 19:14 | Hospitalist Progress Note ---
Date of Service January 11, 2022 Assessment & Plan (1) Acute respiratory failure with hypoxia: Plan: 01/02 COVID-19 Pneumonia with superimposed bacterial pneumonia in right upper lobe Febrile on arrival, now resolved Continue supplemental oxygen to target SPO2 sat greater than 90%-weaned off Vapotherm and now continues to wean down-now on 2 L nasal cannula at rest Covid and PNA treatment below 2/4: CXR similar versus slightly improved aeration -Has now completed Decadron x 10 day course On incentive spirometry and flutter valve (2) COVID-19: Plan: Covid pneumonia, suspect post viremic phase with superimposed pneumonia as below Covid positive 12/31/2021. Prior negative 11/14/22, no home test when pt had symptoms noted below. First day of symptoms: Unclear. Some URI symptoms for 3 to 4 weeks, some nasal congestion for 1-2 weeks which improved and some residual congestion but acute worsening and became febrile 7 days prior to admission and febrile daily since then. - Suspected COVID exposure 4-5 weeks ago (family from [facility]) who were all sick and required quarantine, sinus congestion started shortly after this exposure. Vaccination status: Unvaccinated CXR:IMPRESSION: Bilateral airspace opacities are suggestive of multifocal pneumonia. CRP: 36.2 initially and now down to 2 Procalcitonin 7.47 initially and now down to 0.1 Completed 10-day course of dexamethasone Remdesivir: Initial symptom onset 3 to 4 weeks ago, outside of viremic window - Baricitinib not recommended in setting of bacterial superinfection (3) Secondary pneumonia: Plan: CTA: Severely streak and motion compromised examination. There is no evidence of central pulmonary embolus in the main or lobar pulmonary arteries. The segmental and subsegmental vessels cannot be evaluated. There is significant dependent airspace consolidation seen bilaterally with small pleural effusions. The appearance is typical for pneumonia/aspiration pneumonitis. Clinical correlation will be required and radiographic follow-up to resolution is recommended. Mildly enlarged mediastinal and hilar nodes are likely reactive. There is mild aneurysmal dilatation of the ascending thoracic aorta which measures up to 4.2 cm in diameter. Cardiomegaly with advanced coronary artery calcification. Pro-Sung 7.47, CRP 36 on admission And CRP now trended downward all the way to 2.9, procalcitonin negative Patient febrile for the week prior to admission and on admission-now resolved -leukocytosis now with being on steroids but is significantly improved now -Has now completed a 7-day course of ceftriaxone and 5-day course of azithromycin -Sputum culture normal jaqueline and Debbie-no need to treat this -Blood cultures no growth to date (4) Atrial fibrillation with RVR: Plan: -No history of A. fib prior to admission Presented in sinus tachycardia converted to A. fib with RVR with rates up 160-180 shortly after admission Started on heparin drip for anticoagulation Pressures initially stable and mildly hypertensive. Treated with metoprolol 5mg IV x2 with minimal improvement Pressures decreased to [id number] systolic with increase in rate to 180, suspect for rate related hypotension with hypoxia Loaded with amiodarone drip started with some improvement in rate down to [id number] and improvement in pressures to 110-120s 01/01: Patient with A. fib RVR with rate related worsening oxygenation/pulmonary edema. Patient received amio boluses and digoxin with continued deterioration. -Attempted electrical cardioversion x2 with transient decrease and then returned to RVR. He was transferred to ICU for pressor support with phenylephrine -Received 2 days of IV amiodarone and then converted to amiodarone 200 mg p.o. twice daily on 01/04 -Briefly on diltiazem drip which were then discontinued, p.o. metoprolol was added but had no improvement in rates over many days -Weaned off phenylephrine and placed on p.o. midodrine on 01/07, downgraded out of the ICU -Cardiology consulted on 01/07-increased amiodarone to 400 mg p.o. twice daily -Converted to normal sinus rhythm on the evening of 01/08 Echocardiogram with preserved EF, no valvular abnormalities TSH normal -Appreciate cardiology consultation -Now that he is converted to a sinus rhythm,have increased metoprolol to 25 mg p.o. twice daily -Discontinued midodrine and blood pressures are normalized -keep potassium at 4.0, magnesium at 2.0 -Continue to monitor on telemetry -Given significant increase in AST/ALT since raising the dose of amiodarone, had to discontinue amiodarone -Cardiology is signing off-recommends follow-up with cardiology as an outpatient after discharge -Discontinued heparin drip and started Eliquis 5 mg p.o. twice daily-cost will be $9 per month as per case management (5) STEPHON (acute kidney injury): Plan: Creatinine initially peaked at 2.7 and now back to normal after IV fluid resuscitation and pressor support -Etiology secondary to ATN from hypotension Follow BMP (6) Hypotension: Plan: As above, secondary to rapid atrial fibrillation Now weaned off phenylephrine Blood pressures remained soft while in rapid atrial fibrillation, but now are much improved after spontaneous conversion to normal sinus rhythm Discontinued midodrine Tolerating metoprolol 25 mg p.o. twice daily (7) Hyponatremia: Plan: Sodium was 127, now improved to normal with giving crystalloid volume replacement Follow BMP (8) Metabolic acidosis: Plan: As above, secondary to acute kidney injury Improved with volume replacement and sodium bicarbonate (9) Diabetes mellitus: Plan: Hemoglobin A1c here 6.7% With hyperglycemia secondary to corticosteroids now resolved as steroids are discontinued Continue NovoLog supplemental insulin Will likely need p.o. medication upon discharge, but could just follow-up with PCP (10) Enlarged prostate: Plan: Holding home tamsulosin due to hypotension Continue finasteride -Jeong catheter discontinued and he is voiding without difficulty -Could restart tamsulosin upon discharge (11) Esophageal dysphagia: Plan: Continue PPI (12) Peripheral artery disease: Plan: With a history of left SFA angioplasty Continue aspirin but holding statin now for rising AST/ALT Follows with vascular surgery as an outpatient (13) Hyperlipidemia: Plan: hold atorvastatin as of 01/08 for rising AST/ALT in setting of amiodarone use and COVID-19 Restart atorvastatin once LFTs returned to normal (14) Constipation: Plan: Finally resolved on 01/07 with large bowel movement -Continue MiraLAX as needed and daily senna/docusate (15) Transaminitis: Plan: AST and ALT mildly elevated in the 80s, most likely secondary to COVID initially However AST and ALT continued to rise after increased dose of amiodarone -Discontinued amiodarone and LFTs continue to be trending back downward -Continue to hold statin -Follow LFTs in the morning -If LFTs almost completely back to normal, can restart atorvastatin on discharge Plan: DVT prophylaxis-Eliquis Disposition- Continued stay on PCU, but overall much improved, continue weaning down O2 PT/OT consults appreciated-recommend return home with home health Plan for discharge to home likely on Friday-he will need a two-step walk test with likely home oxygen, Eliquis, metoprolol as new medications He will also need follow-up with cardiology as an outpatient Admission and Anticipated Discharge Date Admission Date: December 31, 2021 Subjective Patient has no complaints. His oxygen tubing was actually not connected to the flow meter when I came in and his pulse ox was 91% on room air. He has been getting up and around the room more as per nursing. He feels he will be ready to go home tomorrow. Telemetry with normal sinus rhythm with rates in the 60s to 70s Review of Systems Review of Systems: All systems reviewed & are unremarkable except as noted in HPI & below Physical Exam Constitutional: WD/WN, vitals as above well developed; no acute distress Eyes: + anicteric sclerae Neck: trachea midline, no thyromegaly Respiratory: normal respiratory effort and + cough Auscultation: lungs clear to auscultation bilaterally Cardiovascular: RRR, no murmur, no edema Chest (Breasts): Chest: normal inspection of chest Gastrointestinal (Abdomen): normal bowel sounds, soft, nontender, no hepatosplenomegaly Musculoskeletal: Extremities: extremities normal to inspection; no cyanosis and no clubbing Skin: no rashes, warm and dry Neurologic: moves all extremities and awake; no focal motor deficits Psychiatric: A+Ox3, euthymic affect Lymphatic: no lymphedema Results & Data Results & Data ([facility]) Vital Signs (Past 12 Hours) Vital Signs Temp Pulse Pulse Resp BP Pulse Ox 01/11/22 16:29 36.7 C 63 16 120/68 94 01/11/22 11:45 36.6 C 66 16 128/76 94 01/11/22 11:23 70 01/11/22 08:00 36.4 C L 66 16 122/78 95 Laboratory Results 01/11/22 01/11/22 01/11/22 Range/Units 20:35 16:40 11:47 WBC (4.8-10.8) K/uL RBC (4.7-6.1) M/uL Hgb (14.0-18.0) g/dL Hct (42-52) % MCV (80-100) fL MCH (25-34) pg MCHC (32-36) g/dL RDW Std Deviation (36.4-46.3) fL RDW Coeff of Samantha (11.5-14.5) % Plt Count (130-400) K/uL MPV (7.4-10.4) fL Immature Gran % (Auto) % Neut % (Auto) % Lymph % (Auto) % [place] % (Auto) % Eos % (Auto) % Baso % (Auto) % Neut # (Auto) (1.4-6.5) K/uL Lymph # (Auto) (1.2-3.4) K/uL [place] # (Auto) (0.11-0.59) K/uL Eos # (Auto) (0-0.5) K/uL Baso # (Auto) (0-0.2) K/uL Immature Gran # (Auto) (0.00-0.02) K/uL APTT (21.0-31.0) Seconds PTT Ratio Sodium (136-145) mmol/L Potassium (3.5-5.1) mmol/L Chloride (98-107) mmol/L Carbon Dioxide (21-32) mmol/L Anion Gap (3-11) BUN (6-23) mg/dl Creatinine (0.6-1.4) mg/dl Est Cr Clr Drug Dosing ml/min Est GFR ( Amer) ml/min Est GFR (Non-Af Amer) ml/min BUN/Creatinine Ratio (10-20) Glucose (70-99(Fasting)) mg/dl POC Glucose 148 H 113 H 104 H (70-99) mg/dl Calcium (8.5-10.1) mg/dl Magnesium (1.7-2.4) mg/dl Total Bilirubin (0.2-1.0) mg/dl AST (13-39) U/L ALT (7-52) U/L Alkaline Phosphatase (34-104) U/L Total Protein (6.0-8.3) gm/dl Albumin (3.4-5.0) gm/dl Globulin (2.5-4.0) gm/dl Albumin/Globulin Ratio (0.9-2) 01/11/22 01/11/22 01/11/22 Range/Units 08:12 06:02 06:02 WBC (4.8-10.8) K/uL RBC (4.7-6.1) M/uL Hgb (14.0-18.0) g/dL Hct (42-52) % MCV (80-100) fL MCH (25-34) pg MCHC (32-36) g/dL RDW Std Deviation (36.4-46.3) fL RDW Coeff of Samantha (11.5-14.5) % Plt Count (130-400) K/uL MPV (7.4-10.4) fL Immature Gran % (Auto) % Neut % (Auto) % Lymph % (Auto) % [place] % (Auto) % Eos % (Auto) % Baso % (Auto) % Neut # (Auto) (1.4-6.5) K/uL Lymph # (Auto) (1.2-3.4) K/uL [place] # (Auto) (0.11-0.59) K/uL Eos # (Auto) (0-0.5) K/uL Baso # (Auto) (0-0.2) K/uL Immature Gran # (Auto) (0.00-0.02) K/uL APTT 28.6 (21.0-31.0) Seconds PTT Ratio 1.1 Sodium 135 L (136-145) mmol/L Potassium 4.6 (3.5-5.1) mmol/L Chloride 104 (98-107) mmol/L Carbon Dioxide 28 (21-32) mmol/L Anion Gap 3 (3-11) BUN 39 H (6-23) mg/dl Creatinine 1.10 (0.6-1.4) mg/dl Est Cr Clr Drug Dosing 63.7 ml/min Est GFR ( Amer) 76.8 ml/min Est GFR (Non-Af Amer) 66.2 ml/min BUN/Creatinine Ratio 35.5 H (10-20) Glucose 97 (70-99(Fasting)) mg/dl POC Glucose 108 H (70-99) mg/dl Calcium 8.3 L (8.5-10.1) mg/dl Magnesium 1.7 (1.7-2.4) mg/dl Total Bilirubin 0.6 (0.2-1.0) mg/dl AST 45 H (13-39) U/L ALT 143 H (7-52) U/L Alkaline Phosphatase 54 (34-104) U/L Total Protein 4.7 L (6.0-8.3) gm/dl Albumin 2.4 L (3.4-5.0) gm/dl Globulin 2.3 L (2.5-4.0) gm/dl Albumin/Globulin Ratio 1.0 (0.9-2) 01/11/22 Range/Units 06:02 WBC 11.22 H (4.8-10.8) K/uL RBC 3.81 L (4.7-6.1) M/uL Hgb 11.7 L (14.0-18.0) g/dL Hct 34.7 L (42-52) % MCV 91.1 (80-100) fL MCH 30.7 (25-34) pg MCHC 33.7 (32-36) g/dL RDW Std Deviation 49.7 H (36.4-46.3) fL RDW Coeff of Samantha 14.8 H (11.5-14.5) % Plt Count 351 (130-400) K/uL MPV 10.9 H (7.4-10.4) fL Immature Gran % (Auto) 0.7 % Neut % (Auto) 73.7 % Lymph % (Auto) 15.8 % [place] % (Auto) 9.4 % Eos % (Auto) 0.4 % Baso % (Auto) 0.0 % Neut # (Auto) 8.27 H (1.4-6.5) K/uL Lymph # (Auto) 1.77 (1.2-3.4) K/uL [place] # (Auto) 1.06 H (0.11-0.59) K/uL Eos # (Auto) 0.04 (0-0.5) K/uL Baso # (Auto) 0.00 (0-0.2) K/uL Immature Gran # (Auto) 0.08 H (0.00-0.02) K/uL APTT (21.0-31.0) Seconds PTT Ratio Sodium (136-145) mmol/L Potassium (3.5-5.1) mmol/L Chloride (98-107) mmol/L Carbon Dioxide (21-32) mmol/L Anion Gap (3-11) BUN (6-23) mg/dl Creatinine (0.6-1.4) mg/dl Est Cr Clr Drug Dosing ml/min Est GFR ( Amer) ml/min Est GFR (Non-Af Amer) ml/min BUN/Creatinine Ratio (10-20) Glucose (70-99(Fasting)) mg/dl POC Glucose (70-99) mg/dl Calcium (8.5-10.1) mg/dl Magnesium (1.7-2.4) mg/dl Total Bilirubin (0.2-1.0) mg/dl AST (13-39) U/L ALT (7-52) U/L Alkaline Phosphatase (34-104) U/L Total Protein (6.0-8.3) gm/dl Albumin (3.4-5.0) gm/dl Globulin (2.5-4.0) gm/dl Albumin/Globulin Ratio (0.9-2) PG Care Time/CCT Total # of Minutes Spent Total Time Spent with Patient: Total time spent is greater than 50% in coordination of care (as documented) at patient's floor/unit and/or counseling patient: Coding Level of Care Code 74148 Subseq Hosp Care Lvl 3 Diagnoses Acute respiratory failure with hypoxia J96.01 COVID-19 U07.1 Secondary pneumonia J18.9 Atrial fibrillation with RVR I48.91 STEPHON (acute kidney injury) N17.9 Hypotension I95.9 Hyponatremia E87.1 Metabolic acidosis E87.2 Diabetes mellitus E11.9 Enlarged prostate N40.0 Esophageal dysphagia R13.10 Peripheral artery disease I73.9 Hyperlipidemia E78.5 Constipation K59.00 Transaminitis R74.01
[2022-01-12 07:56] LABS: Albumin Globulin Ratio 1.2 (0.9-2); Albumin Level 2.7 gm/dl (3.4-5.0); BUN Creatinine Ratio 29.5 (10-20); Bilirubin,Total 0.8 mg/dl (0.2-1.0); Calcium 8.5 mg/dl (8.5-10.1); Creatinine Clr Calc Pharmacy 57.4 ml/min; Est GFR (African American) 67.7 ml/min; Est GFR (Non-African American) 58.5 ml/min; Globulin 2.3 gm/dl (2.5-4.0); Potassium 4.6 mmol/L (3.5-5.1)
[2022-01-12] MEDS: FINASTERIDE 5 MG TAB PO SCH (08:04)
[2022-01-12] MEDS: APIXABAN 5 MG TABLET PO SCH (08:04)
[2022-01-12] MEDS: ASPIRIN 81 MG ECTAB PO SCH (08:04)
[2022-01-12] MEDS: PANTOprazole 40 MG TAB PO SCH (08:04)
[2022-01-12] MEDS: METOPROLOL TARTRATE 25 MG TAB PO SCH (08:05)
[2022-01-12] MEDS: DOCUSATE SODIUM/SENNA 50/8.6MG TAB PO SCH (08:05)
[2022-01-12] MEDS: INSULIN ASPART PER UNIT SC SCH ×2 (08:20→12:55)
--- NOTE | 2022-01-12 20:36 | Discharge Summary ---
Date of Service January 12, 2022 Admission HPI Per Admitting Provider This is a 71-year-old male with past medical history of hyperlipidemia, BPH, and tobacco use that presents today with fever and shortness of breath. Patient is pleasant but speaks very little Burkinan. Daughter is at bedside translating from Moroccan. She tells me that the patient lives alone with his . Both have been sick recently and was suspected that they both had Covid. However, they did not seek medical attention at the time. The recovered but the patient has been slowly worsening. She describes the symptoms as starting with some upper respiratory issues with cough and congestion. He does have a chronic, mildly productive cough secondary to his smoking. He has been having worsening appetite and has lost approximately 25 pounds in the past several weeks. The shortness of breath started as mild dyspnea on exertion but has continued to worsen. Patient started having fevers today which is what eventually prompted her to bring her father in for evaluation. I do note that the patient was febrile coming to 39.6 C. O2 sat is 86% on room air. He is 91% on 6 L Ventimask. Of note, the patient is unvaccinated. Principal Diagnosis Covid-19 pneumonia Atrial fibrillation Discharge Exam Constitutional WD/WN, vitals as above Eyes EOM intact bilaterally; no conjunctival abnormality ENMT external ear and nose normal, oropharynx normal Neck trachea midline, no thyromegaly normal visual inspection Respiratory normal respiratory effort, lungs clear to auscultation no respiratory distress Cardiovascular RRR, no murmur, no edema Gastrointestinal (Abdomen) Inspection/Auscultation: abdomen normal to inspection; abdomen not distended Musculoskeletal no cyanosis or clubbing, extremities motor strength 5/5 Skin no rashes, warm and dry Neurologic moves all extremities and awake Psychiatric Orientation: alert, oriented to person and cooperative Discharge Data Allergies Allergy/AdvReac Type Severity Reaction Status Date / Time No Known Allergies Allergy Mild Verified 12/31/21 10:11 Consultations 12/31/21 11:46 ED Decision to Admit Stat 01/01/22 19:31 Consult Inclusion Paraeducator Routine 01/07/22 10:27 Consult Cardiology Routine Ordered Studies 01/01/22 10:43 CT angio chest PE protocol Stat Diabetes Follow up Diabetes Follow-up Needed for Newly Diagnosed Diabetes Hospital Course (1) Acute respiratory failure with hypoxia: 2/2 COVID-19 Pneumonia with superimposed bacterial pneumonia in right upper lobe Febrile on arrival, now resolved Continue supplemental oxygen to target SPO2 sat greater than 90%-weaned off Vapotherm and now continues to wean down-now on 2 L nasal cannula at rest Covid and PNA treatment below /: CXR similar versus slightly improved aeration -Has now completed Decadron x 10 day course On incentive spirometry and flutter valve (2) COVID-19: Covid pneumonia, suspect post viremic phase with superimposed pneumonia as below Covid positive 12/31/2021. Prior negative 11/14/22, no home test when pt had symptoms noted below. First day of symptoms: Unclear. Some URI symptoms for 3 to 4 weeks, some nasal congestion for 1-2 weeks which improved and some residual congestion but acute worsening and became febrile 7 days prior to admission and febrile daily since then. - Suspected COVID exposure 4-5 weeks ago (family from [facility]) who were all sick and required quarantine, sinus congestion started shortly after this exposure. Vaccination status: Unvaccinated CXR:IMPRESSION: Bilateral airspace opacities are suggestive of multifocal pneumonia. CRP: 36.2 initially and now down to 2 Procalcitonin 7.47 initially and now down to 0.1 Completed 10-day course of dexamethasone Remdesivir: Initial symptom onset 3 to 4 weeks ago, outside of viremic window - Baricitinib not recommended in setting of bacterial superinfection (3) Secondary pneumonia: CTA: Severely streak and motion compromised examination. There is no evidence of central pulmonary embolus in the main or lobar pulmonary arteries. The segmental and subsegmental vessels cannot be evaluated. There is significant dependent airspace consolidation seen bilaterally with small pleural effusions. The appearance is typical for pneumonia/aspiration pneumonitis. Clinical correlation will be required and radiographic follow-up to resolution is recommended. Mildly enlarged mediastinal and hilar nodes are likely reactive. There is mild aneurysmal dilatation of the ascending thoracic aorta which measures up to 4.2 cm in diameter. Cardiomegaly with advanced coronary artery calcification. Pro-Sung 7.47, CRP 36 on admission And CRP now trended downward all the way to 2.9, procalcitonin negative Patient febrile for the week prior to admission and on admission-now resolved -leukocytosis now with being on steroids but is significantly improved now -Has now completed a 7-day course of ceftriaxone and 5-day course of azithromycin -Sputum culture normal jaqueline and Debbie-no need to treat this -Blood cultures no growth to date (4) Atrial fibrillation with RVR: -No history of A. fib prior to admission Presented in sinus tachycardia converted to A. fib with RVR with rates up 160-180 shortly after admission Started on heparin drip for anticoagulation Pressures initially stable and mildly hypertensive. Treated with metoprolol 5mg IV x2 with minimal improvement Pressures decreased to 514888 systolic with increase in rate to 180, suspect for rate related hypotension with hypoxia Loaded with amiodarone drip started with some improvement in rate down to [id number] and improvement in pressures to 110-120s 01/01: Patient with A. fib RVR with rate related worsening oxygenation/pulmonary edema. Patient received amio boluses and digoxin with continued deterioration. -Attempted electrical cardioversion x2 with transient decrease and then returned to RVR. He was transferred to ICU for pressor support with phenylephrine -Received 2 days of IV amiodarone and then converted to amiodarone 200 mg p.o. twice daily on 01/04 -Briefly on diltiazem drip which were then discontinued, p.o. metoprolol was added but had no improvement in rates over many days -Weaned off phenylephrine and placed on p.o. midodrine on 01/07, downgraded out of the ICU -Cardiology consulted on 01/07-increased amiodarone to 400 mg p.o. twice daily -Converted to normal sinus rhythm on the evening of 01/08 Echocardiogram with preserved EF, no valvular abnormalities TSH normal -Appreciate cardiology consultation -Now that he is converted to a sinus rhythm,have increased metoprolol to 25 mg p.o. twice daily -Discontinued midodrine and blood pressures are normalized -keep potassium at 4.0, magnesium at 2.0 -Continue to monitor on telemetry -Given significant increase in AST/ALT since raising the dose of amiodarone, had to discontinue amiodarone -Cardiology is signing off-recommends follow-up with cardiology as an outpatient after discharge -Discontinued heparin drip and started Eliquis 5 mg p.o. twice daily-cost will be $9 per month as per case management (5) STEPHON (acute kidney injury): Creatinine initially peaked at 2.7 and now back to normal after IV fluid resuscitation and pressor support -Etiology secondary to ATN from hypotension Follow BMP (6) Hypotension: As above, secondary to rapid atrial fibrillation Now weaned off phenylephrine Blood pressures remained soft while in rapid atrial fibrillation, but now are much improved after spontaneous conversion to normal sinus rhythm Discontinued midodrine Tolerating metoprolol 25 mg p.o. twice daily (7) Hyponatremia: Sodium was 127, now improved to normal with giving crystalloid volume replacement Follow BMP (8) Metabolic acidosis: As above, secondary to acute kidney injury Improved with volume replacement and sodium bicarbonate (9) Diabetes mellitus: Hemoglobin A1c here 6.7% With hyperglycemia secondary to corticosteroids now resolved as steroids are discontinued Continue NovoLog supplemental insulin Will likely need p.o. medication upon discharge, but could just follow-up with PCP (10) Enlarged prostate: Holding home tamsulosin due to hypotension Continue finasteride -Jeong catheter discontinued and he is voiding without difficulty -Could restart tamsulosin upon discharge (11) Esophageal dysphagia: Continue PPI (12) Peripheral artery disease: With a history of left SFA angioplasty Continue aspirin but holding statin now for rising AST/ALT Follows with vascular surgery as an outpatient (13) Hyperlipidemia: hold atorvastatin as of 01/08 for rising AST/ALT in setting of amiodarone use and COVID-19 Restart atorvastatin once LFTs returned to normal (14) Constipation: Finally resolved on 01/07 with large bowel movement -Continue MiraLAX as needed and daily senna/docusate (15) Transaminitis: AST and ALT mildly elevated in the 80s, most likely secondary to COVID initially However AST and ALT continued to rise after increased dose of amiodarone -Discontinued amiodarone and LFTs continue to be trending back downward -Continue to hold statin -Follow LFTs in the morning -If LFTs almost completely back to normal, can restart atorvastatin on discharge DVT prophylaxis-Eliquis Disposition- Continued stay on PCU, but overall much improved, continue weaning down O2 PT/OT consults appreciated-recommend return home with home health Plan for discharge to home likely on Friday-he will need a two-step walk test with likely home oxygen, Eliquis, metoprolol as new medications He will also need follow-up with cardiology as an outpatient Total Time Total Time Spent Total Time Spent (In Minutes): 35 Discharge Plan Discharge Items Patient Disposition: Home - Home Health Services Reason For Visit: COVID PNA Discharge Diagnosis: Covid pneumonia, atrial fibrillation Activity: Resume your previous activity Non-emergency contact: Primary Care Provider and Pharmacist Helper Call non-emergency contact if: your symptoms worsen Follow-up/Referrals: Linwood Hoyt III, MD [Primary Care Provider] - Diet: Heart Healthy Addtl Attending Provider Instructions: Mr. Aleman, You were admitted to the hospital with Covid. You also had a bacterial infection on top of this. You were here long enough that you actually finished your steroids and antibiotics. You did well enough, that you don't even need home oxygen at this point. While sick, your heart went into a rhythm called atrial fibrillation. We gave you medication for this, and it is back to normal, but you should be on a blood thinner for at least another month, and possibly longer if your heart goes into the rhythm again in the future. This medication is called Eliquis, and we are also starting metoprolol to help keep your heart in a normal rate. Pending Studies at Discharge: No Stand-Alone Forms: My [facility], Smoking Cessation Medications and DC Order Prescriptions: New metoprolol tartrate 25 mg Tablet 25 mg PO BID Qty: 60 RF: 0 Eliquis 5 mg Tablet 5 mg PO BID Qty: 60 RF: 0 Continued atorvastatin 10 mg tablet 10 mg PO QAM Qty: 90 RF: 3 tamsulosin 0.4 mg capsule 0.4 mg PO QAM Qty: 90 RF: 3 Hold Instructions: hold x 14 days while treating H.Pylori finasteride 5 mg tablet 5 mg PO QAM Qty: 90 RF: 3 aspirin 81 mg Tablet,Delayed Release (Dr/Ec) 81 mg PO DAILY RF: 0 omeprazole 20 mg capsule,delayed release(DR/EC) 20 mg PO DAILY RF: 0 Discharge Orders: Discharge Order (Routine); Ordered 01/12/22 Ordered By: Horacio Scanlon/Other Patient Handouts: High Blood Sugar (Hyperglycemia), 5 Steps for Eating Healthier, Type 2 Diabetes Admission Data Admit Date/Time: 12/31/21 12:46 Attending Provider: Horacio Ingram Admit Provider: Brock Cage Primary Care Provider: Linwood Hoyt III Other Providers: Brock Cage ; Avery Chaney ; Nakul Haji ; [facility] Other Interventions: Discharge Summary Assessment (RN) Last Done: 01/12/22 15:08 Coding Level of Care Code D/C DAY MANAGEMENT >30 MINS Diagnoses Acute respiratory failure with hypoxia J96.01 COVID-19 U07.1 Secondary pneumonia J18.9 Atrial fibrillation with RVR I48.91 STEPHON (acute kidney injury) N17.9 Hypotension I95.9 Hyponatremia E87.1 Metabolic acidosis E87.2 Diabetes mellitus E11.9 Enlarged prostate N40.0 Esophageal dysphagia R13.10 Peripheral artery disease I73.9 Hyperlipidemia E78.5 Constipation K59.00 Transaminitis R74.01
== END 2022-01-12 16:43 | disposition home health service (06) | DRG 177 ==
LOC: ED 09:28 → SUATTDRO 12:46 → 2S 12:46 → 2E 01-01 19:17

== ENCOUNTER 2024-09-02 17:46 | Observation (INO) ==
[2024-09-02 18:38] LABS: Basophils # (auto) 0.03 K/uL (0.00-0.20); Basophils % (auto) 0.5 %; Eosinophils # (auto) 0.11 K/uL (0.00-0.50); Eosinophils % (auto) 1.9 %; Hematocrit (blood only) 46.7 % (42.0-52.0); Hemoglobin 16.1 g/dl (14.0-18.0); Immature Granulocytes # (auto) 0.01 K/uL (0.01-0.20); Immature Granulocytes % (auto) 0.2 %; Lymphocytes # (auto) 1.86 K/uL (1.20-3.40); Lymphocytes % (auto) 32.4 %; Mean Corpuscular Hemoglobin 30.6 pg (25.0-34.0); Mean Corpuscular Hgb Conc 34.5 g/dL (32.0-36.0); Mean Corpuscular Volume 88.8 fL (80.0-100.0); Mean Platelet Volume 10.5 fL (9.4-12.4); Monocytes # (auto) 0.67 K/uL (0.11-0.59); Monocytes % (auto) 11.7 %; Neutrophils # (auto) 3.06 K/uL (1.40-6.50); Neutrophils % (auto) 53.3 %; Platelet Count 211 K/uL (130-400); RDW Coefficient of Variation 12.9 % (11.5-14.5); RDW Standard Deviation 41.9 fL (36.4-46.3); Red Blood Count 5.26 M/uL (4.70-6.10); White Blood Count 5.74 K/ul (4.8-10.8)
--- NOTE | 2024-09-02 18:38 | XRay Report ---
XR chest 1V portable CLINICAL HISTORY: Dyspnea COMPARISON STUDY: Chest CT January 01, 2022. Chest radiograph January 05, 2022. FINDINGS: Lung volumes are normal. There is no pneumothorax or pleural effusion. There is moderate ca rdiomegaly without evidence for pulmonary edema. No consolidation is present. IMPRESSION: No acute cardiopulmonary findings. Cardiomegaly. ACT 112: Negative or not required by law. Electronically signed by: Aashish Dietrich M.D. 09/02/2024 6:36 PM
[2024-09-02 18:55] LABS: Albumin Globulin Ratio 1.6 (0.9-2); Albumin Level 3.9 gm/dl (3.4-5.0); BUN Creatinine Ratio 18.8 (10-20); Bilirubin,Total 0.6 mg/dl (0.2-1.0); Calcium 8.9 mg/dl (8.6-10.3); Creatinine Clr Calc Pharmacy 65.4 ml/min; Globulin 2.4 gm/dl (2.5-4.0); Magnesium 1.8 mg/dl (1.7-2.4); Potassium 4.1 mmol/L (3.5-5.1); Total Protein 6.3 gm/dl (6.0-8.3)
--- NOTE | 2024-09-02 18:57 | Emergency Department Note ---
Impression & Plan Dizziness, Acute dyspnea, Acute hypoxemic respiratory failure ED Provider Note HISTORY OF PRESENT ILLNESS: Patient is a 73-year-old male presenting with hypoxia. Patient's daughter translates, as patient is primarily [place]-speaking and she insists on translating. She reports that yesterday the patient was having episodes of dizziness while he was up walking around. He has never had this before. Reports that the dizziness would improve when he sat down. She states that today they checked his oxygen level when he got dizzy with standing and noticed that his pulse ox was reading 84% on room air. Patient does not wear any supplemental oxygen at baseline. Reports the patient felt short of breath with his hypoxia. He denies any chest pain. He is on Eliquis for history of A-fib. Denies any missed doses. Daughter reports that they recently were traveling abroad and returned on 08/13/2024. Patient denies any DVT or PE history. He had oxygen saturations of 84 to 91% today, and when they called his primary care provider they were referred to the emergency department. Patient denies any history of cardiac stents. ROS: as above PHYSICAL EXAM: Constitutional: Patient appears in no acute distress. HENT: Head: Normocephalic and atraumatic. Eyes: EOMI, PERRL Mouth/Throat: Mucous membranes moist. Neck: Trachea midline. Neck supple. Cardiovascular: RRR. No murmurs, rubs or gallops. Intact distal pulses. Pulmonary/Chest: No respiratory distress. Breath sounds clear and equal bilaterally. No wheezes or rales. Abdominal: Abdomen soft, no tenderness, rebound or guarding. Musculoskeletal: No edema, tenderness or deformity noted. Skin: Warm and dry. No rash, erythema, pallor or cyanosis Psychiatric: Appropriate mood and affect for situation. Neurological: Alert and keenly responsive. CN II-XII grossly intact, moving all extremities equally and fully. MDM: - Vitals signs showed hypoxia. Patient placed on 2 L nasal cannula - History obtained via patient's daughter acts as die baker, as patient is [place]-speaking. History as above. - Chronic conditions affecting care: HLD; DM-2; BPH; paroxysmal Afib - Differential diagnoses include, but are not limited to: Congestive heart failure; acute coronary syndrome; COPD/asthma exacerbation; pulmonary edema; pulmonary embolism; pneumonia; pneumothorax; viral syndrome - Order placed for continuous cardiac monitoring. At this time, monitor showed rate of 81 bpm with normal sinus rhythm, per my interpretation. - External medical records reviewed. Primary care visit note dated was reviewed. Patient follows in their clinic for his multiple medical comorbidities. - EKG interpreted by myself showed normal sinus rhythm. Rate 88 bpm. QT 384. No acute ischemic changes. However, noted to have some T wave inversions which appear new in the lateral leads when compared to an EKG from January 2022. - Laboratory workup interpreted by myself showed normal WBC; normal PT/INR; stable electrolytes; normal BNP; normal troponin - Viral respiratory panel negative - VBG normal - CXR negative for pneumonia, per my interpretation - CT PE negative for PE. - Unclear etiology for patient's hypoxia at this time. He has no appreciable wheezing on examination to suggest a COPD exacerbation. Patient is not complaining of any chest pain, but does have new EKG changes as compared to 2021. He has normal troponin level in the emergency department, but may be a cardiac etiology for his hypoxia and will require further workup. - Discussion was had with telephonic case manager about patient's case and need for admission - Hospitalist, Dr. Kelley, consulted for admission - [facility] for further evaluation and management. ASSESSMENT AND PLAN: Diagnosis: Dizziness; acute dyspnea; acute hypoxemia Plan: Admit Past Med/Surg History Problem List (Updated 09/02/24 @ 20:50 by Essie Wilson MD) Acute hypoxemic respiratory failure (Acute) Acute dyspnea (Acute) Dizziness (Acute) Abnormal echocardiogram Acute renal insufficiency Left shoulder pain Peripheral artery disease (Chronic) Paroxysmal atrial fibrillation Diabetes mellitus Hyperlipidemia Benign prostatic hyperplasia with urinary obstruction (Acute) Medical History Decreased ROM of left shoulder Leg weakness, bilateral Fatigue Constipation Esophageal dysphagia Synovial cyst of popliteal space Calf pain Metabolic acidosis Pneumonia due to severe acute respiratory syndrome coronavirus 2 (SARS-CoV-2) COVID-19 Esophageal dysphagia History of Helicobacter pylori infection [place] filter in place Deep vein thrombosis Surgical History History of right cataract extraction History of tooth extraction History of colonoscopy History of esophagogastroduodenoscopy (EGD) Family History Father Hypertension Brain tumor Mother Hypertension Social History Smoking Status: Never smoker Age Quit Using Tobacco: 71; Cigarettes Per Day: 3-5; Second Hand Exposure: No; Do You Dip or Chew Tobacco: No; Hx Alcohol Use: No Hx Substance Use: No Preferred Language: [place] Communication Ability: Impaired Communication Ability Comment: pt didn't find die baker helpful in past experiences and prefers daughter Patent Attorney Required: Yes Beliefs That Will Affect Care: None marital status: Current Living Situation: Spouse current occupational status: retired Feels Safe at Home: Yes Assistive Devices: Oxygen - Continuous Allergies Allergies Allergy/AdvReac Type Severity Reaction Status Date / Time No Known Allergies Allergy Mild Verified 04/19/24 14:39 Home Meds Home Medications Medication Instructions Recorded Confirmed aspirin 81 mg tablet,delayed 81 mg PO DAILY 12/31/21 09/02/24 release metoprolol tartrate 25 mg tablet 25 mg PO QAM 09/02/24 09/02/24 Previous Rx's Medication Instructions Recorded apixaban 5 mg tablet (Eliquis) 5 mg PO BID 90 days #180 tabs 09/29/23 atorvastatin 40 mg tablet 40 mg PO DAILY #90 tabs 05/12/24 finasteride 5 mg tablet 5 mg PO QAM #90 tabs 07/26/24 tamsulosin 0.4 mg capsule 0.4 mg PO QAM #90 caps 07/26/24 Results & Data (ED) Vital Signs Vital Signs - 24 hr 09/02/24 17:59 09/02/24 18:28 09/02/24 18:30 Temperature 36.8 C Temperature Source Temporal Artery Scan Pulse Rate 98 H 84 80 Pulse Rate from SpO2 Sensor 80 Respiratory Rate 18 16 Respiratory Effort / Characteristics Non-Labored Respiratory Depth Normal Respiratory Pattern Regular Blood Pressure 115/80 141/91 H Blood Pressure Mean 91 103 Pulse Oximetry 88 L 92 Oxygen Delivery Method Room Air Oxygen Flow Rate Sepsis Recent Fever Within 48 Hours No Sepsis New/Unexplained Change in Mental Status N/A Sepsis Action Taken by Nursing No Action Required Oxygen Flow Rate - Titration Pulse Oximetry Post Tiitration 09/02/24 18:33 09/02/24 19:12 09/02/24 19:30 Temperature Temperature Source Pulse Rate 81 81 Pulse Rate from SpO2 Sensor 81 81 Respiratory Rate 17 17 Respiratory Effort / Characteristics Respiratory Depth Respiratory Pattern Blood Pressure 159/115 H Blood Pressure Mean 127 Pulse Oximetry 86 L 95 96 Oxygen Delivery Method Room Air Nasal Cannula Oxygen Flow Rate 0 2 2 Sepsis Recent Fever Within 48 Hours Sepsis New/Unexplained Change in Mental Status Sepsis Action Taken by Nursing Oxygen Flow Rate - Titration 2 Pulse Oximetry Post Tiitration 93 Laboratory Data 09/02/24 18:15 09/02/24 18:15 Lab Results 09/02/24 09/02/24 09/02/24 Range/Units 18:15 18:35 19:00 WBC 5.74 (4.8-10.8) K/ul RBC 5.26 (4.70-6.10) M/uL Hgb 16.1 (14.0-18.0) g/dl Hct 46.7 (42.0-52.0) % MCV 88.8 (80.0-100.0) fL MCH 30.6 (25.0-34.0) pg MCHC 34.5 (32.0-36.0) g/dL RDW Std Deviation 41.9 (36.4-46.3) fL RDW Coeff of Samantha 12.9 (11.5-14.5) % Plt Count 211 (130-400) K/uL MPV 10.5 (9.4-12.4) fL Immature Gran % (Auto) 0.2 % Neut % (Auto) 53.3 % Lymph % (Auto) 32.4 % [place] % (Auto) 11.7 % Eos % (Auto) 1.9 % Baso % (Auto) 0.5 % Neut # (Auto) 3.06 (1.40-6.50) K/uL Lymph # (Auto) 1.86 (1.20-3.40) K/uL [place] # (Auto) 0.67 H (0.11-0.59) K/uL Eos # (Auto) 0.11 (0.00-0.50) K/uL Baso # (Auto) 0.03 (0.00-0.20) K/uL Immature Gran # (Auto) 0.01 (0.01-0.20) K/uL PT 11.2 (9.0-12.0) Seconds INR 1.0 (0.9-1.1) D-Dimer 430 (0-500) ug/L FEU VBG pH 7.40 (7.36-7.41) VBG pCO2 38 (38-50) mmHg VBG pO2 61 mmHg VBG HCO3 24 mmol/L VBG O2 Saturation 89.5 % VBG Base Excess -1.1 mEq/L Sodium 141 (136-145) mmol/L Potassium 4.1 (3.5-5.1) mmol/L Chloride 110 H (98-107) mmol/L Carbon Dioxide 25 (21-32) mmol/L Anion Gap 6 (3-11) BUN 21 (6-23) mg/dl Creatinine 1.12 (0.6-1.4) mg/dl Est Cr Clr Drug Dosing 65.4 ml/min eGFR 68.51 BUN/Creatinine Ratio 18.8 (10-20) Glucose 129 H (70-99(Fasting)) mg/dl Calcium 8.9 (8.6-10.3) mg/dl Magnesium 1.8 (1.7-2.4) mg/dl Total Bilirubin 0.6 (0.2-1.0) mg/dl AST 38 (13-39) U/L ALT 70 H (7-52) U/L Alkaline Phosphatase 78 (34-104) U/L Troponin I High Sens 4.2 (0-20) pg/ml B-Natriuretic Peptide 60 (0-100) pg/ml Total Protein 6.3 (6.0-8.3) gm/dl Albumin 3.9 (3.4-5.0) gm/dl Globulin 2.4 L (2.5-4.0) gm/dl Albumin/Globulin Ratio 1.6 (0.9-2) Adenovirus (PCR) Not Detected (NotDetected) B. pertussis DNA (PCR) Not Detected (NotDetected) B.parapertussis DNA PCR Not Detected (NotDetected) C. pneumoniae DNA (PCR) Not Detected (NotDetected) Coronavirus OC43 (PCR) Not Detected (NotDetected) Coronavirus HKU1 (PCR) Not Detected (NotDetected) Coronavirus 229E (PCR) Not Detected (NotDetected) SARS-CoV-2 (PCR) Not Detected (NotDetected) Coronavirus NL63 (PCR) Not Detected (NotDetected) Human Metapneumovir PCR Not Detected (NotDetected) Influenza Type A (PCR) Not Detected (NotDetected) Influenza Type B (PCR) Not Detected (NotDetected) M. pneumoniae (PCR) Not Detected (NotDetected) Parainfluenza 1 (PCR) Not Detected (NotDetected) Parainfluenza 2 (PCR) Not Detected (NotDetected) Parainfluenza 3 (PCR) Not Detected (NotDetected) Parainfluenza 4 (PCR) Not Detected (NotDetected) RSV (PCR) Not Detected (NotDetected) Entero/Rhino (PCR) Not Detected (NotDetected) Administered Medications Discontinued Medications Ioversol (Optiray 320 125ml) 118 ml IV ONCE ONE Stop: 09/02/24 19:22 Last Admin: 09/02/24 19:21 Dose: 118 ml Documented By: KEVIN Imaging Data Radiologist's Impression: Chest X-Ray 09/02/24 18:08 XR chest 1V portable CLINICAL HISTORY: Dyspnea COMPARISON STUDY: Chest CT January 01, 2022. Chest radiograph January 05, 2022. FINDINGS: Lung volumes are normal. There is no pneumothorax or pleural effusion. There is moderate cardiomegaly without evidence for pulmonary edema. No consolidation is present. IMPRESSION: No acute cardiopulmonary findings. Cardiomegaly. ACT 112: Negative or not required by law. Electronically signed by: Aashish Dietrich M.D. 09/02/2024 6:36 PM Chest CTA 09/02/24 18:54 Exam(s): CTA CHEST IV Amt: 118 ml optiray 320 EXAM: CT Angiography Chest With Intravenous Contrast CLINICAL HISTORY: Reason for exam: PE; dizziness; hypoxia. TECHNIQUE: Axial computed tomographic angiography images of the chest with intravenous contrast. CTDI is 37 mGy and DLP is 858.85 mGy-cm. Automated exposure control was utilized for the study. A dose lowering technique was utilized adhering to the principles of ALARA. MIP reconstructed images were created and reviewed. COMPARISON: 01/01/22 FINDINGS: Pulmonary arteries: Adequate pulmonary artery opacification. Normal caliber main pulmonary. No evidence of pulmonary embolism. Aorta: Thoracic aortic atherosclerosis without aneurysm or dissection. Lungs: Emphysema. Dependent subsegmental atelectasis in both lower lobes. No consolidation or mass. Pleural space: Unremarkable. No significant effusion. No pneumothorax. Heart: Coronary artery atherosclerosis. Mild cardiomegaly. No pericardial effusion. Bones/joints: No acute fracture. No dislocation. Soft tissues: Unremarkable. Lymph nodes: Calcified right infrahilar as well as mediastinal lymph nodes in keeping with chronic many lumbar disc disease. Spleen: Nonspecific hypodense splenic lesion measuring 2.6 cm. Adrenals: Stable benign right adrenal adenoma; no follow-up indicated. Kidneys and ureters: Partially imaged right kidney upper pole cyst measuring 3.7 cm, simple in appearance. IMPRESSION: 1. No evidence of pulmonary embolism. 2. Nonspecific hypodense splenic lesion measuring 2.6 cm. MRI could be performed for further characterization as indicated. Electronically signed by: Jm Olivo M.D. 09/02/24 19:46 PM Discharge Plan Visit Data Chief Complaint: Abnormal Labs/Diagnostic Testing Stated Complaint: LOW OX LEVEL, DIZZY, DISCOMFORT WHEN BREATHING ED Provider: Essie Wilson Discharge Problem: Dizziness, Acute dyspnea, Acute hypoxemic respiratory failure Forms Stand Alone Forms: [facility] Prescriptions Prescriptions: No Action Eliquis 5 mg tablet 5 mg PO BID 90 Days Qty: 180 3RF atorvastatin 40 mg tablet 40 mg PO DAILY Qty: 90 3RF tamsulosin 0.4 mg capsule 0.4 mg PO QAM Qty: 90 3RF Hold Instructions: hold x 14 days while treating H.Pylori finasteride 5 mg tablet 5 mg PO QAM Qty: 90 3RF aspirin 81 mg Tablet,Delayed Release (Dr/Ec) 81 mg PO DAILY metoprolol tartrate 25 mg tablet 25 mg PO QAM Rx Instructions: Take 1 tablet by mouth twice daily Referrals Referrals: Jayant Ely DO [Primary Care Provider] -
[2024-09-02 19:01] LABS: Troponin I High Sensitivity 4.2 pg/ml (0-20)
[2024-09-02 19:05] LABS: D Dimer 430 ug/L FEU (0-500); Prothrombin Time 11.2 Seconds (9.0-12.0)
[2024-09-02 19:06] LABS: Base Excess VBG -1.1 mEq/L; HCO3 VBG 24 mmol/L; Oxygen Saturation VBG 89.5 %; PCO2 VBG 38 mmHg (38-50); PO2 VBG 61 mmHg
[2024-09-02] MEDS: OPTIRAY 320 125ml IV ONE (19:21)
--- NOTE | 2024-09-02 19:47 | CT Scan Report ---
Exam(s): CTA CHEST IV Amt: 118 ml optiray 320 EXAM: CT Angiography Chest With Intravenous Contrast CLINICAL HISTORY: Reason for exam: PE; dizziness; hypoxia. TECHNIQUE: Axial computed tomographic angiography images of the chest with intravenous contrast. CTDI is 37 mGy and DLP is 858.85 mGy-cm. Automated exposure control was utilized for the study. A dose lowering technique was utilized adhering to the principles of ALARA. MIP reconstructed images were created and reviewed. COMPARISON: 01/01/22 FINDINGS: Pulmonary arteries: Adequate pulmonary artery opacification. Normal caliber main pulmonary. No evidence of pulmonary embolism. Aorta: Thoracic aortic atherosclerosis without aneurysm or dissection. Lungs: Emphysema. Dependent subsegmental atelectasis in both lower lobes. No consolidation or mass. Pleural space: Unremarkable. No significant effusion. No pneumothorax. Heart: Coronary artery atherosclerosis. Mild cardiomegaly. No pericardial effusion. Bones/joints: No acute fracture. No dislocation. Soft tissues: Unremarkable. Lymph nodes: Calcified right infrahilar as well as mediastinal lymph nodes in keeping with chronic many lumbar disc disease. Spleen: Nonspecific hypodense splenic lesion measuring 2.6 cm. Adrenals: Stable benign right adrenal adenoma; no follow-up indicated. Kidneys and ureters: Partially imaged right kidney upper pole cyst measuring 3.7 cm, simple in appearance. IMPRESSION: 1. No evidence of pulmonary embolism. 2. Nonspecific hypodense splenic lesion measuring 2.6 cm. MRI could be performed for further characterization as indicated. Electronically signed by: Jm Olivo M.D. 09/02/24 19:46 PM
[2024-09-02 20:11] LABS: Adenovirus PCR Not Detected (NotDetected); Bordetella parapertussis PCR Not Detected (NotDetected); Bordetella pertussis PCR Not Detected (NotDetected); Chlamydia pneumoniae PCR Not Detected (NotDetected); Coronavirus 229E PCR Not Detected (NotDetected); Coronavirus CoV-2 (COVID19)PCR Not Detected (NotDetected); Coronavirus HKU1 PCR Not Detected (NotDetected); Coronavirus NL63 PCR Not Detected (NotDetected); Coronavirus OC43PCR Not Detected (NotDetected); Human Metapneumovirus PCR Not Detected (NotDetected); Influenza A PCR Not Detected (NotDetected); Influenza B PCR Not Detected (NotDetected); Mycoplasma pneumoniae PCR Not Detected (NotDetected); Parainfluenza Virus 1 PCR Not Detected (NotDetected); Parainfluenza Virus 2 PCR Not Detected (NotDetected); Parainfluenza Virus 3 PCR Not Detected (NotDetected); Parainfluenza Virus 4 PCR Not Detected (NotDetected); Respiratory Syncytial VirusPCR Not Detected (NotDetected); Rhinovirus/Enterovirus PCR Not Detected (NotDetected)
--- NOTE | 2024-09-02 21:30 | History & Physical Report ---
Date of Service September 02, 2024 Assessment & Plan (1) Acute hypoxemic respiratory failure: Plan: Etiology unclear. Patient with mild hypoxia at rest. No known underlying lung disease, however, with long history of smoking as well as Covid-19 PNA with bacterial PNA - possible undiagnosed COPD contributing? Emphysema noted on CTA. Atelectasis as well likely contributing. -Observation to medical -Continue supplemental O2 as needed -Incentive spirometry -Two step evaluation ordered for AM -Patient would benefit from formal PFT testing (2) Abnormal ECG: Plan: Patient with TWI present in lateral leads on EKG. There was mention of inferolateral T-wave inversions present on prior EKG. Echo performed revealed hypokinesis of the inferior wall and mid to distal anterolateral wall with normal LV function. Troponin is unremarkable. No report of chest pain. Presumed CAD -Repeat troponin in AM -Continue ASA, Atorvastatin and Metoprolol (3) Paroxysmal atrial fibrillation: Plan: Noted -Continue Apixaban 5mg po BID -Continue Metoprolol (4) Hyperlipidemia: Plan: Chronic -Continue Atorvastatin History of Present Illness Chief Complaint: shortness of breath, hypoxia Primary Care Provider: Jayant Ely DO Juanita Aleman is a pleasant 73yo male with history of DM, HLP, DVT on Eliquis anticoagulation, presumed CAD presenting from home with shortness of breath and hypoxia at home. Patient reportedly has been getting dizzy and short of breath with standing and ambulation ongoing for the last several days. His saturations at home were 84-91% on room air. Daughter endorses a chronic, dry cough. No report of chest pain, palpitations, abdominal pain, nausea, vomiting, diarrhea or constipation. Patient with extensive smoking history - smoked appx 1ppd since the age of 19. He quit in 2021 when he was hospitalized with Covid-19. Patient was hospitalized from 12/31/21 - 01/12/22 with Covid-19 PNA as well as secondary PNA. He was treated with steroids as well as antibiotics. He has no formally diagnosed pulmonary conditions at this time In the ER patient hypoxic on arrival 86%, 88%. Improved with supplemental O2 Patient dyspneic during my encounter upon return from the bathroom - saturations 89 - 90% on room air. Allergies Allergy/AdvReac Type Severity Reaction Status Date / Time No Known Allergies Allergy Mild Verified 04/19/24 14:39 Home Medications Medication Instructions Recorded Confirmed Type aspirin 81 mg tablet,delayed 81 mg PO DAILY 12/31/21 09/02/24 History release apixaban 5 mg tablet (Eliquis) 5 mg PO BID 90 days #180 tabs 09/29/23 09/02/24 Rx atorvastatin 40 mg tablet 40 mg PO DAILY #90 tabs 05/12/24 09/02/24 Rx finasteride 5 mg tablet 5 mg PO QAM #90 tabs 07/26/24 09/02/24 Rx tamsulosin 0.4 mg capsule 0.4 mg PO QAM #90 caps 07/26/24 09/02/24 Rx metoprolol tartrate 25 mg tablet 25 mg PO QAM 09/02/24 09/02/24 History Past Med/Surg History Problem List Acute hypoxemic respiratory failure (Acute) Acute dyspnea (Acute) Dizziness (Acute) Abnormal echocardiogram Acute renal insufficiency Left shoulder pain Peripheral artery disease (Chronic) Paroxysmal atrial fibrillation Diabetes mellitus Hyperlipidemia Benign prostatic hyperplasia with urinary obstruction (Acute) Medical History Decreased ROM of left shoulder Leg weakness, bilateral Fatigue Constipation Esophageal dysphagia Synovial cyst of popliteal space Calf pain Metabolic acidosis Pneumonia due to severe acute respiratory syndrome coronavirus 2 (SARS-CoV-2) COVID-19 Esophageal dysphagia History of Helicobacter pylori infection resolved [place] filter in place follows Dr. Perez Deep vein thrombosis many years ago> [facility] Surgical History History of right cataract extraction History of tooth extraction History of colonoscopy History of esophagogastroduodenoscopy (EGD) Family History Father Hypertension Brain tumor Mother Hypertension Social History Smoking Status: Never smoker Age Quit Using Tobacco: 71; Cigarettes Per Day: 3-5; Second Hand Exposure: No; Do You Dip or Chew Tobacco: No; Hx Alcohol Use: No Hx Substance Use: No Preferred Language: Tristanian Communication Ability: Impaired Communication Ability Comment: pt didn't find swing ride operator helpful in past experiences and prefers daughter Pacs Specialist Required: Yes Beliefs That Will Affect Care: None marital status: Current Living Situation: Spouse current occupational status: retired Feels Safe at Home: Yes Assistive Devices: Oxygen - Continuous Review of Systems Review of Systems: All systems reviewed & are unremarkable except as noted in HPI & below Physical Exam Physical Exam: General: patient resting comfortably, NAD, non-toxic in appearance, AA&O x 4 Skin: warm, dry, intact, no rashes or lesions HEENT: NC/AT, PERRL, EOMI, anicteric sclera, conjunctiva without injection, external ear normal to inspection and nontender, nares patent, moist mucus membranes, dentition intact, no oropharyngeal lesions, neck supple, trachea midline, no LAD, no thyromegaly, no JVD Heart: +S1/S2, regular, no m/r/g Lungs: equal air entry bilaterally, no rhonchi or wheezes, faint crackles in bilateral lung bases Abd: +BS, soft, NT/ND, no masses/organomegaly/ascites Ext: warm, 2+ pulses in UE/LE bilaterally, no clubbing/cyanosis, trace LLE pitting edema (chronic per daughter) Neuro: nonfocal, patient AA&O x 4, speech intact, no facial droop, moving all extremities on command with equal strength 5/5 Results & Data Results & Data Vital Signs (Past 12 Hours) Vital Signs Temp Pulse Resp BP Pulse Ox O2 Del Method O2 Flow Rate 09/02/24 21:00 70 21 166/127 H 94 09/02/24 20:30 70 22 169/112 H 95 09/02/24 20:00 69 19 173/101 H 94 09/02/24 19:30 81 17 159/115 H 96 2 09/02/24 19:12 81 17 95 2 09/02/24 18:33 86 L Room Air, Nasal Cannula 0 09/02/24 18:30 80 16 141/91 H 92 09/02/24 18:28 84 09/02/24 17:59 36.8 C 98 H 18 115/80 88 L Room Air Laboratory Results Laboratory Results WBC 5.74 K/ul (4.8-10.8) 09/02/24 18:15 RBC 5.26 M/uL (4.70-6.10) 09/02/24 18:15 Hgb 16.1 g/dl (14.0-18.0) 09/02/24 18:15 Hct 46.7 % (42.0-52.0) 09/02/24 18:15 MCV 88.8 fL (80.0-100.0) 09/02/24 18:15 MCH 30.6 pg (25.0-34.0) 09/02/24 18:15 MCHC 34.5 g/dL (32.0-36.0) 09/02/24 18:15 RDW Std Deviation 41.9 fL (36.4-46.3) 09/02/24 18:15 RDW Coeff of Samantha 12.9 % (11.5-14.5) 09/02/24 18:15 Plt Count 211 K/uL (130-400) 09/02/24 18:15 MPV 10.5 fL (9.4-12.4) 09/02/24 18:15 Immature Gran % (Auto) 0.2 % 09/02/24 18:15 Neut % (Auto) 53.3 % 09/02/24 18:15 Lymph % (Auto) 32.4 % 09/02/24 18:15 [place] % (Auto) 11.7 % 09/02/24 18:15 Eos % (Auto) 1.9 % 09/02/24 18:15 Baso % (Auto) 0.5 % 09/02/24 18:15 Neut # (Auto) 3.06 K/uL (1.40-6.50) 09/02/24 18:15 Lymph # (Auto) 1.86 K/uL (1.20-3.40) 09/02/24 18:15 [place] # (Auto) 0.67 K/uL (0.11-0.59) H 09/02/24 18:15 Eos # (Auto) 0.11 K/uL (0.00-0.50) 09/02/24 18:15 Baso # (Auto) 0.03 K/uL (0.00-0.20) 09/02/24 18:15 Immature Gran # (Auto) 0.01 K/uL (0.01-0.20) 09/02/24 18:15 PT 11.2 Seconds (9.0-12.0) 09/02/24 18:15 INR 1.0 (0.9-1.1) 09/02/24 18:15 D-Dimer 430 ug/L FEU (0-500) 09/02/24 18:15 VBG pH 7.40 (7.36-7.41) 09/02/24 19:00 VBG pCO2 38 mmHg (38-50) 09/02/24 19:00 VBG pO2 61 mmHg 09/02/24 19:00 VBG HCO3 24 mmol/L 09/02/24 19:00 VBG O2 Saturation 89.5 % 09/02/24 19:00 VBG Base Excess -1.1 mEq/L 09/02/24 19:00 Sodium 141 mmol/L (136-145) 09/02/24 18:15 Potassium 4.1 mmol/L (3.5-5.1) 09/02/24 18:15 Chloride 110 mmol/L (98-107) H 09/02/24 18:15 Carbon Dioxide 25 mmol/L (21-32) 09/02/24 18:15 Anion Gap 6 (3-11) 09/02/24 18:15 BUN 21 mg/dl (6-23) 09/02/24 18:15 Creatinine 1.12 mg/dl (0.6-1.4) 09/02/24 18:15 Est Cr Clr Drug Dosing 65.4 ml/min 09/02/24 18:15 eGFR 68.51 09/02/24 18:15 BUN/Creatinine Ratio 18.8 (10-20) 09/02/24 18:15 Glucose 129 mg/dl (70-99(Fasting)) H 09/02/24 18:15 Calcium 8.9 mg/dl (8.6-10.3) 09/02/24 18:15 Magnesium 1.8 mg/dl (1.7-2.4) 09/02/24 18:15 Total Bilirubin 0.6 mg/dl (0.2-1.0) 09/02/24 18:15 AST 38 U/L (13-39) 09/02/24 18:15 ALT 70 U/L (7-52) H 09/02/24 18:15 Alkaline Phosphatase 78 U/L (34-104) 09/02/24 18:15 Troponin I High Sens 4.2 pg/ml (0-20) 09/02/24 18:15 B-Natriuretic Peptide 60 pg/ml (0-100) 09/02/24 18:15 Total Protein 6.3 gm/dl (6.0-8.3) 09/02/24 18:15 Albumin 3.9 gm/dl (3.4-5.0) 09/02/24 18:15 Globulin 2.4 gm/dl (2.5-4.0) L 09/02/24 18:15 Albumin/Globulin Ratio 1.6 (0.9-2) 09/02/24 18:15 Urine Color Cancelled 09/02/24 18:32 Urine Appearance Cancelled 09/02/24 18:32 Urine pH Cancelled 09/02/24 18:32 Ur Specific [place] Cancelled 09/02/24 18:32 Urine Protein Cancelled 09/02/24 18:32 Urine Glucose (UA) Cancelled 09/02/24 18:32 Urine Ketones Cancelled 09/02/24 18:32 Urine Blood Cancelled 09/02/24 18:32 Urine Nitrite Cancelled 09/02/24 18:32 Urine Bilirubin Cancelled 09/02/24 18:32 Urine Urobilinogen Cancelled 09/02/24 18:32 Ur Leukocyte Esterase Cancelled 09/02/24 18:32 Urine WBC (Auto) Cancelled 09/02/24 18:32 Urine RBC (Auto) Cancelled 09/02/24 18:32 U Hyaline Cast (Auto) Cancelled 09/02/24 18:32 U Epithel Cells (Auto) Cancelled 09/02/24 18:32 Urine Bacteria (Auto) Cancelled 09/02/24 18:32 Ur Renal Epithelial Cell Cancelled 09/02/24 18:32 Chris Biurate Crystals Cancelled 09/02/24 18:32 Calcium Oxalate Crystal Cancelled 09/02/24 18:32 Leucine Crystals Cancelled 09/02/24 18:32 Cystine Crystals Cancelled 09/02/24 18:32 Uric Acid Crystals Cancelled 09/02/24 18:32 Triple Phos Crystals Cancelled 09/02/24 18:32 Sulfonamide Crystals Cancelled 09/02/24 18:32 Cholesterol Crystals Cancelled 09/02/24 18:32 [place]c Crystals Cancelled 09/02/24 18:32 Tyrosine Crystals Cancelled 09/02/24 18:32 Hippuric Acid Crystals Cancelled 09/02/24 18:32 Unidentified Crystals Cancelled 09/02/24 18:32 Amorphous Sediment Cancelled 09/02/24 18:32 Epithelial Casts Cancelled 09/02/24 18:32 Hyaline Casts Cancelled 09/02/24 18:32 Granular Casts Cancelled 09/02/24 18:32 Waxy Casts Cancelled 09/02/24 18:32 RBC Casts Cancelled 09/02/24 18:32 WBC Casts Cancelled 09/02/24 18:32 Other Casts Cancelled 09/02/24 18:32 Urine Mucus Cancelled 09/02/24 18:32 Urine Other Cancelled 09/02/24 18:32 Urine Trichomonas Cancelled 09/02/24 18:32 Urine Yeast Cancelled 09/02/24 18:32 Urine Sperm Cancelled 09/02/24 18:32 Ur Oval Fat Bodies Cancelled 09/02/24 18:32 Adenovirus (PCR) Not Detected (NotDetected) 09/02/24 18:35 B. pertussis DNA (PCR) Not Detected (NotDetected) 09/02/24 18:35 B.parapertussis DNA PCR Not Detected (NotDetected) 09/02/24 18:35 C. pneumoniae DNA (PCR) Not Detected (NotDetected) 09/02/24 18:35 Coronavirus OC43 (PCR) Not Detected (NotDetected) 09/02/24 18:35 Coronavirus HKU1 (PCR) Not Detected (NotDetected) 09/02/24 18:35 Coronavirus 229E (PCR) Not Detected (NotDetected) 09/02/24 18:35 SARS-CoV-2 (PCR) Not Detected (NotDetected) 09/02/24 18:35 Coronavirus NL63 (PCR) Not Detected (NotDetected) 09/02/24 18:35 Human Metapneumovir PCR Not Detected (NotDetected) 09/02/24 18:35 Influenza Type A (PCR) Not Detected (NotDetected) 09/02/24 18:35 Influenza Type B (PCR) Not Detected (NotDetected) 09/02/24 18:35 M. pneumoniae (PCR) Not Detected (NotDetected) 09/02/24 18:35 Parainfluenza 1 (PCR) Not Detected (NotDetected) 09/02/24 18:35 Parainfluenza 2 (PCR) Not Detected (NotDetected) 09/02/24 18:35 Parainfluenza 3 (PCR) Not Detected (NotDetected) 09/02/24 18:35 Parainfluenza 4 (PCR) Not Detected (NotDetected) 09/02/24 18:35 RSV (PCR) Not Detected (NotDetected) 09/02/24 18:35 Entero/Rhino (PCR) Not Detected (NotDetected) 09/02/24 18:35 Impressions Chest X-Ray 09/02/24 18:08 XR chest 1V portable CLINICAL HISTORY: Dyspnea COMPARISON STUDY: Chest CT January 01, 2022. Chest radiograph January 05, 2022. FINDINGS: Lung volumes are normal. There is no pneumothorax or pleural effusion. There is moderate cardiomegaly without evidence for pulmonary edema. No consolidation is present. IMPRESSION: No acute cardiopulmonary findings. Cardiomegaly. ACT 112: Negative or not required by law. Electronically signed by: Aashish Dietrich M.D. 09/02/2024 6:36 PM Chest CTA 09/02/24 18:54 Exam(s): CTA CHEST IV Amt: 118 ml optiray 320 EXAM: CT Angiography Chest With Intravenous Contrast CLINICAL HISTORY: Reason for exam: PE; dizziness; hypoxia. TECHNIQUE: Axial computed tomographic angiography images of the chest with intravenous contrast. CTDI is 37 mGy and DLP is 858.85 mGy-cm. Automated exposure control was utilized for the study. A dose lowering technique was utilized adhering to the principles of ALARA. MIP reconstructed images were created and reviewed. COMPARISON: 01/01/22 FINDINGS: Pulmonary arteries: Adequate pulmonary artery opacification. Normal caliber main pulmonary. No evidence of pulmonary embolism. Aorta: Thoracic aortic atherosclerosis without aneurysm or dissection. Lungs: Emphysema. Dependent subsegmental atelectasis in both lower lobes. No consolidation or mass. Pleural space: Unremarkable. No significant effusion. No pneumothorax. Heart: Coronary artery atherosclerosis. Mild cardiomegaly. No pericardial effusion. Bones/joints: No acute fracture. No dislocation. Soft tissues: Unremarkable. Lymph nodes: Calcified right infrahilar as well as mediastinal lymph nodes in keeping with chronic many lumbar disc disease. Spleen: Nonspecific hypodense splenic lesion measuring 2.6 cm. Adrenals: Stable benign right adrenal adenoma; no follow-up indicated. Kidneys and ureters: Partially imaged right kidney upper pole cyst measuring 3.7 cm, simple in appearance. IMPRESSION: 1. No evidence of pulmonary embolism. 2. Nonspecific hypodense splenic lesion measuring 2.6 cm. MRI could be performed for further characterization as indicated. Electronically signed by: Jm Olivo M.D. 09/02/24 19:46 PM ECG Additional Comments: EKG with NSR at 88bpm, right axis, WC=435, QRS=92, IFq=243, evidence of inferior infarct present, TWI in lateral leads Code Status & VTE Plan VTE Prophylaxis Plan VTE Prophylaxis will be ordered: Yes PG Care Time/CCT Total # of Minutes Spent Total Time Spent with Patient: Total time spent is greater than 50% in coordination of care (as documented) at patient's floor/unit and/or counseling patient: Coding Level of Care Code 00345 INT INP/OBS CARE 2/55MIN Diagnoses Acute hypoxemic respiratory failure J96.01 Abnormal ECG R94.31 Paroxysmal atrial fibrillation I48.0 Hyperlipidemia E78.5
[2024-09-02] MEDS: APIXABAN 5 MG TABLET PO ONE (22:29)
[2024-09-02] MEDS ORDERED: ACETAMINOPHEN 325 MG TAB PO PRN (23:08)
[2024-09-02] MEDS ORDERED: ONDANSETRON INJ 2 MG/ML 2 ML VIAL IV PRN (23:08)
[2024-09-03 01:16] LABS: Appearance Urine Clear (Clear); Bilirubin Urine Negative (Negative); Blood Urine Negative (Negative); Color Urine Yellow; Glucose Urine UA Negative (Negative); Ketones Urine Negative (Negative); Leukocyte Esterase Urine Negative (Negative); Nitrite Urine Negative (Negative); Protein Urine Negative (Negative); Specific Gravity Urine 1.027 (1.000-1.030); Urobilinogen Urine Negative (Negative)
[2024-09-03 05:31] VITALS: TEMP 98.4
--- NOTE | 2024-09-03 07:22 | Hospitalist Progress Note ---
Date of Service September 03, 2024 Assessment & Plan (1) Chronic hypoxic respiratory failure: Plan: 73-year-old man with history of atrial fibrillation presented with dyspnea and fatigue found to be hypoxic with room air sats of 88%, 86% he did have thorough evaluation in the ED including CBC CMP EKG, cardiac enzymes, CT pulmonary angiogram without PE or evidence of pneumonia, BNP which was low, procalcitonin which was minimally elevated at 0.76 he does have a history of smoking for 50 years, quit 2 years ago, and significant emphysema on CT chest therefore COPD/emphysema explains his hypoxia which I think is mainly chronic and progressive started Breo inhaler, albuterol inhaler as needed azithromycin 500 mg p.o. x 3 doses in case some component of acute bronchitis or mild exacerbation. He is not wheezing, I do not think he will benefit from systemic steroids hypoxia improved and he was able to maintain his O2 sats on room air, however, he was hypoxic with ambulation. Home O2 was arranged for 2 L with activity he will need PFTs as an outpatient, referral made to pulmonary clinic (2) Abnormal ECG: Plan: TWI present in lateral leads on EKG. There was mention of inferolateral T-wave inversions present on prior EKG. Echo 05/19 with EF 45-50% no rwma's poor image quality. Troponins were negative. No report of chest pain. -Continue ASA, Atorvastatin and Metoprolol for presumed coronary artery disease (3) Paroxysmal atrial fibrillation: Plan: -Continue Apixaban 5mg po BID -Continue Metoprolol (4) Hyperlipidemia: Plan: Chronic -Continue Atorvastatin (5) COPD (chronic obstructive pulmonary disease): Plan 2.6 cm nonspecific hypodense splenic lesion seen on CT - consider follow up with MRI Admission and Anticipated Discharge Date Admission Date: September 02, 2024 Subjective He feels better on the oxygen, no longer short of breath no cough, wheezing or fever no chest pain, leg swelling or leg pain Physical Exam 2 Physical Exam: PHYSICAL EXAMINATION Last 24h vital signs reviewed, see documentation in flowsheet General: comfortable appearing, no distress HEENT: Normocephalic, atraumatic, pupils round and equal, sclerae anicteric, no conjunctival injection, moist mucus membranes Lungs: Normal respiratory effort. diminished throughout, increased expiratory phase Clear to auscultation bilaterally. No RRW Heart: Regular rate and rhythm, no murmurs. No JVD Abdomen: Soft, nontender, nondistended. Bowel sounds present. Extremities: Warm, dry, well-perfused. No extremity edema. Neuro: Alert and oriented x 4, face symmetric, moves 4 extremities w, walks wellell Psych: Normal affect and behavior Results & Data Results & Data Vital Signs (Past 12 Hours) Vital Signs Temp Pulse Pulse Resp BP BP Pulse Ox 09/03/24 05:29 36.9 C 94 H 18 108/75 93 09/03/24 02:30 100 H 20 142/90 H 92 09/03/24 02:00 92 H 24 93 09/03/24 01:45 91 H 19 93 09/03/24 00:31 92 H 15 169/108 H 93 09/03/24 00:00 97 H 15 154/97 H 93 09/02/24 23:36 96 H 10 L 91 09/02/24 23:30 90 16 165/98 H 93 09/02/24 23:00 88 19 159/102 H 95 09/02/24 22:39 78 09/02/24 22:21 96 H 20 160/92 H 94 09/02/24 22:00 70 17 172/109 H 90 09/02/24 21:24 67 22 157/113 H 96 09/02/24 21:00 70 21 166/127 H 94 09/02/24 20:30 70 22 169/112 H 95 09/02/24 20:00 69 19 173/101 H 94 09/02/24 19:30 81 17 159/115 H 96 O2 Del Method O2 Flow Rate 09/03/24 05:29 Nasal Cannula 3 09/03/24 02:30 Nasal Cannula 2 09/03/24 02:00 09/03/24 01:45 09/03/24 00:31 2 09/03/24 00:00 09/02/24 23:36 09/02/24 23:30 09/02/24 23:00 09/02/24 22:39 09/02/24 22:21 2 09/02/24 22:00 2 09/02/24 21:24 09/02/24 21:00 09/02/24 20:30 09/02/24 20:00 09/02/24 19:30 2 Laboratory Results 09/02/24 18:15 09/02/24 18:15 PG Care Time/CCT Total # of Minutes Spent Total Time Spent with Patient: Total time spent is greater than 50% in coordination of care (as documented) at patient's floor/unit and/or counseling patient: Coding Level of Care Code None Diagnoses Chronic hypoxic respiratory failure J96.11 Abnormal ECG R94.31 Paroxysmal atrial fibrillation I48.0 Hyperlipidemia E78.5 COPD (chronic obstructive pulmonary disease) J44.9
[2024-09-03] MEDS ORDERED: ALBUTEROL HFA 8 GM INHALER INH PRN (07:29)
[2024-09-03] MEDS: FLUTICASONE/VILANTEROL 200/25MCG 14 PUFFS/INHALER INH SCH (08:56)
[2024-09-03] MEDS: TAMSULOSIN HCL 0.4 MG CAP PO SCH (08:57)
[2024-09-03] MEDS: METOPROLOL TARTRATE 25 MG TAB PO SCH (08:57)
[2024-09-03] MEDS: FINASTERIDE 5 MG TAB PO SCH (08:58)
[2024-09-03] MEDS: ASPIRIN 81 MG ECTAB PO SCH (08:58)
[2024-09-03] MEDS: APIXABAN 5 MG TABLET PO SCH (08:58)
[2024-09-03] MEDS: ATORVASTATIN 40 MG TAB PO SCH (08:58)
--- NOTE | 2024-09-03 10:36 | Electrocardiogram Report ---
Test Reason : Blood Pressure : */* mmHG Vent. Rate : 88 BPM Atrial Rate : 88 BPM P-R Int : 166 ms QRS Dur : 92 ms QT Int : 384 ms P-R-T Axes : -16 -18 -20 degrees QTcB Int : 464 ms Normal sinus rhythm possib;e Inferior infarct (cited on or before 25-Dec-2015) Abnormal ECG When compared with ECG of 09-Jan-2022 08:32, QRS axis Shifted right T wave inversion now evident in Lateral leads Confirmed by Nakul Haji ([id number]) on 09/03/2024 10:36:05 AM Referred By: REFERRED SELF Confirmed By: Nakul Haji
[2024-09-03] MEDS: AZITHROMYCIN 250 MG TAB PO SCH (12:13)
[2024-09-03 14:39] VITALS: PULSE 81
[2024-09-03 15:32] VITALS: BP 116/69; RESP 18; O2SAT 93
--- NOTE | 2024-09-03 18:24 | Discharge Summary ---
Discharge Summary Date of Service September 03, 2024 Principal Dx & Hospital Course #1 = Principal Diagnosis (1) Chronic hypoxic respiratory failure: 73-year-old man with history of atrial fibrillation presented with dyspnea and fatigue found to be hypoxic with room air sats of 88%, 86% he did have thorough evaluation in the ED including CBC CMP EKG, cardiac enzymes, CT pulmonary angiogram without PE or evidence of pneumonia, BNP which was low, procalcitonin which was minimally elevated at 0.76 he does have a history of smoking for 50 years, quit 2 years ago, and significant emphysema on CT chest therefore COPD/emphysema explains his hypoxia which I think is mainly chronic and progressive started Breo inhaler, albuterol inhaler as needed azithromycin 500 mg p.o. x 3 doses in case some component of acute bronchitis or mild exacerbation. He is not wheezing, I do not think he will benefit from systemic steroids hypoxia improved and he was able to maintain his O2 sats on room air, however, he was hypoxic with ambulation. Home O2 was arranged for 2 L with activity he will need PFTs as an outpatient, referral made to pulmonary clinic (2) Abnormal ECG: TWI present in lateral leads on EKG. There was mention of inferolateral T-wave inversions present on prior EKG. Echo 05/19 with EF 45-50% no rwma's poor image quality. Troponins were negative. No report of chest pain. -Continue ASA, Atorvastatin and Metoprolol for presumed coronary artery disease (3) Paroxysmal atrial fibrillation: -Continue Apixaban 5mg po BID -Continue Metoprolol (4) Hyperlipidemia: Chronic -Continue Atorvastatin (5) COPD (chronic obstructive pulmonary disease): Plan 2.6 cm nonspecific hypodense splenic lesion seen on CT - consider follow up with MRI Notes For Next Care Provider 2.6 cm nonspecific hypodense splenic lesion seen on CT - consider follow up with MRI Medication Changes From Visit started Breo Ellipta and albuterol azithromycin 500 mg p.o. x 3 days total Admission HPI Per Admitting Provider Juanita Aleman is a pleasant 73yo male with history of DM, HLP, DVT on Eliquis anticoagulation, presumed CAD presenting from home with shortness of breath and hypoxia at home. Patient reportedly has been getting dizzy and short of breath with standing and ambulation ongoing for the last several days. His saturations at home were 84-91% on room air. Daughter endorses a chronic, dry cough. No report of chest pain, palpitations, abdominal pain, nausea, vomiting, diarrhea or constipation. Patient with extensive smoking history - smoked appx 1ppd since the age of 19. He quit in 2021 when he was hospitalized with Covid-19. Patient was hospitalized from 12/31/21 - 01/12/22 with Covid-19 PNA as well as secondary PNA. He was treated with steroids as well as antibiotics. He has no formally diagnosed pulmonary conditions at this time In the ER patient hypoxic on arrival 86%, 88%. Improved with supplemental O2 Patient dyspneic during my encounter upon return from the bathroom - saturations 89 - 90% on room air. Discharge Exam PHYSICAL EXAMINATION Last 24h vital signs reviewed, see documentation in flowsheet General: comfortable appearing, no distress HEENT: Normocephalic, atraumatic, pupils round and equal, sclerae anicteric, no conjunctival injection, moist mucus membranes Lungs: Normal respiratory effort. diminished throughout, increased expiratory phase Clear to auscultation bilaterally. No RRW Heart: Regular rate and rhythm, no murmurs. No JVD Abdomen: Soft, nontender, nondistended. Bowel sounds present. Extremities: Warm, dry, well-perfused. No extremity edema. Neuro: Alert and oriented x 4, face symmetric, moves 4 extremities w, walks wellell Psych: Normal affect and behavior Discharge Plan Discharge Items Patient Disposition: Home - Self-Care Reason For Visit: HYPOXIA, SOB Discharge Diagnosis: chronic hypoxia due to COPD Activity: Resume your previous activity Non-emergency contact: Primary Care Provider Call non-emergency contact if: you have any medication questions and your symptoms worsen Follow-up/Referrals: Jayant Ely DO [Primary Care Provider] - Diet: Carb Consistent or DM2 and Heart Healthy Addtl Attending Provider Instructions: You were diagnosed with emphysema (a form of COPD, chronic obstructive pulmonary disease) This is causing low oxygen level We did not find other causes of low oxygen. There was no evidence of serious lung infection (pneumonia), blood clot in lung (PE), lung mass/tumor, heart failure, heart attack etc I prescribed a control inhaler - use this one every day for maintenance I prescribed an albuterol inhaler for "rescue" - use this one as needed for shortness of breath I also prescribed a short course of antibiotic in case you have component of bronchitis - azithromycin - you only need 2 more doses but it stays in your body for 10 days Use your oxygen at 2 liters with any activity, like walking around. You are ok without it when you are at rest. You should have pulmonary function testing done as an outpatient We made a referral to pulmonary clinic for follow up Pending Studies at Discharge: No Stand-Alone Forms: [facility], Smoking Cessation Medications and DC Order Prescriptions: New azithromycin 250 mg Tablet 500 mg PO QAM Qty: 2 0RF albuterol sulfate [Ventolin HFA] 90 mcg/actuation Hfa Aerosol Inhaler 2 puff inhalation Q4H PRN (Reason: shortness of breath or wheezing) Qty: 8.5 0RF fluticasone furoate-vilanterol [Breo Ellipta] 200-25 mcg/dose Blister With Device 1 inh inhalation DAILY Qty: 60 0RF Continued Eliquis 5 mg tablet 5 mg PO BID 90 Days Qty: 180 3RF atorvastatin 40 mg tablet 40 mg PO DAILY Qty: 90 3RF tamsulosin 0.4 mg capsule 0.4 mg PO QAM Qty: 90 3RF Hold Instructions: hold x 14 days while treating H.Pylori finasteride 5 mg tablet 5 mg PO QAM Qty: 90 3RF aspirin 81 mg Tablet,Delayed Release (Dr/Ec) 81 mg PO DAILY metoprolol tartrate 25 mg tablet 25 mg PO QAM Rx Instructions: Take 1 tablet by mouth twice daily Discharge Orders: Discharge Order (Routine); Ordered 09/03/24 Ordered By: Iman Scanlon/Other Patient Handouts: COPD Using Inhalers, Discharge Instructions: COPD, COPD: Using Inhalers Admission Data Admit Date/Time: 09/02/24 21:28 Attending Provider: Iman Rodríguez Admit Provider: Lilian Kelley Primary Care Provider: Jayant Ely Other Providers: Lilian Kelley Other Interventions: Discharge Summary Assessment (RN) Last Done: 09/03/24 15:35 Hospital Stay Data Consultations 09/02/24 20:54 ED Decision to Admit Stat Diagnostic Imagining Performed 09/02/24 18:54 CT for pulmonary embolism PE [CT angio chest PE protocol] Stat Pending Results Patient Have Any Pending Studies at Discharge: No Discharge Instructions Given to Patient (Per Discharging Provider) You were diagnosed with emphysema (a form of COPD, chronic obstructive pulmonary disease) This is causing low oxygen level We did not find other causes of low oxygen. There was no evidence of serious lung infection (pneumonia), blood clot in lung (PE), lung mass/tumor, heart failure, heart attack etc I prescribed a control inhaler - use this one every day for maintenance I prescribed an albuterol inhaler for "rescue" - use this one as needed for shortness of breath I also prescribed a short course of antibiotic in case you have component of bronchitis - azithromycin - you only need 2 more doses but it stays in your body for 10 days Use your oxygen at 2 liters with any activity, like walking around. You are ok without it when you are at rest. You should have pulmonary function testing done as an outpatient We made a referral to pulmonary clinic for follow up Total Time Total Time Spent Total Time Spent (In Minutes): I personally spent: 40 minutes today on clinical care activities including: reviewing chart notes and vital signs reviewing labs reviewing studies discussion with career development associate arranging home oxygen examining and counseling the patient counseling the patient's family writing orders writing prescriptions, discharge instructions documentation Coding Level of Care Code 19619 INP/OBS DISCH >30 MIN Diagnoses Chronic hypoxic respiratory failure J96.11 Abnormal ECG R94.31 Paroxysmal atrial fibrillation I48.0 Hyperlipidemia E78.5 COPD (chronic obstructive pulmonary disease) J44.9
== END 2024-09-03 15:30 | disposition home or self-care (01) ==
LOC: ED 17:46 → EDINP 17:46 → SUATTDRO 21:28 → EDINP 23:09